=== PATIENT | female | born 1965 | race Caucasian/White ===

== ENCOUNTER → 2016-11-19 | Outpatient (REF) | payer OTHER ==
[2016-11-19 11:34] LABS: MEAN CORPUSCULAR HEMOGLOBIN 29.8 pg (27.0-33.0); MEAN CORPUSCULAR VOLUME 87.8 fl (80.0-96.0); RED CELL DISTRIBUTION WIDTH 13.4 % (11.5-14.5); WHITE BLOOD COUNT 7.2 K/mm3 (4.0-10.0)
[2016-11-19 12:13] LABS: ALBUMIN 3.1 GM/DL (3.2-5.2); ALBUMIN/GLOBULIN RATIO 0.91 (1.00-1.93); ALKALINE PHOSPHATASE 78 U/L (45-117); ALT/SGPT 40 U/L (12-78); ANION GAP 9 MEQ/L (8-16); AST/SGOT 19 U/L (15-37); BILIRUBIN,TOTAL 0.4 MG/DL (0.2-1.0); BLOOD UREA NITROGEN 15 MG/DL (7-18); CALCIUM LEVEL 8.3 MG/DL (8.5-10.1); CARBON DIOXIDE LEVEL 25 MEQ/L (21-32); CHLORIDE LEVEL 106 MEQ/L (98-107); CHOLESTEROL LEVEL 187 MG/DL (<200); CREATININE FOR GFR 0.64 MG/DL (0.55-1.02); FREE T4 1.04 NG/DL (0.76-1.46); GLOMERULAR FILTRATION RATE > 60.0 (>58); GLUCOSE, FASTING 87 MG/DL (70-105); POTASSIUM SERUM 4.5 MEQ/L (3.5-5.1); SODIUM LEVEL 140 MEQ/L (136-145); TOTAL PROTEIN 6.5 GM/DL (6.4-8.2); TRIGLYCERIDES LEVEL 180 MG/DL (<150)
== END ==
LOC: M SFHCADAM 08:13 → M LABDRAWC 08:15
PROVIDERS: ATTEND Physician Assistant
DX: R60.9 Edema, unspecified (principal); E78.2 Mixed hyperlipidemia

== ENCOUNTER → 2017-01-21 | Outpatient (REF) | payer OTHER ==
[~2017-01-21] MED LIST: ASPI1TAB PO; BENA25TA10 PO; GLUC1CAP9 PO; LASI20TA PO; LEVO25TA5; MULT1CHW39 PO
[2017-01-21 12:17] LABS: FREE T4 1.02 NG/DL (0.76-1.46)
== END ==
LOC: M SFHCCLAY 08:01
PROVIDERS: ATTEND Family Medicine
DX: E03.9 Hypothyroidism, unspecified (principal)

== ENCOUNTER → 2017-01-21 | Outpatient (REF) | payer OTHER ==
[2017-01-21 14:41] LABS: COMPLEMENT C4 34.3 MG/DL (10-40); IMMUNOGLOBULIN M 54.5 MG/DL (40-230)
[2017-01-24 08:19] LABS: ALPHA 1 ANTITRYPSIN 152 mg/dL (90-200); D001-IgE D pteronyssinus 0.46 kU/L (Class I); E001-IgE Cat Epith/Dander < 0.10 kU/L (Class 0); E005-IgE Dog Dander < 0.10 kU/L (Class 0); F002-IgE Milk < 0.10 kU/L (Class 0); F013-IgE Peanut < 0.10 kU/L (Class 0); F014-IgE Soybean < 0.10 kU/L (Class 0); F026-IgE Pork < 0.10 kU/L (Class 0); F027-IgE Beef < 0.10 kU/L (Class 0); F245-IgE Egg, Whole < 0.10 kU/L (Class 0); FX02-IgE Food Mix (Sea Foods) Positive (.); G002-IgE Bermuda Grass < 0.10 kU/L (Class 0); G008-IgE Kentucky Bluegrass < 0.10 kU/L (Class 0); M001-IgE Penicillium chrysogen < 0.10 kU/L (Class 0); M002 IgE Cladosporium herbaru < 0.10 kU/L (Class 0); M003 IgE Aspergillus fumigatu < 0.10 kU/L (Class 0); M006-IgE Alternaria alternata < 0.10 kU/L (Class 0); T001-IgE Maple/Box Elder < 0.10 kU/L (Class 0); T003-IgE Common Silver Birch < 0.10 kU/L (Class 0); T007-IgE Oak, White < 0.10 kU/L (Class 0); T008-IgE Elm, American < 0.10 kU/L (Class 0); T015-IgE Ash, White < 0.10 kU/L (Class 0); T041-IgE Hickory, White < 0.10 kU/L (Class 0); W001-IgE Ragweed, Short < 0.10 kU/L (Class 0); W009-IgE Plantain, English < 0.10 kU/L (Class 0); W014-IgE Pigweed, Rough < 0.10 kU/L (Class 0); W018-IgE Sheep Sorrel < 0.10 kU/L (Class 0)
== END ==
LOC: M LAB REF 11:06
PROVIDERS: ATTEND Allergy & Immunology
DX: J30.89 Other allergic rhinitis (principal); R05 Cough

== ENCOUNTER 2017-02-14 20:32 | Emergency (ER) | payer OTHER ==
[~2017-02-14] VITALS: Ht 165.1 cm; Wt 143.2 kg
[2017-02-14] MEDS ORDERED: MULT1CHW39 PO (20:45)
[2017-02-14] MEDS ORDERED: GLUC1CAP9 PO (20:45)
[2017-02-14] MEDS ORDERED: LEVO25TA5 (20:45)
[2017-02-14] MEDS ORDERED: ASPI1TAB PO (20:45)
[2017-02-14] MEDS ORDERED: LASI20TA PO (20:45)
[2017-02-14] MEDS ORDERED: BENA25TA10 PO (20:45)
[2017-02-14] MEDS ORDERED: MORPHINE 2 MG/ML 1ML SYRINGE IV ONE (21:15)
[2017-02-14] MEDS ORDERED: ASPIRIN 325 MG TAB PO ONE (21:15)
[2017-02-14 21:19] LABS: BASO % 0.4 % (0.0-1.0); EOS # 0.2 10^3/uL (0.0-0.50); EOS % 1.4 % (0.0-3.0); IMMATURE GRANULOCYTE % 0.3 % (0-0); LYMPH # 3.2 10^3/uL (1.5-4.5); LYMPH % 29.1 % (24.0-44.0); MEAN CORPUSCULAR HEMOGLOBIN 28.9 pg (27.0-33.0); MEAN CORPUSCULAR VOLUME 87.6 fl (80.0-96.0); MONO # 0.8 10^3/uL (0.0-0.8); MONO % 7.4 % (0.0-5.0); NEUTROPHILS # 6.8 10^3/uL (1.8-7.7); NEUTROPHILS % 61.4 % (36.0-66.0); PLATELET COUNT, AUTOMATED 344 10^3/uL (150-450); RED CELL DISTRIBUTION WIDTH 13.3 % (11.5-14.5); WHITE BLOOD COUNT 11.1 10^3/uL (4.0-10.0)
[2017-02-14 21:27] LABS: ANION GAP 7 MEQ/L (8-16); BLOOD UREA NITROGEN 17 MG/DL (7-18); CALCIUM LEVEL 8.5 MG/DL (8.5-10.1); CARBON DIOXIDE LEVEL 30 MEQ/L (21-32); CHLORIDE LEVEL 103 MEQ/L (98-107); CREATININE FOR GFR 0.82 MG/DL (0.55-1.02); GLOMERULAR FILTRATION RATE > 60.0 (>58); GLUCOSE, FASTING 109 MG/DL (70-105); SODIUM LEVEL 140 MEQ/L (136-145)
[2017-02-14 21:30] LABS: INR 0.9
[2017-02-14] MEDS ORDERED: ISOVUE-370 76% 100ML VIAL (Q9967) As Ordered ONE (21:55)
--- NOTE | 2017-02-14 22:50 | REPUSA ---
CT angiogram of the chest Clinical statement: Chest pain and shortness of breath. Technique: Multiple axial CT images were obtained from the thoracic inlet through the upper abdomen a fter a bolus administration of nonionic intravenous contrast. Coronal and sagittal reconstructions we re also obtained. No comparison is available. Findings: The pulmonary arteries are well-opacified with contrast, with no intraluminal filling defec ts to suggest embolism. The thoracic aorta is unremarkable. Thyroid gland is within normal limits. Th ere is no thoracic lymphadenopathy. There are no pericardial or pleural effusions. The lungs are татьяна r. Limited imaging of the upper abdomen is unremarkable. There are no suspicious osseous lesions. Impression: Unremarkable CT examination of the chest. No evidence of pulmonary embolism.
[2017-02-15] MEDS ORDERED: KETOROLAC 30 MG/ML VIAL (J1885) IV ONE (00:15)
[2017-02-15 03:09] VITALS: BP 117/57
[2017-02-15] MEDS ORDERED: GI COCKTAIL 50ML BTL(HYOSCYAMINE/MAALOX/LIDOCAINE VISCOUS)(1:3:1) PO ONE (03:15)
--- NOTE | 2017-02-15 07:22 | ECGEPIP ---
Stationary ECG Study 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
--- NOTE | 2017-02-15 07:26 | ECGEPIP ---
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
== END 2017-02-15 03:37 | disposition home or self-care (01) ==
LOC: M ED 20:32
DX: R07.89 Other chest pain (principal); R94.31 Abnormal electrocardiogram [ECG] [EKG]; I10 Essential (primary) hypertension; E03.9 Hypothyroidism, unspecified; K21.9 Gastro-esophageal reflux disease without esophagitis; E66.01 Morbid (severe) obesity due to excess calories; Z87.891 Personal history of nicotine dependence; Z79.82 Long term (current) use of aspirin; Z79.899 Other long term (current) drug therapy; Z88.1 Allergy status to other antibiotic agents
CPT/HCPCS: 71275; 80048; 82550; 82553; 85025; 85610; 85730; 93000; 96374; 96375; 99285; J1885; Q9967

== ENCOUNTER → 2017-02-19 | Outpatient (REF) | payer OTHER ==
[2017-02-19 19:31] LABS: BASO # 0.1 10^3/uL (0.0-0.2); BASO % 0.5 % (0.0-1.0); EOS # 0.1 10^3/uL (0.0-0.50); EOS % 1.1 % (0.0-3.0); IMMATURE GRANULOCYTE % 0.4 % (0-0); LYMPH # 2.7 10^3/uL (1.5-4.5); LYMPH % 25.2 % (24.0-44.0); MEAN CORPUSCULAR HEMOGLOBIN 28.8 pg (27.0-33.0); MEAN CORPUSCULAR HGB CONC 32.7 g/dl (32.0-36.5); MONO # 0.7 10^3/uL (0.0-0.8); MONO % 6.7 % (0.0-5.0); NEUTROPHILS # 7.1 10^3/uL (1.8-7.7); NEUTROPHILS % 66.1 % (36.0-66.0); PLATELET COUNT, AUTOMATED 361 10^3/uL (150-450); RED CELL DISTRIBUTION WIDTH 13.2 % (11.5-14.5); WHITE BLOOD COUNT 10.7 10^3/uL (4.0-10.0)
[2017-02-19 19:54] LABS: ALBUMIN 3.3 GM/DL (3.2-5.2); ALBUMIN/GLOBULIN RATIO 0.92 (1.00-1.93); ALKALINE PHOSPHATASE 93 U/L (45-117); ALT/SGPT 28 U/L (12-78); AMYLASE 39 U/L (25-115); ANION GAP 4 MEQ/L (8-16); AST/SGOT 12 U/L (7-37); BILIRUBIN,TOTAL 0.2 MG/DL (0.2-1.0); BLOOD UREA NITROGEN 15 MG/DL (7-18); CARBON DIOXIDE LEVEL 33 MEQ/L (21-32); CHLORIDE LEVEL 101 MEQ/L (98-107); CREATININE FOR GFR 0.69 MG/DL (0.55-1.02); GLOMERULAR FILTRATION RATE > 60.0 (>58); GLUCOSE, FASTING 85 MG/DL (70-105); POTASSIUM SERUM 3.8 MEQ/L (3.5-5.1); SODIUM LEVEL 138 MEQ/L (136-145); TOTAL PROTEIN 6.9 GM/DL (6.4-8.2)
== END ==
LOC: M SFHCADAM 14:36
PROVIDERS: ATTEND Physician Assistant
DX: R10.13 Epigastric pain (principal)

== ENCOUNTER → 2017-02-21 | Outpatient (CLI) | payer OTHER ==
--- NOTE | 2017-02-21 10:15 | REP ---
Clinical: Epigastric pain. Technique: Franco scale ultrasound using curved array transducer. Findings: The liver demonstrates diffuse fatty infiltration with focal fatty sparing. The pancreas is normal in contour, size, and echogenicity without focal pancreatic lesions identified. The gallbladder is normal without gallstones, wall thickening or pericholecystic fluid. No biliary ductal dilatation is appreciated, and the common bile duct measures 4.0 mm diameter. The right kidney is normal in reniform shape without hydronephrosis and measures 10.7 x 7.1 x 4.4 cm with evidence to suggest renal vascular calcifications. No ascites. Visualized portions of the abdominal aorta normal. Impression: 1. Hepatic steatosis with focal fatty sparing and no focal hepatic lesion identified. 2. Findings to suggest renal vascular calcifications. Signed by Alek Malone MD 02/21/2017 10:07 A
== END ==
LOC: M RAD 09:23
PROVIDERS: ATTEND Physician Assistant
DX: R10.13 Epigastric pain (principal)

== ENCOUNTER → 2017-03-20 | Outpatient (REF) | payer OTHER | LOC: M SFHCWAGY 08:59 | PROVIDERS: ATTEND Nurse Practitioner Family | DX: Z12.4 Encounter for screening for malignant neoplasm of cervix (principal); N88.0 Leukoplakia of cervix uteri ==

== ENCOUNTER → 2017-03-20 | Outpatient (CLI) | payer OTHER ==
--- NOTE | 2017-03-20 10:27 | REP ---
Bilateral screening digital mammogram: There are no palpable abnormalities or other breast complaints. The patient states she had a clinical breast exam 03/2017. Comparison is 12/11/2010. The breast parenchyma is predominately adipose, unchanged. There has been no interval development of masses, areas of structural distortion or clusters of microcalcifications typical of malignancy. Impression: There is no evidence of malignancy.BIRADS category 1 negative mammogram. The patient should have a repeat mammogram in 1 year. This mammogram was interpreted with the aid of an FDA-approved computer-aided detection system. Not all breast cancers are identified by x-ray. The patient letter being requested is M1. Signed by Jose A Vargas MD 03/20/2017 10:52 A
== END ==
LOC: M WHC 08:03
PROVIDERS: ATTEND Nurse Practitioner Family
DX: Z12.31 Encounter for screening mammogram for malignant neoplasm of breast (principal)

== ENCOUNTER → 2017-08-20 | Outpatient (REF) | payer OTHER ==
[2017-08-20 17:59] LABS: BASO % 0.6 % (0.0-1.0); EOS # 0.1 10^3/uL (0.0-0.50); EOS % 1.9 % (0.0-3.0); HEMATOCRIT 42.7 % (36.0-47.0); HEMOGLOBIN 14.2 g/dl (12.0-15.5); IMMATURE GRANULOCYTE % 0.2 % (0-3.0); LYMPH # 1.8 10^3/uL (1.5-4.5); LYMPH % 28.7 % (24.0-44.0); MEAN CORPUSCULAR HEMOGLOBIN 28.9 pg (27.0-33.0); MEAN CORPUSCULAR HGB CONC 33.3 g/dl (32.0-36.5); MONO # 0.5 10^3/uL (0.0-0.8); MONO % 7.6 % (0.0-5.0); NEUTROPHILS # 3.8 10^3/uL (1.8-7.7); PLATELET COUNT, AUTOMATED 359 10^3/uL (150-450); RED BLOOD COUNT 4.91 10^6/uL (4.00-5.40); RED CELL DISTRIBUTION WIDTH 14.3 % (11.5-14.5); WHITE BLOOD COUNT 6.3 10^3/uL (4.0-10.0)
[2017-08-20 18:36] LABS: ALBUMIN 3.7 GM/DL (3.2-5.2); ALBUMIN/GLOBULIN RATIO 1.16 (1.00-1.93); ALKALINE PHOSPHATASE 69 U/L (45-117); ALT/SGPT 28 U/L (12-78); ANION GAP 7 MEQ/L (8-16); AST/SGOT 18 U/L (7-37); BILIRUBIN,TOTAL 0.4 MG/DL (0.2-1.0); BLOOD UREA NITROGEN 11 MG/DL (7-18); CALCIUM LEVEL 9.1 MG/DL (8.5-10.1); CARBON DIOXIDE LEVEL 27 MEQ/L (21-32); CHLORIDE LEVEL 107 MEQ/L (98-107); CREATININE FOR GFR 0.66 MG/DL (0.55-1.30); FERRITIN 125 NG/ML (8-252); GLOMERULAR FILTRATION RATE > 60.0 (>58); GLUCOSE, FASTING 93 MG/DL (70-100); IRON (FE) 49 UG/DL (50-170); PERCENT SATURATION 19.6 % (13.2-45.0); PHOSPHORUS LEVEL 3.7 MG/DL (2.5-4.9); SODIUM LEVEL 141 MEQ/L (136-145); TOTAL IRON BINDING CAPACITY 250 UG/DL (250-450); TOTAL PROTEIN 6.9 GM/DL (6.4-8.2)
[2017-08-20 19:03] LABS: TOTAL 25(OH) VITAMIN D 24.5 NG/ML (30.0-100.0); VITAMIN B12 LEVEL 1462 PG/ML (247-911)
[2017-08-20 19:33] LABS: ESTIMATED AVERAGE GLUCOSE 103 MG/DL (60-110); HEMOGLOBIN A1c 5.2 %
[2017-08-20 21:12] LABS: HEMATOCRIT 42.7 % (36.0-47.0)
[2017-08-22 12:06] LABS: PRETREATED FOLATE FOR RBCFOL 14.1 NG/ML; RBC FOLATE 693.4 NG/ML (280-791)
[2017-08-26 00:07] LABS: VITAMIN B1 LEVEL WHOLE BLOOD 115.6 nmol/L (66.5-200.0)
== END ==
LOC: M LAB REF 17:45
DX: K91.2 Postsurgical malabsorption, not elsewhere classified (principal); E55.9 Vitamin D deficiency, unspecified; Z98.84 Bariatric surgery status

== ENCOUNTER → 2017-09-30 | Outpatient (CLI) | payer OTHER | LOC: M WHC 13:39 | DX: N92.1 Excessive and frequent menstruation with irregular cycle (principal) | CPT/HCPCS: 76830 ==

== ENCOUNTER 2017-10-09 11:17 | Emergency (ER) | payer OTHER ==
[2017-10-09] MEDS: ONDANSETRON 4MG/2ML VIAL (J2405) IV (13:46)
[2017-10-09] MEDS: NS 1,000 ML IV (13:47)
[2017-10-09 13:52] LABS: BASO % 0.4 % (0.0-1.0); EOS # 0.1 10^3/uL (0.0-0.50); EOS % 0.8 % (0.0-3.0); HEMOGLOBIN 13.8 g/dl (12.0-15.5); IMMATURE GRANULOCYTE % 0.1 % (0-3.0); LYMPH # 1.7 10^3/uL (1.5-4.5); LYMPH % 21.8 % (24.0-44.0); MEAN CORPUSCULAR HEMOGLOBIN 28.9 pg (27.0-33.0); MEAN CORPUSCULAR HGB CONC 33.7 g/dl (32.0-36.5); MONO # 0.5 10^3/uL (0.0-0.8); MONO % 6.7 % (0.0-5.0); NEUTROPHILS # 5.3 10^3/uL (1.8-7.7); NEUTROPHILS % 70.2 % (36.0-66.0); PLATELET COUNT, AUTOMATED 311 10^3/uL (150-450); RED BLOOD COUNT 4.77 10^6/uL (4.00-5.40); RED CELL DISTRIBUTION WIDTH 14.6 % (11.5-14.5); WHITE BLOOD COUNT 7.6 10^3/uL (4.0-10.0)
[2017-10-09 14:00] LABS: CONTROL LINE HCG INT CTR LINE PRESENT; HCG, SERUM QUALITATIVE NEGATIVE (NEGATIVE)
[2017-10-09 14:07] LABS: ALBUMIN/GLOBULIN RATIO 0.86 (1.00-1.93); ALKALINE PHOSPHATASE 141 U/L (45-117); ALT/SGPT 60 U/L (12-78); ANION GAP 9 MEQ/L (8-16); AST/SGOT 79 U/L (7-37); BILIRUBIN,DIRECT 0.2 MG/DL (0.0-0.2); BILIRUBIN,TOTAL 0.4 MG/DL (0.2-1.0); BLOOD UREA NITROGEN 10 MG/DL (7-18); CALCIUM LEVEL 8.4 MG/DL (8.5-10.1); CARBON DIOXIDE LEVEL 25 MEQ/L (21-32); CHLORIDE LEVEL 107 MEQ/L (98-107); CREATININE FOR GFR 0.53 MG/DL (0.55-1.30); GLOMERULAR FILTRATION RATE > 60.0 (>51); GLUCOSE, FASTING 86 MG/DL (70-100); LIPASE 111 U/L (73-393); POTASSIUM SERUM 4.1 MEQ/L (3.5-5.1); SODIUM LEVEL 141 MEQ/L (136-145); TOTAL PROTEIN 6.5 GM/DL (6.4-8.2)
[2017-10-09] MEDS: ADACEL/BOOSTRIX VACCINE (DIPHTH/PERTUSS/ACELL/TETANUS)0.5ML SYR (90715) IM (14:39)
[2017-10-09 14:53] LABS: KETONE, URINE AUTO RFX 1+ mg/dL (NEGATIVE); LEUKOCYTE ESTERASE UR AUTO RFX NEGATIVE (NEGATIVE); MUCUS, URINE RFX LARGE (NEGATIVE); NITRITE, URINE AUTO RFX NEGATIVE (NEGATIVE); RBC, URINE AUTO RFX 2 /HPF (0-3); SPECIFIC GRAVITY UR AUTO RFX 1.027 (1.002-1.035); SQUAM EPITHELIAL CELL UR AURFX 1 /HPF (0-6)
[2017-10-09 14:54] LABS: WBC, URINE AUTO RFX 11 /HPF (0-3)
== END 2017-10-09 15:31 | disposition home or self-care (01) ==
LOC: M ED 11:17
DX: A08.4 Viral intestinal infection, unspecified (principal); E86.0 Dehydration; E88.09 Other disorders of plasma-protein metabolism, not elsewhere classified; M54.5 Low back pain; G89.29 Other chronic pain; K21.9 Gastro-esophageal reflux disease without esophagitis; I50.9 Heart failure, unspecified; E07.9 Disorder of thyroid, unspecified; Z91.81 History of falling; N28.9 Disorder of kidney and ureter, unspecified; Z98.84 Bariatric surgery status; Z88.8 Allergy status to other drugs, medicaments and biological substances; Z79.899 Other long term (current) drug therapy
CPT/HCPCS: 90715

== ENCOUNTER → 2017-10-14 | Outpatient (CLI) | payer OTHER | LOC: M WUC 09:12 | DX: M25.561 Pain in right knee (principal) | CPT/HCPCS: 73564 ==

== ENCOUNTER 2017-10-20 09:01 | Outpatient (RCR) | payer OTHER | END 2017-11-04 | LOC: M PT 09:01 | DX: Z51.89 Encounter for other specified aftercare (principal); M54.16 Radiculopathy, lumbar region; M70.61 Trochanteric bursitis, right hip; M70.62 Trochanteric bursitis, left hip | CPT/HCPCS: 97010 ==

== ENCOUNTER → 2017-10-31 | Outpatient (CLI) | payer OTHER ==
[~2017-10-31] MED LIST changes: -ASPI1TAB PO; -BENA25TA10 PO; +GASTROGRAFIN SOLUTION 30ML (Q9963) As Ordered; -GLUC1CAP9 PO; +ISOVUE-370 76% 100ML VIAL (Q9967) As Ordered; -LASI20TA PO; -LEVO25TA5; -MULT1CHW39 PO
== END ==
LOC: M RAD 13:51
DX: R10.33 Periumbilical pain (principal); K91.872 Postprocedural seroma of a digestive system organ or structure following a digestive system procedure; D25.9 Leiomyoma of uterus, unspecified; K57.30 Diverticulosis of large intestine without perforation or abscess without bleeding; Z98.84 Bariatric surgery status
CPT/HCPCS: Q9963

== ENCOUNTER 2017-11-11 09:16 | Outpatient (RCR) | payer OTHER | END 2017-12-05 | LOC: M PT 09:16 | DX: Z51.89 Encounter for other specified aftercare (principal); M54.16 Radiculopathy, lumbar region; M70.61 Trochanteric bursitis, right hip; M70.62 Trochanteric bursitis, left hip | CPT/HCPCS: 97010 ==

== ENCOUNTER → 2018-01-05 | Outpatient (CLI) | payer OTHER ==
[2018-01-05 13:13] LABS: BASO % 0.4 % (0.0-1.0); EOS # 0.1 10^3/uL (0.0-0.50); EOS % 0.7 % (0.0-3.0); HEMATOCRIT 40.8 % (36.0-47.0); HEMOGLOBIN 13.6 g/dl (12.0-15.5); IMMATURE GRANULOCYTE % 0.3 % (0-3.0); LYMPH # 1.9 10^3/uL (1.5-4.5); MEAN CORPUSCULAR HEMOGLOBIN 29.3 pg (27.0-33.0); MEAN CORPUSCULAR HGB CONC 33.3 g/dl (32.0-36.5); MEAN CORPUSCULAR VOLUME 87.9 fl (80.0-96.0); MONO # 0.3 10^3/uL (0.0-0.8); MONO % 4.5 % (0.0-5.0); NEUTROPHILS # 5.2 10^3/uL (1.8-7.7); NEUTROPHILS % 69.1 % (36.0-66.0); PLATELET COUNT, AUTOMATED 335 10^3/uL (150-450); RED BLOOD COUNT 4.64 10^6/uL (4.00-5.40); WHITE BLOOD COUNT 7.5 10^3/uL (4.0-10.0)
[2018-01-05 13:16] LABS: HEMATOCRIT 40.8 % (36.0-47.0)
[2018-01-05 13:54] LABS: ALBUMIN/GLOBULIN RATIO 0.94 (1.00-1.93); ALKALINE PHOSPHATASE 59 U/L (45-117); ALT/SGPT 26 U/L (12-78); ANION GAP 7 MEQ/L (8-16); AST/SGOT 16 U/L (7-37); BILIRUBIN,TOTAL 0.3 MG/DL (0.2-1.0); BLOOD UREA NITROGEN 8 MG/DL (7-18); CALCIUM LEVEL 8.4 MG/DL (8.5-10.1); CARBON DIOXIDE LEVEL 28 MEQ/L (21-32); CHLORIDE LEVEL 106 MEQ/L (98-107); CREATININE FOR GFR 0.68 MG/DL (0.55-1.30); FERRITIN 175 NG/ML (8-252); GLOMERULAR FILTRATION RATE > 60.0 (>51); GLUCOSE, FASTING 96 MG/DL (70-100); IRON (FE) 61 UG/DL (50-170); MAGNESIUM LEVEL 1.7 MG/DL (1.8-2.4); PERCENT SATURATION 21.6 % (13.2-45.0); PHOSPHORUS LEVEL 3.6 MG/DL (2.5-4.9); POTASSIUM SERUM 4.4 MEQ/L (3.5-5.1); SODIUM LEVEL 141 MEQ/L (136-145); TOTAL IRON BINDING CAPACITY 283 UG/DL (250-450); TOTAL PROTEIN 6.2 GM/DL (6.4-8.2)
[2018-01-05 14:24] LABS: ESTIMATED AVERAGE GLUCOSE 103 MG/DL (60-110); HEMOGLOBIN A1c 5.2 %
[2018-01-05 14:27] LABS: TOTAL 25(OH) VITAMIN D 43.5 NG/ML (30.0-100.0)
[2018-01-06 11:40] LABS: PRETREATED FOLATE FOR RBCFOL 13.4 NG/ML; RBC FOLATE 689.7 NG/ML (280-791)
== END ==
LOC: M LAB 12:25
DX: K91.2 Postsurgical malabsorption, not elsewhere classified (principal); E55.9 Vitamin D deficiency, unspecified; Z98.84 Bariatric surgery status
CPT/HCPCS: 83550

== ENCOUNTER → 2018-03-05 | Outpatient (REF) | payer OTHER ==
[2018-03-05 13:03] LABS: HEMATOCRIT 42.5 % (36.0-47.0); MEAN CORPUSCULAR HEMOGLOBIN 29.6 pg (27.0-33.0); MEAN CORPUSCULAR HGB CONC 32.9 g/dl (32.0-36.5); MEAN CORPUSCULAR VOLUME 89.9 fl (80.0-96.0); PLATELET COUNT, AUTOMATED 303 10^3/uL (150-450); RED BLOOD COUNT 4.73 10^6/uL (4.00-5.40); RED CELL DISTRIBUTION WIDTH 13.3 % (11.5-14.5); WHITE BLOOD COUNT 7.2 10^3/uL (4.0-10.0)
[2018-03-05 13:40] LABS: ANION GAP 8 MEQ/L (8-16); BLOOD UREA NITROGEN 10 MG/DL (7-18); CALCIUM LEVEL 8.3 MG/DL (8.5-10.1); CARBON DIOXIDE LEVEL 27 MEQ/L (21-32); CHLORIDE LEVEL 103 MEQ/L (98-107); CREATININE FOR GFR 0.56 MG/DL (0.55-1.30); GLOMERULAR FILTRATION RATE > 60.0 (>51); GLUCOSE, FASTING 76 MG/DL (70-100); POTASSIUM SERUM 4.5 MEQ/L (3.5-5.1); SODIUM LEVEL 138 MEQ/L (136-145)
[2018-03-05 13:53] LABS: FREE T4 1.05 NG/DL (0.76-1.46)
== END ==
LOC: M SFHCADAM 10:47
DX: L65.9 Nonscarring hair loss, unspecified (principal)

== ENCOUNTER 2018-03-13 08:13 | Day surgery (SDC) | payer OTHER ==
[2018-03-13] MEDS: LR 1,000 ML IV ×3 (08:30→14:15)
[2018-03-13 08:44] LABS: HEMATOCRIT 44.1 % (36.0-47.0); HEMOGLOBIN 14.5 g/dl (12.0-15.5); MEAN CORPUSCULAR HEMOGLOBIN 29.5 pg (27.0-33.0); MEAN CORPUSCULAR HGB CONC 32.9 g/dl (32.0-36.5); MEAN CORPUSCULAR VOLUME 89.8 fl (80.0-96.0); PLATELET COUNT, AUTOMATED 322 10^3/uL (150-450); RED BLOOD COUNT 4.91 10^6/uL (4.00-5.40); RED CELL DISTRIBUTION WIDTH 13.5 % (11.5-14.5); WHITE BLOOD COUNT 7.2 10^3/uL (4.0-10.0)
[2018-03-13] MEDS ORDERED: PROPOFOL 200 MG/20 ML VIAL As Ordered (09:20)
[2018-03-13] MEDS ORDERED: LIDOCAINE 2% INJ 100 MG/5 ML SDV (FOR ANES.) As Ordered (09:20)
[2018-03-13] MEDS ORDERED: dexameTHASONE 4 MG/ML 1ML VIAL (J1100) As Ordered (09:20)
[2018-03-13] MEDS ORDERED: ROCURONIUM BROMIDE 50 MG/5 ML VIAL As Ordered (09:20)
[2018-03-13] MEDS ORDERED: ONDANSETRON 4MG/2ML VIAL (J2405) As Ordered (09:20)
[2018-03-13] MEDS ORDERED: fentaNYL 250 MCG/5 ML INJECTION (J3010) As Ordered (09:21)
[2018-03-13] MEDS ORDERED: MIDAZOLAM INJ 2 MG/2 ML VIAL (J2250) As Ordered (09:22)
[2018-03-13 09:57] LABS: CONTROL LINE UCG INT CTR LINE PRESENT; URINE PREG TEST NEGATIVE (NEGATIVE)
[2018-03-13] MEDS: METHYLENE BLUE 0.5% (5MG/ML) 10 ML AMP (PROVAYBLUE)(Q9968 PER 1MG) As Ordered (09:57)
[2018-03-13] MEDS ORDERED: ePHEDrine SULFATE 25 MG/5 ML(5MG/ML) SYRINGE As Ordered (10:36)
[2018-03-13] MEDS: BUPIVACAINE HCL 0.25% 30 ML VIAL As Ordered (11:00)
[2018-03-13] MEDS ORDERED: NEOSTIGMINE 10 MG/10 ML VIAL (J2710) As Ordered (11:37)
[2018-03-13] MEDS ORDERED: GLYCOPYRROLATE INJ 0.2 MG/ML 2 ML VIAL As Ordered (11:37)
[2018-03-13] MEDS ORDERED: HYDROmorphone HCL 2 MG/ML 1ML VIAL (J1170) As Ordered (11:37)
[2018-03-13] MEDS ORDERED: SEVOFLURANE INHAL SOLN 250 ML BTL As Ordered (11:55)
[2018-03-13] MEDS ORDERED: ESMOLOL INJ 100MG/10ML VIAL As Ordered (12:24)
[2018-03-13] MEDS ORDERED: PERCOCET 5MG/325MG TAB PO (14:15)
[2018-03-13] MEDS ORDERED: MORPHINE 4 MG/ML 1ML VIAL/SYRINGE (J2270) IV (14:15)
[2018-03-13] MEDS ORDERED: ONDANSETRON 4MG/2ML VIAL (J2405) IV (14:15)
[2018-03-13] MEDS ORDERED: HYDROMORPHONE HCL 0.5 MG/ 0.5 ML SYRINGE (J1170 PER 1) IV (14:15)
[2018-03-13] MEDS: fentaNYL 100 MCG/2 ML INJECTION (J3010) IV ×2 (14:35→14:40)
[2018-03-13] MEDS: PERCOCET 5MG/325MG TAB PO ×2 (14:35→19:25)
[2018-03-14] MEDS: PERCOCET 5MG/325MG TAB PO ×3 (01:23→11:40)
[2018-03-14 05:51] LABS: HEMATOCRIT 35.1 % (36.0-47.0); MEAN CORPUSCULAR HEMOGLOBIN 29.8 pg (27.0-33.0); MEAN CORPUSCULAR HGB CONC 34.2 g/dl (32.0-36.5); MEAN CORPUSCULAR VOLUME 87.1 fl (80.0-96.0); PLATELET COUNT, AUTOMATED 269 10^3/uL (150-450); RED BLOOD COUNT 4.03 10^6/uL (4.00-5.40); RED CELL DISTRIBUTION WIDTH 13.3 % (11.5-14.5); WHITE BLOOD COUNT 14.3 10^3/uL (4.0-10.0)
[2018-03-14] MEDS: PROMETHAZINE INJ 25 MG/ML VIAL (J2550) IV (08:36)
[2018-03-14] MEDS ORDERED: SIMETHICONE 80 MG CHEW TAB PO (10:15)
== END 2018-03-14 14:10 | disposition home or self-care (01) ==
LOC: M SDC 08:13 → M MSPAV 15:40
DX: D25.9 Leiomyoma of uterus, unspecified (principal); N80.0 Endometriosis of uterus; I20.9 Angina pectoris, unspecified; E03.9 Hypothyroidism, unspecified; M12.9 Arthropathy, unspecified; M70.61 Trochanteric bursitis, right hip; M70.62 Trochanteric bursitis, left hip; J45.909 Unspecified asthma, uncomplicated; G43.909 Migraine, unspecified, not intractable, without status migrainosus; G47.33 Obstructive sleep apnea (adult) (pediatric); E66.9 Obesity, unspecified; Z68.37 Body mass index [BMI] 37.0-37.9, adult; Z88.1 Allergy status to other antibiotic agents; Z88.8 Allergy status to other drugs, medicaments and biological substances; Z79.899 Other long term (current) drug therapy; Z98.84 Bariatric surgery status; Z87.891 Personal history of nicotine dependence
CPT/HCPCS: 58573

== ENCOUNTER 2018-03-15 17:44 | Observation (INO) | payer OTHER ==
[2018-03-15] MEDS: METOCLOPRAMIDE INJ 10MG/2ML VIAL (J2765) IV (18:24)
[2018-03-15] MEDS: NS 1,000 ML IV ×3 (18:24→23:48)
[2018-03-15] MEDS ORDERED: GASTROGRAFIN SOLUTION 30ML (Q9963) As Ordered (18:25)
[2018-03-15] MEDS: MORPHINE 4 MG/ML 1ML VIAL/SYRINGE (J2270) IV (18:25)
[2018-03-15 18:31] LABS: BASO % 0.2 % (0.0-1.0); EOS # 0.1 10^3/uL (0.0-0.50); EOS % 0.5 % (0.0-3.0); HEMATOCRIT 42.9 % (36.0-47.0); IMMATURE GRANULOCYTE % 0.3 % (0-3.0); LYMPH # 1.4 10^3/uL (1.5-4.5); LYMPH % 11.7 % (24.0-44.0); MEAN CORPUSCULAR HEMOGLOBIN 29.8 pg (27.0-33.0); MEAN CORPUSCULAR HGB CONC 33.6 g/dl (32.0-36.5); MEAN CORPUSCULAR VOLUME 88.6 fl (80.0-96.0); MONO # 0.6 10^3/uL (0.0-0.8); MONO % 5.2 % (0.0-5.0); NEUTROPHILS # 9.5 10^3/uL (1.8-7.7); NEUTROPHILS % 82.1 % (36.0-66.0); PLATELET COUNT, AUTOMATED 335 10^3/uL (150-450); RED BLOOD COUNT 4.84 10^6/uL (4.00-5.40); RED CELL DISTRIBUTION WIDTH 13.2 % (11.5-14.5); WHITE BLOOD COUNT 11.5 10^3/uL (4.0-10.0)
[2018-03-15 18:37] LABS: ALBUMIN 2.9 GM/DL (3.2-5.2); ALBUMIN/GLOBULIN RATIO 0.85 (1.00-1.93); ALKALINE PHOSPHATASE 52 U/L (45-117); ALT/SGPT 17 U/L (12-78); ANION GAP 11 MEQ/L (8-16); AST/SGOT 12 U/L (7-37); BILIRUBIN,TOTAL 0.4 MG/DL (0.2-1.0); BLOOD UREA NITROGEN 6 MG/DL (7-18); CALCIUM LEVEL 8.5 MG/DL (8.5-10.1); CARBON DIOXIDE LEVEL 23 MEQ/L (21-32); CHLORIDE LEVEL 103 MEQ/L (98-107); CREATININE FOR GFR 0.52 MG/DL (0.55-1.30); GLOMERULAR FILTRATION RATE > 60.0 (>51); GLUCOSE, FASTING 98 MG/DL (70-100); LIPASE 66 U/L (73-393); POTASSIUM SERUM 3.9 MEQ/L (3.5-5.1); SODIUM LEVEL 137 MEQ/L (136-145); TOTAL PROTEIN 6.3 GM/DL (6.4-8.2)
[2018-03-15 18:48] LABS: HEMOGLOBIN 14.4 g/dl (12.0-15.5)
[2018-03-15] MEDS: GASTROGRAFIN SOLUTION 30ML PO ×2 (18:55→19:30)
[2018-03-15 19:06] LABS: ERYTHROCYTE SEDIMENTATION RATE 29 mm/hr (0-30)
[2018-03-15] MEDS: HYDROMORPHONE HCL 0.5 MG/ 0.5 ML SYRINGE (J1170 PER 1) IV ×3 (19:15→22:55)
[2018-03-15] MEDS: ONDANSETRON 4MG/2ML VIAL (J2405) IV (19:30)
[2018-03-15 19:41] LABS: KETONE, URINE AUTO RFX 1+ mg/dL (NEGATIVE); MUCUS, URINE RFX SMALL (NEGATIVE); NITRITE, URINE AUTO RFX NEGATIVE (NEGATIVE); RBC, URINE AUTO RFX 21 /HPF (0-3); SPECIFIC GRAVITY UR AUTO RFX 1.019 (1.002-1.035); SQUAM EPITHELIAL CELL UR AURFX 3 /HPF (0-6)
[2018-03-15 19:47] LABS: LEUKOCYTE ESTERASE UR AUTO RFX 1+ (NEGATIVE); WBC, URINE AUTO RFX 35 /HPF (0-3)
[2018-03-15] MEDS ORDERED: ISOVUE-370 76% 100ML VIAL (Q9967) As Ordered (19:55)
[2018-03-15] MEDS: KETOROLAC 30 MG/ML VIAL (J1885) IV (21:30)
[2018-03-15] MEDS ORDERED: PROMETHAZINE INJ 25 MG/ML VIAL (J2550) IV (22:00)
[2018-03-15] MEDS ORDERED: diphenhydrAMINE INJ 50MG/ML VIAL (J1200) IV (22:00)
[2018-03-15] MEDS ORDERED: EPIDURAL/PCA KEYS XX (22:00)
[2018-03-15] MEDS ORDERED: NALBUPHINE HCL 10 MG/ML AMP (J2300) IV (22:00)
[2018-03-15] MEDS: PIPERACILLIN/TAZOBACTAM SOD 3.375 GM in D5W MINI-BAG PLUS 50 ML IV (22:00)
[2018-03-15] MEDS ORDERED: NALOXONE INJ 0.4 MG/1 ML VIAL (J2310) IV (22:00)
[2018-03-15] MEDS: MORPHINE 1MG/ML IN 0.9% NACL 100ML IV BAG IV (23:49)
[2018-03-16] MEDS: PIPERACILLIN/TAZOBACTAM SOD 3.375 GM in D5W MINI-BAG PLUS 50 ML IV ×4 (00:31→17:29)
[2018-03-16] MEDS: SIMETHICONE 80 MG CHEW TAB PO ×5 (00:39→20:09)
[2018-03-16] MEDS: OMEPRAZOLE 20 MG CAP PO ×3 (00:39→20:09)
[2018-03-16] MEDS: diphenhydrAMINE 25 MG CAP PO ×2 (00:40→20:08)
[2018-03-16] MEDS: KETOROLAC 30 MG/ML VIAL (J1885) IV (06:34)
[2018-03-16] MEDS: LEVOTHYROXINE 25MCG TABLET (0.025MG) PO (06:49)
[2018-03-16] MEDS: DOCUSATE SODIUM 100 MG CAP PO (08:13)
[2018-03-16] MEDS: LORATADINE 10 MG TAB PO (08:13)
[2018-03-16] MEDS: CYANOCOBALAMIN 500 MCG TAB PO (08:13)
[2018-03-16] MEDS: VITAMIN D 1,000 INTERNATIONAL UNITS TABLET PO ×2 (08:13→11:43)
[2018-03-16] MEDS: OMEGA-3 1000MG CAPSULE PO (08:14)
[2018-03-16 08:27] LABS: MEAN CORPUSCULAR HEMOGLOBIN 29.8 pg (27.0-33.0); MEAN CORPUSCULAR HGB CONC 33.2 g/dl (32.0-36.5); MEAN CORPUSCULAR VOLUME 89.6 fl (80.0-96.0); PLATELET COUNT, AUTOMATED 258 10^3/uL (150-450); RED BLOOD COUNT 4.13 10^6/uL (4.00-5.40); RED CELL DISTRIBUTION WIDTH 13.2 % (11.5-14.5); WHITE BLOOD COUNT 10.5 10^3/uL (4.0-10.0)
[2018-03-16 08:29] LABS: HEMOGLOBIN 12.3 g/dl (12.0-15.5)
[2018-03-16] MEDS: PRENATAL VITAMINS CHEWABLE TABLET PO (09:00)
[2018-03-16] MEDS ORDERED: LEVOTHYROXINE 25MCG TABLET (0.025MG) PO (09:00)
[2018-03-16] MEDS: PERCOCET 5MG/325MG TAB PO ×3 (10:09→19:16)
[2018-03-16] MEDS: ONDANSETRON 4 MG ORAL DISINTEGRATING TAB (Q0162 PER 1MG) PO (10:18)
[2018-03-16] MEDS: CALCIUM/VITAMIN D 250 MG TABLET PO ×2 (11:43→20:09)
[2018-03-17] MEDS: PERCOCET 5MG/325MG TAB PO ×2 (00:06→06:30)
[2018-03-17] MEDS: PIPERACILLIN/TAZOBACTAM SOD 3.375 GM in D5W MINI-BAG PLUS 50 ML IV ×2 (06:31)
[2018-03-17] MEDS: LEVOTHYROXINE 25MCG TABLET (0.025MG) PO (06:31)
[2018-03-17] MEDS: OMEGA-3 1000MG CAPSULE PO (08:06)
[2018-03-17] MEDS: CALCIUM/VITAMIN D 250 MG TABLET PO (08:06)
[2018-03-17] MEDS: CYANOCOBALAMIN 500 MCG TAB PO (08:07)
[2018-03-17] MEDS: VITAMIN D 1,000 INTERNATIONAL UNITS TABLET PO (08:07)
[2018-03-17] MEDS: LORATADINE 10 MG TAB PO (08:07)
[2018-03-17] MEDS: MULTIVITAMINS/MINERALS THERAP 1 TAB PO (08:07)
[2018-03-17] MEDS: DOCUSATE SODIUM 100 MG CAP PO (08:07)
[2018-03-17] MEDS: OMEPRAZOLE 20 MG CAP PO (08:07)
[2018-03-17] MEDS: SIMETHICONE 80 MG CHEW TAB PO (08:08)
== END 2018-03-17 10:20 | disposition home or self-care (01) ==
LOC: M ED 17:44 → M ED INP 22:15 → M PED 23:23
PROVIDERS: Obstetrics & Gynecology
DX: G89.18 Other acute postprocedural pain (principal); E78.5 Hyperlipidemia, unspecified; E66.9 Obesity, unspecified; Z98.84 Bariatric surgery status; G47.30 Sleep apnea, unspecified
CPT/HCPCS: J2270

== ENCOUNTER → 2018-03-20 | Outpatient (CLI) | payer OTHER | LOC: M WHC 10:49 | DX: Z12.31 Encounter for screening mammogram for malignant neoplasm of breast (principal); Z78.0 Asymptomatic menopausal state; Z85.41 Personal history of malignant neoplasm of cervix uteri | CPT/HCPCS: 77067 ==

== ENCOUNTER 2018-06-08 16:04 | Emergency (ER) | payer OTHER ==
[~2018-06-08] VITALS: Ht 165.1 cm; Wt 94.5 kg
[~2018-06-08 16:04] MED LIST changes: +ASPI1TAB PO; +BENA25TA10 PO; +BIRTH CONTROL PILL PO; +CITRTAB18 PO; +CLAR10CA3 PO; +COLA100C5 PO; +EPIN0.3I11; +FAMO20TA PO; +FISH7.5C PO; -GASTROGRAFIN SOLUTION 30ML (Q9963) As Ordered; +GLUC1CAP9 PO; -ISOVUE-370 76% 100ML VIAL (Q9967) As Ordered; +LASI20TA3 PO; +LEVO25TA5 PO; +MULT1CHW39 PO; +MULT1CHW44 PO; +OMEP20TA PO; +ONDA4TAB6 PO; +OXYC1TAB23 PO; +PERCOCET PO; +VICO5TAB16 PO; +VITA100072 PO; +VITA500079 PO; +ZOFR4TAB14 PO; +ZOFR4TAB14 SL
--- NOTE | 2018-06-08 17:35 | REP ---
Head CT without contrast: History: Pulse and headache. Nausea and dizziness. Comparison study: No comparison head CT. CT findings: Bone window settings demonstrate an intact bony calvarium. There is no evidence of skull fracture or incidental bony calvarial lesion. The visualized paranasal sinuses appear clear. No intraorbital abnormality is seen. On soft tissue window setting images; the lateral, third, and fourth ventricles are normal in size and position. Franco-white differentiation pattern is normal above and below the tentorium. There are is no evidence of intracranial hemorrhage. No mass, edema, infarction, or midline shift is seen. No extra-axial fluid collection is appreciated. Impression: Negative noncontrast head CT. Electronically Signed by Deshawn Ramirez MD 06/08/2018 05:26 P
[2018-06-08] MEDS ORDERED: NS 1,000 ML IV ONE (19:45)
[2018-06-08] MEDS ORDERED: KETOROLAC 30 MG/ML VIAL (J1885) IV ONE (19:45)
[2018-06-08] MEDS ORDERED: diphenhydrAMINE INJ 50MG/ML VIAL (J1200) IV ONE (19:45)
[2018-06-08] MEDS ORDERED: METOCLOPRAMIDE INJ 10MG/2ML VIAL (J2765) IV ONE (19:45)
[2018-06-08 20:30] LABS: BASO % 0.6 % (0.0-1.0); EOS # 0.1 10^3/uL (0.0-0.50); EOS % 1.6 % (0.0-3.0); HEMOGLOBIN 14.2 g/dl (12.0-15.5); LYMPH # 3.4 10^3/uL (1.5-4.5); LYMPH % 47.5 % (24.0-44.0); MEAN CORPUSCULAR HEMOGLOBIN 29.8 pg (27.0-33.0); MEAN CORPUSCULAR HGB CONC 33.8 g/dl (32.0-36.5); MEAN CORPUSCULAR VOLUME 88.1 fl (80.0-96.0); MONO # 0.5 10^3/uL (0.0-0.8); PLATELET COUNT, AUTOMATED 283 10^3/uL (150-450); RED BLOOD COUNT 4.77 10^6/uL (4.00-5.40); WHITE BLOOD COUNT 7.1 10^3/uL (4.0-10.0)
[2018-06-08 20:50] LABS: BLOOD UREA NITROGEN 10 MG/DL (7-18); CARBON DIOXIDE LEVEL 28 MEQ/L (21-32); CHLORIDE LEVEL 105 MEQ/L (98-107); CREATININE FOR GFR 0.65 MG/DL (0.55-1.30); GLOMERULAR FILTRATION RATE > 60.0 (>51); GLUCOSE, FASTING 85 MG/DL (70-100); SODIUM LEVEL 141 MEQ/L (136-145)
[2018-06-08] MEDS ORDERED: ONDA4TAB6 PO (21:22)
[2018-06-08 21:36] VITALS: BP 107/74
== END 2018-06-08 21:36 | disposition home or self-care (01) ==
LOC: M ED 16:04
DX: G43.109 Migraine with aura, not intractable, without status migrainosus (principal); I50.9 Heart failure, unspecified; K21.9 Gastro-esophageal reflux disease without esophagitis; E03.9 Hypothyroidism, unspecified; Z87.440 Personal history of urinary (tract) infections; N94.9 Unspecified condition associated with female genital organs and menstrual cycle; Z98.84 Bariatric surgery status; Z88.8 Allergy status to other drugs, medicaments and biological substances; Z79.899 Other long term (current) drug therapy
CPT/HCPCS: 70450; 80048; 85025; 96374; 96375; 99284; J1200; J1885; J2765

== ENCOUNTER → 2018-10-23 | Outpatient (CLI) | payer OTHER ==
[~2018-10-23] MED LIST changes: -ASPI1TAB PO; +ASPI81TA26 PO; -MULT1CHW39 PO; +MULT200T7 PO; -VICO5TAB16 PO; +VICO5TAB17 PO; +VITA100018 PO; -VITA100072 PO
[2018-10-23 12:53] LABS: BASO % 0.7 % (0.0-1.0); EOS # 0.1 10^3/uL (0.0-0.50); EOS % 1.3 % (0.0-3.0); HEMATOCRIT 43.2 % (36.0-47.0); HEMOGLOBIN 14.2 g/dl (12.0-15.5); MEAN CORPUSCULAR HEMOGLOBIN 30.5 pg (27.0-33.0); MEAN CORPUSCULAR HGB CONC 32.9 g/dl (32.0-36.5); MEAN CORPUSCULAR VOLUME 92.7 fl (80.0-96.0); MONO # 0.4 10^3/uL (0.0-0.8); MONO % 6.7 % (0.0-5.0); NEUTROPHILS # 3.1 10^3/uL (1.8-7.7); NEUTROPHILS % 54.9 % (36.0-66.0); PLATELET COUNT, AUTOMATED 270 10^3/uL (150-450); RED BLOOD COUNT 4.66 10^6/uL (4.00-5.40); WHITE BLOOD COUNT 5.6 10^3/uL (4.0-10.0)
[2018-10-23 13:10] LABS: ERYTHROCYTE SEDIMENTATION RATE 7 mm/hr (0-30)
[2018-10-23 13:49] LABS: C REACTIVE PROTEIN QUANTITATIV < 0.30 MG/DL (0.00-0.30); RHEUMATOID FACTOR QUANT < 10.0 IU/ML (<15.0)
[2018-10-25 00:06] LABS: ANTINUCLEAR ANTIBODIES DIRECT Negative (Negative); Lyme Disease IgG/IgM Antibodie <0.91 ISR (0.00-0.90); Lyme Disease IgM Ab Quantitati <0.80 index (0.00-0.79)
== END ==
LOC: M WUC 10:11
PROVIDERS: ATTEND Orthopaedic Surgery
DX: M70.61 Trochanteric bursitis, right hip (principal)

== ENCOUNTER → 2019-02-04 | Outpatient (REF) | payer OTHER ==
[~2019-02-04] MED LIST changes: +OMEP-358 PO; -OMEP20TA PO; +PEPC1TAB5 PO; +PRED20TA PO
== END ==
LOC: M SFHCADAM 16:30
PROVIDERS: ATTEND Physician Assistant
DX: Z53.9 Procedure and treatment not carried out, unspecified reason (principal)

== ENCOUNTER 2019-02-05 22:17 | Emergency (ER) | payer OTHER ==
[~2019-02-05] VITALS: Ht 165.1 cm; Wt 97.7 kg
[~2019-02-05 22:17] MED LIST changes: -PEPC1TAB5 PO; -PRED20TA PO
[2019-02-05] MEDS ORDERED: FAMOTIDINE INJ 20MG/2ML VIAL (S0028) IVP ONE (23:00)
[2019-02-05] MEDS ORDERED: ALBUTEROL SULFATE 2.5 MG/0.5 ML INH NEB SOLN NEB ONE (23:00)
[2019-02-05] MEDS ORDERED: methylPREDNISolone INJ 125 MG/2 ML VIAL (J2930) IV ONE (23:00)
[2019-02-05] MEDS ORDERED: PRED20TA PO (23:30)
[2019-02-05] MEDS ORDERED: PEPC1TAB5 PO (23:30)
[2019-02-05] MEDS ORDERED: ONDANSETRON 4MG/2ML VIAL (J2405) IV ONE (23:45)
[2019-02-05 23:55] VITALS: BP 98/53
== END 2019-02-06 00:09 | disposition home or self-care (01) ==
LOC: M ED 22:17
DX: T48.6X5A Adverse effect of antiasthmatics, initial encounter (principal); I50.9 Heart failure, unspecified; E03.9 Hypothyroidism, unspecified; K21.9 Gastro-esophageal reflux disease without esophagitis; Z98.84 Bariatric surgery status; Z79.899 Other long term (current) drug therapy; Z88.8 Allergy status to other drugs, medicaments and biological substances
CPT/HCPCS: 93041; 94640; 96374; 96375; 99284; J2405; J2930

== ENCOUNTER → 2019-02-10 | Outpatient (REF) | payer OTHER ==
[~2019-02-10] MED LIST changes: +PEPC1TAB5 PO; +PRED20TA PO
[2019-02-10 12:28] LABS: FOLATE > 24.0 NG/ML; FREE T4 1.18 NG/DL (0.76-1.46); TOTAL 25(OH) VITAMIN D 43.7 NG/ML (30.0-100.0); VITAMIN B12 LEVEL > 2000 PG/ML
== END ==
LOC: M SFHCADAM 09:18
PROVIDERS: ATTEND Physician Assistant
DX: E03.9 Hypothyroidism, unspecified (principal); Z98.84 Bariatric surgery status; F32.2 Major depressive disorder, single episode, severe without psychotic features

== ENCOUNTER → 2019-06-02 | Outpatient (CLI) | payer OTHER ==
--- NOTE | 2019-06-02 09:51 | REPMRS ---
Patient History The patient states she has not had a clinical breast exam in over a year. Patient is postmenopausal and has history of other cancer at age 21. Family history of colorectal cancer at age 50 or over in father. Digital Woman Screen Mammo: June 02, 2019 - Exam #: [id number] Bilateral CC and MLO view(s) were taken. Technologist: Marleny Joseph Technologist Prior study comparison: March 20, 2018, bilateral digital woman screen mammo performed at [facility]. March 20, 2017, digital woman screen mammo performed at [facility]. February 23, 2015, digital woman screen mammo performed at [facility]. FINDINGS: There are scattered fibroglandular densities. There has been no change in the appearance of the mammogram from the prior studies. There is a mild amount of scattered fibroglandular density which is fairly symmetric. There is no interval development of dominant mass, architectural distortion, or grouped microcalcification suggestive of malignancy. 3-D tomosynthesis shows no additional findings. Assessment: BI-RADS/ACR category 1 mammogram. Negative Mammogram. Recommendation Routine screening mammogram of both breasts in 1 year (for women over age 40). This patient's Lifetime Breast Cancer Risk is estimated at 8.4 %. This mammogram was interpreted with the aid of an FDA-approved computer-aided dectection system. Electronically Signed By: Esteban Ramirez MD 06/02/19 [id number]
== END ==
LOC: M WHC 07:40
PROVIDERS: ATTEND Family Medicine
DX: Z12.31 Encounter for screening mammogram for malignant neoplasm of breast (principal); Z78.0 Asymptomatic menopausal state; Z85.9 Personal history of malignant neoplasm, unspecified; Z80.0 Family history of malignant neoplasm of digestive organs

== ENCOUNTER → 2019-08-31 | Outpatient (REF) | payer OTHER ==
[2019-08-31 18:06] LABS: BLOOD UREA NITROGEN 10 MG/DL (7-18); CALCIUM LEVEL 8.5 MG/DL (8.5-10.1); CARBON DIOXIDE LEVEL 30 MEQ/L (21-32); CHLORIDE LEVEL 108 MEQ/L (98-107); CHOLESTEROL LEVEL 195 MG/DL (<200); CHOLESTEROL RISK RATIO 2.378 (<5); CREATININE FOR GFR 0.72 MG/DL (0.55-1.30); GLOMERULAR FILTRATION RATE > 60.0 (>51); GLUCOSE, FASTING 85 MG/DL (70-100); HDL CHOLESTEROL 82 MG/DL (>40); LDL CHOLESTEROL 84 MG/DL (<100); NON-HDL-C 113 MG/DL; POTASSIUM SERUM 4.6 MEQ/L (3.5-5.1); SODIUM LEVEL 142 MEQ/L (136-145); TRIGLYCERIDES LEVEL 144 MG/DL (<150)
== END ==
LOC: M SFHCADAM 11:01
PROVIDERS: ATTEND Physician Assistant
DX: F32.2 Major depressive disorder, single episode, severe without psychotic features (principal); M54.16 Radiculopathy, lumbar region; G47.33 Obstructive sleep apnea (adult) (pediatric); E03.9 Hypothyroidism, unspecified; E78.2 Mixed hyperlipidemia; F33.2 Major depressive disorder, recurrent severe without psychotic features; Z98.84 Bariatric surgery status; R68.2 Dry mouth, unspecified

== ENCOUNTER 2019-09-14 04:12 | Inpatient (IN) | payer OTHER ==
[~2019-09-14] VITALS: Ht 165.1 cm; Wt 110.6 kg
[2019-09-14] VITALS (9 sets, daily range): BP systolic 111–129; BP diastolic 68–89
[2019-09-14] MEDS ORDERED: GI COCKTAIL 50ML BTL(HYOSCYAMINE/MAALOX/LIDOCAINE VISCOUS)(1:3:1) PO ONE (04:30)
[2019-09-14 04:58] LABS: BASO % 0.5 % (0.0-1.0); EOS # 0.1 10^3/uL (0.0-0.5); EOS % 1.8 % (0.0-3.0); HEMATOCRIT 40.1 % (36.0-47.0); HEMOGLOBIN 12.9 g/dl (12.0-15.5); LYMPH # 2.7 10^3/uL (1.5-5.0); LYMPH % 45.4 % (24.0-44.0); MEAN CORPUSCULAR HEMOGLOBIN 29.7 pg (27.0-33.0); MEAN CORPUSCULAR HGB CONC 32.2 g/dl (32.0-36.5); MEAN CORPUSCULAR VOLUME 92.2 fl (80.0-96.0); MONO # 0.4 10^3/uL (0.0-0.8); MONO % 7.2 % (0.0-5.0); NEUTROPHILS # 2.7 10^3/uL (1.5-8.5); NEUTROPHILS % 44.9 % (36.0-66.0); PLATELET COUNT, AUTOMATED 292 10^3/uL (150-450); RED BLOOD COUNT 4.35 10^6/uL (4.00-5.40)
[2019-09-14 05:19] LABS: INR 1.06; PARTIAL THROMBOPLASTIN TIME 24.4 SECONDS (25.0-38.4); PROTHROMBIN TIME 13.5 SECONDS (11.8-14.0)
[2019-09-14 05:30] LABS: ALBUMIN 2.9 GM/DL (3.2-5.2); ALT/SGPT 32 U/L (12-78); BILIRUBIN,DIRECT < 0.1 MG/DL (0.0-0.2); BILIRUBIN,TOTAL 0.2 MG/DL (0.2-1.0); BLOOD UREA NITROGEN 11 MG/DL (7-18); CALCIUM LEVEL 8.7 MG/DL (8.5-10.1); CARBON DIOXIDE LEVEL 27 MEQ/L (21-32); CHLORIDE LEVEL 108 MEQ/L (98-107); CREATININE FOR GFR 0.81 MG/DL (0.55-1.30); FREE T4 1.03 NG/DL (0.76-1.46); GLOMERULAR FILTRATION RATE > 60.0 (>51); GLUCOSE, FASTING 98 MG/DL (70-100); LIPASE 93 U/L (73-393); NT-PRO BNP 55 PG/ML (<125); POTASSIUM SERUM 3.8 MEQ/L (3.5-5.1); SODIUM LEVEL 144 MEQ/L (136-145); TOTAL PROTEIN 5.9 GM/DL (6.4-8.2)
[2019-09-14] MEDS ORDERED: ISOVUE-370 76% 100ML VIAL As Ordered ONE (05:32)
--- NOTE | 2019-09-14 06:05 | REPVR ---
PROCEDURE INFORMATION: Exam: CT Angiography Chest With Contrast Exam date and time: 09/14/2019 5:12 AM Age: 53 years old Clinical indication: Chest pain; Type not specified; Additional info: Chest pain/hypotension TECHNIQUE: Imaging protocol: Computed tomographic angiography of the chest with intravenous contrast. 3D rendering: MIP and/or 3D reconstructed images were created by the technologist. Radiation optimization: All CT scans at this facility use at least one of these dose optimization techniques: automated exposure control; mA and/or kV adjustment per patient size (includes targeted exams where dose is matched to clinical indication); or iterative reconstruction. Contrast material: ISO; Contrast volume: 100 ml; Contrast route: AC; COMPARISON: CT ANGIO CHEST 02/14/2017 9:58 PM FINDINGS: Limitations: Examination is limited by motion artifact. Ventral chest wall is partially cut off the film. Pulmonary arteries: Normal. No pulmonary emboli. Aorta: Unremarkable. No aortic aneurysm. No aortic dissection. Tracheobronchial tree: Visualized airway is unremarkable. Lungs: Mild septal thickening, predominantly in the lower lung rodgers. Linear atelectasis in the right middle lobe. Pleural space: Unremarkable. No pneumothorax. No pleural effusion. Heart: Unremarkable. No cardiomegaly. No pericardial effusion. Lymph nodes: Unremarkable. No enlarged lymph nodes. Stomach and bowel: Status post gastric bypass surgery. Intraperitoneal space: Pneumoperitoneum. Bones/joints: Mild degenerative spine. No acute fracture. Mild degenerative changes of the left shoulder. Soft tissues: Unremarkable. IMPRESSION: 1. Negative for pulmonary embolism. 2. Mild septal thickening, predominantly in the lower lung rodgers. Suspect pulmonary venous congestion. 3. Pneumoperitoneum. See CTA abdomen pelvis report. 4. Additional findings as described. Electronically signed by: Karime Peña On 09/14/2019 06:05:23 AM
--- NOTE | 2019-09-14 06:12 | REPVR ---
PROCEDURE INFORMATION: Exam: CT Angiography Abdomen and Pelvis With Contrast Exam date and time: 09/14/2019 5:12 AM Age: 53 years old Clinical indication: Abdominal pain; Generalized; Additional info: Epigastric pain/hypotension TECHNIQUE: Imaging protocol: Computed tomographic angiography of the abdomen and pelvis with intravenous contrast material. 3D rendering: MIP and/or 3D reconstructed images were created by the technologist. Radiation optimization: All CT scans at this facility use at least one of these dose optimization techniques: automated exposure control; mA and/or kV adjustment per patient size (includes targeted exams where dose is matched to clinical indication); or iterative reconstruction. Contrast material: ISO; Contrast volume: 100 ml; Contrast route: AC; COMPARISON: CT ABD/PEL W/IV ORAL CONTRAS 03/15/2018 7:53 PM FINDINGS: Aorta: No aortic aneurysm. No aortic dissection. Celiac trunk and mesenteric arteries: No occlusion or significant stenosis. Renal arteries: No occlusion or significant stenosis. Right iliac arteries: No occlusion or significant stenosis. Left iliac arteries: No occlusion or significant stenosis. Right femoral/popliteal arteries: No occlusion or significant stenosis of the visualized common femoral artery. Left femoral/popliteal arteries: No occlusion or significant stenosis of the visualized common femoral artery. Liver: No mass. Gallbladder and bile ducts: Unremarkable. No calcified stones. No ductal dilation. Pancreas: Unremarkable. No mass. No ductal dilation. Spleen: Unremarkable. No splenomegaly. Adrenals: Unremarkable. No mass. Kidneys and ureters: Scarring of the right kidney. No hydronephrosis bilaterally. Stomach and bowel: Moderate stool in the colon. Status post gastric bypass. No abnormal bowel dilatation. No abnormal bowel wall thickening. Negative for colonic diverticulitis. Appendix: Appendix is normal. Intraperitoneal space: Small free fluid in the pelvis. Mild pneumoperitoneum in the upper abdomen. Lymph nodes: Unremarkable. No enlarged lymph nodes. Bladder: Unremarkable. No mass. Reproductive: Status post hysterectomy. Bones/joints: Mild degenerative spine. No acute fracture. Soft tissues: There is dependent subcutaneous edema. IMPRESSION: 1. No aortic aneurysm or dissection. 2. Mild pneumoperitoneum in the upper abdomen. Exact site of perforation is unclear, however, perforation may be secondary to breakdown of the gastroenteric anastomosis. 3. Small free fluid in the pelvis. 4. Additional findings as described. Electronically signed by: Karime Peña On 09/14/2019 06:12:26 AM
[2019-09-14] MEDS ORDERED: PIPERACILLIN/TAZOBACTAM SOD 3.375 GM in D5W MINI-BAG PLUS 50 ML IV ONE (06:15)
[2019-09-14] MEDS ORDERED: AMIT25TA PO (06:32)
[2019-09-14] MEDS ORDERED: GABA-843 PO ×2 (06:32→06:43)
[2019-09-14] MEDS ORDERED: BUPR300T92 PO (06:32)
[2019-09-14] MEDS ORDERED: CELE1CAP7 PO (06:32)
[2019-09-14] MEDS ORDERED: DIPH50CA PO (06:43)
[2019-09-14] MEDS ORDERED: NATU1TAB5 PO (06:43)
[2019-09-14] MEDS ORDERED: GLUC500C37 PO (06:43)
[2019-09-14] MEDS ORDERED: fentaNYL 100 MCG/2 ML INJECTION (J3010) As Ordered ONE (06:56)
[2019-09-14] MEDS ORDERED: propofoL 200 MG/20 ML VIAL As Ordered ONE (06:57)
[2019-09-14] MEDS ORDERED: LIDOCAINE 2% 100MG/5ML SDV (FOR ANES.) As Ordered ONE (06:57)
[2019-09-14] MEDS ORDERED: ROCURONIUM BROMIDE 50 MG/5 ML VIAL As Ordered ONE ×2 (06:57→07:55)
[2019-09-14] MEDS ORDERED: SUCCINYLCHOLINE 100 MG/5 ML SYRINGE (J0330) As Ordered ONE (06:57)
[2019-09-14] MEDS ORDERED: MIDAZOLAM INJ 2MG/2ML VIAL (J2250 PER 1MG) As Ordered ONE (06:57)
[2019-09-14] MEDS ORDERED: dexameTHASONE 4 MG/ML 1ML VIAL (J1100 PER 1MG) As Ordered ONE (06:58)
[2019-09-14] MEDS ORDERED: BUPIVACAINE/EPIN 0.25% 30 ML VIAL As Ordered ONE (07:17)
[2019-09-14] MEDS ORDERED: ACETAMINOPHEN 1000MG 100ML IV BTL (OFIRMEV) (J0131 PER 10MG) As Ordered ONE (07:58)
[2019-09-14] MEDS ORDERED: SUGAMMADEX SODIUM 500 MG/5 ML VIAL (BRIDION) As Ordered ONE (08:06)
[2019-09-14] MEDS ORDERED: ONDANSETRON 4MG/2ML VIAL As Ordered ONE (08:06)
[2019-09-14] MEDS ORDERED: ePHEDrine SULFATE 25 MG/5 ML(5MG/ML) SYRINGE As Ordered ONE (08:08)
[2019-09-14] MEDS ORDERED: PHENYLephrine HCL 500 MCG/5 ML (100MCG/ML) SYRINGE (J2370) As Ordered ONE (08:08)
[2019-09-14] MEDS ORDERED: HYDROMORPHONE HCL 0.5 MG/ 0.5 ML SYRINGE (J1170 PER 1) As Ordered ONE (08:45)
[2019-09-14] MEDS ORDERED: HYDROMORPHONE HCL 0.5 MG/ 0.5 ML SYRINGE (J1170 PER 1) IV PRN (09:00)
[2019-09-14] MEDS ORDERED: LR 1,000 ML IV SCH (09:00)
[2019-09-14] MEDS ORDERED: ONDANSETRON 4MG/2ML VIAL IV PRN ×2 (09:00)
[2019-09-14] MEDS ORDERED: oxyCODONE 5MG TAB PO PRN (09:00)
[2019-09-14] MEDS ORDERED: METOCLOPRAMIDE INJ 10MG/2ML VIAL (J2765 PER 1) IV PRN (09:00)
[2019-09-14] MEDS: fentaNYL 100 MCG/2 ML INJECTION (J3010) IV PRN ×2 (09:06→09:11)
--- NOTE | 2019-09-14 09:51 | REP ---
CHEST, SINGLE VIEW: Single view of the chest is performed. There is no acute infiltrate. There is minimal bibasilar fibroatelectatic change. The heart is not enlarged. Mediastinal silhouette is unremarkable. IMPRESSION: No acute infiltrate. Electronically Signed by Jose A Franco MD 09/15/2019 10:06 P
[2019-09-14] MEDS ORDERED: PIPERACILLIN/TAZOBACTAM SOD 3.375 GM in D5W MINI-BAG PLUS 50 ML IV SCH (10:00)
[2019-09-14] MEDS: KCL 20MEQ IN D5/0.45NS 1000ML 1,000 ML IV SCH ×2 (10:43→18:01)
[2019-09-14] MEDS: ENOXAPARIN 40MG/0.4ML SYRINGE (J1650 PER 10MG) SC SCH (10:43)
[2019-09-14] MEDS: PANTOPRAZOLE 40MG VIAL (C9113 PER 1) IV SCH ×2 (10:44→20:10)
[2019-09-14] MEDS: KETOROLAC 30 MG/ML 1ML VIAL IV PRN (10:44)
[2019-09-14] MEDS: LEVOTHYROXINE 25MCG TABLET (0.025MG) PO SCH (10:44)
[2019-09-14] MEDS: GABAPENTIN 300 MG CAP PO SCH ×2 (10:45→20:10)
[2019-09-14] MEDS: SUCRALFATE 1 GM TAB PO SCH ×3 (10:45→18:01)
[2019-09-14] MEDS: SENOKOT S TAB PO SCH ×2 (10:45→20:10)
[2019-09-14] MEDS ORDERED: FLUCONAZOLE 200 MG in IV 1 EA IV SCH (11:00)
[2019-09-14] MEDS: buPROPion **XL** TABLET 150MG (WELLBUTRIN XL) PO SCH (12:12)
[2019-09-14] MEDS: FLUCONAZOLE 200 MG in IV 1 EA IV SCH (12:12)
[2019-09-14] MEDS: MORPHINE 2 MG/ML 1ML VIAL (J2270) IV PRN ×2 (12:26→18:04)
[2019-09-14] MEDS: PIPERACILLIN/TAZOBACTAM SOD 3.375 GM in D5W MINI-BAG PLUS 50 ML IV SCH ×2 (14:03→20:10)
[2019-09-14] MEDS: AMITRIPTYLINE 25 MG TAB PO SCH (20:10)
--- NOTE | 2019-09-14 20:13 | ECGEPIP ---
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
[2019-09-14] MEDS: SUCRALFATE SUSP 1GM/10ML UD PO SCH (23:57)
[2019-09-15 02:00] VITALS: BP 116/76
[2019-09-15] MEDS: MORPHINE 2 MG/ML 1ML VIAL (J2270) IV PRN ×3 (02:10→23:34)
[2019-09-15] MEDS: PIPERACILLIN/TAZOBACTAM SOD 3.375 GM in D5W MINI-BAG PLUS 50 ML IV SCH ×4 (02:10→20:20)
[2019-09-15] MEDS: KCL 20MEQ IN D5/0.45NS 1000ML 1,000 ML IV SCH ×2 (05:27→08:06)
[2019-09-15] MEDS: SUCRALFATE SUSP 1GM/10ML UD PO SCH ×4 (05:27→23:34)
[2019-09-15] MEDS: LEVOTHYROXINE 25MCG TABLET (0.025MG) PO SCH (05:28)
[2019-09-15 06:00] VITALS: BP 118/77
[2019-09-15 07:06] LABS: HEMATOCRIT 37.3 % (36.0-47.0); HEMOGLOBIN 12.2 g/dl (12.0-15.5); MEAN CORPUSCULAR HEMOGLOBIN 29.8 pg (27.0-33.0); MEAN CORPUSCULAR HGB CONC 32.7 g/dl (32.0-36.5); MEAN CORPUSCULAR VOLUME 91.2 fl (80.0-96.0); PLATELET COUNT, AUTOMATED 238 10^3/uL (150-450); RED BLOOD COUNT 4.09 10^6/uL (4.00-5.40); WHITE BLOOD COUNT 12.8 10^3/uL (4.0-10.0)
[2019-09-15 07:30] LABS: ALBUMIN 2.7 GM/DL (3.2-5.2); ALT/SGPT 33 U/L (12-78); BILIRUBIN,TOTAL 0.6 MG/DL (0.2-1.0); BLOOD UREA NITROGEN 12 MG/DL (7-18); CALCIUM LEVEL 8.7 MG/DL (8.5-10.1); CARBON DIOXIDE LEVEL 28 MEQ/L (21-32); CHLORIDE LEVEL 108 MEQ/L (98-107); CREATININE FOR GFR 0.75 MG/DL (0.55-1.30); GLOMERULAR FILTRATION RATE > 60.0 (>51); GLUCOSE, FASTING 92 MG/DL (70-100); SODIUM LEVEL 139 MEQ/L (136-145); TOTAL PROTEIN 5.5 GM/DL (6.4-8.2)
[2019-09-15] MEDS: ENOXAPARIN 40MG/0.4ML SYRINGE (J1650 PER 10MG) SC SCH (08:05)
[2019-09-15] MEDS: PANTOPRAZOLE 40MG VIAL (C9113 PER 1) IV SCH ×2 (08:06→20:21)
[2019-09-15] MEDS: GABAPENTIN 300 MG CAP PO SCH ×2 (08:06→20:21)
[2019-09-15] MEDS: SENOKOT S TAB PO SCH ×2 (08:06→20:21)
[2019-09-15] MEDS: buPROPion **XL** TABLET 150MG (WELLBUTRIN XL) PO SCH (08:12)
[2019-09-15] MEDS: KETOROLAC 30 MG/ML 1ML VIAL IV PRN ×2 (08:13→17:48)
--- NOTE | 2019-09-15 08:30 | IPNPDOC ---
Text Note Date of Service The patient was seen on 09/15/19. NOTE No acute events overnight. She has a little sore throat, and minimal output from both the telly and NG tubes. No problems with nausea or emesis, and she is only OOB to the commode. VSSAF NAD abd - soft, minimal tenderness around the drain site, non distended, drain is serous labs - below A) 53y/o female POD#1 s/p RA repair of perforated marginal ulcer P) abx, diflucan npo ambulate IS UGI in the am, and if no leak then I will start CLQ diet. Byron Schwab DO VS,Fishbone, I+O VS, Fishbone, I+O Laboratory Tests 09/15/19 06:24 Vital Signs Date Time Temp Pulse Resp B/P (MAP) Pulse Ox O2 Delivery O2 Flow Rate FiO2 09/15/19 06:00 98.4 92 16 118/77 (91) 98 Room Air I&O- Last 24 Hours up to 6 AM 09/15/19 06:00 Intake Total 2210 ml Output Total 1818 ml Balance 392 ml ALDA SCHWAB DO Sep 15, 2019 08:30
[2019-09-15] MEDS: NS 1,000 ML IV SCH ×3 (08:46→23:35)
[2019-09-15 10:00] VITALS: BP 122/77
[2019-09-15] MEDS: FLUCONAZOLE 200 MG in IV 1 EA IV SCH (11:55)
[2019-09-15] MEDS ORDERED: BISACODYL 10 MG SUPP PR PRN (12:15)
[2019-09-15 14:00] VITALS: BP 129/75
--- NOTE | 2019-09-15 14:46 | HPE ---
DATE OF ADMISSION: 09/14/2019 CHIEF COMPLAINT: Abdominal pain. HISTORY OF PRESENT ILLNESS: The patient is 53-year-old female who presented to the emergency room after having been woken up with sudden upper abdominal pains in the middle of the night. In the emergency room (ER), she had relatively normal labs; however CT did show some free air in the upper abdomen with likely a perforation somewhere near her gastric bypass. I called for immediate evaluation, and she was brought to the operating room for urgent surgery. She denies having any heartburn or acid reflux. No recent trauma or changes in medications. She was on omeprazole twice a day since her bypass surgery 2 years ago; however, that was just stopped 2 weeks ago, and these symptoms came on without any warning suddenly last evening. She denies any fevers or chills. Only complaint is severe upper abdominal pain radiating through and into her back. She denies taking medications on an empty stomach. No alcohol or tobacco usage. Minimal caffeine intake. No other inciting factors for ulceration. PAST MEDICAL HISTORY: 1. Obesity. 2. Anxiety. 3. Congestive heart failure. 4. Gastric reflux. 5. Hypothyroidism. PAST SURGICAL HISTORY: 1. Gastric bypass in 2018. 2. Bilateral ureteral reimplantation. 3. Bilateral carpal tunnel. 4. Hysterectomy. ALLERGIES: QUINOLONES, FLUOXETINE, TOPIRAMATE. MEDICATIONS: Please see medication reconciliation SOCIAL HISTORY: Denies drug, alcohol, tobacco abuse. FAMILY HISTORY: Noncontributory. REVIEW OF SYSTEMS: Pertinent positives and negatives as stated in the history of present illness (HPI). PHYSICAL EXAMINATION: GENERAL: Alert and oriented times three. No acute stress. VITAL SIGNS: Temperature 99.9, pulse 103, respirations 18, blood pressure 115/60, pulse oximetry 95% on room air. HEENT: Pupils equally round and reactive to light and accommodation. HEART: S1, S2, regular rate and rhythm. LUNGS: Clear to auscultation bilaterally. ABDOMEN: Soft, tender to palpation diffusely in the upper abdomen with localized guarding. EXTREMITIES: No clubbing, cyanosis, or edema. LABORATORY DATA: White count 6, hemoglobin 12.9, platelets 292. Potassium 3.18, creatinine 0.81, lipase 93. IMAGING STUDIES: CTA showed mild pneumoperitoneum in the upper abdomen. Exact site of perforation unclear; however, perforation, may be secondary to breakdown of the gastroenteric anastomosis. ASSESSMENT AND PLAN: The patient is a 53-year-old female with a perforated viscus, likely secondary to a perforated gastric ulcer versus marginal ulcer. Recommendation at time is to proceed with robotic repair. Risks and benefits of procedure not limited to, but including, bleeding, infection, hernia formation, damage to surrounding structure, need for further surgery were discussed in detail with the patient. Informed was obtained. Procedure was planned. Postoperatively she will be kept in the hospital for 3-4 days. Slowly advanced onto a diet. Once she is able to tolerate a diet, she will be able to be discharged home, and we will restart her back on her omeprazole upon discharge.
[2019-09-15 18:00] VITALS: BP 120/79
[2019-09-15] MEDS: AMITRIPTYLINE 25 MG TAB PO SCH (20:21)
[2019-09-15 22:00] VITALS: BP 120/80
[2019-09-16 02:00] VITALS: BP 121/80
[2019-09-16] MEDS: PIPERACILLIN/TAZOBACTAM SOD 3.375 GM in D5W MINI-BAG PLUS 50 ML IV SCH ×4 (02:45→19:32)
[2019-09-16] MEDS: KETOROLAC 30 MG/ML 1ML VIAL IV PRN ×4 (03:32→20:09)
[2019-09-16 06:00] VITALS: BP 119/78
[2019-09-16] MEDS: SUCRALFATE SUSP 1GM/10ML UD PO SCH ×3 (06:16→17:10)
[2019-09-16] MEDS: LEVOTHYROXINE 25MCG TABLET (0.025MG) PO SCH (06:17)
[2019-09-16 06:33] LABS: HEMATOCRIT 34.8 % (36.0-47.0); HEMOGLOBIN 11.1 g/dl (12.0-15.5); MEAN CORPUSCULAR HEMOGLOBIN 29.6 pg (27.0-33.0); MEAN CORPUSCULAR HGB CONC 31.9 g/dl (32.0-36.5); MEAN CORPUSCULAR VOLUME 92.8 fl (80.0-96.0); PLATELET COUNT, AUTOMATED 214 10^3/uL (150-450); RED BLOOD COUNT 3.75 10^6/uL (4.00-5.40); WHITE BLOOD COUNT 6.7 10^3/uL (4.0-10.0)
[2019-09-16 06:57] LABS: ALBUMIN 2.3 GM/DL (3.2-5.2); ALT/SGPT 26 U/L (12-78); BILIRUBIN,TOTAL 0.6 MG/DL (0.2-1.0); BLOOD UREA NITROGEN 11 MG/DL (7-18); CALCIUM LEVEL 8.3 MG/DL (8.5-10.1); CARBON DIOXIDE LEVEL 26 MEQ/L (21-32); CHLORIDE LEVEL 110 MEQ/L (98-107); CREATININE FOR GFR 0.68 MG/DL (0.55-1.30); GLOMERULAR FILTRATION RATE > 60.0 (>51); GLUCOSE, FASTING 75 MG/DL (70-100); POTASSIUM SERUM 4.2 MEQ/L (3.5-5.1); SODIUM LEVEL 140 MEQ/L (136-145); TOTAL PROTEIN 5.3 GM/DL (6.4-8.2)
--- NOTE | 2019-09-16 08:09 | IPNPDOC ---
Text Note Date of Service The patient was seen on 09/16/19. NOTE No acute events overnight. No problems with nausea or emesis. She has been am bulating in the halls. No BM yet. VSSAF NAD abd - soft, minimal tenderness around the drain site, non distended, drain is serous labs - below A) 53y/o female POD#2 s/p RA repair of perforated marginal ulcer P) abx, diflucan npo ambulate IS UGI this am, and if no leak then I will start CLQ diet. Byron Schwab DO VS,Fishbone, I+O VS, Fishbone, I+O Laboratory Tests 09/16/19 06:19 Vital Signs Date Time Temp Pulse Resp B/P (MAP) Pulse Ox O2 Delivery O2 Flow Rate FiO2 09/16/19 06:00 96.2 72 13 119/78 (92) 97 Room Air I&O- Last 24 Hours up to 6 AM 09/16/19 05:59 Intake Total 1475 ml Output Total 1365 ml Balance 110 ml ALDA SCHWAB DO Sep 16, 2019 08:09
[2019-09-16] MEDS: NS 1,000 ML IV SCH ×3 (08:30→19:32)
[2019-09-16] MEDS: PANTOPRAZOLE 40MG VIAL (C9113 PER 1) IV SCH ×2 (08:39→20:08)
[2019-09-16] MEDS: ENOXAPARIN 40MG/0.4ML SYRINGE (J1650 PER 10MG) SC SCH (08:40)
[2019-09-16] MEDS ORDERED: GASTROGRAFIN SOLUTION 30ML (Q9963) As Ordered ONE (09:55)
[2019-09-16 10:00] VITALS: BP 119/71
[2019-09-16] MEDS: SENOKOT S TAB PO SCH ×2 (11:34→20:09)
[2019-09-16] MEDS: buPROPion **XL** TABLET 150MG (WELLBUTRIN XL) PO SCH (11:34)
[2019-09-16] MEDS: GABAPENTIN 300 MG CAP PO SCH ×2 (11:34→20:09)
[2019-09-16] MEDS: FLUCONAZOLE 200 MG in IV 1 EA IV SCH (12:55)
[2019-09-16 14:00] VITALS: BP 139/78
[2019-09-16] MEDS: MORPHINE 2 MG/ML 1ML VIAL (J2270) IV PRN (17:14)
--- NOTE | 2019-09-16 19:18 | REP ---
GASTROGRAFIN UPPER GI The procedure was performed under the direct supervision of Dr. Franco. The images were reviewed with Dr. Franco. A single view PA chest x-ray is submitted as a middleware consultant film. The superior mediastinal structures are midline. Heart size within normal limits. There are mild chronic changes within the lungs. A 50 50 solution of Gastrografin and water was administered. The oral and pharyngeal stages of deglutition are unremarkable. Esophageal transport is prompt and efficient and there is no esophagitis stricture mucosal ring or hiatal hernia. Gastroesophageal reflux is not demonstrated on this examination. The stomach shows postsurgical changes of gastric bypass. There is free flow of contrast through the anastomosis. There is no evidence of obstruction or stricture. There is no evidence of extravasation. There is no evidence of gastritis neoplasm or ulcer disease. The visualized portion of the proximal small bowel appears normal in course and caliber. Impression: Postsurgical changes consistent with the patient's history of gastric bypass. There is no evidence of stricture, obstruction or extravasation. 1.1 minutes of fluoroscopy time was utilized for this procedure. Electronically Signed by MAHAMED Alfred 09/16/2019 04:00 P Electronically Signed by Jose A Franco MD 09/16/2019 07:08 P
[2019-09-16] MEDS: AMITRIPTYLINE 25 MG TAB PO SCH (20:09)
[2019-09-16 22:00] VITALS: BP 151/95
[2019-09-17] MEDS: SUCRALFATE SUSP 1GM/10ML UD PO SCH ×3 (00:13→11:51)
[2019-09-17] MEDS: NS 1,000 ML IV SCH (00:14)
[2019-09-17] MEDS: MORPHINE 2 MG/ML 1ML VIAL (J2270) IV PRN ×2 (02:10→10:45)
[2019-09-17] MEDS: PIPERACILLIN/TAZOBACTAM SOD 3.375 GM in D5W MINI-BAG PLUS 50 ML IV SCH ×2 (02:11→08:11)
[2019-09-17 05:33] LABS: HEMATOCRIT 33.9 % (36.0-47.0); HEMOGLOBIN 11.3 g/dl (12.0-15.5); MEAN CORPUSCULAR HGB CONC 33.3 g/dl (32.0-36.5); MEAN CORPUSCULAR VOLUME 89.9 fl (80.0-96.0); PLATELET COUNT, AUTOMATED 221 10^3/uL (150-450); RED BLOOD COUNT 3.77 10^6/uL (4.00-5.40); WHITE BLOOD COUNT 7.6 10^3/uL (4.0-10.0)
[2019-09-17] MEDS: LEVOTHYROXINE 25MCG TABLET (0.025MG) PO SCH (05:52)
[2019-09-17] MEDS: KETOROLAC 30 MG/ML 1ML VIAL IV PRN (05:53)
[2019-09-17 06:00] VITALS: BP 139/78
[2019-09-17 06:04] LABS: ALBUMIN 2.3 GM/DL (3.2-5.2); ALT/SGPT 23 U/L (12-78); BILIRUBIN,TOTAL 0.5 MG/DL (0.2-1.0); BLOOD UREA NITROGEN 7 MG/DL (7-18); CALCIUM LEVEL 8.4 MG/DL (8.5-10.1); CARBON DIOXIDE LEVEL 26 MEQ/L (21-32); CHLORIDE LEVEL 109 MEQ/L (98-107); CREATININE FOR GFR 0.61 MG/DL (0.55-1.30); GLOMERULAR FILTRATION RATE > 60.0 (>51); GLUCOSE, FASTING 77 MG/DL (70-100); POTASSIUM SERUM 3.6 MEQ/L (3.5-5.1); SODIUM LEVEL 140 MEQ/L (136-145); TOTAL PROTEIN 5.8 GM/DL (6.4-8.2)
[2019-09-17] MEDS: GABAPENTIN 300 MG CAP PO SCH (08:10)
[2019-09-17] MEDS: buPROPion **XL** TABLET 150MG (WELLBUTRIN XL) PO SCH (08:11)
[2019-09-17] MEDS: SENOKOT S TAB PO SCH (08:11)
[2019-09-17] MEDS: PANTOPRAZOLE 40MG VIAL (C9113 PER 1) IV SCH (08:11)
[2019-09-17] MEDS: ENOXAPARIN 40MG/0.4ML SYRINGE (J1650 PER 10MG) SC SCH (08:11)
[2019-09-17] MEDS ORDERED: OMEP1CAP73 PO (10:06)
[2019-09-17] MEDS ORDERED: NORC1TAB7 PO (10:06)
[2019-09-17] MEDS ORDERED: AUGM875T28 PO (10:06)
[2019-09-17] MEDS ORDERED: SUCR1ORA PO (10:06)
[2019-09-17] MEDS ORDERED: DIFL200T PO (10:06)
--- NOTE | 2019-09-17 22:50 | RO ---
DATE OF PROCEDURE: 09/14/2019 PREOPERATIVE DIAGNOSIS: Perforated viscus. POSTOPERATIVE DIAGNOSIS: Perforated marginal ulcer. PROCEDURE: Robotic washout and plication of marginal ulcer with Nile patch SURGEON: Jose A Schwab MD DATA MANAGEMENT SPECIALIST: Melissa Meek ANESTHESIA: General. ESTIMATED BLOOD LOSS: 5 mL. COMPLICATIONS: None. INDICATION FOR PROCEDURE: The patient is a 53-year-old female who appears status post gastric bypass, presents with sudden onset upper abdominal pain, found to have a perforated viscus on CT in the emergency room. Recommendation was to proceed with robotic repair. Risks and benefits of the procedure, not limited to, but including, bleeding, infection, hernia formation, damage to surrounding structures and need for further surgery were discussed in detail with the patient. Informed consent was obtained and procedure was planned. DESCRIPTION OF PROCEDURE: The patient was brought back to operating room seven, after sufficient sedation the abdomen was sterilely prepped and draped. Next, a time-out was done to confirm proper patient, proper procedure. Following that 8 mm incision made in the left lower quadrant, Veress needle was inserted, and the abdomen was insufflated 15 mmHg. Veress needle was then removed and 8 mm robotic Optiview port was used to gain access to the abdomen. Once the abdomen was entered, three more 8 mm ports were placed across the upper abdomen. Next, the ports were docked to the robot, the head of the bed was elevated to 15 degrees. Next, from the console, the left lateral edge of the liver was elevated up in place and held in place with a grasper. The omentum was then gently cleared away from the left upper quadrant revealing an anterior perforation less than a centimeter in size right at the site of the gastroenteric anastomosis. There was very minimal leakage identified in this area. The #3-0 Vicryl was then used to make four interrupted stitches to reapproximate the ulcer. The tails were left long on one of the middle stitches, the omentum was then placed back over top of this area, held in place with the one grasper and the two tails were tied over top of it loosely to hold it in place as a Nile patch. Once this was completed, the right upper quadrant was irrigated. A #19-Yemeni Joe drain was placed in between the liver and the gastric remnant and brought out through the left lateral port site and sutured in place with a #2-0 silk suture. The abdomen was then desufflated. Skin incisions were closed with #4-0 Vicryl subcuticular sutures. The abdomen was cleaned and dried. Steri-Strips, 4x4, and tape were applied, thus ending procedure.
--- NOTE | 2019-09-19 16:26 | DSES ---
DATE OF ADMISSION: 09/16/2019 DATE OF DISCHARGE: 09/17/2019 ADMISSION DIAGNOSIS: Perforated viscus. DISCHARGE DIAGNOSIS: Perforated marginal ulcer. HOSPITAL COURSE: The patient is a 53-year-old female who presented to the emergency room urgently on the morning of 09/14/2019. She was found to have a perforated viscus, likely secondary to a gastric ulceration. She was brought to the operating room urgently for robotic repair of a perforated marginal ulcer. Postoperatively, she did well. Her drain remained clear. She had a nasogastric (NG) tube in place and was on nothing by mouth for the first 36 hours. She then underwent an upper GI which was negative for any signs of the stricture or extravasation so she was then started on a clear liquid diet. She tolerated that overnight without any complications. She is ambulating in the halls, urinating, laboratories and vitals are all stable. This morning, she tolerated the liquid diet overnight without any change in color or volume in her drain output. Therefore, the plan is to remove the drain today and discharge her home. She will go home with continued antibiotic, antifungals, omeprazole, Carafate, and pain medicine. All of those medications have been sent to the pharmacy. She will continue on with a full liquid diet for the next week and then she can slowly advance back to a regular diet. All of her questions are answered and she will followup me in the office in two weeks.
== END 2019-09-17 12:04 | disposition home or self-care (01) | DRG 222 ==
LOC: M ED 04:12 → EDBD 04:12 → M SDC 04:13 → ENRESERV 08:29 → M MSPAV 10:09 → M SDC 09-16 20:08 → M MSPAV 09-16 20:08
PROVIDERS: ADMIT Surgery; ATTEND Surgery
PROC: 0DQ64ZZ Repair Stomach, Percutaneous Endoscopic Approach (ICD-10-PCS; principal; 2019-09-14 06:28)
DX: K28.1 Acute gastrojejunal ulcer with perforation (principal); E66.9 Obesity, unspecified; F41.9 Anxiety disorder, unspecified; I50.9 Heart failure, unspecified; E03.9 Hypothyroidism, unspecified; Z88.8 Allergy status to other drugs, medicaments and biological substances

== ENCOUNTER → 2019-10-07 | Outpatient (CLI) | payer OTHER ==
[~2019-10-07] MED LIST changes: +AMIT25TA PO; +AUGM875T28 PO; +BUPR300T92 PO; +BUTA1TAB PO; +CELE100C PO; +CELE1CAP7 PO; +CLAR5TAB7 PO; +DIFL200T PO; +DIPH50CA PO; +GABA-843 PO; +GLUC500C37 PO; +MULTCAP PO; +NATU1TAB5 PO; +NORC1TAB7 PO; +OMEP1CAP73 PO; +SUCR1ORA PO; +WELL100T2 PO; +[UNRECOGNIZED DRUG - CODE] PO
== END ==
LOC: M LABSMTC 09:47
PROVIDERS: ATTEND Anesthesiology
DX: Z01.818 Encounter for other preprocedural examination (principal); Z11.59 Encounter for screening for other viral diseases
CPT/HCPCS: C9803; U0003

== ENCOUNTER 2019-10-11 09:01 | Day surgery (SDC) | payer OTHER ==
[~2019-10-11] VITALS: Ht 165.1 cm; Wt 105.7 kg
[~2019-10-11 09:01] MED LIST changes: +NS 1,000 ML IV ONE
[2019-10-11] MEDS ORDERED: LIDOCAINE 2% 100MG/5ML SDV (FOR ANES.) As Ordered ONE (10:12)
[2019-10-11] MEDS ORDERED: PHENYLephrine HCL 500 MCG/5 ML (100MCG/ML) SYRINGE (J2370) As Ordered ONE (10:12)
[2019-10-11] MEDS ORDERED: propofoL 200 MG/20 ML VIAL As Ordered ONE (10:12)
[2019-10-11] MEDS ORDERED: fentaNYL 100 MCG/2 ML INJECTION (J3010) As Ordered ONE (10:25)
[2019-10-11 11:50] VITALS: BP 117/60
--- NOTE | 2019-10-11 12:28 | ROOR ---
Patient Name: Brandon Bernstein Procedure Date: 10/11/2019 10:41 AM Date of : 1965 Age: 54 Room: [facility] Gender: Female Note Status: Finalized Procedure: Upper GI endoscopy Indications: Follow-up of peptic ulcer, Follow-up of gastric perforation Providers: Isaiah Doyle MD Referring MD: Mario Bedoya MD Requesting Provider: Medicines: Monitored Anesthesia Care Complications: No immediate complications. Procedure: Pre-Anesthesia Assessment: - Prior to the procedure, a History and Physical was performed, and patient medications and allergies were reviewed. The patient is competent. The risks and benefits of the procedure and the sedation options and risks were discussed with the patient. All questions were answered and informed consent was obtained. Patient identification and proposed procedure were verified by the physician, the nurse and the anesthesiologist in the procedure room. Mental Status Examination: alert and oriented. Airway Examination: normal oropharyngeal airway and neck mobility. Respiratory Examination: clear to auscultation. CV Examination: normal. Prophylactic Antibiotics: The patient does not require prophylactic antibiotics. Prior Anticoagulants: The patient has taken no previous anticoagulant or antiplatelet agents. ASA Grade Assessment: III - A patient with severe systemic disease. After reviewing the risks and benefits, the patient was deemed in satisfactory condition to undergo the procedure. The anesthesia plan was to use monitored anesthesia care (MAC). Immediately prior to administration of medications, the patient was re-assessed for adequacy to receive sedatives. The heart rate, respiratory rate, oxygen saturations, blood pressure, adequacy of pulmonary ventilation, and response to care were monitored throughout the procedure. The physical status of the patient was re-assessed after the procedure. The Endoscope was introduced through the mouth, and advanced to the afferent and efferent jejunal loops. The upper GI endoscopy was accomplished without difficulty. The patient tolerated the procedure well. Findings: The examined esophagus was normal. The Z-line was regular and was found 38 cm from the incisors. A medium-sized hiatal hernia was present. Evidence of a Levi-en-Y gastrojejunostomy was found. The gastrojejunal anastomosis was characterized by congestion, erythema and ulceration. This was traversed. The pklph-fg-chmbsti limb was characterized by inflammation and ulceration. The jejunojejunal anastomosis was characterized by healthy appearing mucosa. The eyznbdui-vt-szpwnbn limb was not examined as it could not be traversed. Biopsies were taken with a cold forceps for histology. Biopsies were taken with a cold forceps for Helicobacter pylori testing. Verification of patient identification for the specimen was done by the physician and nurse using the patient's name, date and medical record number. Estimated blood loss was minimal. A 15 mm non-bleeding diverticulum was found in the cardia. There are visible staple at the end of this diverticulum. Normal mucosa was found in the jejunum. Biopsies for histology were taken with a cold forceps for evaluation of celiac disease. Impression: - Normal esophagus. - Z-line regular, 38 cm from the incisors. - Medium-sized hiatal hernia. - Levi-en-Y gastrojejunostomy with gastrojejunal anastomosis characterized by congestion, erythema and ulceration. Biopsied. - Gastric diverticulum. - Normal mucosa was found in the jejunum. Biopsied. Recommendation: - Patient has a contact number available for emergencies. The signs and symptoms of potential delayed complications were discussed with the patient. Return to normal activities tomorrow. Written discharge instructions were provided to the patient. - Post gastric bypass diet (small frequent meals and avoid fatty/ fried foods). - Continue present medications. - Await pathology results. - Telephone GI clinic for pathology results in 2 weeks. - Return to primary care physician. Isaiah Doyle MD Isaiah Doyle MD 10/11/2019 12:28:45 PM Electronically signed by Isaiah Doyle MD Number of Addenda: 0 Note Initiated On: 10/11/2019 10:41 AM Estimated Blood Loss: Estimated blood loss was minimal.
--- NOTE | 2019-10-11 12:31 | ROOR ---
Patient Name: Brandon Bernstein Procedure Date: 10/11/2019 10:42 AM Date of : 1965 Age: 54 Room: [facility] Gender: Female Note Status: Finalized Procedure: Colonoscopy Indications: Screening for colorectal malignant neoplasm Providers: Isaiah Doyle MD Referring MD: Mario Bedoya MD Requesting Provider: Medicines: Monitored Anesthesia Care Complications: No immediate complications. Procedure: Pre-Anesthesia Assessment: - Prior to the procedure, a History and Physical was performed, and patient medications and allergies were reviewed. The patient is competent. The risks and benefits of the procedure and the sedation options and risks were discussed with the patient. All questions were answered and informed consent was obtained. Patient identification and proposed procedure were verified by the physician, the nurse and the anesthesiologist in the procedure room. Mental Status Examination: alert and oriented. Prophylactic Antibiotics: The patient does not require prophylactic antibiotics. Prior Anticoagulants: The patient has taken no previous anticoagulant or antiplatelet agents. ASA Grade Assessment: II - A patient with mild systemic disease. After reviewing the risks and benefits, the patient was deemed in satisfactory condition to undergo the procedure. The anesthesia plan was to use monitored anesthesia care (MAC). Immediately prior to administration of medications, the patient was re-assessed for adequacy to receive sedatives. The heart rate, respiratory rate, oxygen saturations, blood pressure, adequacy of pulmonary ventilation, and response to care were monitored throughout the procedure. The physical status of the patient was re-assessed after the procedure. The Colonoscope was introduced through the anus and advanced to the terminal ileum, with identification of the appendiceal orifice and IC valve. The colonoscopy was performed without difficulty. The patient tolerated the procedure well. The quality of the bowel preparation was good. The terminal ileum, ileocecal valve, appendiceal orifice, and rectum were photographed. Scope insertion time was 3 minutes. Scope withdrawal time was 9 minutes. The total duration of the procedure was 15 minutes. Findings: The perianal and digital rectal examinations were normal. The terminal ileum appeared normal. Diffuse and scattered severe inflammation characterized by erosions, friability, granularity and aphthous ulcerations was found from rectum to cecum. Biopsies were taken with a cold forceps for histology. Verification of patient identification for the specimen was done by the physician and nurse using the patient's name, date and medical record number. Estimated blood loss was minimal. Multiple small-mouthed diverticula were found in the sigmoid colon. There was no evidence of diverticular bleeding. Non-bleeding external and internal hemorrhoids were found during retroflexion. The hemorrhoids were medium-sized. Impression: - The examined portion of the ileum was normal. - Diffuse and scattered severe inflammation was found from rectum to cecum secondary to colitis. Biopsied. - Moderate diverticulosis in the sigmoid colon. There was no evidence of diverticular bleeding. - Non-bleeding external and internal hemorrhoids. Recommendation: - Patient has a contact number available for emergencies. The signs and symptoms of potential delayed complications were discussed with the patient. Return to normal activities tomorrow. Written discharge instructions were provided to the patient. - High fiber diet. - Continue present medications. - Use fiber, for example Citrucel, Fibercon, Konsyl or Metamucil. - Await pathology results. - Repeat colonoscopy in 5 years to check healing and for screening purposes. - Telephone GI clinic for pathology results in 2 weeks. - Return to primary care physician. Isaiah Doyle MD Isaiah Doyle MD 10/11/2019 12:31:49 PM Electronically signed by Isaiah Doyle MD Number of Addenda: 0 Note Initiated On: 10/11/2019 10:42 AM Estimated Blood Loss: Estimated blood loss was minimal.
== END 2019-10-11 12:03 | disposition home or self-care (01) ==
LOC: M OPP 09:01
PROVIDERS: ATTEND Internal Medicine Gastroenterology
DX: Z12.11 Encounter for screening for malignant neoplasm of colon (principal); K57.30 Diverticulosis of large intestine without perforation or abscess without bleeding; K64.8 Other hemorrhoids; K27.9 Peptic ulcer, site unspecified, unspecified as acute or chronic, without hemorrhage or perforation; Z09 Encounter for follow-up examination after completed treatment for conditions other than malignant neoplasm; K44.9 Diaphragmatic hernia without obstruction or gangrene; K31.4 Gastric diverticulum; Z98.84 Bariatric surgery status; Z87.891 Personal history of nicotine dependence; Z79.899 Other long term (current) drug therapy; Z88.1 Allergy status to other antibiotic agents; Z88.8 Allergy status to other drugs, medicaments and biological substances
CPT/HCPCS: 43239; 45380; 88305; J2370; J3010

== ENCOUNTER → 2019-11-29 | Outpatient (REF) | payer OTHER, MEDICAID ==
[~2019-11-29] MED LIST changes: +AMBI10TA; +CYMB1CAP4; +CYMB1CAP5; -NS 1,000 ML IV ONE; +PANT40TA29
[2019-11-29 14:34] LABS: BASO # 0.1 10^3/uL (0.0-0.2); EOS # 0.1 10^3/uL (0.0-0.5); EOS % 1.4 % (0.0-3.0); HEMATOCRIT 46.4 % (36.0-47.0); HEMOGLOBIN 14.7 g/dl (12.0-15.5); LYMPH # 1.8 10^3/uL (1.5-5.0); LYMPH % 36.5 % (24.0-44.0); MEAN CORPUSCULAR HEMOGLOBIN 28.7 pg (27.0-33.0); MEAN CORPUSCULAR HGB CONC 31.7 g/dl (32.0-36.5); MEAN CORPUSCULAR VOLUME 90.6 fl (80.0-96.0); MONO # 0.4 10^3/uL (0.0-0.8); MONO % 8.6 % (0.0-5.0); NEUTROPHILS # 2.6 10^3/uL (1.5-8.5); NEUTROPHILS % 52.3 % (36.0-66.0); PLATELET COUNT, AUTOMATED 295 10^3/uL (150-450); RED BLOOD COUNT 5.12 10^6/uL (4.00-5.40)
[2019-11-29 14:44] LABS: C REACTIVE PROTEIN QUANTITATIV < 0.30 MG/DL (0.00-0.30); IRON (FE) 58 UG/DL (50-170); TOTAL IRON BINDING CAPACITY 306 UG/DL (250-450)
[2019-11-29 15:04] LABS: ERYTHROCYTE SEDIMENTATION RATE 6 mm/hr (0-30)
[2019-11-29 15:05] LABS: FOLATE > 24.0 NG/ML; VITAMIN B12 LEVEL > 2000 PG/ML
[2019-12-02 12:10] LABS: ANCA-ATYPICAL <1:20 titer (Neg:<1:20); ANTI-SACCHAROMYCES CEREV. IgA <20.0 Units (0.0-24.9); CYTOPLASMIC NEUTROP AB ANCA-C <1:20 titer (Neg:<1:20); PERINUCLEAR AB ANCA-P <1:20 titer (Neg:<1:20)
== END ==
LOC: M LABDRWAD 08:45
PROVIDERS: ATTEND Internal Medicine Gastroenterology
DX: K52.3 Indeterminate colitis (principal)

== ENCOUNTER → 2020-01-20 | Outpatient (CLI) | payer OTHER ==
[~2020-01-20] MED LIST changes: -AMBI10TA; -CYMB1CAP4; -CYMB1CAP5; -PANT40TA29
--- NOTE | 2020-01-20 08:27 | REP ---
INDICATION: EPIGASTRIC PAIN COMPARISON: None. TECHNIQUE: Real time kuhn scale ultrasound examination using curved array transducer. FINDINGS: The liver suggests mild fatty infiltration and is otherwise normal in appearance and size measuring 16 cm in craniocaudal length. No focal hepatic lesions are identified. The pancreas is incompletely evaluated due to interposed bowel gas but visualized portions appear normal. The gallbladder is unremarkable. No biliary ductal dilatation is appreciated in the common bile duct measures 4.5 mm diameter. Kidneys normal in reniform shape without hydronephrosis and measures 10.4 x 5.0 x 3.9 cm. No ascites in the visualized right upper quadrant. IMPRESSION: Essentially normal limited abdominal ultrasound <Electronically signed by Alek Malone > 01/20/20 [id number]
== END ==
LOC: M RAD 07:22
PROVIDERS: ATTEND Internal Medicine Gastroenterology
DX: R10.13 Epigastric pain (principal)

== ENCOUNTER → 2020-02-04 | Outpatient (CLI) | payer OTHER ==
[~2020-02-04] MED LIST changes: +AMBI10TA; +CYMB1CAP4; +CYMB1CAP5; +GASTROGRAFIN SOLUTION 30ML (Q9963) As Ordered ONE; +ISOVUE-370 76% 100ML VIAL As Ordered ONE; +PANT40TA29; +diphenhydrAMINE 50MG CAP As Ordered ONE; +diphenhydrAMINE 50MG CAP PO ONE
--- NOTE | 2020-02-04 12:49 | REP ---
INDICATION: ACUTE PEPTIC ULCER WITH PERF. AND EPIGASTRIC PAIN FILE ROOM. COMPARISON: 09/14/2019, 03/15/2018, and 10/31/2017. TECHNIQUE: 100 cc Isovue 370 and oral bowel prep the fco contrast administration FINDINGS: The lung bases are clear. The liver, gallbladder, spleen, pancreas, adrenal glands, and kidneys are within normal limits. The abdominal aorta and para-aortic regions are within normal limits. There is no free fluid or free air. Postoperative changes are again seen in the epigastrium and left upper quadrant. There is mild thickening of the cristobal of the duodenum unchanged. No acute abnormality is seen involving the bowel loops or the mesenteries. The osseous structures are stable and intact. IMPRESSION: No acute disease <Electronically signed by Jean Collins > 02/04/20 [id number]
== END ==
LOC: M RAD 08:57
PROVIDERS: ATTEND Internal Medicine Gastroenterology
DX: K27.1 Acute peptic ulcer, site unspecified, with perforation (principal); R10.13 Epigastric pain
CPT/HCPCS: 74177; Q9963; Q9967

== ENCOUNTER 2020-02-10 09:29 | Emergency (ER) | payer OTHER ==
[~2020-02-10] VITALS: Ht 162.6 cm; Wt 111.4 kg
[~2020-02-10 09:29] MED LIST changes: -AMBI10TA; -CYMB1CAP4; -CYMB1CAP5; -GASTROGRAFIN SOLUTION 30ML (Q9963) As Ordered ONE; -ISOVUE-370 76% 100ML VIAL As Ordered ONE; -PANT40TA29; -diphenhydrAMINE 50MG CAP As Ordered ONE; -diphenhydrAMINE 50MG CAP PO ONE
[2020-02-10] MEDS ORDERED: AMBI10TA (10:13)
[2020-02-10] MEDS ORDERED: PANT40TA29 (10:13)
[2020-02-10] MEDS ORDERED: CYMB1CAP4 (10:13)
[2020-02-10] MEDS ORDERED: CYMB1CAP5 (10:13)
[2020-02-10 10:24] LABS: BASO % 0.6 % (0.0-1.0); EOS # 0.1 10^3/uL (0.0-0.5); EOS % 0.7 % (0.0-3.0); HEMATOCRIT 44.4 % (36.0-47.0); HEMOGLOBIN 14.4 g/dl (12.0-15.5); LYMPH # 1.4 10^3/uL (1.5-5.0); LYMPH % 20.2 % (24.0-44.0); MEAN CORPUSCULAR HEMOGLOBIN 28.9 pg (27.0-33.0); MEAN CORPUSCULAR HGB CONC 32.4 g/dl (32.0-36.5); MEAN CORPUSCULAR VOLUME 89.2 fl (80.0-96.0); MONO # 0.5 10^3/uL (0.0-0.8); MONO % 7.3 % (0.0-5.0); NEUTROPHILS # 4.8 10^3/uL (1.5-8.5); NEUTROPHILS % 70.9 % (36.0-66.0); PLATELET COUNT, AUTOMATED 302 10^3/uL (150-450); RED BLOOD COUNT 4.98 10^6/uL (4.00-5.40); WHITE BLOOD COUNT 6.7 10^3/uL (4.0-10.0)
--- NOTE | 2020-02-10 10:25 | REP ---
INDICATION: CHEST PAIN. COMPARISON: Comparison radiograph 05/16/2019.. TECHNIQUE: Portable upright AP radiograph. FINDINGS: Monitoring electrodes are seen. The lungs are well inflated and clear. The pleural angles are sharp. Heart size is normal. Pulmonary vasculature is not increased. No significant bony abnormality is seen. IMPRESSION: Negative portable chest x-ray. <Electronically signed by Esteban Ramirez > 02/10/20 102
[2020-02-10 10:54] LABS: ALBUMIN 3.5 GM/DL (3.2-5.2); ALT/SGPT 30 U/L (12-78); BILIRUBIN,DIRECT < 0.1 MG/DL (0.0-0.2); BILIRUBIN,TOTAL 0.3 MG/DL (0.2-1.0); LIPASE 112 U/L (73-393); NT-PRO BNP 54 PG/ML (<125); TOTAL PROTEIN 6.5 GM/DL (6.4-8.2)
[2020-02-10] MEDS ORDERED: ACETAMINOPHEN TAB 650MG DOSE (2X325MG) PO ONE (12:30)
[2020-02-10 16:45] VITALS: BP 135/74
--- NOTE | 2020-02-11 09:04 | ECGEPIP ---
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
--- NOTE | 2020-02-11 09:52 | ECGEPIP ---
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
== END 2020-02-10 16:52 | disposition home or self-care (01) ==
LOC: M ED 09:29
DX: R07.9 Chest pain, unspecified (principal); E03.9 Hypothyroidism, unspecified; G89.29 Other chronic pain; G47.33 Obstructive sleep apnea (adult) (pediatric); F33.9 Major depressive disorder, recurrent, unspecified; Z87.891 Personal history of nicotine dependence; Z88.8 Allergy status to other drugs, medicaments and biological substances; Z79.899 Other long term (current) drug therapy

== ENCOUNTER 2020-05-21 16:42 | Emergency (ER) | payer MEDICAID, OTHER ==
[~2020-05-21] VITALS: Ht 165.1 cm; Wt 112.7 kg
[~2020-05-21 16:42] MED LIST changes: +AMBI10TA; -AMIT25TA PO; +AMIT25TA17 PO; +CYMB1CAP4; +CYMB1CAP5; +GABA-282 PO; -GABA-843 PO; +PANT40TA29
--- OUTSIDE RECORDS SUMMARY | 2020-05-21 16:49 | CCD | Continuity of Care Document ---
Author Author Brandon BROWN P Organization Unknown Address [address] [place] [address] [place] [address] Phone [phone] Care Team Providers Care Bumper Operator Name Role Phone Mario Bedoya MD AUTM [phone] [employer] Copelandi AUTM [phone] Problems Description No Information Available Social History Type Date Description Comments Sex Unknown ETOH Use Rarely consumes alcohol Tobacco Use Start: Unknown End: Unknown Patient is a former smoker Smoking Status Reviewed: 04/22/20 Patient is a former smoker Allergies, Adverse Reactions, Alerts Active Allergies Reaction Severity Comments Date Cipro 10/13/2017 Prozac 04/22/2020 IV Contrast 04/22/2020 Topamax 04/22/2020 Medications Active Medications SIG Qnty Indications Ordering Provide r Date Amoxicillin 875mg Tablets 1 tab by mouth twice a day as directed x 10 days 20tabs J01.90 Sujit caicedo JR., M.D. 04/22/2020 Multivitamin Adult Tablets Unknown Glucosamine Chondroitin Complex/MSM Doub le Strength Tablets Unknown Citracal Maximum [id number] Tablets Unknown Diphenhydramine HCL 50mg Capsules Unknown Zofran 4mg Tablets take one tablet every 8 hours for nausea Unknown Levothyroxine Sodium 25mcg Tablets 1 by mouth every day Unknown Gabapentin Unknown Omeprazole Unknown Wellbutrin XL Unknown Ambien Unknown Carafate Unknown Immunizations Description No Information Available Vital Signs Date Vital Result Comment 04/22/2020 8:54am BP Systolic 138 mmHg BP Diastolic 90 mmHg Heart Rate 80 /min Respiratory Rate 18 /min O2 % BldC Oximetry 97 % Body Temperature 98.6 F Weight 245.00 lb Height 65 inches 5'5" BMI (Body Mass Index) 40.8 kg/m2 Pain Level 6 10/13/2017 7:37pm BP Systolic 124 mmHg BP Diastolic 80 mmHg Heart Rate 86 /min Respiratory Rate 18 /min O2 % BldC Oximetry 98 % Body Temperature 98.8 F Weight 252.00 lb Height 66 inches 5'6" BMI (Body Mass Index) 40.7 kg/m2 Pain Level 3 Results Description No Information Available Procedures Description No Information Available Medical Devices Description No Information Available Encounters Type Date Location Provider Dx Diagnosis Office Visit 04/22/2020 8:35a Main Office Sarai Brown NP J01. 90 Acute sinusitis, unspecified Z20.828 Contact w and exposure to ot h viral communicable diseases Assessments Date Code Description Provider 04/22/2020 Gerardo.Bia Acute sinusitis, unspecified April Brown NP 04/22/2020 Z20.828 Contact with and (granados spected) exposure to other viral communicable diseases Sarai Brown NP Plan of Treatment 04/22/2020 - Sarai Brown NP* J01.90 Acute sinusitis, unspecified* New Medication:* Amoxicillin 875 mg - 1 tab by mouth twice a day as directed x 10 days * Comments:* rest/time/fluidstake abx as directedOTC allergy medication PRNtylenol/motrin PRN for pain/feverf/u PRN or with PCPpatient v/u & agrees to plan * Z20.828 Contact with and (suspected) exposure to other viral communicable diseases* Comments:* tested for COVID-19 today via [facility] Rapid Testing & Influenza A/B, all results were reported as negativelikely other viral etiology. infectious course & use of proper protective equipment, adequate handwashing, wearing a mask & keeping 6+ feet distance from others reviewed with patient. advised supportive care, rest/time/fluidsf/u PRNpatient v/u & agrees to plan Functional Status Description No Information Available Mental Status Description No Information Available Referrals Description No Information Available
--- OUTSIDE RECORDS SUMMARY | 2020-05-21 16:49 | CCD ---
Author Author [facility] Organization [facility] Address Unknown Phone Unavailable Care Team Providers Care Network Systems Engineer Name Role Phone Candie Bedoya Unavailable PROBLEMS Type Condition ICD9-CM Code IRI86-MB Code Onset Dates Condition S tatus SNOMED Code Notes Problem Urinary incontinence, urge N39.41 Active 47638 004 Problem Acquired hypothyroidism E03.9 Active 82594635 2 Problem Arthritis M19.90 Active 1698582 Problem WILFRED (obstructive sleep apnea) G47.33 Active 78 207435 Problem Other chronic pain G89.29 Active 77030857 Problem Chronic allergic rhinitis, unspecified s easonality, unspecified trigger J30.9 Active 70601844 Problem Perimenopause N95.1 Active 365315416843816 Problem Mixed hyperlipidemia E78.2 Active 365195589 Problem Irregular menses N92.6 Active 77066024 Problem Trochanteric bursitis of left hip M70.62 Active 281788134051721 Problem Trochanteric bursitis, right hip M70.61 Active 42891640476801964 Problem Excessive and frequent menstruation with irregular cycle N92.1 Active 874099205 Problem 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.05 Ac tive 92989456 Problem S/P gastric bypass Z98.84 Active 486652684 Problem Urticaria L50.9 Active 820770588 Problem Severe episode of recurrent major depressive disorder, without psychotic features F33.2 Active 16445997 Problem Lumbar back pain with radiculopathy affecting le ft lower extremity M54.16 Active 557670896 Problem Edema, unspecified R60.9 Active 89424046 Problem Morbid obesity E66.01 Active 182210320 Problem Chronic gastritis without bleeding, unspecified gastri tis type K29.50 Active 9577560 Problem Severe depression F32.2 Active 198826733 Problem Other specified depressive episodes F32.89 Acti ve 01911203 Problem Mental disorder, not otherwise specified F99 Active 76996307 ALLERGIES Allergen (clinical drug ingredient) Drug/Non Drug Allergy do cumented on EMR Reaction Allergy Type Onset Date Status fluoxetine PROzac([facility] Code:[address]-36) Anaphylaxis Drug Allergy Active ciprofloxacin Cipro([facility] Code:[address]-86) Rash Drug Allergy Active tramadol Tramadol HCl([facility] Code:[address]-03) dizziness Drug Aller gy Active topiramate Topamax([facility] Code:[address]-94) foggy-headed Drug Allergy Active ENCOUNTERS from 1965 to 2020-04-20 Encounter Location Date Provider Diagnosis [facility] [address] [place] [address] 13 Apr, 2020 Reg leighann Wetterhahn IMMUNIZATIONS No Information SOCIAL HISTORY Tobacco Use: Social History Observation Description Date Details (start date - stop date) Former Smoker Sex Assigned At : Social History Observation Description Sex Assigned At Unknown Education: Question Answer Notes Level of Education: College Audit Question Answer Notes Total Score: 1 Interpretation: Alcohol Education Language: Question Answer Notes Languages spoken: [place] Church: Question Answer Notes Church 33 None Sexual Hx: Question Answer Notes Had sex in the last 12 months (vaginal, oral, or anal)? Yes LMP: 11/26/16 Have you ever had an STD? Yes with Men only Use protection? No Drug and Alcohol Question Answer Notes Total Score: 0 Interpretation: No problems reported Alcohol Screening: Question Answer Notes Did you have a drink containing alcohol in the past year? Ye s Points 1 Interpretation Negative How often did you have six or more drinks on one occas ion in the past year? Never (0 points) How many drinks did you have on a typica l day when you were drinking in the past year? 1 or 2 (0 points) How often did you have a drink containing alcohol in t he past year? Monthly or less (1 point) BMI Care Goal Follow-Up Question Answer Notes Above Normal BMI Follow-Up Dietary management educatio n, guidance, and counseling Tobacco Use: Question Answer Notes Are you a: former smoker former smoker How long has it been since you last smoked? > 10 years REASON FOR REFERRAL No Information VITAL SIGNS No information MEDICATIONS Medication SIG (Take, Route, Frequency, Duration) Notes Start Da te End Date Status [place] 5-325 MG 1 tab Orally three times daily Sep, Active Citracal + D 315-200 MG-UNIT 1 tablet Orally Twice a day Active Benadryl 50 MG 1 tab Orally at bedtime as needed for sleep/guicho rgies Sep, Active Black Cohosh 40 MG as directed Orally Active Vitamin D-3 5000 UNIT 1 tablet Orally Once a day Active Fluconazole 200 MG 1 tablet Orally Daily x7 days Sep, 2 020 Active Wellbutrin XL 300 MG 1 tablet in the morning Orally Once a day for 30 Active Levothyroxine Sodium 25 MCG 1 tablet on an empty stoma ch in the morning Orally Once a day Nov, Active Stool Softener 100 MG 1 capsule as needed Orally Once a day for 30 da y(s) Active Gabapentin 300 MG 1 cap bid and 2 caps at bedtime Oral for 30 Days Active Tylenol 325 MG 1 tablet as needed Orally every 4 hrs Active EpiPen 1 MG/ML 1 Intramuscular as directed for 30 days Active Vitamin B12 1000 MCG 1 tablet Orally Once a day Active Sucralfate 1 GM/10ML 10 ml on an empty stomach Orally every 6 ho urs Sep, Active Amitriptyline HCl 25 MG 1 tablet at bedtime Orally at bedtime fo r 90 day(s) Apr, Active Multivital - 2 tabs Orally daily Act emile Glucosamine 500 MG 1 capsule with a meal Orally Three times a day for 30 day(s) Active Zofran ODT 4 MG 1 tablet on the tongue and a llow to dissolve Orally every 6 hours as needed for nausea for 30 Days Apr, Active Omeprazole 20 MG 1 capsule Orally twice daily for 90 day(s) Active PROCEDURES No Information RESULTS No Results REASON FOR VISIT nausea for a month MEDICAL (GENERAL) HISTORY Type Description Date Medical History edema Medical History WILFRED on CPAP Medical History morbid obesity-- s/p R-Y Gas tric bypass 07/2017--perforated marginal ulcer 09/24 Medical History GERD Medical History Fatty Liver per US 2006 Medical History chronic left shoulder pain/neck pain wit h DDD Medical History chronic urticaria - referred to educational interpreter 10/2016 - has Epi pens on hand Medical History Echo 2007 - mild concentric LVH with EF 65% Medical History Radicular pain in right hip Medical History Severe Depression Surgical History bilat ureteral reimplanation for V-U ref lux (done twice) Surgical History carpal tunnel sx bilat 2002 Surgical History (declined colonoscopy referral 07/16,07/18 , 07/20) Surgical History cryo 1987 Surgical History EGD 07/07/17 Surgical History R-en-Y Gastric Bypass 07/28/17 Surgical History hernia repair 07/28/17 Surgical History RALH and BSO 03/13/18 Surgical History perforated marginal gastric ulcer--s/p robotic assisted lap repair 09/2019 Goals Section No Information Health Concerns No Information MEDICAL EQUIPMENT No Information MENTAL STATUS No Information FUNCTIONAL STATUS No Information ASSESSMENTS No Information PLAN OF TREATMENT Medication Medication Name Sig Start Date Stop Date Zofran ODT 4 MG 1 tablet on the tongue and a llow to dissolve Orally every 6 hours as needed for nausea for 30 Days Apr, Gabapentin 300 MG 1 cap bid and 2 caps at bedtime Oral for 30 Da ys Wellbutrin XL 300 MG 1 tablet in the morning Orally Once a day f or 30 Omeprazole 20 MG 1 capsule Orally twice daily for 90 day(s) Next Appt Details Provider Name:Candie Bedoya, 2020-04 07:15:00 AM, [address] [place] [address], [phone], Provider Name:Daksha Ravi, 2020-04 08:00:00 AM, [address] [place] [address], [phone] Insurance Providers Payer Name Payer Address Payer Phone Insured Name Patient Relati onship to Insured Coverage Start Date Coverage End Date [facility] [employer] [facility] [address] [facility] [phone] REBECCA BERNSTEIN self
--- OUTSIDE RECORDS SUMMARY | 2020-05-21 16:49 | CCD ---
Author Author [facility] Organization [facility] Address Unknown Phone Unavailable Care Team Providers Care Stna Name Role Phone Candie Bedoya Unavailable PROBLEMS Type Condition ICD9-CM Code [id number] Code Onset Dates Condition S tatus W/U Status Risk SNOMED Code Notes Problem Urinary incontinence, urge N39.41 Active confirmed 67982766 Problem Acquired hypothyroidism E03.9 Active confirmed 030979619 Problem Arthritis M19.90 Active confirmed 7466316 Problem WILFRED (obstructive sleep apnea) G47.33 Active confirm ed 29207872 Problem Other chronic pain G89.29 Active confirmed 8 1541956 Problem Chronic allergic rhinitis, unspecified s easonality, unspecified trigger J30.9 Active confirmed 83599413 Problem Perimenopause N95.1 Active confirmed 530373 852536604 Problem Mixed hyperlipidemia E78.2 Active confirmed 479605770 Problem Irregular menses N92.6 Active confirmed 801 91186 Problem Trochanteric bursitis of left hip M70.62 Active confirmed 776127632607524 Problem Trochanteric bursitis, right hip M70.61 Active confirmed 00860164254619862 Problem Excessive and frequent menstruation with irregular cycle N92.1 Active confirmed 096040439 Problem 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.05 Ac tive confirmed 19466983 Problem S/P gastric bypass Z98.84 Active confirmed 6 82391235 Problem Urticaria L50.9 Active confirmed 477539047 Problem Severe episode of recurrent major depressive disorder, without psychotic features F33.2 Active confirmed 96598767 Problem Lumbar back pain with radiculopathy affecting le ft lower extremity M54.16 Active confirmed 679202789 Problem Edema, unspecified R60.9 Active confirmed 7 6578859 Problem Morbid obesity E66.01 Active confirmed 38119 6002 Problem Chronic gastritis without bleeding, unspecified gastri tis type K29.50 Active confirmed 7288569 Problem Severe depression F32.2 Active confirmed 31 0465569 Problem Other specified depressive episodes F32.89 Acti ve confirmed 84803516 Problem Mental disorder, not otherwise specified F99 Active confirmed 48775123 ALLERGIES Allergen (clinical drug ingredient) Drug/Non Drug Allergy do cumented on EMR Reaction Allergy Type Onset Date Status fluoxetine PROzac([facility] Code:[address]-91) Anaphylaxis Drug Allergy Active ciprofloxacin Cipro([facility] Code:[address]-89) Rash Drug Allergy Active tramadol Tramadol HCl(ND Code:[address]-91) dizziness Drug Aller gy Active CT Scan dye Hives Non Drug Allergy Active topiramate Topamax([facility] Code:[address]-08) foggy-headed Drug Allergy Active ENCOUNTERS from 1967 to 2020-05-11 Encounter Location Date Provider Diagnosis [address] [place] [address] 15 Apr, 2020 Reg leighann Wetterhahn Chronic nausea R11.0 IMMUNIZATIONS No Information SOCIAL HISTORY Tobacco Use: Social History Observation Description Date Details (start date - stop date) Former Smoker Sex Assigned At : Social History Observation Description Sex Assigned At Unknown Education: Question Answer Notes Level of Education: College Audit Question Answer Notes Interpretation: Alcohol Education Total Score: 1 Language: Question Answer Notes Languages spoken: Polish Pentecostalism: Question Answer Notes Pentecostalism 33 None Sexual Hx: Question Answer Notes Had sex in the last 12 months (vaginal, oral, or anal)? Yes LMP: 11/26/16 Have you ever had an STD? Yes with Men only Use protection? No Drug and Alcohol Question Answer Notes Interpretation: No problems reported Total Score: 0 Alcohol Screening: Question Answer Notes Did you [...] REASON FOR REFERRAL No Information VITAL SIGNS Weight 247.8 lbs Apr, Height 65 in Apr, BMI 41.23 kg/m2 Apr, Heart Rate 86 /min Apr, Respiratory Rate 18 /min Apr, Temperature 96.5 degrees Fahrenheit Apr, Oximetry 94 Apr, Blood pressure systolic 120 mm Hg Apr, Blood pressure diastolic 70 mm Hg Apr, MEDICATIONS Medication SIG (Take, Route, Frequency, Duration) Notes Start Da te End Date Status Levothyroxine Sodium 25 MCG 1 tablet on an empty stoma ch in the morning Orally Once a day Nov, Active Tylenol 325 MG 1 tablet as needed Orally every 4 hrs Active Glucosamine 500 MG 1 capsule with a meal Orally Three times a day for 30 day(s) Active Sucralfate 1 GM/10ML 10 ml on an empty stomach Orally every 6 ho urs Sep, Not-Taking [place] 5-325 MG 1 tab Orally three times daily Sep, Not-Taking Vitamin D-3 5000 UNIT 1 tablet Orally Once a day Active Fluconazole 200 MG 1 tablet Orally Daily x7 days Sep, 2 020 Not-Taking Multivital - 2 tabs Orally daily Act emile Black Cohosh 40 MG as directed Orally Active Sucralfate 1 GM/10ML 10 ml on an empty stomach Or ally before meals and bedtime (Patient is s/p gastric bypass - needs liquid form) for 30 day(s) Apr, Active Zofran ODT 4 MG 1 tablet on the tongue and a llow to dissolve Orally every 6 hours as needed for nausea for 30 Days Apr, Active Vitamin B12 1000 MCG 1 tablet Orally Once a day Active EpiPen 1 MG/ML 1 Intramuscular as directed for 30 days Active Gabapentin 300 MG 1 cap bid and 2 caps at bedtime Oral for 30 Days Active Citracal + D 315-200 MG-UNIT 1 tablet Orally Twice a day Active Amitriptyline HCl 25 MG 1 tablet at bedtime Orally at bedtime fo r 90 day(s) Apr, Active Stool Softener 100 MG 1 capsule as needed Orally Once a day for 30 da y(s) Active Wellbutrin XL 300 MG 1 tablet in the morning Orally Once a day for 30 Active Omeprazole 20 MG 1 capsule Orally twice daily Active Zolpidem Tartrate 10 MG (Schedule IV Drug) TAKE 1 TA BLET BY MOUTH AT BEDTIME FOR SLEEP . DO NOT EXCEED 1 PER 24 HOURS Oral for 30 Active Benadryl 50 MG 1 tab Orally at bedtime as needed for sleep/guicho rgies Sep, Active PROCEDURES No Information RESULTS No Results REASON FOR VISIT Pt is c/o increased nausea x 6 weeks. 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 Pylori, Colonoscopy - Biopsy showed chronic inflammation/ulceration 10/2019 Goals Section No Information Health Concerns No Information MEDICAL EQUIPMENT No Information MENTAL STATUS No Information FUNCTIONAL STATUS No Information ASSESSMENTS Encounter Date Diagnosis Assessment Notes Treatment Notes Treatm ent Clinical Notes Apr, Chronic nausea (ICD-10 - R11.0) s/p gastric byspass with h/o ulceration at Rou-en-Y site. NOw with recurrent nausea. Will restart Sucralfate. Will likely need to go back to Gi for eval if no improvement PLAN OF TREATMENT Medication Medication Name Sig Start Date Stop Date Sucralfate 1 GM/10ML 10 ml on an empty stomach Or ally before meals and bedtime (Patient is s/p gastric bypass - needs liquid form) for 30 day(s) Apr, Omeprazole 20 MG 1 capsule Orally twice daily Treatment Notes Assessment Notes Clinical Notes Chronic nausea s/p gastric byspass with h/o ulceration at Rou-en-Y site. NOw with recurrent nausea. Will restart Sucralfate. Will likely need to go back to Gi for eval if no improvement Next Appt Details 4 Weeks Reason: Provider Name:Daksha Ravi, 2020-05 08:00:00 AM, [address], [place], [address] Provider Name:Canide Bedoya, 2020-05 08:00:00 AM, [address], [place], [address], Insurance Providers Payer Name Payer Address Payer Phone Insured Name Patient Relati onship to Insured Coverage Start Date Coverage End Date [facility]AN [facility] [address] [facility] [address] REBECCA BERNSTEIN
--- OUTSIDE RECORDS SUMMARY | 2020-05-21 16:49 | CCD ---
Author Author [facility] Organization [facility] Address Unknown Phone Unavailable Care Team Providers Care Instructor Physical Name Role Phone Candie Bedoya Unavailable PROBLEMS Type Condition ICD9-CM Code KMV91-DM Code Onset Dates Condition S tatus W/U Status Risk SNOMED Code Notes Problem Urinary incontinence, urge N39.41 Active confirmed 78826075 Problem Acquired hypothyroidism E03.9 Active confirmed 336729318 Problem Arthritis M19.90 Active confirmed 4243912 Problem WILFRED (obstructive sleep apnea) G47.33 Active confirm ed 55696747 Problem Other chronic pain G89.29 Active confirmed 8 0956488 Problem Chronic allergic rhinitis, unspecified s easonality, unspecified trigger J30.9 Active confirmed 45227855 Problem Perimenopause N95.1 Active confirmed 143914 369288718 Problem Mixed hyperlipidemia E78.2 Active confirmed 072155401 Problem Irregular menses N92.6 Active confirmed 801 39040 Problem Trochanteric bursitis of left hip M70.62 Active confirmed 854908162694250 Problem Trochanteric bursitis, right hip M70.61 Active confirmed 22364212566983709 Problem Excessive and frequent menstruation with irregular cycle N92.1 Active confirmed 706868560 Problem 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.05 Ac tive confirmed 45936537 Problem S/P gastric bypass Z98.84 Active confirmed 6 25661508 Problem Urticaria L50.9 Active confirmed 268366354 Problem Severe episode of recurrent major depressive disorder, without psychotic features F33.2 Active confirmed 81475635 Problem Lumbar back pain with radiculopathy affecting le ft lower extremity M54.16 Active confirmed 189895023 Problem Edema, unspecified R60.9 Active confirmed 7 8787725 Problem Morbid obesity E66.01 Active confirmed 90396 6002 Problem Chronic gastritis without bleeding, unspecified gastri tis type K29.50 Active confirmed 6861146 Problem Severe depression F32.2 Active confirmed 31 9607575 Problem Other specified depressive episodes F32.89 Acti ve confirmed 55148839 Problem Mental disorder, not otherwise specified F99 Active confirmed 64330973 ALLERGIES Allergen (clinical drug ingredient) Drug/Non Drug Allergy do cumented on EMR Reaction Allergy Type Onset Date Status fluoxetine PROzac([facility] Code:[address]-96) Anaphylaxis Drug Allergy Active ciprofloxacin Cipro([facility] Code:[address]-56) Rash Drug Allergy Active tramadol Tramadol HCl(ND Code:[address]-25) dizziness Drug Aller gy Active CT Scan dye Hives Non Drug Allergy Active topiramate Topamax([facility] Code:[address]-73) foggy-headed Drug Allergy Active ENCOUNTERS from 1967 to 2020-05-15 Encounter Location Date Provider Diagnosis [address] [place] [address] May, Reg leighann Wetterzevhn Acquired hypothyroidism E03.9 IMMUNIZATIONS No Information SOCIAL HISTORY Tobacco Use: Social History Observation Description Date Details (start date - stop date) Former Smoker Sex Assigned At : Social History Observation Description Sex Assigned At Unknown Education: Question Answer Notes Level of Education: College Audit Question Answer Notes Total Score: 1 Interpretation: Alcohol Education Language: Question Answer Notes Languages spoken: Norwegian Episcopal: Question Answer Notes Episcopal 33 None Sexual Hx: Question Answer Notes [...] Notes Start Da te End Date Status Tylenol 325 MG 1 tablet as needed Orally every 4 hrs Active Benadryl 50 MG 1 tab Orally at bedtime as needed for sleep/guicho rgies Sep, Active Glucosamine 500 MG 1 capsule with a meal Orally Three times a day for 30 day(s) Active Amitriptyline HCl 25 MG 1 tablet at bedtime Orally at bedtime fo r 90 day(s) Apr, Active [place] 5-325 MG 1 tab Orally three times daily Sep, Not-Taking Black Cohosh 40 MG as directed Orally Active Fluconazole 200 MG 1 tablet Orally Daily x7 days Sep, 020 Not-Taking Levothyroxine Sodium 25 MCG 1 tablet on an empty stoma ch in the morning Orally Once a day for 90 days Nov, Active Multivital - 2 tabs Orally daily Act emile Sucralfate 1 GM/10ML 10 ml on an empty stomach Or ally before meals and bedtime (Patient is s/p gastric bypass - needs liquid form) for 30 day(s) Apr, Active Vitamin B12 1000 MCG 1 tablet Orally Once a day Active Sucralfate 1 GM/10ML 10 ml on an empty stomach Orally every 6 ho urs Sep, Not-Taking Vitamin D-3 5000 UNIT 1 tablet Orally Once a day Active Stool Softener 100 MG 1 capsule as needed Orally Once a day for 30 da y(s) Active Citracal + D 315-200 MG-UNIT 1 tablet Orally Twice a day Active Zolpidem Tartrate 10 MG (Schedule IV Drug) TAKE 1 TA BLET BY MOUTH AT BEDTIME FOR SLEEP . DO NOT EXCEED 1 PER 24 HOURS Oral for 30 Active Zofran ODT 4 MG 1 tablet on the tongue and a llow to dissolve Orally every 6 hours as needed for nausea for 30 Days Apr, Active Wellbutrin XL 300 MG 1 tablet in the morning Orally Once a day for 30 Active Omeprazole 20 MG 1 capsule Orally twice daily Active EpiPen 1 MG/ML 1 Intramuscular as directed for 30 days Active Gabapentin 300 MG 1 cap bid and 2 caps at bedtime Oral for 30 Days Active PROCEDURES No Information RESULTS No Results REASON FOR VISIT refill MEDICAL (GENERAL) HISTORY Type Description Date Medical History edema Medical History WILFRED on CPAP Medical History morbid obesity-- s/p R-Y Gas tric bypass 07/2017--perforated marginal ulcer 09/24 Medical History GERD Medical History Fatty Liver per [place] 2006 Medical History chronic left shoulder pain/neck pain wit h DDD Medical History chronic urticaria - 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/2016 - has Epi pens on hand [...] Notes Treatment Notes Treatm ent Clinical Notes May, Acquired hypothyroidism (ICD-10 - E03.9) PLAN OF TREATMENT Medication Medication Name Sig Start Date Stop Date Sucralfate 1 GM/10ML 10 ml on an empty stomach Or ally before meals and bedtime (Patient is s/p gastric bypass - needs liquid form) for 30 day(s) Apr, Omeprazole 20 MG 1 capsule Orally twice daily Levothyroxine Sodium 25 MCG 1 tablet on an empty stoma ch in the morning Orally Once a day for 90 days Nov, Next Appt Details Provider Name:Candie Bedoya, 2020-02 -12 08:00:00 AM, [address], [place], [address], Provider Name:Daksha Ravi, 2020-06 08:00:00 AM, [address], [place], [address] Insurance Providers Payer Name Payer Address Payer Phone Insured Name Patient Relati onship to Insured Coverage Start Date Coverage End Date [facility] PLAN [facility] [address] [facility] [address] REBECCA BERNSTEIN self
--- OUTSIDE RECORDS SUMMARY | 2020-05-21 16:49 | CCD ---
Author Author [facility] Organization [facility] Address Unknown Phone Unavailable Care Team Providers Care Pet Counselor Name Role Phone Daksha Ravi Unavailable PROBLEMS Type Condition ICD9-CM Code EWD66-LE Code Onset Dates Condition S tatus SNOMED Code Notes Problem Urinary incontinence, urge N39.41 Active 92502 004 Problem Acquired hypothyroidism E03.9 Active 17415071 2 Problem Arthritis M19.90 Active 4112224 Problem WILFRED (obstructive sleep apnea) G47.33 Active 78 414705 Problem Other chronic pain G89.29 Active 83996189 Problem Chronic allergic rhinitis, unspecified s easonality, unspecified trigger J30.9 Active 56759052 Problem Perimenopause N95.1 Active 770502894181130 Problem Mixed hyperlipidemia E78.2 Active 911338759 Problem Irregular menses N92.6 Active 49390741 Problem Trochanteric bursitis of left hip M70.62 Active 257399285688651 Problem Trochanteric bursitis, right hip M70.61 Active 11432124169036306 Problem Excessive and frequent menstruation with irregular cycle N92.1 Active 592275327 Problem 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.05 Ac tive 26347583 Problem S/P gastric bypass Z98.84 Active 369254517 Problem Urticaria L50.9 Active 214466054 Problem Severe episode of recurrent major depressive disorder, without psychotic features F33.2 Active 72938159 Problem Lumbar back pain with radiculopathy affecting le ft lower extremity M54.16 Active 049954299 Problem Edema, unspecified R60.9 Active 57599515 Problem Morbid obesity E66.01 Active 564133138 Problem Chronic gastritis without bleeding, unspecified gastri tis type K29.50 Active 0554929 Problem Severe depression F32.2 Active 997418170 Problem Other specified depressive episodes F32.89 Acti ve 21389757 Problem Mental disorder, not otherwise specified F99 Active 67049729 ALLERGIES Allergen (clinical drug ingredient) Drug/Non Drug Allergy do cumented on EMR Reaction Allergy Type Onset Date Status fluoxetine PROzac([facility] Code:[address]-94) Anaphylaxis Drug Allergy Active ciprofloxacin Cipro([facility] Code:[address]-43) Rash Drug Allergy Active tramadol Tramadol HCl([facility] Code:[address]-45) dizziness Drug Aller gy Active topiramate Topamax([facility] Code:[address]-20) foggy-headed Drug Allergy Active ENCOUNTERS from 1967 to 2020-03-29 Encounter Location Date Provider Diagnosis [facility] [address] [place] [address] Mar Daksha Ravi Severe episode of recurrent major depres sive disorder, without psychotic features F33.2 IMMUNIZATIONS No Information SOCIAL HISTORY Tobacco Use: Social History Observation Description Date Details (start date - stop date) Former Smoker Sex Assigned At : Social History Observation Description Sex Assigned At Unknown Education: Question Answer Notes Level of Education: College Audit Question Answer Notes Total Score: 1 Interpretation: Alcohol Education Language: Question Answer Notes Languages spoken: Khmer Rastafarian: Question Answer Notes Rastafarian 33 None Sexual Hx: Question Answer Notes [...] Notes Start Da te End Date Status [place] 5-325 MG 1 tab Orally three times [...] Information RESULTS No Results REASON FOR VISIT Zoom MEDICAL (GENERAL) HISTORY Type Description Date Medical History edema Medical History WILFRED on CPAP Medical History morbid obesity-- s/p R-Y Gas tric bypass 07/2017--perforated marginal ulcer 09/24 Medical History GERD Medical History Fatty Liver per [place] 2006 Medical History chronic left shoulder pain/neck pain wit h DDD Medical History chronic urticaria - 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 Reports symptoms ahve remained the same. Scheduled for a return session 04/28/2020 PLAN OF TREATMENT Medication Medication Name Sig [...] capsule Orally twice daily for 90 day(s) Treatment Notes Assessment Notes Clinical Notes Severe episode of recurrent major depres sive disorder, without psychotic features Rebecca was seen for a follo w up session, via zoom. Reports symptoms ahve remained the same. Scheduled for a return session 04/28/2020 Next Appt Details Provider Name:Daksha Trav, 2020-04 08:00:00 AM, [address], [place], [address] Insurance Providers Payer Name Payer Address Payer Phone Insured Name Patient Relati onship to Insured Coverage Start Date Coverage End Date [facility]AN [facility] [address] [facility] [phone] REBECCA BERNSTEIN self
--- OUTSIDE RECORDS SUMMARY | 2020-05-21 16:49 | CCD ---
Author Author [facility] Organization [facility] Address Unknown Phone Unavailable Care Team Providers Care Commercial Tire Service Technician Name Role Phone Daksha Ravi Unavailable PROBLEMS Type Condition ICD9-CM Code ESF10-XL Code Onset Dates Condition S tatus SNOMED Code Notes Problem Urinary incontinence, urge N39.41 Active 03806 004 Problem Acquired hypothyroidism E03.9 Active 81562441 2 Problem Arthritis M19.90 Active 4504693 Problem WILFRED (obstructive sleep apnea) G47.33 Active 78 984330 Problem Other chronic pain G89.29 Active 29784947 Problem Chronic allergic rhinitis, unspecified s easonality, unspecified trigger J30.9 Active 59483931 Problem Perimenopause N95.1 Active 364067176818151 Problem Mixed hyperlipidemia E78.2 Active 567981308 Problem Irregular menses N92.6 Active 21288294 Problem Trochanteric bursitis of left hip M70.62 Active 177792296624163 Problem Trochanteric bursitis, right hip M70.61 Active 84277859618440242 Problem Excessive and frequent menstruation with irregular cycle N92.1 Active 042626972 Problem 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.05 Ac tive 75765749 Problem S/P gastric bypass Z98.84 Active 715017114 Problem Urticaria L50.9 Active 534969372 Problem Severe episode of recurrent major depressive disorder, without psychotic features F33.2 Active 65353903 Problem Lumbar back pain with radiculopathy affecting le ft lower extremity M54.16 Active 543235868 Problem Edema, unspecified R60.9 Active 18382108 Problem Morbid obesity E66.01 Active 049458517 Problem Chronic gastritis without bleeding, unspecified gastri tis type K29.50 Active 2473045 Problem Severe depression F32.2 Active 759050054 Problem Other specified depressive episodes F32.89 Acti ve 54148594 Problem Mental disorder, not otherwise specified F99 Active 70306078 ALLERGIES Allergen (clinical drug ingredient) Drug/Non Drug Allergy do cumented on EMR Reaction Allergy Type Onset Date Status fluoxetine PROzac(FORMER[facility] NAMED [facility] Code:[address]-76) Anaphylaxis Drug Allergy Active ciprofloxacin Cipro([facility] NAMED [facility] Code:[address]-69) Rash Drug Allergy Active tramadol Tramadol HCl(ND Code:[address]-51) dizziness Drug Aller gy Active CT Scan dye Hives Non Drug Allergy Active topiramate Topamax(FORMER[facility] NAMED [facility] Code:[address]-94) foggy-headed Drug Allergy Active ENCOUNTERS from 1967 to 2020-04-30 Encounter Location Date Provider Diagnosis [address] [place] [address] Apr Daksha Ravi Severe episode of recurrent major [...] Education Language: Question Answer Notes Languages spoken: Martiniquais Cheondoism: Question Answer Notes Cheondoism 33 None Sexual Hx: Question Answer Notes [...] Orally every 6 ho urs Sep, Not-Taking [place] 5-325 MG 1 tab Orally three times [...] Information RESULTS No Results REASON FOR VISIT zoom MEDICAL (GENERAL) HISTORY Type Description Date Medical History edema Medical History WILFRED on CPAP Medical History morbid obesity-- s/p R-Y Gas tric bypass 07/2017--perforated marginal ulcer 09/24 Medical History GERD Medical History Fatty Liver per [place] 2006 Medical History chronic left shoulder pain/neck pain wit h DDD Medical History chronic urticaria - referred to rn outpatient surgery 10/2016 - has Epi pens on hand Medical History Echo 2007 - mild concentric LVH with EF 65% Medical History Radicular pain in right hip Medical History Severe Depression Surgical History bilat ureteral reimplanation for V-U ref lux (done twice) 1969,1971 Surgical History carpal tunnel sx bilat 2002 [...] Treatment Notes Treatm ent Clinical Notes Apr, Severe episode of recurrent major depressive disorder, without psychotic features (ICD-10 - F33.2) Rebecca was seen for a follow up session, via zoom. Reports symptoms have remained the same. Scheduled for a return session 05/12/2020. PLAN OF TREATMENT Medication Medication Name Sig Start Date Stop Date Sucralfate 1 GM/10ML 10 ml on an empty stomach Or ally before meals and bedtime (Patient is s/p gastric bypass - needs liquid form) for 30 day(s) Apr, Omeprazole 20 MG 1 capsule Orally twice daily Treatment Notes Assessment Notes Clinical Notes Severe episode of recurrent major depres sive disorder, without psychotic features Rebecca was seen for a follo w up session, via zoom. Reports symptoms have remained the same. Scheduled for a return session 05/12/2020. Next Appt Details Provider Name:Daksha Ravi, 2020-05 08:00:00 AM, [address], [place], [address] Provider Name:Candie Nicoleafshinmikayla, 2020-05 08:00:00 AM, [address], [place], [address], Insurance Providers Payer Name Payer Address Payer Phone Insured Name Patient Relati onship to Insured Coverage Start Date Coverage End Date [facility] [address] [facility] [address] [phone] REBECCA BERNSTEIN self
--- OUTSIDE RECORDS SUMMARY | 2020-05-21 16:49 | CCD | Continuity of Care Document ---
Author Author Brandon BROWN P Organization Unknown Address [address] [place] [address] [place] [address] Phone [phone] Care Team Providers Care Flavoring Machine Operator Name Role Phone Mario Bedoya MD AUTM [phone] Jimbo Copelandi AUTM [phone] Problems Description No Information Available Social History [...] Doub le Strength Tablets Unknown Citracal Maximum 006-136la-Vaic Tablets Unknown Diphenhydramine HCL 50mg Capsules Unknown [...] diseases Assessments Date Code Description Provider 04/22/2020 J01.90 Acute sinusitis, unspecified April Brown NP 04/22/2020 Z20.828 Contact with and (granados spected) exposure to other viral communicable diseases Sarai Brown NP Plan of Treatment No Information Available Functional Status Description No Information Available Mental Status Description No Information Available Referrals Description No Information Available
--- OUTSIDE RECORDS SUMMARY | 2020-05-21 16:50 | CCD ---
Author Author [facility] Organization [facility] Address Unknown Phone Unavailable Care Team Providers Care Kennel Manager Name Role Phone Candie Bedoya Unavailable PROBLEMS Type Condition ICD9-CM Code HWW52-PB Code Onset Dates Condition S tatus SNOMED Code Notes Problem Urinary incontinence, urge N39.41 Active 38435 004 Problem Acquired hypothyroidism E03.9 Active 73852389 2 Problem Arthritis M19.90 Active 7740207 Problem WILFRED (obstructive sleep apnea) G47.33 Active 78 779695 Problem Other chronic pain G89.29 Active 03387727 Problem Chronic allergic rhinitis, unspecified s easonality, unspecified trigger J30.9 Active 85108970 Problem Perimenopause N95.1 Active 851643253078643 Problem Mixed hyperlipidemia E78.2 Active 807310994 Problem Irregular menses N92.6 Active 32649120 Problem Trochanteric bursitis of left hip M70.62 Active 872657414434621 Problem Trochanteric bursitis, right hip M70.61 Active 46535730961198984 Problem Excessive and frequent menstruation with irregular cycle N92.1 Active 507959406 Problem 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.05 Ac tive 02042828 Problem S/P gastric bypass Z98.84 Active 619602553 Problem Urticaria L50.9 Active 310574103 Problem Severe episode of recurrent major depressive disorder, without psychotic features F33.2 Active 28252603 Problem Lumbar back pain with radiculopathy affecting le ft lower extremity M54.16 Active 446205699 Problem Edema, unspecified R60.9 Active 91657601 Problem Morbid obesity E66.01 Active 144322475 Problem Chronic gastritis without bleeding, unspecified gastri tis type K29.50 Active 5997588 Problem Severe depression F32.2 Active 023489601 Problem Other specified depressive episodes F32.89 Acti ve 96205900 Problem Mental disorder, not otherwise specified F99 Active 62421244 ALLERGIES Allergen (clinical drug ingredient) Drug/Non Drug Allergy do cumented on EMR Reaction Allergy Type Onset Date Status fluoxetine PROzac([facility] Code:[address]-15) Anaphylaxis Drug Allergy Active ciprofloxacin Cipro([facility] Code:[address]-53) Rash Drug Allergy Active tramadol Tramadol HCl([facility] Code:[address]-84) dizziness Drug Aller gy Active topiramate Topamax([facility] Code:[address]-74) foggy-headed Drug Allergy Active ENCOUNTERS from 1967 to 2020-03-08 Encounter Location Date Provider Diagnosis [facility] [address] [place] [address] Mar, Reg leighann [place] IMMUNIZATIONS No Information SOCIAL HISTORY Tobacco Use: Social History Observation Description Date Details (start date - stop date) Former Smoker Sex Assigned At : Social History Observation Description Sex Assigned At Unknown Education: Question Answer Notes Level of Education: College Audit Question Answer Notes Total Score: 1 Interpretation: Alcohol Education Language: Question Answer Notes Languages spoken: Nauruan Hoahaoism: Question Answer Notes Hoahaoism 33 None Sexual Hx: Question Answer Notes [...] Notes Start Da te End Date Status Salem 5-325 MG 1 tab Orally three times daily Sep, Active Citracal + D 315-200 MG-UNIT 1 tablet Orally Twice a day Active Benadryl 50 MG 1 tab Orally at bedtime as needed for sleep/guicho rgies Sep, Active EpiPen 1 MG/ML 1 Intramuscular as directed for 30 days Active Vitamin D-3 5000 UNIT 1 tablet Orally Once a day Active Vitamin B12 1000 MCG 1 tablet Orally Once a day Active Wellbutrin XL 300 MG 1 tablet in the morning Orally Once a day for 30 Active Stool Softener 100 MG 1 capsule as needed Orally Once a day for 30 da y(s) Active Fluconazole 200 MG 1 tablet Orally Daily x7 days Sep, 2 020 Active Levothyroxine Sodium 25 MCG 1 tablet on an empty stoma ch in the morning Orally Once a day Nov, Active Multivital - 2 tabs Orally daily Act emile Tylenol 325 MG 1 tablet as needed Orally every 4 hrs Active Zofran ODT 4 MG 1 tablet on the tongue and a llow to dissolve Orally every 6 hours as needed for nausea for 30 Days Apr, Active Sucralfate 1 GM/10ML 10 ml on an empty stomach Orally every 6 ho urs Sep, Active Black Cohosh 40 MG as directed Orally Active Gabapentin 300 MG 1 cap bid and 2 caps at bedtime Oral Active Glucosamine 500 MG 1 capsule with a meal Orally Three times a day for 30 day(s) Active Amitriptyline HCl 25 MG 1 tablet at bedtime Orally at bedtime fo r 90 day(s) Apr, Active Omeprazole 20 MG 1 capsule Orally twice daily for 90 day(s) Active PROCEDURES No Information RESULTS No Results REASON FOR VISIT ondansetron MEDICAL (GENERAL) HISTORY Type Description Date Medical History edema Medical History WILFRED on CPAP Medical History morbid obesity-- s/p R-Y Gas tric bypass 07/2017--perforated marginal ulcer 09/24 Medical History GERD Medical History Fatty Liver per [place] 2006 Medical History chronic left shoulder pain/neck pain wit h DDD Medical History chronic urticaria - 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 to maintenance dispatcher 10/2016 - has Epi pens on hand [...] Medication Name Sig Start Date Stop Date Omeprazole 20 MG 1 capsule Orally twice daily for 90 day(s) Zofran ODT 4 MG 1 tablet on the tongue and a llow to dissolve Orally every 6 hours as needed for nausea for 30 Days Apr, Wellbutrin XL 300 MG 1 tablet in the morning Orally Once a day f or 30 Next Appt Details Provider Name:Daksha Ravi, 2020-03 09:00:00 AM, [address], [place], [address] Insurance Providers Payer Name Payer Address Payer Phone Insured Name Patient Relati onship to Insured Coverage Start Date Coverage End Date [facility] [address] [facility] [address] [phone] REBECCA BERNSTEIN self
--- OUTSIDE RECORDS SUMMARY | 2020-05-21 16:50 | CCD | Continuity of Care Document ---
Author Author Brandon VASQUEZ Organization Unknown Address [address] [place] [address], [place] [address] Phone [phone] Care Team Providers Care Headrig Sawyer Name Role Phone Candie Bedoya AUTM [phone] Shahida Saxena MD AUTM [phone] Mario Bedoya MD AUTM [phone] Jennifer Yanez AUTM [phone] Problems Active Problems Provider Date Precordial pain Dean Monterroso MD Onset: 02/21/2020 Electrocardiogram abnormal Dean Monterroso MD Onset: 2019 Dyspnea Dean Monterroso MD Onset: 02/21/2020 Palpitations Dean Monterroso MD Onset: 02/21/2020 Obstructive sleep apnea syndrome Dean Monterroso MD Onset: 02/21/2020 Body mass index 40+ - severely obese Dean Monterroso MD Ons et: 02/21/2020 Social History Type Date Description Comments Sex Unknown ETOH Use Occasionally consumes alcohol Tobacco Use Start: Unknown End: Unknown Patient is a former smoker started at age 16, at most 2 ppd, quit 2003 Smoking Status Reviewed: 02/21/20 Patient is a former smoker st arted at age 16, at most 2 ppd, quit 2003 Exercise Type/Frequency Does not exercise curren tly Exercise Limitations Joint Pain Bilateral h ips Exercise Limitations Back Pain Allergies, Adverse Reactions, Alerts Active Allergies Reaction Severity Comments Date Topamax 02/21/2020 Prozac 02/21/2020 IVP Dye 02/21/2020 Cipro 02/21/2020 Medications Active Medications SIG Qnty Indications Ordering Provide r Date Ondansetron 4mg Tablets Dispers as needed no more than 4 times a day Unknown 02/19 Levothyroxine Sodium 25mcg Tablets 1 by mouth every day Unknown 02/20/2020 Butalbital/Acetaminophen/Caffeine 50-300-40mg Capsules 1 by mouth every 6 hours as needed headache Unknown 02/20/2020 Multi Vitamin Tablets 2 by mouth every day Unknown 02/20/2020 Probiotic Capsules 2 by mouth every day Unknown 02/20/2020 Zolpidem Tartrate 10mg Tablets 1 by mouth every night at bedtime as needed Unknown 02/20/2020 Pregabalin 300mg Capsules 2 by mouth at bedtime Unknown 02/20/[address] Part 2 by mouth once a day at bedtime Unknown 02/20/[address] Part 1 by mouth every day Unknown 02/20/2020 Epipen 2-Hasmukh 0.3mg/0 .3ML Solution Auto-Inject inject for allergic reactions as directed Unknown 02/20/2020 Vitamin D-3 125mcg (5000 Ut) Table ts 1 by mouth every day Unknown 02/20/2020 Glucosamine Chondroitin Complex C apsules 1 by mouth every day Unknown 02/20/2020 Vitamin B12 1000mcg Tablets ER 1 by mouth every day Unknown 02/20/2020 Citracal +D3 250-107 -770jb-jb-Yovy Chewtabs once daily Unknown 02/20/2020 Black Cohosh Root 450mg Capsules once daily Unknown 02/20/2020 Stool Softener 100mg Capsules 1 by mouth once a day Unknown 02/20/2020 8 Hour Arthritis Pain Reliever 650mg Tablets ER 1 by mouth three times a day as needed Un known 02/20/[address] 1 by mouth bid Unknown Immunizations Description No Information Available Vital Signs Date Vital Result Comment 02/21/2020 9:27am Weight 244.00 lb Height 65 inches 5'5" BMI (Body Mass Index) 40.6 kg/m2 Heart Rate 60 /min regular Respiratory Rate 16 /min BP Systolic Sitting 100 mmHg large cuff, both arm s BP Diastolic Sitting 66 mmHg large cuff, both ar ms BP Systolic Lying Down 102 mmHg Ra BP Diastolic Lying Down 68 mmHg Ra O2 % BldC Oximetry 98 % O2 Saturation Level with Exercise 94 % Results Test Acquired Date Facility Test Result H/L Range Note Liver Function Test/ Liver Hep 02/10/2020 [facility] - not interfaced (315)- - Ast/Sgot 19 15-37 Alt/SGPT 30 30-65 Alk Phos 92 50-136 Albumin 3.5 3.2-5.2 Total Bilirubin 0.3 0.0-1.0 Total Protein 6.5 6.4-8.2 A/G Ratio 1.2 1.00-1.93 Laboratory test finding 02/10/2020 [facility] - not interf aced (315)- - NT Probnp QN Ser/Plas 54 Lipase 112 CBC without Differential 02/10/2020 [facility] - not inter faced (315)- - White Blood Count 6.7 5.0-10.0 Red Blood Count 4.98 4.00-5.40 Platelets 302 172-450 Hemoglobin 14.4 Hematocrit 44.4 Tibc/Iron/% Saturation 11/29/2019 [facility] - not interfa lowell (315)- - Iron 58 50-170 Tibc 306 Tibc % Saturation 19.0 Laboratory test finding 11/29/2019 [facility] - not interf aced (315)- - Folate >24.0 C-Reactive Protein <0.30 Procedures Date Code Description Status 03/23/2020 73023 Echocardiogram 2-D Doppler Color Completed 03/06/2020 31555 Treadmill/Pharmacological Monito ring Completed 03/06/2020 18580 Myocardial Perfusion Spect Multi ple Completed 02/21/2020 80808 ECG 12-Lead Completed Medical Devices Description No Information Available Encounters Type Date Location Provider Dx Diagnosis Office Visit 02/21/2020 9:30a Main Office Dean Monterroso MD R07.2 Precordial pain R06.02 Shortness of breath R00.2 Palpitations R94.31 Abnormal electrocardiogram [ ECG] [EKG] G47.33 Obstructive sleep apnea (salvador lt) (pediatric) Z68.41 Body mass index [BMI]40.0-44 .9, adult Assessments Date Code Description Provider 03/23/2020 R07.9 Chest pain, unspecified ECHO 03/23/2020 R06.02 Shortness of breath ECHO 03/23/2020 R94.31 Abnormal electrocardiogram [ECG] [EKG] ECHO 03/23/2020 G47.33 Obstructive sleep apnea (adult) (pediatric) ECHO 03/06/2020 R07.2 Precordial pain Stress Nuclear/R eg Treadmill 03/06/2020 R06.02 Shortness of breath Stress Nucle ar/Reg Treadmill 03/06/2020 R94.31 Abnormal electrocardiogram [ECG] [EKG] Stress Nuclear/Reg Treadmill 02/21/2020 R07.2 Precordial pain Dean Monterroso MD 02/21/2020 R06.02 Shortness of breath Dean haque MD 02/21/2020 R00.2 Palpitations Dean Monterroso MD 02/21/2020 R94.31 Abnormal electrocardiogram [ECG] [EKG] Dean Monterroso MD 02/21/2020 G47.33 Obstructive sleep apnea (adult) (pediatric) Dean Monterroso MD 02/21/2020 Z68.41 Body mass index [BMI]40.0-44.9, adult Dean Monterroso MD Plan of Treatment 02/21/2020 - Dean Monterroso MD* R07.2 Precordial pain* Recommendations:* In light of this symptom, her multiple coronary risk factors and abnormal EKG, a mended and objective definition of her coronary prognosis. In light of her orthopedic problems, a pharmacological stress heart scan has been advised. Based on her heart rate, blood pressure, and ulcer history, no medication change has been made at this time. Have encouraged her continued antireflux measures including avoiding caffeinated beverages, nicotine, and alcohol as well as avoiding eating or drinking within 3 hours of lying down. Remains on omeprazole. * R06.02 Shortness of breath* Recommendations:* In light of this symptom, her abnormal EKG, obstructive sleep apnea and accentuated pulmonary closure sound, and echocardiogram/Doppler study has been requested to define cardiac chamber sizes and function. * R00.2 Palpitations* Recommendations:* No specific monitoring has been requested beyond that we will obtain at the time of her other noninvasive cardiac testing. We have encouraged avoiding all caffeinated beverages, alcohol, nicotine and sxjj-ecn-xxnreim decongestants, pep pills, dietary aids etc. * R94.31 Abnormal electrocardiogram [ECG] [EKG]* Recommendations:* Pending noninvasive test findings. * G47.33 Obstructive sleep apnea (adult) (pediatric)* Recommendations:* Her echocardiogram/Doppler study will allow us to assess right heart chamber siz es, pulmonary arterial and central venous pressures. Would encourage compliance with her BiPAP therapy as directed by pulmonary medicine.. * Z68.41 Body mass index [BMI]40.0-44.9, adult* Recommendations:* Have emphasized the crucial importance of weight reduction to reduce cardiac, pu lmonary and orthopedic problems. Every pound he loses should improve her quality and length of life. With her bypass surgery she should be following a low carbohydrate diet (avoiding bread, potatoes, pasta, rice, fruit, candy, desserts, and beer etc.) as these have been shown to be more effective in leading to weight loss. Also encourage regular low level aerobic exercise i.e. walking at her own pace for at least 30 minutes daily. * All * Comments:* I will ensure that the aforementioned test findings are reported to you along with any further recommendations. Thank you for allowing me to participate in the care of your patient. Best regards. * Follow up:* Pending test results Functional Status Functional Condition Comment Date Status Independent with all ADL's Activ e Mental Status Description No Information Available Referrals Refer to Reason for Referral Status Appt Date Dean Monterroso MD [facility] auth emr-expires 04/27/20. ca Created 36 [facility] [id number] [phone] eDan Monterroso MD [facility] auth emr-expires 04/10/20. ca Created 36 [facility] [address] [phone]
--- OUTSIDE RECORDS SUMMARY | 2020-05-21 16:50 | CCD ---
Author Author [facility] Organization [facility] Address Unknown Phone Unavailable Care Team Providers Care Line Controller Name Role Phone Daksha Ravi Unavailable PROBLEMS Type Condition ICD9-CM Code EMS28-PH Code Onset Dates Condition S tatus SNOMED Code Notes Problem Urinary incontinence, urge N39.41 Active 42924 004 Problem Acquired hypothyroidism E03.9 Active 10972506 2 Problem Arthritis M19.90 Active 5187944 Problem WILFRED (obstructive sleep apnea) G47.33 Active 78 718322 Problem Other chronic pain G89.29 Active 04651435 Problem Chronic allergic rhinitis, unspecified s easonality, unspecified trigger J30.9 Active 81188432 Problem Perimenopause N95.1 Active 793957264828943 Problem Mixed hyperlipidemia E78.2 Active 383110507 Problem Irregular menses N92.6 Active 73438614 Problem Trochanteric bursitis of left hip M70.62 Active 343836581862808 Problem Trochanteric bursitis, right hip M70.61 Active 77229971110024835 Problem Excessive and frequent menstruation with irregular cycle N92.1 Active 239192946 Problem 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.05 Ac tive 33393248 Problem S/P gastric bypass Z98.84 Active 843180683 Problem Urticaria L50.9 Active 906686690 Problem Severe episode of recurrent major depressive disorder, without psychotic features F33.2 Active 49907966 Problem Lumbar back pain with radiculopathy affecting le ft lower extremity M54.16 Active 870383193 Problem Edema, unspecified R60.9 Active 56839521 Problem Morbid obesity E66.01 Active 545625795 Problem Chronic gastritis without bleeding, unspecified gastri tis type K29.50 Active 4496845 Problem Severe depression F32.2 Active 621193825 Problem Other specified depressive episodes F32.89 Acti ve 55248819 Problem Mental disorder, not otherwise specified F99 Active 18603591 ALLERGIES Allergen (clinical drug ingredient) Drug/Non Drug Allergy do cumented on EMR Reaction Allergy Type Onset Date Status fluoxetine PROzac([facility] Code:[address]-76) Anaphylaxis Drug Allergy Active ciprofloxacin Cipro([facility] Code:[address]-59) Rash Drug Allergy Active tramadol Tramadol HCl([facility] Code:[address]-27) dizziness Drug Aller gy Active topiramate Topamax([facility] Code:[address]-89) foggy-headed Drug Allergy Active ENCOUNTERS from 1967 to 2020-03-11 Encounter Location Date Provider Diagnosis [facility] [address] [place] [address] Mar Daksha Ravi Severe episode of recurrent [...] Education Language: Question Answer Notes Languages spoken: Icelandic Samaritan: Question Answer Notes Samaritan 33 None Sexual Hx: Question Answer Notes [...] Notes Start Da te End Date Status [place] 5-325 MG 1 tab Orally three times [...] MG 1 tablet Orally Daily x7 days 12 Sep, 2 020 Active Levothyroxine Sodium 25 [...] Medical History chronic urticaria - 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 Reports symptom have remained the same. Scheduled for a return session 03/29/2020. PLAN OF TREATMENT Medication Medication Name Sig [...] Orally Once a day f or 30 Treatment Notes Assessment Notes Clinical Notes Severe episode of recurrent major depres sive disorder, without psychotic features Rebecca was seen for a follo w up session via zoom. Reports symptom have remained the same. Scheduled for a return session 03/29/2020. Next Appt Details Provider Name:Daksha Trav 2020-03 09:00:00 AM, [address], [place], [address] Insurance Providers Payer Name Payer Address Payer Phone Insured Name Patient Relati onship to Insured Coverage Start Date Coverage End Date [facility] [facility] [place] [address] [facility] [id number] REBECCA BERNSTEIN self
--- OUTSIDE RECORDS SUMMARY | 2020-05-21 16:50 | CCD | Continuity of Care Document ---
Author Author [facility] Organization Unknown Address [address] [place] [address], [facility] [place] [address] Phone [phone] Care Team Providers Care Cost Controller Name Role Phone Candie Bedoya AUTM [phone] Shahida Saxena MD AUTM Mario Bedoya MD AUTM [phone] Jennifer Yanez AUTM [phone] Problems Active Problems Provider Date Precordial pain [...] every day Unknown 02/20/2020 Citracal +D3 250-107 -[id number]-Lqnn Chewtabs once daily Unknown 02/20/2020 Black Cohosh [...] Ratio 1.2 1.00-1.93 Laboratory test finding 02/10/2020 [facility] - not interf aced (315)- - NT Probnp QN Ser/Plas 54 Lipase 112 CBC without Differential 02/10/2020 [facility] - not inter faced (315)- - White Blood Count 6.7 5.0-10.0 Red Blood Count 4.98 4.00-5.40 Platelets 302 172-450 Hemoglobin 14.4 Hematocrit 44.4 Tibc/Iron/% Saturation 11/29/2019 [facility] - not interfa [place] (315)- - Iron 58 50-170 Tibc 306 Tibc % Saturation 19.0 Laboratory test finding 11/29/2019 [facility] - not interf aced (315)- - Folate >24.0 C-Reactive Protein <0.30 CMP 09/17/2019 [facility] - not interfaced (315)- - Albumin Serum/Plasma 2.3 Alt - SGPT 23 Calcium Ser/Plasma Mass/Vol 8.4 Carbon Dioxide Ser/Plasm 26 Chloride Serum/Plasma 109 Alkaline Phosphatase 88 Potassium 3.6 Protein Total 5.8 Sodium 140 Ast - Sgot 12 BUN - Urea Nitrogen 7 Glucose 77 70-100 Creatinine For GFR 0.61 Procedures Date Code Description Status 03/06/2020 61799 Treadmill/Pharmacological Monito ring Completed 03/06/2020 51100 Myocardial Perfusion Spect Multi ple Completed 02/21/2020 81212 ECG 12-Lead Completed Medical Devices Description No Information Available Encounters Type Date Location Provider Dx Diagnosis Office Visit 02/21/2020 9:30a Main Office Dean Monterroso MD R07.2 Precordial pain R06.02 Shortness of breath R00.2 Palpitations R94.31 Abnormal electrocardiogram [ ECG] [EKG] G47.33 Obstructive sleep apnea (salvador lt) (pediatric) Z68.41 Body mass index [BMI]40.0-44 .9, adult Assessments Date Code Description Provider 03/06/2020 R07.2 Precordial pain Stress Nuclear/R eg [...] adult Dean Monterroso MD Plan of Treatment Future Appointment(s):* 03/23/2020 2:00 pm - ECHO at Main Office 02/21/2020 - Dean Monterroso MD* R07.2 Precordial [...] on omeprazole. * R06.02 Shortness of breath* New Xrays:* US Echocardiogram Transthoracic W Doppler And Color Flow, Scheduled: 03/23/20 * Recommendations:* In light of this symptom, her [...] avoiding all caffeinated beverages, alcohol, nicotine and nglt-wcy-xzgipkp decongestants, pep pills, dietary aids etc. * [...] Referral Status Appt Date Dean Monterroso MD [facility] auth emr-expires 04/10/20. ca Created [address] [facility] [address] [phone]
--- OUTSIDE RECORDS SUMMARY | 2020-05-21 16:50 | CCD ---
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2 Active 098294051 Problem Irregular menses N92.6 Active 67291238 Problem Trochanteric bursitis of left hip M70.62 Active 537804279489254 Problem Trochanteric bursitis, right hip M70.61 Active 91164313580668577 Problem Excessive and frequent menstruation with irregular cycle N92.1 Active 417842399 Problem 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.05 Ac tive 69408008 Problem S/P gastric bypass Z98.84 Active 381792213 Problem Urticaria L50.9 Active 972595892 Problem Severe episode of recurrent major depressive disorder, without psychotic features F33.2 Active 68355684 Problem Lumbar back pain with radiculopathy affecting le ft lower extremity M54.16 Active 203954698 Problem Edema, unspecified R60.9 Active 09145156 Problem Morbid obesity E66.01 Active 859013182 Problem Chronic gastritis without bleeding, unspecified gastri tis type K29.50 Active 3230756 Problem Severe depression F32.2 Active 743060726 Problem Other specified depressive episodes F32.89 Acti ve 67737292 Problem Mental disorder, not otherwise specified F99 Active 89833132 ALLERGIES Allergen (clinical drug ingredient) Drug/Non Drug Allergy do cumented on EMR Reaction Allergy Type Onset Date Status fluoxetine PROzac([facility] Code:[address]-43) Anaphylaxis Drug Allergy Active ciprofloxacin Cipro([facility] Code:[address]-11) Rash Drug Allergy Active tramadol Tramadol HCl([facility] Code:[address]-34) dizziness Drug Aller gy Active topiramate Topamax([facility] Code:[address]-25) foggy-headed Drug Allergy Active ENCOUNTERS from 1967 to 2020-03-25 Encounter Location Date Provider Diagnosis [facility] [address] [place] [address] 16 Mar, 2020 Reg leighann Wetterhahn Lumbar back pain with radiculopathy affecting left lower extremity M54.16 IMMUNIZATIONS No Information SOCIAL HISTORY Tobacco Use: Social History Observation Description Date Details (start date - stop date) Former Smoker Sex Assigned At : Social History Observation Description Sex Assigned At Unknown Education: Question Answer Notes Level of Education: College Audit Question Answer Notes Total Score: 1 Interpretation: Alcohol Education Language: Question Answer Notes Languages spoken: Somali Holiness: Question Answer Notes Holiness 33 None Sexual Hx: Question Answer Notes [...] Notes Start Da te End Date Status [place] 5-325 MG 1 tab Orally three times [...] Information RESULTS No Results REASON FOR VISIT New Refill Request MEDICAL (GENERAL) HISTORY Type Description Date Medical History edema Medical History WILFRED on CPAP Medical History morbid obesity-- s/p R-Y Gas tric bypass 07/2017--perforated marginal ulcer 09/24 Medical History GERD Medical History Fatty Liver per [place] 2006 Medical History chronic left shoulder pain/neck pain wit h DDD Medical History chronic urticaria - referred to collection clerk 10/2016 - has Epi pens on hand Medical History Echo 2008 - mild concentric LVH with EF 65% [...] Treatment Notes Treatm ent Clinical Notes Mar, Lumbar back pain with radicu lopathy affecting left lower extremity (ICD-10 - M54.16) PLAN OF TREATMENT Medication Medication Name Sig [...] for 90 day(s) Next Appt Details Provider Name:Daksha Trav 2020-03 09:00:00 AM, [address], [place], [address] Insurance Providers Payer Name Payer Address Payer Phone Insured Name Patient Relati onship to Insured Coverage Start Date Coverage End Date [facility] [place] [address] [facility] [address] REBECCA BERNSTEIN self
--- OUTSIDE RECORDS SUMMARY | 2020-05-21 16:50 | CCD | Continuity of Care Document ---
Author Organization Unknown Address Unknown Phone Unavailable Care Team Providers Care Skull Splitter Name Role Phone Candie Bedoya AUTM [phone] Shahida Saxena MD AUTM Mario Bedoya MD AUTM [phone] Jennifer Yanez AUTM [phone] Problems Active Problems Provider Date Body mass index 40+ - severely obese Dean Monterroso MD Ons et: 02/21/2020 Obstructive sleep apnea syndrome Dean Monterroso MD Onset: 02/21/2020 Palpitations Dean Monterroso MD Onset: 02/21/2020 Dyspnea Dean Monterroso MD Onset: 02/21/2020 Electrocardiogram abnormal Dean Monterroso MD Onset: 2019 Precordial pain Dean Monterroso MD Onset: 02/21/2020 Social History Type Date Description Comments [...] every day Unknown 02/20/2020 Citracal +D3 250-107 -465ed-aw-Ipbu Chewtabs once daily Unknown 02/20/2020 Black Cohosh [...] Ratio 1.2 1.00-1.93 Laboratory test finding 02/10/2020 [facility] - not interf aced (315)- - NT Probnp QN Ser/Plas 54 Lipase 112 CBC without Differential 02/10/2020 [facility] - not inter faced (315)- - White Blood Count 6.7 5.0-10.0 Red Blood Count 4.98 4.00-5.40 Platelets 302 172-450 Hemoglobin 14.4 Hematocrit 44.4 Tibc/Iron/% Saturation 11/29/2019 [facility] - not interfa lowell (315)- - Iron 58 50-170 Tibc 306 Tibc % Saturation 19.0 Laboratory test finding 11/29/2019 [facility] - not interf aced (315)- - Folate >24.0 C-Reactive Protein <0.30 CMP 09/17/2019 [facility] - not interfaced (315)- - Albumin Serum/Plasma 2.3 Alt - SGPT 23 Calcium Ser/Plasma Mass/Vol 8.4 Carbon Dioxide Ser/Plasm 26 Chloride Serum/Plasma 109 Alkaline Phosphatase 88 Potassium 3.6 Protein Total 5.8 Sodium 140 Ast - Sgot 12 BUN - Urea Nitrogen 7 Glucose 77 70-100 Creatinine For GFR 0.61 Lipid Profile/Cardiac Risk Pro 08/31/2019 [facility] - not interfaced (315)- - Triglycerides 144 <150 Cholesterol 195 <200 HDL 82 >40.0 LDL Cholesterol 84 Chol/HDL Ratio 2.378 <5 Procedures Date Code Description Status 02/21/2020 51232 ECG 12-Lead Completed Medical Devices Description No Information Available Encounters Description No Information Available Assessments Date Code Description Provider 02/21/2020 R07.2 Precordial pain Dean Monterroso MD 02/21/2020 R06.02 Shortness of breath Dean haque MD 02/21/2020 R00.2 Palpitations Dean Monterroso MD 02/21/2020 R94.31 Abnormal electrocardiogram [ECG] [EKG] Dean Monterroso MD 02/21/2020 G47.33 Obstructive sleep apnea (adult) (pediatric) Dean Monterroso MD 02/21/2020 Z68.41 Body mass index [BMI]40.0-44.9, adult Dean Monterroso MD Plan of Treatment 02/21/2020 - Dean Monterroso MD* R07.2 Precordial pain* New Labs:* Lipid Panel, Scheduled: 02/22/20 * New Xrays:* NM Heart Myocardial Perfusion Spect Multiple Studies, Ordered: 02/21/20 * Recommendations:* In light of this symptom, her multiple coronary risk factors and abnormal EKG, amended and objective definition of her coronary prognosis. In light of her orthopedic problems, a pharmacological stress heart scan has been advised. Have also requested a fasting lipid profile. Based on her heart rate, blood pressure, and ulcer history, no medication change has been made at this time. Have encouraged her continued antireflux measures including avoiding caffeinated beverages, nicotine, and alcohol as well as avoiding eating or drinking within 3 hours of lying down. Remains on omeprazole. * R06.02 Shortness of breath* New Xrays:* US Echocardiogram Transthoracic W Doppler And Color Flow, Ordered: 02/21/20 * Recommendations:* In light of this symptom, [...] avoiding all caffeinated beverages, alcohol, nicotine and jckh-rns-qshsppk decongestants, pep pills, dietary aids etc. * [...]
--- OUTSIDE RECORDS SUMMARY | 2020-05-21 16:51 | CCD ---
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 Name Role Phone Johnson, Kenny Unavailable Unavailable Johnson, Kenny Unavailable Unavailable Johnson, Kenny Unavailable Unavailable Johnson, Kenny Unavailable Unavailable Johnson, Kenny Unavailable Unavailable Johnson, Kenny Unavailable Unavailable Johnson, Kenny Unavailable Unavailable Johnson, Kenny Unavailable Unavailable Johnson, Kenny Unavailable Unavailable Johnson, Kenny Unavailable Unavailable Johnson, Kenny Unavailable Unavailable Johnson, Kenny Unavailable Unavailable Johnson, Kenny Unavailable Unavailable Johnson, Kenny Unavailable Unavailable Johnson, Kenny Unavailable Unavailable Johnson, Kenny Unavailable Unavailable Johnson, Kenny Unavailable Unavailable Johnson, Kenny Unavailable Unavailable Johnson, Kenny Unavailable Unavailable Johnson, Kenny Unavailable Unavailable Johnson, Kenny Unavailable Unavailable Johnson, Kenny Unavailable Unavailable Johnson, Kenny Unavailable Unavailable Johnson, Kenny Unavailable Unavailable Johnson, Kenny Unavailable Unavailable Johnson, Kenny Unavailable Unavailable Johnson, Kenny Unavailable Unavailable Johnson, Kenny Unavailable Unavailable Johnson, Kenny Unavailable Unavailable Johnson, Kenny Unavailable Unavailable Johnson, Kenny Unavailable Unavailable Johnson, Kenny Unavailable Unavailable Johnson, Kenny Unavailable Unavailable Johnson, Kenny Unavailable Unavailable Johnson, Kenny Unavailable Unavailable Johnson, Kenny Unavailable Unavailable Johnson, Kenny Unavailable Unavailable Johnson, Kenny Unavailable Unavailable Johnson, Kenny Unavailable Unavailable Johnson, Kenny Unavailable Unavailable Johnson, Kenny Unavailable Unavailable Johnson, Kenny Unavailable Unavailable Johnson, Kenny Unavailable Unavailable Johnson, Kenny Unavailable Unavailable Anitra GONGORA MD Unavailable Unavailable Anitra GONGORA MD Unavailable Unavailable Anitra GONGORA MD Unavailable Unavailable Anitra GONGORA MD Unavailable Unavailable Anitra GONGORA MD Unavailable Unavailable Anitra GONGORA MD Unavailable Unavailable GONGORA E ROLANDO TELLES Unavailable Unavailable GONGORA E ROLANDO TELLES Unavailable Unavailable GONGORA E ROLANDO TELLES Unavailable Unavailable GONGORA E ROLANDO TELLES Unavailable Unavailable GONGORA E ROLANDO TELLES Unavailable Unavailable GONGORA E ROLANDO TELLES Unavailable Unavailable GONGORA E ROLANDO TELLES Unavailable Unavailable GONGORA E ROLANDO TELLES Unavailable Unavailable GONGORA E ROLANDO TELLES Unavailable Unavailable GONGORA E ROLANDO TELLES Unavailable Unavailable GONGORA E ROLANDO TELLES Unavailable Unavailable GONGORA E ROLANDO TELLES Unavailable Unavailable GONGORA E ROLANDO TELLES Unavailable Unavailable GONGORA E ROLANDO TELLES Unavailable Unavailable GONGORA E ROLANDO TELLES Unavailable Unavailable GONGORA E ROLANDO TELLES Unavailable Unavailable GONGORA E ROLANDO TELLES Unavailable Unavailable GONGORA E ROLANDO TELLES Unavailable Unavailable GONGORA, E ROLANDO TELLES Unavailable Unavailable GONGORA, E ROLANDO TELLES Unavailable Unavailable GONGORA, E ROLANDO TELLES Unavailable Unavailable GONGORA, E ROLANDO TELLES Unavailable Unavailable GONGORA, E ROLANDO TELLES Unavailable Unavailable GONGORA, E ROLANDO TELLES Unavailable Unavailable GONGORA E ROLANDO TELLES Unavailable Unavailable GONGORA E ROLANDO TELLES Unavailable Unavailable GONGORA E ROLANDO TELLES Unavailable Unavailable GONGORA E ROLANDO TELLES Unavailable Unavailable GONGORA E ROLANDO TELLES Unavailable Unavailable GONGORA E ROLANDO TELLES Unavailable Unavailable GONGORA E ROLANDO TELLES Unavailable Unavailable GONGORA E ROLANDO TELLES Unavailable Unavailable GONGORA E ROLANDO TELLES Unavailable Unavailable GONGORA E ROLANDO TELLES Unavailable Unavailable GONGORA E ROLANDO TELLES Unavailable Unavailable GONGORA, E ROLANDO TELLES Unavailable Unavailable GONGORA E ROLANDO TELLES Unavailable Unavailable GONGORA E ROLANDO TELLES Unavailable Unavailable GONGORA E ROLANDO TELLES Unavailable Unavailable GONGORA E ROLANDO TELLES Unavailable Unavailable GONGORA E ROLANDO TELLES Unavailable Unavailable GONGORA E ROLANDO TELLES Unavailable Unavailable GONGORA E ROLANDO TELLES Unavailable Unavailable GONGORA E ROLANDO TELLES Unavailable Unavailable GONGORA E ROLANDO TELLES Unavailable Unavailable GONGORAAnitra MD Unavailable Unavailable GONGORAAnitra MD Unavailable Unavailable GONGORA, E ROLANDO TELLES Unavailable Unavailable GONGORA E ROLANDO TELLES Unavailable Unavailable GONGORA E ROLANDO TELLES Unavailable Unavailable GONGORA E ROLANDO TELLES Unavailable Unavailable AIMEE, M CORTES PA Unavailable Unavailable AIMEE, M CORTES PA Unavailable Unavailable AIMEE, M CORTES PA Unavailable Unavailable AIMEE, M CORTES PA Unavailable Unavailable AIMEE, M CORTES PA Unavailable Unavailable AIMEE, M CORTES PA Unavailable Unavailable AIMEE, M CORTES PA Unavailable Unavailable AIMEE, M CORTES PA Unavailable Unavailable AIMEE, M CORTES PA Unavailable Unavailable AIMEE, M CORTES PA Unavailable Unavailable AIMEE, M CORTES PA Unavailable Unavailable AIMEE, M CORTES PA Unavailable Unavailable AIMEE, M CORTES PA Unavailable Unavailable AIMEE, M CORTES PA Unavailable Unavailable AIMEE, M CORTES PA Unavailable Unavailable AIMEE, M CORTES PA Unavailable Unavailable AIMEE, M CORTES PA Unavailable Unavailable AIMEE, M CORTES PA Unavailable Unavailable AIMEE, M CORTES PA Unavailable Unavailable AIMEE, M CORTES PA Unavailable Unavailable AIMEE, M CORTES PA Unavailable Unavailable AIMEE, M CORTES PA Unavailable Unavailable AIMEE, M CORTES PA Unavailable Unavailable AIMEE, M CORTES PA Unavailable Unavailable Brown, Sarai LEASING REPRESENTATIVE Unavailable Unavailable Brown, Sarai LEASING REPRESENTATIVE Unavailable Unavailable Brown, Sarai LEASING REPRESENTATIVE Unavailable Unavailable Brown, Sarai LEASING REPRESENTATIVE Unavailable Unavailable Brown, Sarai LEASING REPRESENTATIVE Unavailable Unavailable Brown, Sarai LEASING REPRESENTATIVE Unavailable Unavailable Brown, Sarai LEASING REPRESENTATIVE Unavailable Unavailable Brown, Sarai LEASING REPRESENTATIVE Unavailable Unavailable Brown, Sarai LEASING REPRESENTATIVE Unavailable Unavailable Brown, Sarai LEASING REPRESENTATIVE Unavailable Unavailable Brown, Sarai LEASING REPRESENTATIVE Unavailable Unavailable Johnson, Kenny Unavailable Unavailable Johnson, Kenny Unavailable Unavailable Johnson, Kenny Unavailable Unavailable Johnson, Kenny Unavailable Unavailable Johnson, Kenny Unavailable Unavailable Johnson, Kenny Unavailable Unavailable Johnson, Kenny Unavailable Unavailable Johnson, Kenny Unavailable Unavailable Johnson, Kenny Unavailable Unavailable Johnson, Kenny Unavailable Unavailable Johnson, Kenny Unavailable Unavailable Johnson, Kenny Unavailable Unavailable Johnson, Kenny Unavailable Unavailable Johnson, Kenny Unavailable Unavailable Johnosn, Kenny Unavailable Unavailable Johnson, Kenny Unavailable Unavailable Johnson, Kenny Unavailable Unavailable Johnson, Kenny Unavailable Unavailable Johnson, Kenny Unavailable Unavailable Johnson, Kenny Unavailable Unavailable Johnson, Kenny Unavailable Unavailable Johnson, Kenny Unavailable Unavailable Johnson, Kenny Unavailable Unavailable Johnson, Kenny Unavailable Unavailable Johnson, Kenny Unavailable Unavailable Johnson, Kenny Unavailable Unavailable Johnson, Kenny Unavailable Unavailable Johnson, Kenny Unavailable Unavailable Johnson, Kenny Unavailable Unavailable Johnson, Kenny Unavailable Unavailable Johnson, Kenny Unavailable Unavailable Johnson, Kenny Unavailable Unavailable Johnson, Kenny Unavailable Unavailable Johnson, Kenny Unavailable Unavailable Johnson, Kenny Unavailable Unavailable Johnson, Kenny Unavailable Unavailable Johnson, Kenny Unavailable Unavailable Johnson, Kenny Unavailable Unavailable Johnson, Kenny Unavailable Unavailable Johnson, Kenny Unavailable Unavailable Johnson, Kenny Unavailable Unavailable Johnson, Kenny Unavailable Unavailable Johnson, Kenny Unavailable Unavailable Johnson, Kenny Unavailable Unavailable AIMEE, M CORTES PA Unavailable Unavailable AIMEE, M CORTES PA Unavailable Unavailable AIMEE, M CORTES PA Unavailable Unavailable AIMEE, M CORTES PA Unavailable Unavailable AIMEE, M CORTES PA Unavailable Unavailable AIMEE, M CORTES PA Unavailable Unavailable AIMEE, M CORTES PA Unavailable Unavailable AIMEE, M CORTES PA Unavailable Unavailable AIMEE, M CORTES PA Unavailable Unavailable AIMEE, M CORTES PA Unavailable Unavailable AIMEE, M CORTES PA Unavailable Unavailable AIMEE, M CORTES PA Unavailable Unavailable AIMEE, M CORTES PA Unavailable Unavailable AIMEE, M CORTES PA Unavailable Unavailable AIMEE, M CORTES PA Unavailable Unavailable AIMEE, M CORTES PA Unavailable Unavailable AIMEE, M CORTES PA Unavailable Unavailable AIMEE, M CORTES PA Unavailable Unavailable AIMEE, M CORTES PA Unavailable Unavailable AIMEE, M CORTES PA Unavailable Unavailable AIMEE, M CORTES PA Unavailable Unavailable AIMEE, M CORTES PA Unavailable Unavailable AIMEE, M CORTES PA Unavailable Unavailable AIMEE, M CORTES PA Unavailable Unavailable Re-disclosure Warning The records that you are about to access may contain information from federally-assisted alcohol or drug abuse programs. If such information is present, then the following federally mandated warning applies: This information has been disclosed to you from records protected by federal confidentiality rules (42 CFR part 2). The federal rules prohibit you from making any further disclosure of this information unless further disclosure is expressly permitted by the written consent of the person to whom it pertains or as otherwise permitted by 42 CFR part 2. A general authorization for the release of medical or other information is NOT sufficient for this purpose. The Federal rules restrict any use of the information to criminally investigate or prosecute any alcohol or drug abuse patient.The records that you are about to access may contain highly sensitive health information, the redisclosure of which is protected by Article 27-F of the [facility] Public Health law. If you continue you may have access to information: Regarding HIV / AIDS; Provided by facilities licensed or operated by the [facility] Office of Mental Health; or Provided by the [facility] Office for People With Developmental Disabilities. If such information is present, then the following [facility] mandated warning applies: This information has been disclosed to you from confidential records which are protected by state law. State law prohibits you from making any further disclosure of this information without the specific written consent of the person to whom it pertains, or as otherwise permitted by law. Any unauthorized further disclosure in violation of state law may result in a fine or senior care sentence or both. A general authorization for the release of medical or other information is NOT sufficient authorization for further disc losure. Allergies and Adverse Reactions Type Description Substance Reaction Status Data Source(s ) Drug allergy Tramadol HCl Tramadol dizziness Active eCW1 ([facility]) Drug allergy Cipro Ciprofloxacin Rash Active eCW1 ([facility]) Drug allergy PROzac Fluoxetine Anaphylaxis Active eCW1 ([facility]) Drug allergy Topamax topiramate foggy-headed Active eCW1 ([facility]) Family History Family Member Name Family Member Gender Family Member Status Date o f Status Description Data Source(s) Unknown Unknown Problem MEDENT ([facility]) Unknown Male Problem MEDENT ([facility]) Unknown Male Problem MEDENT ([facility]) Unknown Unknown Problem MEDENT ([facility]) Encounters Encounter Providers Location Date Indications Data Source(s ) Unknown [address] [place] [address], [facility] [phone] 05/15/2020 12:00:00 AM EST eCW1 ([facility]) (TV_Virtual) Virtual [facility] Visit [address] [place] [phone] 04/24/2020 12:00:00 AM EST eCW1 ([facility]) Outpatient Attender: Sarai smith 04/22/2020 07:35:00 AM EST MEDENT ([facility]) Outpatient [address] [facility] [address] 04/21/2020 12:00:00 AM EST eCW1 ([facility]) Unknown [address] [place] [phone] 04/19/2020 12:00:00 AM EST eCW1 ([facility]) (TV_Virtual) [facility] Visit [address] [place] [address] 03/29/2020 12:00:00 AM EST eCW1 ([facility]) Unknown [address] [facility] [address] 03/22/2020 12:00:00 AM EST eCW1 ([facility]) (TV_Virtual) [facility] Visit [address] [place] [address] 03/10/2020 12:00:00 AM EST eCW1 ([facility]) Unknown [address] [facility] [address] 03/07/2020 12:00:00 AM EST eCW1 ([facility]) Outpatient Attender: ROLANDO GONGORA MD Main Office 02/21/2020 08:30:00 AM EST MEDSILVIANO ([facility]) [facility] Scheduled Visit [address] [place] [address] 02/15/2020 12:00:00 AM EST eCW1 ([facility]) Unknown [address] [facility] [address] 02/03/2020 12:00:00 AM EDT eCW1 ([facility]) Unknown [address] [facility] [address] 02/02/2020 12:00:00 AM EDT eCW1 ([facility]) [facility] Scheduled Visit [address] [place] [address] 02/01/2020 12:00:00 AM EDT eCW1 ([facility]) ([facility]) [facility] Scheduled Visit [address] [place] [address] 01/18/2020 12:00:00 AM EDT eCW1 ([facility]) Unknown [address] [facility] [address] 01/07/2020 12:00:00 AM EDT eCW1 ([facility]) [facility] [address] [facility] [address] 12/15/2019 12:00:00 AM EDT eCW1 ([facility]) ([facility]) [facility] Scheduled Visit [address] [place] [address] 10/25/2019 12:00:00 AM EDT eCW1 ([facility]) Outpatient Referrer: Kenny Johnson 09/29/2019 05:45:00 AM E DT [facility] ([facility]) Transition of Care Visit [address] [place] [phone] 09/22/2019 12:00:00 AM EDT eCW1 ([facility]placed by [facility]) [place] [address] [facility] [address] 09/20/2019 12:00:00 AM EDT eCW1 ([facility]) ([facility]) [facility] Scheduled Visit [address] [place] [phone] 09/13/2019 12:00:00 AM EDT eCW1 ([facility]) Outpatient Attender: Kenny Johnson Physical Therapy 08/31/2019 08:30:0 0 AM EDT MEDENT ([facility]) [facility] [address] [facility] [address] 08/31/2019 12:00:00 AM EDT eCW1 ([facility]) Outpatient Referrer: Kenny Johnson 08/23/2019 01:41:00 PM E DT [facility] Outpatient Referrer: Kenny Johnson 08/23/2019 01:40:00 PM E DT [facility] Outpatient Referrer: Kenny Johnson 08/23/2019 01:40:00 PM E DT [facility] Outpatient Referrer: Kenny Johnson 08/23/2019 01:38:00 PM E DT [facility] Outpatient Referrer: Kenny Johnson 08/20/2019 01:35:00 PM E DT [facility] [address] [facility] [address] 08/19/2019 12:00:00 AM EDT eCW1 ([facility]) [facility] [address] [facility] [address] 08/19/2019 12:00:00 AM EDT eCW1 ([facility]) [facility] [address] [facility] [address] 08/18/2019 12:00:00 AM EDT eCW1 ([facility]) Outpatient Referrer: Kenny Johnson 08/13/2019 02:40:00 PM E DT [facility] Outpatient Referrer: CORTES LAGUERRE 08/13/2019 11:14:00 AM EDT [facility] Outpatient Referrer: CORTES LAGUERRE 08/04/2019 10:24:00 AM EDT [facility] Outpatient Referrer: CORTES LAGUERRE 08/03/2019 01:25:00 PM EDT [facility] Outpatient Attender: Kenny Johnson Physical Therapy 07/27/2019 02:00:0 0 PM EDT MEDENT ([facility]) Outpatient Referrer: CORTES LAGUERRE 07/13/2019 10:11:00 AM EDT [facility] Outpatient Referrer: CORTES LAGUERRE 07/09/2019 04:16:00 PM EDT [facility] Outpatient Referrer: CORTES LAGUERRE 07/09/2019 01:20:00 PM EDT [facility] Outpatient Referrer: CORTES LAGUERRE 07/09/2019 12:56:00 PM EDT [facility] [address] [address] 07/02/2019 12:00:00 AM EDT eCW1 ([facility]) [address] [address] 07/02/2019 12:00:00 AM EDT eCW1 ([facility]) [address] [address] 07/01/2019 12:00:00 AM EDT eCW1 ([facility]) [address] [address] 06/10/2019 12:00:00 AM EST eCW1 ([facility]) Outpatient Referrer: CORTES LAGUERRE 06/08/2019 03:05:00 PM EST [facility] [address] [address] 06/02/2019 12:00:00 AM EST eCW1 ([facility]) [address] [address] 05/26/2019 12:00:00 AM EST eCW1 ([facility]) [facility] [address] [place] [phone] 05/24/2019 12:00:00 AM EST eCW1 ([facility]) [facility] [address] [place] [address] 05/18/2019 12:00:00 AM EST eCW1 ([facility]) Located Within [facility] [address] [place] [phone] 05/11/2019 12:00:00 AM EST eCW1 ([facility]) [address] [address] 04/14/2019 12:00:00 AM EST eCW1 ([facility]) [facility] [address] [place] [phone] 04/14/2019 12:00:00 AM EST eCW1 ([facility]) [facility] Nick [address] [place] [phone] 04/09/2019 12:00:00 AM EST eCW1 ([facility]) Outpatient Attender: CORTES LAGUERRE Physical Therapy 03/08 08:30:00 AM EST MEDENT ([facility] ) Medications Medication Brand Name Start Date Product Form Dose Route Admi nistrative Instructions Pharmacy Instructions Status Indications Reaction Description Data Source(s) Amoxicillin 875 MG Oral Tablet Amoxicillin 04/22/2020 12:00:00 AM EST ORAL active MEDENT ([facility]) Sucralfate 100 MG/ML Oral Suspension Sucralfate 1 GM/10ML [place] cralfate 1 GM/10ML 04/21/2020 12:00:00 AM EST 10.0 {ml_on_an_empty_stomach} active Sucralfate 1 GM/10ML eCW1 ([facility]) Sucralfate 100 MG/ML Oral Suspension Sucralfate 1 GM/10ML [place] cralfate 1 GM/10ML 04/21/2020 12:00:00 AM EST 10.0 {ml_on_an_empty_stomach} active Sucralfate 1 GM/10ML eCW1 ([facility]) Sucralfate 100 MG/ML Oral Suspension Sucralfate 1 GM/10ML [place]son cralfate 1 GM/10ML 04/21/2020 12:00:00 AM EST 10.0 {ml_on_an_empty_stomach} active Sucralfate 1 GM/10ML eCW1 ([facility]) 0.3 ML Epinephrine 1 MG/ML Auto-Injector [Epipen] Epipen 2-P ak 02/20/2020 12:00:00 AM EST active M EDENT ([facility]) Cholecalciferol 5000 UNT Oral Tablet Vitamin D-3 02/20/2020 12:00:00 AM EST ORAL active [facility] duloxetine 20 MG Delayed Release Oral Capsule [Cymbalta] Cym bibiana 02/20/2020 12:00:00 AM EST ORAL active M EDENT ([facility]) duloxetine 30 MG Delayed Release Oral Capsule [Cymbalta] Cym bibiana 02/20/2020 12:00:00 AM EST ORAL active M EDENT ([facility]) Docusate Sodium 100 MG Oral Capsule Stool Softener 02/20/2020 12:00 :00 AM EST ORAL active [facility] ([facility]) 8 HR Acetaminophen 650 MG Extended Release Oral Tablet 8 Hour Arthritis Pain Reliever 02/20/2020 12:00:00 AM EST ORAL active MEDENT ([facility]) Citracal +D3 02/20/2020 12:00:00 AM EST activ e MEDENT ([facility]) Black Cohosh Root 02/20/2020 12:00:00 AM EST active MEDENT ([facility]) Glucosamine Chondroitin Complex 02/20/2020 12:00:00 AM EST ORAL active [facility] ([facility]) Vitamin B 12 1 MG Extended Release Oral Tablet Vitamin B12 02/20/2020 12:00:00 AM EST ORAL active [facility] ([facility]) Ondansetron 4 MG Disintegrating Oral Tablet Ondansetron 02/20/2020 12:00:00 AM EST active [facility] ([facility]) Levothyroxine Sodium 0.025 MG Oral Tablet Levothyroxine Sodi um 02/20/2020 12:00:00 AM EST ORAL active M EDENT ([facility]) pregabalin 300 MG Oral Capsule Pregabalin 02/20/2020 12:00:00 AM EST ORAL active [facility] ([facility]) Acetaminophen 300 MG / butalbital 50 MG / Caffeine 40 MG Oral Capsule Butalbital/Acetaminophen/Caffeine 02/20/2020 12:00:00 AM EST ORAL active [facility] ([facility]) Multi Vitamin 02/20/2020 12:00:00 AM EST ORAL acti ve MEDENT ([facility]) Lactobacillus acidophilus [id number] UNT Oral Capsule Probiot ic 02/20/2020 12:00:00 AM EST ORAL active M EDENT ([facility]) Zolpidem tartrate 10 MG Oral Tablet Zolpidem Tartrate 02/05 12:00:00 AM EST ORAL active [facility] ([facility]) pantoprazole 40 MG Delayed Release Oral Tablet Pantoprazole Sodium 11/17/2019 12:00:00 AM EDT active M EDENT ([facility] ) Fluconazole 200 MG Oral Tablet Fluconazole 200 MG 09/17/2019 12:00: 00 AM EDT 1.0 {tablet} active Fluconazole 200 MG eCW1 ([facility]) Acetaminophen 325 MG / Hydrocodone David trate 5 MG Oral Tablet [Plainwell] Plainwell 5- 325 MG Plainwell 5-325 MG 09/17/2019 12:00:00 AM EDT a ctive [place] 5- 325 MG eCW1 ([facility]) Acetaminophen 325 MG / Hydrocodone David trate 5 MG Oral Tablet [Plainwell] Plainwell 5- 325 MG [place]well 5-325 MG 09/17/2019 12:00:00 AM EDT a ctive [place] 5- 325 MG eCW1 ([facility]) Acetaminophen 325 MG / Hydrocodone David trate 5 MG Oral Tablet [Plainwell] Plainwell 5- 325 MG [place]well 5-325 MG 09/17/2019 12:00:00 AM EDT a ctive [place] 5- 325 MG eCW1 ([facility]) Acetaminophen 325 MG / Hydrocodone David trate 5 MG Oral Tablet [Plainwell] Plainwell 5- 325 MG [place]well 5-325 MG 09/17/2019 12:00:00 AM EDT a ctive [place] 5- 325 MG eCW1 ([facility]) Sucralfate 100 MG/ML Oral Suspension Sucralfate 1 GM/10ML Munson cralfate 1 GM/10ML 09/17/2019 12:00:00 AM EDT 10.0 {ml_on_an_empty_stomach} active Sucralfate 1 GM/10ML eCW1 ([facility]) Sucralfate 100 MG/ML Oral Suspension Sucralfate 1 GM/10ML Munson cralfate 1 GM/10ML 09/17/2019 12:00:00 AM EDT 10.0 {ml_on_an_empty_stomach} active Sucralfate 1 GM/10ML eCW1 ([facility]) Benadryl 50 MG UNK 09/17/2019 12:00:00 AM EDT active Benadryl 50 MG eCW1 ([facility]) Benadryl 50 MG UNK 09/17/2019 12:00:00 AM EDT active Benadryl 50 MG eCW1 ([facility]) Sucralfate 100 MG/ML Oral Suspension Sucralfate 1 GM/10ML Munson cralfate 1 GM/10ML 09/17/2019 12:00:00 AM EDT 10.0 {ml_on_an_empty_stomach} active Sucralfate 1 GM/10ML eCW1 ([facility]) Fluconazole 200 MG Oral Tablet Fluconazole 200 MG 09/17/2019 12:00: 00 AM EDT 1.0 {tablet} active Fluconazole 200 MG eCW1 ([facility]) Augmentin 875-125 MG UNK 09/17/2019 12:00:00 AM EDT 1.0 {tablet } active Augmentin 875-125 MG eCW1 ([facility] [facility] Sucralfate 100 MG/ML Oral Suspension Sucralfate 1 GM/10ML [place] cralfate 1 GM/10ML 09/17/2019 12:00:00 AM EDT 10.0 {ml_on_an_empty_stomach} active Sucralfate 1 GM/10ML eCW1 ([facility]) Benadryl 50 MG UNK 09/17/2019 12:00:00 AM EDT active Benadryl 50 MG eCW1 ([facility]) Fluconazole 200 MG Oral Tablet Fluconazole 200 MG 09/17/2019 12:00: 00 AM EDT 1.0 {tablet} active Fluconazole 200 MG eCW1 ([facility]) Fluconazole 200 MG Oral Tablet Fluconazole 200 MG 09/17/2019 12:00: 00 AM EDT 1.0 {tablet} active Fluconazole 200 MG eCW1 ([facility]) Sucralfate 100 MG/ML Oral Suspension Sucralfate 1 GM/10ML [place] cralfate 1 GM/10ML 09/17/2019 12:00:00 AM EDT 10.0 {ml_on_an_empty_stomach} active Sucralfate 1 GM/10ML eCW1 ([facility]) Fluconazole 200 MG Oral Tablet Fluconazole 200 MG 09/17/2019 12:00: 00 AM EDT 1.0 {tablet} active Fluconazole 200 MG eCW1 ([facility]) Fluconazole 200 MG Oral Tablet Fluconazole 200 MG 09/17/2019 12:00: 00 AM EDT 1.0 {tablet} active Fluconazole 200 MG eCW1 ([facility]) Acetaminophen 325 MG / Hydrocodone David trate 5 MG Oral Tablet [Plainwell] [place]well 5- 325 MG [place] 5-325 MG 09/17/2019 12:00:00 AM EDT a ctive [place] 5- 325 MG eCW1 ([facility]) Fluconazole 200 MG Oral Tablet Fluconazole 200 MG 09/17/2019 12:00: 00 AM EDT 1.0 {tablet} suspended Fluconazole 200 M G eCW1 ([facility]) Benadryl 50 MG UNK 09/17/2019 12:00:00 AM EDT active Benadryl 50 MG eCW1 ([facility]) Benadryl 50 MG UNK 09/17/2019 12:00:00 AM EDT active Benadryl 50 MG eCW1 ([facility]) Benadryl 50 MG UNK 09/17/2019 12:00:00 AM EDT active Benadryl 50 MG eCW1 ([facility]) Sucralfate 100 MG/ML Oral Suspension Sucralfate 1 GM/10ML [place] cralfate 1 GM/10ML 09/17/2019 12:00:00 AM EDT 10.0 {ml_on_an_empty_stomach} active Sucralfate 1 GM/10ML eCW1 ([facility]) Acetaminophen 325 MG / Hydrocodone David trate 5 MG Oral Tablet [[place]] [place] 5- 325 MG [place] 5-325 MG 09/17/2019 12:00:00 AM EDT a ctive [place] 5- 325 MG eCW1 ([facility]) Acetaminophen 325 MG / Hydrocodone David trate 5 MG Oral Tablet [[place]] [place] 5- 325 MG [place] 5-325 MG 09/17/2019 12:00:00 AM EDT a ctive [place] 5- 325 MG eCW1 ([facility]) Fluconazole 200 MG Oral Tablet Fluconazole 200 MG 09/17/2019 12:00: 00 AM EDT 1.0 {tablet} active Fluconazole 200 MG eCW1 ([facility]) Fluconazole 200 MG Oral Tablet Fluconazole 200 MG 09/17/2019 12:00: 00 AM EDT 1.0 {tablet} active Fluconazole 200 MG eCW1 ([facility]) Sucralfate 100 MG/ML Oral Suspension Sucralfate 1 GM/10ML [place] cralfate 1 GM/10ML 09/17/2019 12:00:00 AM EDT 10.0 {ml_on_an_empty_stomach} suspended Sucralfate 1 GM/10ML eCW1 ([facility]) Benadryl 50 MG UNK 09/17/2019 12:00:00 AM EDT active Benadryl 50 MG eCW1 ([facility]) Fluconazole 200 MG Oral Tablet Fluconazole 200 MG 09/17/2019 12:00: 00 AM EDT 1.0 {tablet} active Fluconazole 200 MG eCW1 ([facility]) Acetaminophen 325 MG / Hydrocodone David trate 5 MG Oral Tablet [[place]] [place] 5- 325 MG [place] 5-325 MG 09/17/2019 12:00:00 AM EDT a ctive [place] 5- 325 MG eCW1 ([facility]) Sucralfate 100 MG/ML Oral Suspension Sucralfate 1 GM/10ML [place] cralfate 1 GM/10ML 09/17/2019 12:00:00 AM EDT 10.0 {ml_on_an_empty_stomach} active Sucralfate 1 GM/10ML eCW1 ([facility]) Acetaminophen 325 MG / Hydrocodone David trate 5 MG Oral Tablet [[place]] [place] 5- 325 MG [place] 5-325 MG 09/17/2019 12:00:00 AM EDT s uspended [place] 5-325 MG eCW1 ([facility]) Benadryl 50 MG UNK 09/17/2019 12:00:00 AM EDT active Benadryl 50 MG eCW1 ([facility]) Fluconazole 200 MG Oral Tablet Fluconazole 200 MG 09/17/2019 12:00: 00 AM EDT 1.0 {tablet} active Fluconazole 200 MG eCW1 ([facility]) Benadryl 50 MG UNK 09/17/2019 12:00:00 AM EDT active Benadryl 50 MG eCW1 ([facility]) Acetaminophen 325 MG / Hydrocodone David trate 5 MG Oral Tablet [[place]] [place] 5- 325 MG [place] 5-325 MG 09/17/2019 12:00:00 AM EDT s uspended [place] 5-325 MG eCW1 ([facility]) Sucralfate 100 MG/ML Oral Suspension Sucralfate 1 GM/10ML [place] cralfate 1 GM/10ML 09/17/2019 12:00:00 AM EDT 10.0 {ml_on_an_empty_stomach} active Sucralfate 1 GM/10ML eCW1 ([facility]) Fluconazole 200 MG Oral Tablet Fluconazole 200 MG 09/17/2019 12:00: 00 AM EDT 1.0 {tablet} active Fluconazole 200 MG eCW1 ([facility]) Sucralfate 100 MG/ML Oral Suspension Sucralfate 1 GM/10ML [place] cralfate 1 GM/10ML 09/17/2019 12:00:00 AM EDT 10.0 {ml_on_an_empty_stomach} active Sucralfate 1 GM/10ML eCW1 ([facility]) Sucralfate 100 MG/ML Oral Suspension Sucralfate 1 GM/10ML [place] cralfate 1 GM/10ML 09/17/2019 12:00:00 AM EDT 10.0 {ml_on_an_empty_stomach} suspended Sucralfate 1 GM/10ML eCW1 ([facility]) Benadryl 50 MG UNK 09/17/2019 12:00:00 AM EDT active Benadryl 50 MG eCW1 ([facility]) Acetaminophen 325 MG / Hydrocodone David trate 5 MG Oral Tablet [[place]] [place] 5- 325 MG [place] 5-325 MG 09/17/2019 12:00:00 AM EDT a ctive [place] 5- 325 MG eCW1 ([facility]) Benadryl 50 MG UNK 09/17/2019 12:00:00 AM EDT active Benadryl 50 MG eCW1 ([facility]) Acetaminophen 325 MG / Hydrocodone David trate 5 MG Oral Tablet [[place]] [place] 5- 325 MG [place] 5-325 MG 09/17/2019 12:00:00 AM EDT a ctive [place] 5- 325 MG eCW1 ([facility]) Benadryl 50 MG UNK 09/17/2019 12:00:00 AM EDT active Benadryl 50 MG eCW1 ([facility]) Sucralfate 100 MG/ML Oral Suspension Sucralfate 1 GM/10ML [place] cralfate 1 GM/10ML 09/17/2019 12:00:00 AM EDT 10.0 {ml_on_an_empty_stomach} active Sucralfate 1 GM/10ML eCW1 ([facility]) Benadryl 50 MG UNK 09/17/2019 12:00:00 AM EDT active Benadryl 50 MG eCW1 ([facility]) Acetaminophen 325 MG / Hydrocodone David trate 5 MG Oral Tablet [[place]] [place] 5- 325 MG [place] 5-325 MG 09/17/2019 12:00:00 AM EDT a ctive [place] 5- 325 MG eCW1 ([facility]) Acetaminophen 325 MG / Hydrocodone David trate 5 MG Oral Tablet [[place]] [place] 5- 325 MG [place] 5-325 MG 09/17/2019 12:00:00 AM EDT a ctive [place] 5- 325 MG eCW1 ([facility]) Fluconazole 200 MG Oral Tablet Fluconazole 200 MG 09/17/2019 12:00: 00 AM EDT 1.0 {tablet} active Fluconazole 200 MG eCW1 ([facility]) Acetaminophen 325 MG / Hydrocodone David trate 5 MG Oral Tablet [[place]] [place] 5- 325 MG [place] 5-325 MG 09/17/2019 12:00:00 AM EDT a ctive [place] 5- 325 MG eCW1 ([facility]) Sucralfate 100 MG/ML Oral Suspension Sucralfate 1 GM/10ML [place] cralfate 1 GM/10ML 09/17/2019 12:00:00 AM EDT 10.0 {ml_on_an_empty_stomach} active Sucralfate 1 GM/10ML eCW1 ([facility]) Acetaminophen 325 MG / Hydrocodone David trate 5 MG Oral Tablet [[place]] [place] 5- 325 MG [place] 5-325 MG 09/17/2019 12:00:00 AM EDT a ctive [place] 5- 325 MG eCW1 ([facility]) Fluconazole 200 MG Oral Tablet Fluconazole 200 MG 09/17/2019 12:00: 00 AM EDT 1.0 {tablet} active Fluconazole 200 MG eCW1 ([facility]) Sucralfate 100 MG/ML Oral Suspension Sucralfate 1 GM/10ML [place] cralfate 1 GM/10ML 09/17/2019 12:00:00 AM EDT 10.0 {ml_on_an_empty_stomach} active Sucralfate 1 GM/10ML eCW1 ([facility]) Sucralfate 100 MG/ML Oral Suspension Sucralfate 1 GM/10ML [place] cralfate 1 GM/10ML 09/17/2019 12:00:00 AM EDT 10.0 {ml_on_an_empty_stomach} active Sucralfate 1 GM/10ML eCW1 ([facility]) Benadryl 50 MG UNK 09/17/2019 12:00:00 AM EDT active Benadryl 50 MG eCW1 ([facility]) Fluconazole 200 MG Oral Tablet Fluconazole 200 MG 09/17/2019 12:00: 00 AM EDT 1.0 {tablet} suspended Fluconazole 200 M G eCW1 ([facility]) Fluconazole 200 MG Oral Tablet Fluconazole 200 MG 09/17/2019 12:00: 00 AM EDT 1.0 {tablet} suspended Fluconazole 200 M G eCW1 ([facility]) Acetaminophen 325 MG / Hydrocodone David trate 5 MG Oral Tablet [[place]] [place] 5- 325 MG [place] 5-325 MG 09/17/2019 12:00:00 AM EDT s uspended [place] 5-325 MG eCW1 ([facility]) Benadryl 50 MG UNK 09/17/2019 12:00:00 AM EDT active Benadryl 50 MG eCW1 ([facility]) Benadryl 50 MG UNK 09/17/2019 12:00:00 AM EDT active Benadryl 50 MG eCW1 ([facility]) Fluconazole 200 MG Oral Tablet Fluconazole 200 MG 09/17/2019 12:00: 00 AM EDT 1.0 {tablet} active Fluconazole 200 MG eCW1 ([facility]) Benadryl 50 MG UNK 09/17/2019 12:00:00 AM EDT active Benadryl 50 MG eCW1 ([facility]) Sucralfate 100 MG/ML Oral Suspension Sucralfate 1 GM/10ML [place] cralfate 1 GM/10ML 09/17/2019 12:00:00 AM EDT 10.0 {ml_on_an_empty_stomach} suspended Sucralfate 1 GM/10ML eCW1 ([facility]) Sucralfate 100 MG/ML Oral Suspension Sucralfate 1 GM/10ML [place]son cralfate 1 GM/10ML 09/17/2019 12:00:00 AM EDT 10.0 {ml_on_an_empty_stomach} active Sucralfate 1 GM/10ML eCW1 ([facility]) 24 HR Bupropion Hydrochloride 300 MG Ext ended Release Oral Tablet [Wellbutrin] Wellbutrin XL 300 MG Wellbutrin XL 300 MG 08/19/2019 12:00:00 AM EDT active 1 tablet in the morning eCW1 ([facility]) 24 HR Bupropion Hydrochloride 300 MG Ext ended Release Oral Tablet [Wellbutrin] Wellbutrin XL 300 MG Wellbutrin XL 300 MG 08/19/2019 12:00:00 AM EDT 1.0 {tablet_in_the_morning} active Wellbutr in XL 300 MG eCW1 ([facility]) 24 HR Bupropion Hydrochloride 300 MG Ext ended Release Oral Tablet [Wellbutrin] Wellbutrin XL 300 MG Wellbutrin XL 300 MG 08/19/2019 12:00:00 AM EDT active 1 tablet in the morning eCW1 ([facility]) 24 HR Bupropion Hydrochloride 300 MG Ext ended Release Oral Tablet [Wellbutrin] Wellbutrin XL 300 MG Wellbutrin XL 300 MG 08/19/2019 12:00:00 AM EDT 1.0 {tablet_in_the_morning} active Wellbutr in XL 300 MG eCW1 ([facility]) 24 HR Bupropion Hydrochloride 300 MG Ext ended Release Oral Tablet [Wellbutrin] Wellbutrin XL 300 MG Wellbutrin XL 300 MG 08/19/2019 12:00:00 AM EDT 1.0 {tablet_in_the_morning} active Wellbutr in XL 300 MG eCW1 ([facility]) Bisacodyl 5 MG Delayed Release Oral Tablet [Dulcolax] Dulcol ax 08/11/2019 12:00:00 AM EDT completed [facility] ([facility]) POLYETHYLENE GLYCOL 3350 105 MG/ML / Pot assium Chloride 0.23033 MEQ/ML / Sodium Bicarbonate 0.017 MEQ/ML / Sodium Chloride 0.0479 MEQ/ML Oral Solution [GaviLyte-N] Gavilyte-N With Flavor Pack 08/11/2019 12:00:00 AM EDT completed [facility] ) Clenpiq Clenpiq 08/11/2019 12:00:00 AM EDT complet ed [facility] ([facility] ) Capsaicin 08/02/2019 12:00:00 AM EDT complete d MED[facility] ([facility]) Zostrix-HP 07/28/2019 12:00:00 AM EDT active [facility] ([facility]) Amitriptyline Hydrochloride 25 MG Oral Tablet Amitript yline HCl 25 MG Amitriptyline HCl 25 MG 04/14/2019 12:00:00 AM EST 1.0 {tablet_at_b edtime} active Amitriptyline HCl 25 MG e CW1 ([facility]) Amitriptyline Hydrochloride 25 MG Oral Tablet Amitript yline HCl 25 MG Amitriptyline HCl 25 MG 04/14/2019 12:00:00 AM EST active 1 tablet at bedtime eCW1 ([facility]) Amitriptyline Hydrochloride 25 MG Oral Tablet Amitript yline HCl 25 MG Amitriptyline HCl 25 MG 04/14/2019 12:00:00 AM EST 1.0 {tablet_at_b edtime} active Amitriptyline HCl 25 MG e CW1 ([facility]) Amitriptyline Hydrochloride 25 MG Oral Tablet Amitript yline HCl 25 MG Amitriptyline HCl 25 MG 04/14/2019 12:00:00 AM EST 1.0 {tablet_at_b edtime} active Amitriptyline HCl 25 MG e CW1 ([facility]) Amitriptyline Hydrochloride 25 MG Oral Tablet Amitript yline HCl 25 MG Amitriptyline HCl 25 MG 04/14/2019 12:00:00 AM EST 1.0 {tablet_at_b edtime} active Amitriptyline HCl 25 MG e CW1 ([facility]) Amitriptyline Hydrochloride 25 MG Oral Tablet Amitript yline HCl 25 MG Amitriptyline HCl 25 MG 04/14/2019 12:00:00 AM EST active 1 tablet at bedtime eCW1 ([facility]) Amitriptyline Hydrochloride 25 MG Oral Tablet Amitript yline HCl 25 MG Amitriptyline HCl 25 MG 04/14/2019 12:00:00 AM EST active 1 tablet at bedtime eCW1 ([facility]) Amitriptyline Hydrochloride 25 MG Oral Tablet Amitript yline HCl 25 MG Amitriptyline HCl 25 MG 04/14/2019 12:00:00 AM EST 1.0 {tablet_at_b edtime} active Amitriptyline HCl 25 MG e CW1 ([facility]) Amitriptyline Hydrochloride 25 MG Oral Tablet Amitript yline HCl 25 MG Amitriptyline HCl 25 MG 04/14/2019 12:00:00 AM EST 1.0 {tablet_at_b edtime} active Amitriptyline HCl 25 MG e CW1 ([facility]) Amitriptyline Hydrochloride 25 MG Oral Tablet Amitript yline HCl 25 MG Amitriptyline HCl 25 MG 04/14/2019 12:00:00 AM EST 1.0 {tablet_at_b edtime} active Amitriptyline HCl 25 MG e CW1 ([facility]) Amitriptyline Hydrochloride 25 MG Oral Tablet Amitript yline HCl 25 MG Amitriptyline HCl 25 MG 04/14/2019 12:00:00 AM EST 1.0 {tablet_at_b edtime} active Amitriptyline HCl 25 MG e CW1 ([facility]) Amitriptyline Hydrochloride 25 MG Oral Tablet Amitript yline HCl 25 MG Amitriptyline HCl 25 MG 04/14/2019 12:00:00 AM EST 1.0 {tablet_at_b edtime} active Amitriptyline HCl 25 MG e CW1 ([facility]) Amitriptyline Hydrochloride 25 MG Oral Tablet Amitript yline HCl 25 MG Amitriptyline HCl 25 MG 04/14/2019 12:00:00 AM EST 1.0 {tablet_at_b edtime} active Amitriptyline HCl 25 MG e CW1 ([facility]) Amitriptyline Hydrochloride 25 MG Oral Tablet Amitript yline HCl 25 MG Amitriptyline HCl 25 MG 04/14/2019 12:00:00 AM EST active 1 tablet at bedtime eCW1 ([facility]) Amitriptyline Hydrochloride 25 MG Oral Tablet Amitript yline HCl 25 MG Amitriptyline HCl 25 MG 04/14/2019 12:00:00 AM EST 1.0 {tablet_at_b edtime} active Amitriptyline HCl 25 MG e CW1 ([facility]) Amitriptyline Hydrochloride 25 MG Oral Tablet Amitript yline HCl 25 MG Amitriptyline HCl 25 MG 04/14/2019 12:00:00 AM EST 1.0 {tablet_at_b edtime} active Amitriptyline HCl 25 MG e CW1 ([facility]) Amitriptyline Hydrochloride 25 MG Oral Tablet Amitript yline HCl 25 MG Amitriptyline HCl 25 MG 04/14/2019 12:00:00 AM EST 1.0 {tablet_at_b edtime} active Amitriptyline HCl 25 MG e 1 ([facility]) Amitriptyline Hydrochloride 25 MG Oral Tablet Amitript yline HCl 25 MG Amitriptyline HCl 25 MG 04/14/2019 12:00:00 AM EST active 1 tablet at bedtime eCW1 ([facility]) Amitriptyline Hydrochloride 25 MG Oral Tablet Amitript yline HCl 25 MG Amitriptyline HCl 25 MG 04/14/2019 12:00:00 AM EST 1.0 {tablet_at_b edtime} active Amitriptyline HCl 25 MG e 1 ([facility]) Amitriptyline Hydrochloride 25 MG Oral Tablet Amitript yline HCl 25 MG Amitriptyline HCl 25 MG 04/14/2019 12:00:00 AM EST 1.0 {tablet_at_b edtime} active Amitriptyline HCl 25 MG e 1 ([facility]) Amitriptyline Hydrochloride 25 MG Oral Tablet Amitript yline HCl 25 MG Amitriptyline HCl 25 MG 04/14/2019 12:00:00 AM EST 1.0 {tablet_at_b edtime} active Amitriptyline HCl 25 MG e 1 ([facility]) Amitriptyline Hydrochloride 25 MG Oral Tablet Amitript yline HCl 25 MG Amitriptyline HCl 25 MG 04/14/2019 12:00:00 AM EST 1.0 {tablet_at_b edtime} active Amitriptyline HCl 25 MG e CW1 ([facility]) Amitriptyline Hydrochloride 25 MG Oral Tablet Amitript yline HCl 25 MG Amitriptyline HCl 25 MG 04/14/2019 12:00:00 AM EST 1.0 {tablet_at_b edtime} active Amitriptyline HCl 25 MG e CW1 ([facility]) Zofran ODT 4 MG UNK 04/09/2019 12:00:00 AM EST 1.0 {tablet_on_the_tongue_and_allow_to_dissolve} active Zofran ODT 4 MG eCW1 ([facility]) Zofran ODT 4 MG UNK 04/09/2019 12:00:00 AM EST 1.0 {tablet_on_the_tongue_and_allow_to_dissolve} active Zofran ODT 4 MG eCW1 ([facility]) Zofran ODT 4 MG UNK 04/09/2019 12:00:00 AM EST 1.0 {tablet_on_the_tongue_and_allow_to_dissolve} active Zofran ODT 4 MG eCW1 ([facility]) Zofran ODT 4 MG UNK 04/09/2019 12:00:00 AM EST active 1 tablet on the tongue and allow to dissolve eCW1 ([facility]) Zofran ODT 4 MG UNK 04/09/2019 12:00:00 AM EST 1.0 {tablet_on_the_tongue_and_allow_to_dissolve} active Zofran ODT 4 MG eCW1 ([facility]) Zofran ODT 4 MG UNK 04/09/2019 12:00:00 AM EST 1.0 {tablet_on_the_tongue_and_allow_to_dissolve} active Zofran ODT 4 MG eCW1 ([facility]) Zofran ODT 4 MG UNK 04/09/2019 12:00:00 AM EST 1.0 {tablet_on_the_tongue_and_allow_to_dissolve} active Zofran ODT 4 MG eCW1 ([facility]) Zofran ODT 4 MG UNK 04/09/2019 12:00:00 AM EST 1.0 {tablet_on_the_tongue_and_allow_to_dissolve} active Zofran ODT 4 MG eCW1 ([facility]) Zofran ODT 4 MG UNK 04/09/2019 12:00:00 AM EST 1.0 {tablet_on_the_tongue_and_allow_to_dissolve} active Zofran ODT 4 MG eCW1 ([facility]) Zofran ODT 4 MG UNK 04/09/2019 12:00:00 AM EST 1.0 {tablet_on_the_tongue_and_allow_to_dissolve} active Zofran ODT 4 MG eCW1 ([facility]) Zofran ODT 4 MG K 04/09/2019 12:00:00 AM EST 1.0 {tablet_on_the_tongue_and_allow_to_dissolve} active Zofran ODT 4 MG eCW1 ([facility]) Zofran ODT 4 MG K 04/09/2019 12:00:00 AM EST 1.0 {tablet_on_the_tongue_and_allow_to_dissolve} active Zofran ODT 4 MG eCW1 ([facility]) Zofran ODT 4 MG K 04/09/2019 12:00:00 AM EST active 1 tablet on the tongue and allow to dissolve eCW1 ([facility]) Zofran ODT 4 MG K 04/09/2019 12:00:00 AM EST active 1 tablet on the tongue and allow to dissolve eCW1 ([facility]) Zofran ODT 4 MG K 04/09/2019 12:00:00 AM EST 1.0 {tablet_on_the_tongue_and_allow_to_dissolve} active Zofran ODT 4 MG eCW1 ([facility]) Zofran ODT 4 MG UNK 04/09/2019 12:00:00 AM EST 1.0 {tablet_on_the_tongue_and_allow_to_dissolve} active Zofran ODT 4 MG eCW1 ([facility]) Zofran ODT 4 MG UNK 04/09/2019 12:00:00 AM EST 1.0 {tablet_on_the_tongue_and_allow_to_dissolve} active Zofran ODT 4 MG eCW1 ([facility]) Zofran ODT 4 MG UNK 04/09/2019 12:00:00 AM EST 1.0 {tablet_on_the_tongue_and_allow_to_dissolve} active Zofran ODT 4 MG eCW1 ([facility]) Zofran ODT 4 MG UNK 04/09/2019 12:00:00 AM EST 1.0 {tablet_on_the_tongue_and_allow_to_dissolve} active Zofran ODT 4 MG eCW1 ([facility]) Zofran ODT 4 MG UNK 04/09/2019 12:00:00 AM EST 1.0 {tablet_on_the_tongue_and_allow_to_dissolve} active Zofran ODT 4 MG eCW1 ([facility]) Zofran ODT 4 MG UNK 04/09/2019 12:00:00 AM EST 1.0 {tablet_on_the_tongue_and_allow_to_dissolve} active Zofran ODT 4 MG eCW1 ([facility]) Insurance Providers Payer name Policy type / Coverage type Policy ID Covered constitution party ID Covered constitution party's relationship to gonzalez Policy Gonzalez Plan Information [facility] [id number] SP [id number] [facility] [id number] SP [id number] [facility] O [id number] S [id number] [employer] ([place]) Workers Compensation [id number] Self [id number] [facility] Community Plan Commercial [id number] Self [id number] [employer] Self ([place]) Workers Compensation [id number] Self [id number] [place] [employer] Self ([place]) Workers Compensation [id number] Self [id number] [facility] Community Plan Commercial [id number] Self [id number] ANSI-Medicaid [id number] [facility] [id number] [facility] MEDICAID [id number] April [id number] [employer] [facility] ([facility]) [id number] Self [id number] [facility] [id number] [employer] [facility] ([facility]) [id number] Self [id number] [facility] [id number] [facility] COMM[facility]ITY PLAN [facility] [id number] SP [id number] [facility] [id number] [employer] [facility] ([facility]) [id number] Self [id number] [facility] Community Plan Commercial [id number] Self [id number] [facility]-Medicaid [id number] [facility] PLAN [facility] [id number] SP [id number] [facility]-Medicaid [id number] ANS-Medicaid [id number] [facility] PLAN [facility] [id number] SP [id number] [facility] Health Maintenance Organization (HMO) [id number] Self [id number] [facility] [id number] SP [id number] [facility] MEDICAID PI PI [facility] [id number] April [id number] [facility] [id number] April [id number] [facility] PI PI [facility] COMM[facility] PLAN [id number] SP [id number] [facility] [id number] SP [id number] [facility] [id number] SP [id number] SELF PAY ONLY [id number] SP [id number] SELF PAY ONLY UNAVAILABLE SP UNAV AILABLE SELF PAY UNAVAILABLE SP UNAVAILA BLE [facility] O [id number] C [id number] Problems, Conditions, and Diagnoses Code Display Name Description Problem Type Effective Dates Data Source(s) 196049126 Body mass index 40+ - severely obese Bod y mass index 40+ - severely obese Problem 02/21/2020 12:00:00 AM EST [facility] [id number] Obstructive sleep apnea syndrome Obstructive sle ep apnea syndrome Problem 02/21/2020 12:00:00 AM EST [facility] [id number] Palpitations Palpitations Problem 02/21/2020 12:00:00 A M EST [facility] ([facility]) [id number] Dyspnea Dyspnea Problem 02/21/2020 12:00:00 AM ES T [facility] ([facility]) [id number] Electrocardiogram abnormal Electrocardiogram abnormal Problem 02/21/2020 12:00:00 AM EST [facility] ([facility]) 37858645 Precordial pain Precordial pain Problem 02/21/2020 12:0 0:00 AM EST [facility] ([facility]) F33.2 [id number] Severe episode of re current major depressive disorder, without psychotic features Problem 08/19/2019 12:00:00 AM EDT eCW1 ([facility]) F33.2 [id number] Severe episode of re current major depressive disorder, without psychotic features Problem 08/19/2019 12:00:00 AM EDT eCW1 ([facility]) F99 [id number] Mental disorder, not otherwise specified Problem 04/14/2019 12:00:00 AM EST eCW1 ([facility]) F51.05 [id number] Insomnia due to other mental disorder Pro blem 04/14/2019 12:00:00 AM EST eCW1 ([facility]) F99 [id number] Mental disorder, not otherwise specified Problem 04/14/2019 12:00:00 AM EST eCW1 ([facility]) F51.05 [id number] Insomnia due to other mental disorder Pro blem 04/14/2019 12:00:00 AM EST eCW1 ([facility]) Surgeries/Procedures Procedure Description Date Indications Data Source(s) ECHO TTHRC R-T 2D W/WOM-MODE COMPL SPEC&COLR DOP 03/23 12:00:00 AM EST [facility] ([facility]) MYOCARDIAL SPECT MULTIPLE STUDIES 03/06/2020 12:00:00 AM EST [facility] ([facility]) CV STRS TST XERS&/OR RX CONT ECG PHYS SI&R 03/06/2020 12:00:00 AM EST [facility] ([facility]) ECG ROUTINE ECG W/LEAST 12 LDS W/I&R 02/21/2020 12:00: 00 AM EST [facility] ([facility]) ECG ROUTINE ECG W/LEAST 12 LDS W/I&R 02/21/2020 12:00: 00 AM EST [facility] ([facility]) Endoscopy Upper GI Biopsy 10/11/2019 12:00:00 AM EDT [facility] ([facility]) Colonoscopy Flexible Proximal To Splenic Flexure W/Biopsy Si ngle/ 10/11/2019 12:00:00 AM EDT [facility] ([facility]) PHYSICIAN TELEPHONE EVALUATION 11-20 MIN 07/02/2019 12 :00:00 AM EDT eCW1 ([facility]) PSYTX W PT 45 MINUTES 06/10/2019 12:00:00 AM EST eCW1 ([facility]) Results ID Date Data Source [id number] 04/22/2020 12:00:00 AM EST [facility] Name Value Range Interpretation Code Description Data Lashawn rce(s) Supporting Document(s) SARS coronavirus 2 Ag Negative [facility] This lab was ordered by [facility] and reported by [facility] ID Date Data Source [id number] 02/10/2020 08:26:00 AM EST [facility] ([facility] Name Value Range Interpretation Code Description Data Lashawn rce(s) Supporting Document(s) White Blood Count 6.7 5.0-10.0 [facility] Platelets 302 172-450 [facility] Red Blood Count 4.98 4.00-5.40 [facility] Hemoglobin 14.4 [facility] ([facility]) Hematocrit 44.4 [facility] ([facility]) ID Date Data Source [id number] 02/10/2020 08:26:00 AM EST [facility] ([facility]) Name Value Range Interpretation Code Description Data Lashawn rce(s) Supporting Document(s) Natriuretic peptide.B prohormone N-Terminal [Mass/volu me] in Serum or Plasma 54 [facility] ([facility] Lipoprotein lipase [Enzymatic activity/volume] in Serum or Plasma 112 [facility] ([facility]) ID Date Data Source [id number] 02/10/2020 08:26:00 AM EST [facility] ([facility]) Name Value Range Interpretation Code Description Data Lashawn rce(s) Supporting Document(s) Aspartate aminotransferase [Enzymatic activity/volume] in Se rum or Plasma 19 15-37 [facility] ([facility]) Albumin 3.5 3.2-5.2 [facility] Alanine aminotransferase [Enzymatic activity/volume] i n Serum or Plasma 30 30-65 [facility] ([facility]) Alk Phos 92 50-136 [facility] A/G Ratio 1.2 1.00-1.93 [facility] Total Protein 6.5 6.4-8.2 [facility] ([facility] Total Bilirubin 0.3 0.0-1.0 [facility] ID Date Data Source [id number] 11/29/2019 09:04:00 AM EDT [facility] Name Value Range Interpretation Code Description Data Lashawn rce(s) Supporting Document(s) Folate Laboratory test result [facility] ([facility]) C-Reactive Protein Laboratory test result [facility] ([facility]) ID Date Data Source [id number] 11/29/2019 09:04:00 AM EDT [facility] ([facility]) Name Value Range Interpretation Code Description Data Lashawn rce(s) Supporting Document(s) Tibc % Saturation 19.0 [facility] Iron 58 50-170 [facility]) Iron binding capacity [Mass/volume] in Serum or Plasma 306 [facility] ([facility]) ID Date Data Source [id number] 11/29/2019 08:45:00 AM EDT [facility] ([facility]) Name Value Range Interpretation Code Description Data Lashawn rce(s) Supporting Document(s) Folate Laboratory test result Normal (applies to non-n umeric results) [facility] ([facility]) FOLATE NORMAL RANGE NORMAL GREATER THAN 5.4 NG/ML INDETERMINATE 3.4-5.4 NG/ML DEFICIENT LESS THAN 3.4 NG/ML Vitamin B12 Level Laboratory test result Normal (applies to non-numeric results) [facility] ([facility]) VITAMIN B12 NORMAL RANGE NORMAL 247 - 911 PG/ML INDETERMINATE 211 - 246 PG/ML DEFICIENT LESS THAN 211 PG/ML ID Date Data Source [id number] 11/29/2019 08:45:00 AM EDT [facility] ([facility]) Name Value Range Interpretation Code Description Data Lashawn rce(s) Supporting Document(s) Percent Saturation 19.0 % 13.2-45.0 Normal (applies to non-numer ic results) [facility] ([facility]) Total Iron Binding Capacity 306 ug/dL 250-450 Norm al (applies to non-numeric results) [facility] ([facility]) Iron (Fe) 58 ug/dL 50-170 Normal (applies to non-numeric resul ts) [facility]) ID Date Data Source [id number] 11/29/2019 08:45:00 AM EDT [facility]) Name Value Range Interpretation Code Description Data Lashawn rce(s) Supporting Document(s) Erythrocyte sedimentation rate by Westergren method 6 mm/hr 0-30 Normal (applies to non-numeric results) [facility] ([facility]) C reactive protein [Mass/volume] in Serum or Plasma by High sensitivity method Laboratory test result 0.00-0.30 Normal (applies to non-numeric results) [facility]) ID Date Data Source [id number] [facility] Name Value Range Interpretation Code Description Data Lashawn rce(s) Supporting Document(s) Anti-Saccharomyces Cerev. IgG 22.0 units 0.0-24.9 No rmal (applies to non-numeric results) [facility] ([facility]) <content>Negative <20.0</content >
<content>Equivocal 20.1 - 24.9</content>
<content>Positive >or= 25.0</content>
<content></content> Anti-Saccharomyces Cerev. IgA Laboratory test result 0.0-24.9 Normal (applies to non-numeric results) [facility] ) <content>Negative <20.0</content>
<content>Equivocal 20.1 - 24.9</content>
<content>Positive >or= 25.0</content>
<content>IgA and IgG antibody testing for S. cerevisiae is</content>
<content>useful adjunct testing for differentiating Crohn's</content>
<content>disease and ulcerative colitis. Close to 80% of</content>
<content>Crohn's disease patients are positive for either</content>
<content>IgA or IgG. In ulcerative colitis, less than 15% are</content>
<content>positive for IgG and less than 2% are positive for</content>
<content>IgA. Fewer than 5% are positive for either IgG or</content>
<content>IgA antibody, and no healthy controls had antibody</content>
<content>for both.</content>
<content> Performed at: [facility]</content>
<content>[address], [place] [id number]</content>
<content>Hose Inspector: Seymour Dove MD, Phone: [phone]</content>
<content></content> ID Date Data Source [id number] 11/29/2019 08:45:00 AM EDT [facility] ([facility]) Name Value Range Interpretation Code Description Data Lashawn rce(s) Supporting Document(s) Cytoplasmic Neutrop AB Anca-C Laboratory test result Normal (applies to non- numeric results) [facility] ([facility]) Perinuclear AB Anca-P Laboratory test result Nor mal (applies to non-numeric results) [facility] ([facility]) The presence of positive fluorescence ex hibiting P-ANCA or C-ANCA patterns alone is not specific for the diagnosis of Nalini's Granulomatosis (WG) or microscopic polyangiitis. Decisions about treatment should not be based solely on ANCA IFA results. The International ANCA [employer] Consensus recommends follow up testing of positive sera with both [place]- 3 and MPO-ANCA enzyme immunoassays. As m any as 5% serum samples are positive only by EIA. Ref. AM J Clin Pathol 1999;111:507-513. Anca-Atypical Laboratory test result Normal (applies t o non-numeric results) [facility] ([facility], ) The atypical pANCA pattern has been obse rved in a significant percentage of patients with ulcerative colitis, primary sclerosing cholangitis and autoimmune hepatitis. ID Date Data Source [id number] 11/29/2019 08:45:00 AM EDT [facility] ([facility]) Name Value Range Interpretation Code Description Data Lashawn rce(s) Supporting Document(s) Red Blood Count 5.12 10 4.00-5.40 Normal (applies to non-numeric results) [facility] ([facility]) Hemoglobin 14.7 g/dL 12.0-15.5 Normal (applies to non-numeric resul ts) [facility], ) White Blood Count 5.0 10 4.0-10.0 Normal (applies to non-numeri c results) [facility]) Mean Corpuscular Volume 90.6 fl 80.0-96.0 Normal ( applies to non-numeric results) [facility] ([facility]) Mean Corpuscular Hemoglobin 28.7 pg 27.0-33.0 Norm al (applies to non-numeric results) [facility] ([facility]) Hematocrit 46.4 % 36.0-47.0 Normal (applies to non-numeric resul ts) [facility]) Platelet Count, Automated 295 10 150-450 Normal (applies to non-numeric results) [facility]) Neutrophils % 52.3 % 36.0-66.0 Normal (applies to non-numeric re sults) [facility] ([facility]) Red Cell Distribution Width 13.8 % 11.5-14.5 Norm al (applies to non-numeric results) [facility], ) Mean Corpuscular HGB Conc 31.7 g/dL 32.0-36.5 Below low normal [facility] ([facility]) [place] % 8.6 % 0.0-5.0 Above high normal [facility] ([facility]) Eos % 1.4 % 0.0-3.0 Normal (applies to non-numeric resul ts) [facility] ([facility]) Lymph % 36.5 % 24.0-44.0 Normal (applies to non-numeric resul ts) [facility]) Immature Granulocyte % 0.2 % 0-3.0 Normal (applies to non-n umeric results) [facility]) Nucleated Red Blood Cell % 0.0 % 0-0 Normal (applies to n on-numeric results) [facility]) Baso % 1.0 % 0.0-1.0 Normal (applies to non-numeric resul ts) [facility] Neutrophils # 2.6 10 1.5-8.5 Normal (applies to non-numeric re sults) [facility] ([facility]) [place] # 0.4 10 0.0-0.8 Normal (applies to non-numeric resul ts) [facility] ([facility]) Eos # 0.1 10 0.0-0.5 Normal (applies to non-numeric resul ts) [facility] ([facility]) Lymph # 1.8 10 1.5-5.0 Normal (applies to non-numeric resul ts) [facility] ([facility]) Baso # 0.1 10 0.0-0.2 Normal (applies to non-numeric resul ts) [facility]) ID Date Data Source [id number] 10/11/2019 11:04:00 AM EDT [facility]) Name Value Range Interpretation Code Description Data Lashawn rce(s) Supporting Document(s) Surgical pathology study Laboratory test result [facility] ([facility]) FINAL DIAGNOSIS A - Small bowel biopsy: Small bowel mucosa with normal villous architecture and nonspecific mild inflammation. No histologic evidence of celiac disease. B - Gastric biopsy: Gastric mucosa with minimal chronic inflammation. No H. pylori is identified. C - Colon, random biopsy: Fragment of tubular adenoma. Separate fragments of colonic mucosa with mild nonspecific inflammation and ulceration. 10/12/2019 - 140 CLINICAL DIAGNOSIS Screening, family H/O. follow-up PUD 10/12/2019 - 06 GROSS DIAGNOSIS A - Received in formalin labeled "small bowel biopsy R/O celiac" and consists of a fragment of tissue 0.1 x 0.1 x 0.1 cm. All in one. B - Received in formalin labeled "gastric biopsy R/O H. pylori" and consists of a fragment of tissue 0.2 x 0.1 x 0.1 cm. All in one. C - Received in formalin labeled "random colon biopsy for inflammation" and consists of a fragment of tissue 0.3 x 0.2 x 0.1 cm. All in one. -OA 10/12/2019 - 0656 Signed LUDWIN DUONG MD 10/12/2019 1406 ID Date Data Source [id number] 10/07/2019 10:00:00 AM EDT [facility] Name Value Range Interpretation Code Description Data Lashawn rce(s) Supporting Document(s) SARS CORONAVIRUS 2 RNA [facility] This lab was ordered by [facility] and reported by [facility]. ID Date Data Source [id number] 09/17/2019 09:44:00 AM EDT [facility] ([facility]) Name Value Range Interpretation Code Description Data Lashawn rce(s) Supporting Document(s) Albumin [Mass/volume] in Serum or Plasma 2.3 [facility] ([facility]) Carbon dioxide, total [Moles/volume] in Serum or Plasma 26 [facility] ([facility]) Alanine aminotransferase [Enzymatic activity/volume] in Serum or Pl asma 23 [facility] ([facility]) Calcium [Mass/volume] in Serum or Plasma 8.4 [facility] ([facility]) Chloride [Moles/volume] in Serum or Plasma 109 [facility] ([facility]) Potassium [Moles/volume] in Serum or Plasma 3.6 [facility] ([facility]) Alkaline phosphatase [Enzymatic activity/volume] in Serum or Plasma 8 8 [facility] ([facility]) Protein [Mass/volume] in Serum or Plasma 5.8 [facility] ([facility]) Glucose 77 70-100 [facility] ([facility] Aspartate aminotransferase [Enzymatic activity/volume] in Serum or Plasma 12 [facility] ([facility]) Sodium 140 [facility] ([facility] Urea nitrogen [Mass/volume] in Serum or Plasma 7 [facility] ([facility]) Creatinine For GFR 0.61 [facility] ([facility] ID Date Data Source [id number] 09/16/2019 06:19:00 AM EDT [facility] Name Value Range Interpretation Code Description Data Lashawn rce(s) Supporting Document(s) Glucose, Fasting 75 mg/dL 70-100 Normal (applies to non-numeric results) [facility] ([facility], ) Blood Urea Nitrogen 11 mg/dL 7-18 Normal (applies to non-nume lissette results) [facility] ([facility], ) Creatinine For GFR 0.68 mg/dL 0.55-1.30 Normal (applies to non -numeric results) [facility] ([facility], ) Glomerular Filtration Rate Laboratory test result Normal (applies to non- numeric results) [facility], ) <content>Units are mL/min/1.73 m2</content>
<content></content>
<content>Chronic Kidney Disease Staging per NKF:</content>
<content></content>
<content>Stage I & II GFR >=60 Normal to Mildly Decreased</content>
<content>Stage III GFR 30- 59 Moderately Decreased</content>
<content>Stage IV GFR 15-29 Severely Decreased</content>
<content>Stage V GFR <15 Very Little GFR Left</content>
<content>ESRD GFR <15 on SECOND CLASS WELDER</content>
<content></content> Potassium Serum 4.2 meq/L 3.5-5.1 Normal (applies to non-numeric results) [facility] Sodium Level 140 meq/L 136-145 Normal (applies to non-numeric res ults) [facility] ([facility], ) Anion Gap 4 meq/L 8-16 Below low normal [facility] ( [facility], ) Carbon Dioxide Level 26 meq/L 21-32 Normal (applies to non-num ander results) [facility] ([facility], ) Chloride Level 110 meq/L 98-107 Above high normal [facility] ([facility], ) Ast/Sgot 14 U/L 7-37 Normal (applies to non-numeric resul ts) [facility] ([facility], ) Alt/SGPT 26 U/L 12-78 Normal (applies to non-numeric resul ts) [facility], ) Calcium Level 8.3 mg/dL 8.5-10.1 Below low normal [facility] T ([facility], ) Alkaline Phosphatase 62 U/L 45-117 Normal (applies to non-num ander results) [facility], ) Bilirubin,Total 0.6 mg/dL 0.2-1.0 Normal (applies to non-numeric results) [facility] ([facility]) Total Protein 5.3 GM/DL 6.4-8.2 Below low normal [facility] ([facility]) Albumin 2.3 GM/DL 3.2-5.2 Below low normal [facility]) Albumin/Globulin Ratio 0.8 1.2-2.2 Below low normal [facility]) ID Date Data Source [id number] 09/16/2019 06:19:00 AM EDT [facility] ([facility]) Name Value Range Interpretation Code Description Data Lashawn rce(s) Supporting Document(s) Hemoglobin 11.1 g/dL 12.0-15.5 Below low normal [facility] ( [facility]) Red Blood Count 3.75 10 4.00-5.40 Below low normal [facility] ([facility]) White Blood Count 6.7 10 4.0-10.0 Normal (applies to non-numeri c results) [facility] Mean Corpuscular Hemoglobin 29.6 pg 27.0-33.0 Norm al (applies to non-numeric results) [facility] ([facility]) Mean Corpuscular Volume 92.8 fl 80.0-96.0 Normal ( applies to non-numeric results) [facility] ([facility]) Hematocrit 34.8 % 36.0-47.0 Below low normal [facility] ( [facility]) Nucleated Red Blood Cell % 0.0 % 0-0 Normal (applies to n on-numeric results) [facility] ([facility]) Platelet Count, Automated 214 10 150-450 Normal (applies to non-numeric results) [facility] ([facility]) Red Cell Distribution Width 13.5 % 11.5-14.5 Norm al (applies to non-numeric results) [facility] ([facility]) Mean Corpuscular HGB Conc 31.9 g/dL 32.0-36.5 Below low normal [facility] ID Date Data Source [id number] 09/15/2019 06:24:00 AM EDT [facility] ([facility]) Name Value Range Interpretation Code Description Data Lashawn rce(s) Supporting Document(s) Glucose, Fasting 92 mg/dL 70-100 Normal (applies to non-numeric results) [facility] ([facility]) Glomerular Filtration Rate Laboratory test result Normal (applies to non- numeric results) [facility]) <content>Units are mL/min/1.73 m2</content>
<content></content>
<content>Chronic Kidney Disease Staging per NKF:</content>
<content></content>
<content>Stage I & II GFR >=60 Normal to Mildly Decreased</content>
<content>Stage III GFR 30- 59 Moderately Decreased</content>
<content>Stage IV GFR 15-29 Severely Decreased</content>
<content>Stage V GFR <15 Very Little GFR Left</content>
<content>ESRD GFR <15 on SECOND CLASS WELDER</content>
<content></content> Blood Urea Nitrogen 12 mg/dL 7-18 Normal (applies to non-nume lissette results) [facility] ([facility]) Creatinine For GFR 0.75 mg/dL 0.55-1.30 Normal (applies to non -numeric results) [facility]) Carbon Dioxide Level 28 meq/L 21-32 Normal (applies to non-num ander results) [facility]) Chloride Level 108 meq/L 98-107 Above high normal [facility] ([facility]) Sodium Level 139 meq/L 136-145 Normal (applies to non-numeric res ults) [facility]) Potassium Serum 5.0 meq/L 3.5-5.1 Significant change down [facility] ([facility]) Calcium Level 8.7 mg/dL 8.5-10.1 Normal (applies to non-numeric re sults) [facility]) Ast/Sgot 20 U/L 7-37 Normal (applies to non-numeric resul ts) [facility] ([facility]) Anion Gap 3 meq/L 8-16 Below low normal [facility] ( [facility]) Alkaline Phosphatase 65 U/L 45-117 Normal (applies to non-num ander results) [facility] ([facility]) Bilirubin,Total 0.6 mg/dL 0.2-1.0 Significant change down [facility] ([facility]) Alt/SGPT 33 U/L 12-78 Normal (applies to non-numeric resul ts) [facility] ([facility]) Albumin 2.7 GM/DL 3.2-5.2 Below low normal [facility] Total Protein 5.5 GM/DL 6.4-8.2 Below low normal [facility] ([facility]) Albumin/Globulin Ratio 1.0 1.2-2.2 Below low normal [facility]) ID Date Data Source [id number] 09/15/2019 06:24:00 AM EDT [facility] ([facility]) Name Value Range Interpretation Code Description Data Lashawn rce(s) Supporting Document(s) White Blood Count 12.8 10 4.0-10.0 Above high normal [facility] ([facility]) Hematocrit 37.3 % 36.0-47.0 Normal (applies to non-numeric resul ts) [facility] ([facility]) Mean Corpuscular Volume 91.2 fl 80.0-96.0 Normal ( applies to non-numeric results) [facility] ([facility]) Hemoglobin 12.2 g/dL 12.0-15.5 Normal (applies to non-numeric resul ts) [facility]) Red Blood Count 4.09 10 4.00-5.40 Normal (applies to non-numeric results) [facility] ([facility]) Mean Corpuscular HGB Conc 32.7 g/dL 32.0-36.5 Normal (applies to non-numeric results) [facility] ([facility]) Red Cell Distribution Width 13.7 % 11.5-14.5 Norm al (applies to non-numeric results) [facility] ([facility]) Mean Corpuscular Hemoglobin 29.8 pg 27.0-33.0 Norm al (applies to non-numeric results) [facility] ([facility]) Platelet Count, Automated 238 10 150-450 Normal (applies to non-numeric results) [facility] ([facility]) Nucleated Red Blood Cell % 0.0 % 0-0 Normal (applies to n on-numeric results) [facility] ([facility]) ID Date Data Source [id number] 09/14/2019 06:23:00 AM EDT [facility] ([facility]) Name Value Range Interpretation Code Description Data Lashawn rce(s) Supporting Document(s) Blood Culture Laboratory test result [facility] ([facility]) No growth after 24 hours . All specimens observed for 5 days. Results final at that time. No Growth after 48 hours. All Specimens observed for 5 days. Results final at that time. ID Date Data Source [id number] 08/31/2019 10:58:00 AM EDT [facility] ([facility]) Name Value Range Interpretation Code Description Data Lashawn rce(s) Supporting Document(s) Cholesterol 195 [facility] ([facility]) HDL 82 [facility] Triglycerides 144 [facility] ([facility]) Chol/HDL Ratio 2.378 [facility] ([facility]) Cholesterol in LDL [Mass/volume] in Serum or Plasma by calculation 84 [facility] ([facility]) ID Date Data Source Basic Metabolic Profile (BMP) 08/31/2019 12:00:00 AM EDT eCW 1 ([facility]) Name Value Range Interpretation Code Description Data Lashawn rce(s) Supporting Document(s) 85 70-100 GLUCOSE, FASTING eCW1 ([facility]) > 60.0 >51 GLOMERULAR FILTRATION RATE eCW 1 ([facility]) 10 7-18 BLOOD UREA NITROGEN eCW1 ([facility]) 0.72 0.55-1.30 CREATININE FOR GFR eCW1 ([facility]) 108 98-107 CHLORIDE LEVEL eCW1 ([facility]) 4.6 3.5-5.1 POTASSIUM SERUM eCW1 ([facility]) 142 136-145 SODIUM LEVEL eCW1 ([facility]) 30 21-32 CARBON DIOXIDE LEVEL eCW1 ([facility]) 8.5 8.5-10.1 CALCIUM LEVEL eCW1 ([facility]) ID Date Data Source LIPID PANEL (CARDIAC RISK) 08/31/2019 12:00:00 AM EDT eCW1 ( [facility]) Name Value Range Interpretation Code Description Data Lashawn rce(s) Supporting Document(s) Cholesterol [Moles/volume] in Serum or Plasma 195 <200 CHOLESTEROL LEVEL eCW1 ([facility]) Cholesterol in LDL [Mass/volume] in Serum or Plasma by calculation 84 <100 LDL CHOLESTEROL eCW1 ([facility]) Cholesterol in HDL [Moles/volume] in Serum or Plasma 82 >40 HDL CHOLESTEROL eCW1 ([facility]) Triglyceride [Mass/volume] in Serum or Plasma by calculation 144 <150 TRIGLYCERIDES LEVEL eCW1 ([facility]) 113 NON-HDL-C eCW1 ([facility]) 2.378 <5 CHOLESTEROL RISK RATIO eCW1 ([facility]) ID Date Data Source [id number] 08/23/2019 12:00:00 AM EDT [facility] Kenny Johnson MD Patient Name: LUNA BERNSTEINE[address] [facility] 1965[facility] [place] [address] Date of Exam: 08/23/2019PH#: Fax: [phone] EXAM: MRI PELVIS WITHOUT CONTRASTCLINICAL INFORMATION: Pain referable to trochanteric tendinobursitis.There are no prior pelvic MRI's for comparison.3T multiplanar MRI imaging of the pelvis was obtained using varioussequences.The femoral heads are spherical in shape and symmetric in appearance. Thejoint spaces are symmetric and relatively well maintained. No abnormalfocal chondral or subchondral signal is seen arising from the femoral oracetabular component of either hip. There is no hip joint effusion. Thecortical and marrow signal seen throughout the examination is within normallimits. There are mild degenerative changes seen involving the sacroiliacjoints. There is tgaw-gq-iqxrohwj T2 hypersignal seen in the trochanterictendinobursal region of each hip. There is patchy T2 hypersignal seen inthe quadratus femoris muscle bilaterally. The ischiofemoral distance onthe right is 15.61 mm and on the left it is 17.95 mm. There is no hipjoint effusion. There is no evidence of a soft tissue mass.IMPRESSION:1. There is evidence of mutb-ah-iezgcwuq moderate bilateral trochanterictendinobursitis.2. There is edema in the quadratus femoris muscle bilaterally whichsuggests the clinical diagnosis of ischiofemoral impingement. Measurementsas described above. There is a wide range of excepted measurements thatcan be considered normal. These findings need to be correlated clinically. Most literature reflects the ischiofemoral measurement in women should atleast be 18 mm.3. Other findings as described above.Accredited by the [employer] in MR.DELFINO Suarez/Kenneth you for referring REBECCA BERNSTEIN to our office. Electronically Signed - PEYTON MAIN DO 08/24/19 16:57 Name Value Range Interpretation Code Description Data Lashawn rce(s) Supporting Document(s) ID Date Data Source [id number] 07/13/2019 12:00:00 AM EDT [facility] [place] Patient Name: LUNA [id number] [facility] Date [facility] : 1965[facility] Date of Exam: [facility]/2019[facility] [address]GY#: Fax: [phone] EXAM: MRI LUMBAR SPINE WITHOUT CONTRASTCLINICAL INFORMATION: Chronic low back.There are no prior lumbar spine MRI examinations for comparison.3T multiplanar MRI imaging of the lumbar spine was obtained using variousse quences.There is punz-dx-jmzpgnwf loss of posterior disc space height L3-4 throughL5-S1 inclusive with ynby-ah-ysmwksuy disc hydrational signal loss at everylevel. [place] disc space narrowing is seen at T12-L1. The marrowsignal is within normal limits throughout. Vertebral body height andalignment is within normal limits. No abnormal signal is seen in theimaged portion of the spinal cord.At the L1-2 level, no abnormality is noted. There is no disc herniation,foraminal narrowing, or central canal stenosis.At the L2-3 level, there is a minimal broad based annular bulge. There isno disc herniation, foraminal narrowing, or central canal stenosis.At the L3-4 level, there is a slight broad based annular bulge. There isno disc herniation, foraminal narrowing, or central canal stenosis.At the L4-5 level, there is a slightly asymmetric broad based annularbulge. This contacts but does not frankly displace the left L4 foraminalnerve. This is causing slight left foraminal stenosis. The right neuralforamen is uncompromised. There are bilateral degenerative facet jointchanges and thickening of the ligamentum flava. Minimal central canalstenosis is evident. There is no acute disc extrusion.At the L5- S1 level, there is a slight broad based annular bulge. There isno foraminal narrowing or central canal stenosis. There is no discextrusion.Discogenic changes as described above with particular attention to the L4-5level.Accredited by the [employer] in MR.DELFINO Suarez/Kenneth wiggins for referring REBECCA BERNSTEIN to our office. Electronically Signed - PEYTON MAIN DO 07/14/19 8:07 Name Value Range Interpretation Code Description Data Lashawn rce(s) Supporting Document(s) Procedure Social History Code Duration Value Status Description Data Source(s ) Smoking 04/22/2020 12:00:00 AM EST Patient is a former smoker completed Patient is a former smoker [facility] ([facility]) Smoking 04/21/2020 12:00:00 AM EST Former Smoker completed Former Smoker eCW1 ([facility]) Smoking 04/21/2020 12:00:00 AM EST Former Smoker completed Former Smoker eCW1 ([facility]) Smoking 04/21/2020 12:00:00 AM EST Former Smoker completed Former Smoker eCW1 ([facility]) Smoking 02/21/2020 12:00:00 AM EST Patient is a former smoker completed Patient is a former smoker [facility] ([facility]) Smoking 09/22/2019 12:00:00 AM EDT Former Smoker completed Former Smoker eCW1 ([facility]) Smoking 09/22/2019 12:00:00 AM EDT Former Smoker completed Former Smoker eCW1 ([facility]) Smoking 09/22/2019 12:00:00 AM EDT Former Smoker completed Former Smoker eCW1 ([facility]) Smoking 09/22/2019 12:00:00 AM EDT Former Smoker completed Former Smoker eCW1 ([facility]) Smoking 09/22/2019 12:00:00 AM EDT Former Smoker completed Former Smoker eCW1 ([facility]) Smoking 09/22/2019 12:00:00 AM EDT Former Smoker completed Former Smoker eCW1 ([facility]) Smoking 09/22/2019 12:00:00 AM EDT Former Smoker completed Former Smoker eCW1 ([facility]) Smoking 09/22/2019 12:00:00 AM EDT Former Smoker completed Former Smoker eCW1 ([facility]) Smoking 09/22/2019 12:00:00 AM EDT Former Smoker completed Former Smoker eCW1 ([facility]) Smoking 09/22/2019 12:00:00 AM EDT Former Smoker completed Former Smoker eCW1 ([facility]) Smoking 09/22/2019 12:00:00 AM EDT Former Smoker completed Former Smoker eCW1 ([facility]) Smoking 09/22/2019 12:00:00 AM EDT Former Smoker completed Former Smoker eCW1 ([facility]) Smoking 09/22/2019 12:00:00 AM EDT Former Smoker completed Former Smoker eCW1 ([facility]) Smoking 09/22/2019 12:00:00 AM EDT Former Smoker completed Former Smoker eCW1 ([facility]) Smoking 08/31/2019 12:00:00 AM EDT Former Smoker completed Former Smoker eCW1 ([facility]) Vital Signs ID Date Data Source UNK Name Value Range Interpretation Code Description Data Source(s) Body mass index (BMI) [Ratio] 40.8 kg/m2 40.8 k g/m2 [facility] ([facility]) Body height 65 [in_i] 65 [in_i] [facility] ([facility]) 5'5" Body weight 245.00 [lb_av] 245.00 [lb_av] MED[facility] T ([facility]) Body temperature 98.6 [degF] 98.6 [degF] [facility] ([facility]) Oxygen saturation in Arterial blood by Pulse oximetry 97 % 97 % [facility] ([facility]) Respiratory rate 18 /min 18 /min [facility] ( [facility]) Heart rate 80 /min 80 /min [facility] ([facility]) Diastolic blood pressure 90 mm[Hg] 90 mm[Hg] [facility] ([facility]) Systolic blood pressure 138 mm[Hg] 138 mm[Hg] M EDENT ([facility]) Diastolic blood pressure 70 mm[Hg] 70 mm[Hg] eCW1 ([facility]) Systolic blood pressure 120 mm[Hg] 120 mm[Hg] e CW1 ([facility]) Body temperature 96.5 [degF] 96.5 [degF] eCW1 ( [facility]) Respiratory rate 18 /min 18 /min eCW1 ([facility]) Heart rate 86 /min 86 /min eCW1 ([facility]) Body mass index (BMI) [Ratio] 41.23 kg/m2 41.23 kg/m2 eCW1 ([facility]) Body height 65 [in_i] 65 [in_i] eCW1 ([facility]) Body weight 247.8 [lb_av] 247.8 [lb_av] eCW1 ([facility] Oxygen saturation in Arterial blood by Pulse oximetry --post exerci se 94 % 94 % [facility] ([facility]) Oxygen saturation in Arterial blood by Pulse oximetry 98 % 98 % [facility] ([facility]) Diastolic blood pressure--supine 68 mm[Hg] 68 mm[Hg] [facility] ([facility]) Ra Systolic blood pressure--supine 102 mm[Hg] 102 mm[Hg] [facility] ([facility]) Ra Diastolic blood pressure--sitting 66 mm[Hg] 66 mm[Hg] [facility] ([facility]) large cuff, both arms Systolic blood pressure--sitting 100 mm[Hg] 100 mm[Hg] [facility] ([facility]) large cuff, both arms Respiratory rate 16 /min 16 /min [facility] ( [facility]) Heart rate 60 /min 60 /min [facility] ([facility] regular Body mass index (BMI) [Ratio] 40.6 kg/m2 40.6 k g/m2 [facility] ([facility]) Body height 65 [in_i] 65 [in_i] [facility] ([facility] 5'5" Body weight 244.00 [lb_av] 244.00 [lb_av] [facility] T ([facility]) Body weight 109.771 kg 109.771 kg [facility] ([facility]) Body mass index (BMI) [Ratio] 40.3 kg/m2 40.3 k g/m2 [facility] ([facility]) Body weight 242.00 [lb_av] 242.00 [lb_av] [facility] T ([facility]) Body height 65 [in_i] 65 [in_i] [facility] ([facility]) 5'5" Diastolic blood pressure 64 mm[Hg] 64 mm[Hg] [facility] ([facility]) Systolic blood pressure 118 mm[Hg] 118 mm[Hg] [facility] Body weight 106.766 kg 106.766 kg [facility] ([facility]) Body mass index (BMI) [Ratio] 39.2 kg/m2 39.2 k g/m2 [facility] ([facility]) Body weight 235.38 [lb_av] 235.38 [lb_av] [facility] T ([facility]) Body height 65 [in_i] 65 [in_i] [facility] ([facility]) 5'5" Diastolic blood pressure 82 mm[Hg] 82 mm[Hg] [facility] ([facility]) Systolic blood pressure 122 mm[Hg] 122 mm[Hg] M EDENT ([facility]) Diastolic blood pressure 74 mm[Hg] 74 mm[Hg] eCW1 ([facility]) Systolic blood pressure 120 mm[Hg] 120 mm[Hg] e CW1 ([facility]) Body temperature 97.6 [degF] 97.6 [degF] eCW1 ( [facility]) Respiratory rate 18 /min 18 /min eCW1 ([facility]) Heart rate 93 /min 93 /min eCW1 ([facility]) Body mass index (BMI) [Ratio] 38.94 kg/m2 38.94 kg/m2 eCW1 ([facility]) Body height 65 [in_i] 65 [in_i] eCW1 ([facility]) Body weight 234.0 [lb_av] 234.0 [lb_av] eCW1 ([facility]) Diastolic blood pressure 62 mm[Hg] 62 mm[Hg] eCW1 ([facility]) Systolic blood pressure 118 mm[Hg] 118 mm[Hg] e CW1 ([facility]) Body temperature 96.5 [degF] 96.5 [degF] eCW1 ( [facility]) Respiratory rate 18 /min 18 /min eCW1 ([facility]) Heart rate 102 /min 102 /min eCW1 ([facility]) Body mass index (BMI) [Ratio] 41.03 kg/m2 41.03 kg/m2 eCW1 ([facility]) Body height 65 [in_us] 65 [in_us] eCW1 ([facility]) Body weight Measured 246.6 [lb_av] 246.6 [lb_av ] eCW1 ([facility]) Body weight 110.225 kg 110.225 kg [facility] ([facility], ) Body mass index (BMI) [Ratio] 40.4 kg/m2 40.4 k g/m2 [facility] ([facility], ) Body weight 243.00 [lb_av] 243.00 [lb_av] MEDEN T ([facility], ) Body height 65 [in_i] 65 [in_i] [facility] ([facility], ) 5'5" Diastolic blood pressure 66 mm[Hg] 66 mm[Hg] [facility] ([facility], ) Systolic blood pressure 124 mm[Hg] 124 mm[Hg] M EDSILVIANO ([facility], ) Patient Treatment Plan of Care Planned Activity Planned Date Details Description Data Source (s) Sucralfate 100 MG/ML Oral Suspension 04/21/2020 12:00:00 AM EST eCW1 ([facility]) Sucralfate 100 MG/ML Oral Suspension 04/21/2020 12:00:00 AM EST eCW1 ([facility]) Sucralfate 100 MG/ML Oral Suspension 04/21/2020 12:00:00 AM EST eCW1 ([facility]) 24 HR Bupropion Hydrochloride 300 MG Extended Release Oral Tablet [Wellbutrin] 08/19/2019 12:00:00 AM EDT eCW1 ([facility]) 24 HR Bupropion Hydrochloride 300 MG Extended Release Oral Tablet [Wellbutrin] 08/19/2019 12:00:00 AM EDT eCW1 ([facility]) 24 HR Bupropion Hydrochloride 300 MG Extended Release Oral Tablet [Wellbutrin] 08/19/2019 12:00:00 AM EDT eCW1 ([facility]) Amitriptyline Hydrochloride 25 MG Oral Tablet 04/14/2019 12:00:00 A M EST eCW1 ([facility]) Amitriptyline Hydrochloride 25 MG Oral Tablet 04/14/2019 12:00:00 A M EST eCW1 ([facility]) Amitriptyline Hydrochloride 25 MG Oral Tablet 04/14/2019 12:00:00 A M EST eCW1 ([facility]) Zofran ODT 4 MG 04/09/2019 12:00:00 AM EST eCW1 ([facility]) Zofran ODT 4 MG 04/09/2019 12:00:00 AM EST eCW1 ([facility]) Zofran ODT 4 MG 04/09/2019 12:00:00 AM EST eCW1 ([facility]) Zofran ODT 4 MG 04/09/2019 12:00:00 AM EST eCW1 ([facility]) Zofran ODT 4 MG 04/09/2019 12:00:00 AM EST eCW1 ([facility]) Zofran ODT 4 MG 04/09/2019 12:00:00 AM EST eCW1 ([facility])
[2020-05-21] MEDS ORDERED: AMIT25TA17 (16:56)
[2020-05-21] MEDS ORDERED: CYCL-707 (16:56)
[2020-05-21] MEDS ORDERED: OMEP-218 (16:56)
[2020-05-21] MEDS ORDERED: SUCR1ORA2 (16:56)
[2020-05-21] MEDS ORDERED: BUPR300T92 (16:56)
--- OUTSIDE RECORDS SUMMARY | 2020-05-21 16:56 | CCD ---
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 Name Role Phone Johnson, Kenny Unavailable Unavailable [...] M CORTES PA Unavailable Unavailable Brown, Sarai SEALING AND CANCELING MACHINE OPERATOR Unavailable Unavailable Brown, Sarai SEALING AND CANCELING MACHINE OPERATOR Unavailable Unavailable Brown, Sarai SEALING AND CANCELING MACHINE OPERATOR Unavailable Unavailable Brown, Sarai SEALING AND CANCELING MACHINE OPERATOR Unavailable Unavailable Brown, Sarai SEALING AND CANCELING MACHINE OPERATOR Unavailable Unavailable Brown, Sarai SEALING AND CANCELING MACHINE OPERATOR Unavailable Unavailable Brown, Sarai SEALING AND CANCELING MACHINE OPERATOR Unavailable Unavailable Brown, Sarai SEALING AND CANCELING MACHINE OPERATOR Unavailable Unavailable Brown, Sarai SEALING AND CANCELING MACHINE OPERATOR Unavailable Unavailable Brown, Sarai SEALING AND CANCELING MACHINE OPERATOR Unavailable Unavailable Brown, Sarai SEALING AND CANCELING MACHINE OPERATOR Unavailable Unavailable Johnson, Kenny Unavailable Unavailable Johnson, [...] Kenny Unavailable Unavailable Johnson, Kenny Unavailable Unavailable Jhonson, Kenny Unavailable Unavailable Johnson, Kenny Unavailable Unavailable Johnson, Kenny Unavailable Unavailable Johnson, Kenny Unavailable Unavailable Johnson, Kenny Unavailable Unavailable Johnson, Kenny Unavailable Unavailable Johnson, Kenny Unavailable Unavailable Johnson, Kenny Unavailable Unavailable Johnson, Kenny Unavailable Unavailable Johnson, Kenny Unavailable Unavailable Johnson, Kenyn Unavailable Unavailable Johnson, Kenny Unavailable Unavailable Johnson, [...] is protected by Article 27-F of the [facility] Public Health law. If you continue you may have access to information: Regarding HIV / AIDS; Provided by facilities licensed or operated by the [facility] Office of Mental Health; or Provided by the [facility] Office for People With Developmental Disabilities. If such information is present, then the following [facility] mandated warning applies: This information has been [...] law may result in a fine or penitentiary sentence or both. A general authorization for the release of medical or other information is NOT sufficient authorization for further disc losure. Allergies and Adverse Reactions Type Description Substance Reaction Status Data Source(s ) Drug allergy Tramadol HCl Tramadol dizziness Active eCW1 ([facility]) Drug allergy Cipro Ciprofloxacin Rash Active eCW1 ([facility]) Drug allergy PROzac Fluoxetine Anaphylaxis Active eCW1 ([facility]) Drug allergy Topamax topiramate foggy-headed Active eCW1 ([facility]) Family History Family Member Name Family Member Gender Family Member Status Date o f Status Description Data Source(s) Unknown Unknown Problem MEDENT ([facility]) Unknown Male Problem MEDENT ([facility]) Unknown Male Problem MEDENT ([facility]) Unknown Unknown Problem MEDENT ([facility]) Encounters Encounter Providers Location Date Indications Data Source(s ) Unknown [address] [place] [address], [facility] [phone] 05/15/2020 12:00:00 AM EST eCW1 ([facility]) (TV_Virtual) [facility] Visit [address] [place] [phone] 04/24/2020 12:00:00 AM EST eCW1 ([facility]) Outpatient Attender: Sarai smith 04/22/2020 07:35:00 AM EST MEDENT ([facility]) Outpatient [address] [facility] [address] 04/21/2020 12:00:00 AM EST eCW1 ([facility]) Unknown [address] [place] [phone] 04/19/2020 12:00:00 AM EST eCW1 ([facility]) (TV_Virtual) [facility] Visit [address] [place] [phone] 03/29/2020 12:00:00 AM EST eCW1 ([facility]) Unknown [address] [facility] [phone] 03/22/2020 12:00:00 AM EST eCW1 ([facility]) (TV_Virtual) [facility] Visit [address] [place] [address] 03/10/2020 12:00:00 AM EST eCW1 ([facility]) Unknown [address] [facility] [address] 03/07/2020 12:00:00 AM EST eCW1 ([facility]) Outpatient Attender: ROLANDO GONGORA MD Main Office 02/21/2020 08:30:00 AM EST MEDSILVIANO ([facility] Scheduled Visit [address] [place] [address] 02/15/2020 12:00:00 AM EST eCW1 ([facility]) Unknown [address] [facility] [address] 02/03/2020 12:00:00 AM EDT eCW1 ([facility]) Unknown [address] [facility] [address] 02/02/2020 12:00:00 AM EDT eCW1 ([facility]) [facility] Scheduled Visit [address] [place] [address] 02/01/2020 12:00:00 AM EDT eCW1 ([facility]) ([facility]) [facility] Scheduled Visit [address] [place] [address] 01/18/2020 12:00:00 AM EDT eCW1 ([facility]) Unknown [address] [facility] [address] 01/07/2020 12:00:00 AM EDT eCW1 ([facility]) [facility] [address] [facility] [address] 12/15/2019 12:00:00 AM EDT eCW1 ([facility]) ([facility]) [facility] Scheduled Visit [address] [place] [address] 10/25/2019 12:00:00 AM EDT eCW1 ([facility]) Outpatient Referrer: Kenny Johnson 09/29/2019 05:45:00 AM E DT [facility] ([facility]) Transition of Care Visit [address] [place] [phone] 09/22/2019 12:00:00 AM EDT eCW1 ([facility]) [place] [address] [facility] [address] 09/20/2019 12:00:00 AM EDT eCW1 ([facility]) ([facility]) [facility] Scheduled Visit [address] [place] [phone] 09/13/2019 12:00:00 AM EDT eCW1 ([facility]) Outpatient Attender: Kenny Johnson Physical Therapy 08/31/2019 08:30:0 0 AM EDT MEDENT ([facility]) [facility] [address] [facility] [address] 08/31/2019 12:00:00 AM EDT eCW1 ([facility]) Outpatient Referrer: Kenny Johnson 08/23/2019 01:41:00 PM E DT [facility] Outpatient Referrer: Kenny Johnson 08/23/2019 01:40:00 PM E DT [facility] Outpatient Referrer: Kenny Johnson 08/23/2019 01:40:00 PM E DT [facility] Outpatient Referrer: Kenny Johnson 08/23/2019 01:38:00 PM E DT [facility] Outpatient Referrer: Kenny Johnson 08/20/2019 01:35:00 PM E DT [facility] [address] [facility] [address] 08/19/2019 12:00:00 AM EDT eCW1 ([facility]) [facility] [address] [facility] [address] 08/19/2019 12:00:00 AM EDT eCW1 ([facility]) [facility] [address] [facility] [address] 08/18/2019 12:00:00 AM EDT eCW1 ([facility]) Outpatient Referrer: Kenny Johnson 08/13/2019 02:40:00 PM E DT [facility] Outpatient Referrer: CORTES LAGUERRE 08/13/2019 11:14:00 AM EDT [facility] Outpatient Referrer: CORTES LAGUERRE 08/04/2019 10:24:00 AM EDT [facility] Outpatient Referrer: CORTES LAGUERRE 08/03/2019 01:25:00 PM EDT [facility] Outpatient Attender: Kenny Johnson Physical Therapy 07/27/2019 02:00:0 0 PM EDT MEDENT ([facility]) Outpatient Referrer: CORTES LAGUERRE 07/13/2019 10:11:00 AM EDT [facility] Outpatient Referrer: CORTES LAGUERRE 07/09/2019 04:16:00 PM EDT [facility] Outpatient Referrer: CORTES LAGUERRE 07/09/2019 01:20:00 PM EDT [facility] Outpatient Referrer: CORTES LAGUERRE 07/09/2019 12:56:00 PM EDT [facility] [address] [address] 07/02/2019 12:00:00 AM EDT eCW1 ([facility]) [address] [address] 07/02/2019 12:00:00 AM EDT eCW1 ([facility]) [address] [address] 07/01/2019 12:00:00 AM EDT eCW1 ([facility]) [address] [address] 06/10/2019 12:00:00 AM EST eCW1 ([facility]) Outpatient Referrer: CORTES LAGUERRE 06/08/2019 03:05:00 PM EST [facility] [address] [address] 06/02/2019 12:00:00 AM EST eCW1 ([facility]) [address] [address] 05/26/2019 12:00:00 AM EST eCW1 ([facility]) [facility] Nick [address] [place] [phone] 05/24/2019 12:00:00 AM EST eCW1 ([facility]) [facility] Nick [address] [place] [phone] 05/18/2019 12:00:00 AM EST eCW1 ([facility]) [facility] Romero [address] [place] [phone] 05/11/2019 12:00:00 AM EST eCW1 ([facility]) [address] [address] 04/14/2019 12:00:00 AM EST eCW1 ([facility]) [facility] [address] [place] [phone] 04/14/2019 12:00:00 AM EST eCW1 ([facility]) [facility] Nick [address] [place] [phone] 04/09/2019 12:00:00 AM EST eCW1 ([facility]) Outpatient Attender: CORTES LAGUERRE Physical Therapy 03/08 08:30:00 AM EST MEDENT ([facility] ) Medications Medication Brand Name Start Date Product Form Dose Route Admi nistrative Instructions Pharmacy Instructions Status Indications Reaction Description Data Source(s) Amoxicillin 875 MG Oral Tablet Amoxicillin 04/22/2020 12:00:00 AM EST ORAL active MEDENT ([facility]) Sucralfate 100 MG/ML Oral Suspension Sucralfate 1 GM/10ML Munson cralfate 1 GM/10ML 04/21/2020 12:00:00 AM EST 10.0 {ml_on_an_empty_stomach} active Sucralfate 1 GM/10ML eCW1 ([facility]) Sucralfate 100 MG/ML Oral Suspension Sucralfate 1 GM/10ML Munson cralfate 1 GM/10ML 04/21/2020 12:00:00 AM EST 10.0 {ml_on_an_empty_stomach} active Sucralfate 1 GM/10ML eCW1 ([facility]) Sucralfate 100 MG/ML Oral Suspension Sucralfate 1 GM/10ML Munson cralfate 1 GM/10ML 04/21/2020 12:00:00 AM EST 10.0 {ml_on_an_empty_stomach} active Sucralfate 1 GM/10ML eCW1 ([facility]) 0.3 ML Epinephrine 1 MG/ML Auto-Injector [Epipen] Epipen 2-P ak 02/20/2020 12:00:00 AM EST active M EDENT ([facility]) Cholecalciferol 5000 UNT Oral Tablet Vitamin D-3 02/20/2020 12:00:00 AM EST ORAL active MEDENT [facility] duloxetine 20 MG Delayed Release Oral Capsule [Cymbalta] Cym bibiana 02/20/2020 12:00:00 AM EST ORAL active M EDENT ([facility]) duloxetine 30 MG Delayed Release Oral Capsule [Cymbalta] Cym bibiana 02/20/2020 12:00:00 AM EST ORAL active M EDENT ([facility]) Docusate Sodium 100 MG Oral Capsule Stool Softener 02/20/2020 12:00 :00 AM EST ORAL active MEDENT ([facility]) 8 HR Acetaminophen 650 MG Extended Release Oral Tablet 8 Hour Arthritis Pain Reliever 02/20/2020 12:00:00 AM EST ORAL active MEDENT ([facility]) Citracal +D3 02/20/2020 12:00:00 AM EST activ e MEDENT ([facility]) Black Cohosh Root 02/20/2020 12:00:00 AM EST active MEDENT ([facility]) Glucosamine Chondroitin Complex 02/20/2020 12:00:00 AM EST ORAL active MEDENT ([facility]) Vitamin B 12 1 MG Extended Release Oral Tablet Vitamin B12 02/20/2020 12:00:00 AM EST ORAL active MEDENT ([facility]) Ondansetron 4 MG Disintegrating Oral Tablet Ondansetron 02/20/2020 12:00:00 AM EST active MEDENT ([facility]) Levothyroxine Sodium 0.025 MG Oral Tablet Levothyroxine Sodi um 02/20/2020 12:00:00 AM EST ORAL active M EDENT ([facility]) pregabalin 300 MG Oral Capsule Pregabalin 02/20/2020 12:00:00 AM EST ORAL active MEDENT ([facility]) Acetaminophen 300 MG / butalbital 50 MG / Caffeine 40 MG Oral Capsule Butalbital/Acetaminophen/Caffeine 02/20/2020 12:00:00 AM EST ORAL active MEDENT ([facility]) Multi Vitamin 02/20/2020 12:00:00 AM EST ORAL acti ve MEDENT ([facility]) Lactobacillus acidophilus [id number] UNT Oral Capsule Probiot ic 02/20/2020 12:00:00 AM EST ORAL active M EDENT ([facility]) Zolpidem tartrate 10 MG Oral Tablet Zolpidem Tartrate 02/05 12:00:00 AM EST ORAL active MEDENT ([facility]) pantoprazole 40 MG Delayed Release Oral Tablet Pantoprazole Sodium 11/17/2019 12:00:00 AM EDT active M EDENT ([facility] ) Fluconazole 200 MG Oral Tablet Fluconazole 200 MG 09/17/2019 12:00: 00 AM EDT 1.0 {tablet} active Fluconazole 200 MG eCW1 ([facility]) Acetaminophen 325 MG / Hydrocodone David trate 5 MG Oral Tablet [Rudolph] Rudolph 5- 325 MG Rudolph 5-325 MG 09/17/2019 12:00:00 AM EDT a ctive Rudolph 5- 325 MG eCW1 ([facility]) Acetaminophen 325 MG / Hydrocodone David trate 5 MG Oral Tablet [Rudolph] Rudolph 5- 325 MG Rudolph 5-325 MG 09/17/2019 12:00:00 AM EDT a ctive Rudolph 5- 325 MG eCW1 ([facility]) Acetaminophen 325 MG / Hydrocodone David trate 5 MG Oral Tablet [Rudolph] Rudolph 5- 325 MG Rudolph 5-325 MG 09/17/2019 12:00:00 AM EDT a ctive Rudolph 5- 325 MG eCW1 ([facility]) Acetaminophen 325 MG / Hydrocodone David trate 5 MG Oral Tablet [Rudolph] Rudolph 5- 325 MG Rudolph 5-325 MG 09/17/2019 12:00:00 AM EDT a ctive Rudolph 5- 325 MG eCW1 ([facility]) Sucralfate 100 MG/ML Oral Suspension Sucralfate 1 GM/10ML Munson cralfate 1 GM/10ML 09/17/2019 12:00:00 AM EDT 10.0 {ml_on_an_empty_stomach} active Sucralfate 1 GM/10ML eCW1 ([facility]) Sucralfate 100 MG/ML Oral Suspension Sucralfate 1 GM/10ML Munson cralfate 1 GM/10ML 09/17/2019 12:00:00 AM EDT 10.0 {ml_on_an_empty_stomach} active Sucralfate 1 GM/10ML eCW1 ([facility]) Benadryl 50 MG UNK 09/17/2019 12:00:00 AM EDT active Benadryl 50 MG eCW1 ([facility]) Benadryl 50 MG UNK 09/17/2019 12:00:00 AM EDT active Benadryl 50 MG eCW1 ([facility]) Sucralfate 100 MG/ML Oral Suspension Sucralfate 1 GM/10ML Munson cralfate 1 GM/10ML 09/17/2019 12:00:00 AM EDT 10.0 {ml_on_an_empty_stomach} active Sucralfate 1 GM/10ML eCW1 ([facility]) Fluconazole 200 MG Oral Tablet Fluconazole 200 MG 09/17/2019 12:00: 00 AM EDT 1.0 {tablet} active Fluconazole 200 MG eCW1 ([facility]) Augmentin 875-125 MG UNK 09/17/2019 12:00:00 AM EDT 1.0 {tablet } active Augmentin 875-125 MG eCW1 ([facility]) Sucralfate 100 MG/ML Oral Suspension Sucralfate 1 GM/10ML Munson cralfate 1 GM/10ML 09/17/2019 12:00:00 AM EDT 10.0 {ml_on_an_empty_stomach} active Sucralfate 1 GM/10ML eCW1 ([facility]) Benadryl 50 MG UNK 09/17/2019 12:00:00 AM EDT active Benadryl 50 MG eCW1 ([facility]) Fluconazole 200 MG Oral Tablet Fluconazole 200 MG 09/17/2019 12:00: 00 AM EDT 1.0 {tablet} active Fluconazole 200 MG eCW1 ([facility]) Fluconazole 200 MG Oral Tablet Fluconazole 200 MG 09/17/2019 12:00: 00 AM EDT 1.0 {tablet} active Fluconazole 200 MG eCW1 ([facility]) Sucralfate 100 MG/ML Oral Suspension Sucralfate 1 GM/10ML Munson cralfate 1 GM/10ML 09/17/2019 12:00:00 AM EDT 10.0 {ml_on_an_empty_stomach} active Sucralfate 1 GM/10ML eCW1 ([facility]) Fluconazole 200 MG Oral Tablet Fluconazole 200 MG 09/17/2019 12:00: 00 AM EDT 1.0 {tablet} active Fluconazole 200 MG eCW1 ([facility]) Fluconazole 200 MG Oral Tablet Fluconazole 200 MG 09/17/2019 12:00: 00 AM EDT 1.0 {tablet} active Fluconazole 200 MG eCW1 ([facility]) Acetaminophen 325 MG / Hydrocodone David trate 5 MG Oral Tablet [Rudolph] Rudolph 5- 325 MG Rudolph 5-325 MG 09/17/2019 12:00:00 AM EDT a ctive Rudolph 5- 325 MG eCW1 ([facility]) Fluconazole 200 MG Oral Tablet Fluconazole 200 MG 09/17/2019 12:00: 00 AM EDT 1.0 {tablet} suspended Fluconazole 200 M G eCW1 ([facility]) Benadryl 50 MG UNK 09/17/2019 12:00:00 AM EDT active Benadryl 50 MG eCW1 ([facility]) Benadryl 50 MG UNK 09/17/2019 12:00:00 AM EDT active Benadryl 50 MG eCW1 ([facility]) Benadryl 50 MG UNK 09/17/2019 12:00:00 AM EDT active Benadryl 50 MG eCW1 ([facility]) Sucralfate 100 MG/ML Oral Suspension Sucralfate 1 GM/10ML Munson cralfate 1 GM/10ML 09/17/2019 12:00:00 AM EDT 10.0 {ml_on_an_empty_stomach} active Sucralfate 1 GM/10ML eCW1 ([facility]) Acetaminophen 325 MG / Hydrocodone David trate 5 MG Oral Tablet [Rudolph] Rudolph 5- 325 MG Rudolph 5-325 MG 09/17/2019 12:00:00 AM EDT a ctive Rudolph 5- 325 MG eCW1 ([facility]) Acetaminophen 325 MG / Hydrocodone David trate 5 MG Oral Tablet [Rudolph] Rudolph 5- 325 MG Rudolph 5-325 MG 09/17/2019 12:00:00 AM EDT a ctive Rudolph 5- 325 MG eCW1 ([facility]) Fluconazole 200 MG Oral Tablet Fluconazole 200 MG 09/17/2019 12:00: 00 AM EDT 1.0 {tablet} active Fluconazole 200 MG eCW1 ([facility]) Fluconazole 200 MG Oral Tablet Fluconazole 200 MG 09/17/2019 12:00: 00 AM EDT 1.0 {tablet} active Fluconazole 200 MG eCW1 ([facility]) Sucralfate 100 MG/ML Oral Suspension Sucralfate 1 GM/10ML Munson cralfate 1 GM/10ML 09/17/2019 12:00:00 AM EDT 10.0 {ml_on_an_empty_stomach} suspended Sucralfate 1 GM/10ML eCW1 ([facility]) Benadryl 50 MG UNK 09/17/2019 12:00:00 AM EDT active Benadryl 50 MG eCW1 ([facility]) Fluconazole 200 MG Oral Tablet Fluconazole 200 MG 09/17/2019 12:00: 00 AM EDT 1.0 {tablet} active Fluconazole 200 MG eCW1 ([facility]) Acetaminophen 325 MG / Hydrocodone David trate 5 MG Oral Tablet [Rudolph] Rudolph 5- 325 MG Rudolph 5-325 MG 09/17/2019 12:00:00 AM EDT a ctive Rudolph 5- 325 MG eCW1 ([facility]) Sucralfate 100 MG/ML Oral Suspension Sucralfate 1 GM/10ML Munson cralfate 1 GM/10ML 09/17/2019 12:00:00 AM EDT 10.0 {ml_on_an_empty_stomach} active Sucralfate 1 GM/10ML eCW1 ([facility]) Acetaminophen 325 MG / Hydrocodone David trate 5 MG Oral Tablet [Rudolph] Rudolph 5- 325 MG Rudolph 5-325 MG 09/17/2019 12:00:00 AM EDT s uspended Rudolph 5-325 MG eCW1 ([facility]) Benadryl 50 MG UNK 09/17/2019 12:00:00 AM EDT active Benadryl 50 MG eCW1 ([facility]) Fluconazole 200 MG Oral Tablet Fluconazole 200 MG 09/17/2019 12:00: 00 AM EDT 1.0 {tablet} active Fluconazole 200 MG eCW1 ([facility]) Benadryl 50 MG UNK 09/17/2019 12:00:00 AM EDT active Benadryl 50 MG eCW1 ([facility]) Acetaminophen 325 MG / Hydrocodone David trate 5 MG Oral Tablet [Rudolph] Rudolph 5- 325 MG Rudolph 5-325 MG 09/17/2019 12:00:00 AM EDT s uspended Rudolph 5-325 MG eCW1 ([facility]) Sucralfate 100 MG/ML Oral Suspension Sucralfate 1 GM/10ML Munson cralfate 1 GM/10ML 09/17/2019 12:00:00 AM EDT 10.0 {ml_on_an_empty_stomach} active Sucralfate 1 GM/10ML eCW1 ([facility]) Fluconazole 200 MG Oral Tablet Fluconazole 200 MG 09/17/2019 12:00: 00 AM EDT 1.0 {tablet} active Fluconazole 200 MG eCW1 ([facility]) Sucralfate 100 MG/ML Oral Suspension Sucralfate 1 GM/10ML Munson cralfate 1 GM/10ML 09/17/2019 12:00:00 AM EDT 10.0 {ml_on_an_empty_stomach} active Sucralfate 1 GM/10ML eCW1 ([facility]) Sucralfate 100 MG/ML Oral Suspension Sucralfate 1 GM/10ML Munson cralfate 1 GM/10ML 09/17/2019 12:00:00 AM EDT 10.0 {ml_on_an_empty_stomach} suspended Sucralfate 1 GM/10ML eCW1 ([facility]) Benadryl 50 MG UNK 09/17/2019 12:00:00 AM EDT active Benadryl 50 MG eCW1 ([facility]) Acetaminophen 325 MG / Hydrocodone David trate 5 MG Oral Tablet [Rudolph] Rudolph 5- 325 MG Rudolph 5-325 MG 09/17/2019 12:00:00 AM EDT a ctive Rudolph 5- 325 MG eCW1 ([facility]) Benadryl 50 MG UNK 09/17/2019 12:00:00 AM EDT active Benadryl 50 MG eCW1 ([facility]) Acetaminophen 325 MG / Hydrocodone David trate 5 MG Oral Tablet [Rudolph] Rudolph 5- 325 MG Rudolph 5-325 MG 09/17/2019 12:00:00 AM EDT a ctive Rudolph 5- 325 MG eCW1 ([facility]) Benadryl 50 MG UNK 09/17/2019 12:00:00 AM EDT active Benadryl 50 MG eCW1 ([facility]) Sucralfate 100 MG/ML Oral Suspension Sucralfate 1 GM/10ML Munson cralfate 1 GM/10ML 09/17/2019 12:00:00 AM EDT 10.0 {ml_on_an_empty_stomach} active Sucralfate 1 GM/10ML eCW1 ([facility]) Benadryl 50 MG UNK 09/17/2019 12:00:00 AM EDT active Benadryl 50 MG eCW1 ([facility]) Acetaminophen 325 MG / Hydrocodone David trate 5 MG Oral Tablet [Rudolph] Rudolph 5- 325 MG Rudolph 5-325 MG 09/17/2019 12:00:00 AM EDT a ctive Rudolph 5- 325 MG eCW1 ([facility]) Acetaminophen 325 MG / Hydrocodone David trate 5 MG Oral Tablet [Rudolph] Rudolph 5- 325 MG Rudolph 5-325 MG 09/17/2019 12:00:00 AM EDT a ctive Rudolph 5- 325 MG eCW1 ([facility]) Fluconazole 200 MG Oral Tablet Fluconazole 200 MG 09/17/2019 12:00: 00 AM EDT 1.0 {tablet} active Fluconazole 200 MG eCW1 ([facility]) Acetaminophen 325 MG / Hydrocodone David trate 5 MG Oral Tablet [Rudolph] Rudolph 5- 325 MG Rudolph 5-325 MG 09/17/2019 12:00:00 AM EDT a ctive Rudolph 5- 325 MG eCW1 ([facility]) Sucralfate 100 MG/ML Oral Suspension Sucralfate 1 GM/10ML Munson cralfate 1 GM/10ML 09/17/2019 12:00:00 AM EDT 10.0 {ml_on_an_empty_stomach} active Sucralfate 1 GM/10ML eCW1 ([facility]) Acetaminophen 325 MG / Hydrocodone David trate 5 MG Oral Tablet [Rudolph] Rudolph 5- 325 MG Rudolph 5-325 MG 09/17/2019 12:00:00 AM EDT a ctive Rudolph 5- 325 MG eCW1 ([facility]) Fluconazole 200 MG Oral Tablet Fluconazole 200 MG 09/17/2019 12:00: 00 AM EDT 1.0 {tablet} active Fluconazole 200 MG eCW1 ([facility]) Sucralfate 100 MG/ML Oral Suspension Sucralfate 1 GM/10ML Munson cralfate 1 GM/10ML 09/17/2019 12:00:00 AM EDT 10.0 {ml_on_an_empty_stomach} active Sucralfate 1 GM/10ML eCW1 ([facility]) Sucralfate 100 MG/ML Oral Suspension Sucralfate 1 GM/10ML Munson cralfate 1 GM/10ML 09/17/2019 12:00:00 AM EDT 10.0 {ml_on_an_empty_stomach} active Sucralfate 1 GM/10ML eCW1 ([facility]) Benadryl 50 MG UNK 09/17/2019 12:00:00 AM EDT active Benadryl 50 MG eCW1 ([facility]) Fluconazole 200 MG Oral Tablet Fluconazole 200 MG 09/17/2019 12:00: 00 AM EDT 1.0 {tablet} suspended Fluconazole 200 M G eCW1 ([facility]) Fluconazole 200 MG Oral Tablet Fluconazole 200 MG 09/17/2019 12:00: 00 AM EDT 1.0 {tablet} suspended Fluconazole 200 M G eCW1 ([facility]) Acetaminophen 325 MG / Hydrocodone David trate 5 MG Oral Tablet [Rudolph] Rudolph 5- 325 MG Rudolph 5-325 MG 09/17/2019 12:00:00 AM EDT s uspended Rudolph 5-325 MG eCW1 ([facility]) Benadryl 50 MG UNK 09/17/2019 12:00:00 AM EDT active Benadryl 50 MG eCW1 ([facility]) Benadryl 50 MG UNK 09/17/2019 12:00:00 AM EDT active Benadryl 50 MG eCW1 ([facility]) Fluconazole 200 MG Oral Tablet Fluconazole 200 MG 09/17/2019 12:00: 00 AM EDT 1.0 {tablet} active Fluconazole 200 MG eCW1 ([facility]) Benadryl 50 MG UNK 09/17/2019 12:00:00 AM EDT active Benadryl 50 MG eCW1 ([facility]) Sucralfate 100 MG/ML Oral Suspension Sucralfate 1 GM/10ML Munson cralfate 1 GM/10ML 09/17/2019 12:00:00 AM EDT 10.0 {ml_on_an_empty_stomach} suspended Sucralfate 1 GM/10ML eCW1 ([facility]) Sucralfate 100 MG/ML Oral Suspension Sucralfate 1 GM/10ML Munson cralfate 1 GM/10ML 09/17/2019 12:00:00 AM EDT 10.0 {ml_on_an_empty_stomach} active Sucralfate 1 GM/10ML eCW1 ([facility]) 24 HR Bupropion Hydrochloride 300 MG Ext ended Release Oral Tablet [Wellbutrin] Wellbutrin XL 300 MG Wellbutrin XL 300 MG 08/19/2019 12:00:00 AM EDT active 1 tablet in the morning eCW1 ([facility]) 24 HR Bupropion Hydrochloride 300 MG Ext ended Release Oral Tablet [Wellbutrin] Wellbutrin XL 300 MG Wellbutrin XL 300 MG 08/19/2019 12:00:00 AM EDT 1.0 {tablet_in_the_morning} active Wellbutr in XL 300 MG eCW1 ([facility]) 24 HR Bupropion Hydrochloride 300 MG Ext ended Release Oral Tablet [Wellbutrin] Wellbutrin XL 300 MG Wellbutrin XL 300 MG 08/19/2019 12:00:00 AM EDT active 1 tablet in the morning eCW1 ([facility]) 24 HR Bupropion Hydrochloride 300 MG Ext ended Release Oral Tablet [Wellbutrin] Wellbutrin XL 300 MG Wellbutrin XL 300 MG 08/19/2019 12:00:00 AM EDT 1.0 {tablet_in_the_morning} active Wellbutr in XL 300 MG eCW1 ([facility]) 24 HR Bupropion Hydrochloride 300 MG Ext ended Release Oral Tablet [Wellbutrin] Wellbutrin XL 300 MG Wellbutrin XL 300 MG 08/19/2019 12:00:00 AM EDT 1.0 {tablet_in_the_morning} active Wellbutr in XL 300 MG eCW1 ([facility]) Bisacodyl 5 MG Delayed Release Oral Tablet [Dulcolax] Dulcol ax 08/11/2019 12:00:00 AM EDT completed [facility] ([facility]) POLYETHYLENE GLYCOL 3350 105 MG/ML / Pot assium Chloride 0.03381 MEQ/ML / Sodium Bicarbonate 0.017 MEQ/ML / Sodium Chloride 0.0479 MEQ/ML Oral Solution [GaviLyte-N] Gavilyte-N With Flavor Pack 08/11/2019 12:00:00 AM EDT completed [facility] ([facility] ) Clenpiq Clenpiq 08/11/2019 12:00:00 AM EDT complet ed [facility] ([facility], ) Capsaicin 08/02/2019 12:00:00 AM EDT complete d MED[facility] ([facility]) Zostrix-HP 07/28/2019 12:00:00 AM EDT active [facility] ([facility]) Amitriptyline Hydrochloride 25 MG Oral Tablet Amitript yline HCl 25 MG Amitriptyline HCl 25 MG 04/14/2019 12:00:00 AM EST 1.0 {tablet_at_b edtime} active Amitriptyline HCl 25 MG e CW1 ([facility]) Amitriptyline Hydrochloride 25 MG Oral Tablet Amitript yline HCl 25 MG Amitriptyline HCl 25 MG 04/14/2019 12:00:00 AM EST active 1 tablet at bedtime eCW1 ([facility]) Amitriptyline Hydrochloride 25 MG Oral Tablet Amitript yline HCl 25 MG Amitriptyline HCl 25 MG 04/14/2019 12:00:00 AM EST 1.0 {tablet_at_b edtime} active Amitriptyline HCl 25 MG e CW1 ([facility]) Amitriptyline Hydrochloride 25 MG Oral Tablet Amitript yline HCl 25 MG Amitriptyline HCl 25 MG 04/14/2019 12:00:00 AM EST 1.0 {tablet_at_b edtime} active Amitriptyline HCl 25 MG e CW1 ([facility]) Amitriptyline Hydrochloride 25 MG Oral Tablet Amitript yline HCl 25 MG Amitriptyline HCl 25 MG 04/14/2019 12:00:00 AM EST 1.0 {tablet_at_b edtime} active Amitriptyline HCl 25 MG e CW1 ([facility]) Amitriptyline Hydrochloride 25 MG Oral Tablet Amitript yline HCl 25 MG Amitriptyline HCl 25 MG 04/14/2019 12:00:00 AM EST active 1 tablet at bedtime eCW1 ([facility]) Amitriptyline Hydrochloride 25 MG Oral Tablet Amitript yline HCl 25 MG Amitriptyline HCl 25 MG 04/14/2019 12:00:00 AM EST active 1 tablet at bedtime eCW1 ([facility]) Amitriptyline Hydrochloride 25 MG Oral Tablet Amitript yline HCl 25 MG Amitriptyline HCl 25 MG 04/14/2019 12:00:00 AM EST 1.0 {tablet_at_b edtime} active Amitriptyline HCl 25 MG e CW1 ([facility]) Amitriptyline Hydrochloride 25 MG Oral Tablet Amitript yline HCl 25 MG Amitriptyline HCl 25 MG 04/14/2019 12:00:00 AM EST 1.0 {tablet_at_b edtime} active Amitriptyline HCl 25 MG e CW1 ([facility]) Amitriptyline Hydrochloride 25 MG Oral Tablet Amitript yline HCl 25 MG Amitriptyline HCl 25 MG 04/14/2019 12:00:00 AM EST 1.0 {tablet_at_b edtime} active Amitriptyline HCl 25 MG e CW1 ([facility]) Amitriptyline Hydrochloride 25 MG Oral Tablet Amitript yline HCl 25 MG Amitriptyline HCl 25 MG 04/14/2019 12:00:00 AM EST 1.0 {tablet_at_b edtime} active Amitriptyline HCl 25 MG e CW1 ([facility]) Amitriptyline Hydrochloride 25 MG Oral Tablet Amitript yline HCl 25 MG Amitriptyline HCl 25 MG 04/14/2019 12:00:00 AM EST 1.0 {tablet_at_b edtime} active Amitriptyline HCl 25 MG e CW1 ([facility]) Amitriptyline Hydrochloride 25 MG Oral Tablet Amitript yline HCl 25 MG Amitriptyline HCl 25 MG 04/14/2019 12:00:00 AM EST 1.0 {tablet_at_b edtime} active Amitriptyline HCl 25 MG e CW1 ([facility]) Amitriptyline Hydrochloride 25 MG Oral Tablet Amitript yline HCl 25 MG Amitriptyline HCl 25 MG 04/14/2019 12:00:00 AM EST active 1 tablet at bedtime eCW1 ([facility]) Amitriptyline Hydrochloride 25 MG Oral Tablet Amitript yline HCl 25 MG Amitriptyline HCl 25 MG 04/14/2019 12:00:00 AM EST 1.0 {tablet_at_b edtime} active Amitriptyline HCl 25 MG e CW1 ([facility]) Amitriptyline Hydrochloride 25 MG Oral Tablet Amitript yline HCl 25 MG Amitriptyline HCl 25 MG 04/14/2019 12:00:00 AM EST 1.0 {tablet_at_b edtime} active Amitriptyline HCl 25 MG e CW1 ([facility]) Amitriptyline Hydrochloride 25 MG Oral Tablet Amitript yline HCl 25 MG Amitriptyline HCl 25 MG 04/14/2019 12:00:00 AM EST 1.0 {tablet_at_b edtime} active Amitriptyline HCl 25 MG e 1 ([facility]) Amitriptyline Hydrochloride 25 MG Oral Tablet Amitript yline HCl 25 MG Amitriptyline HCl 25 MG 04/14/2019 12:00:00 AM EST active 1 tablet at bedtime eCW1 ([facility]) Amitriptyline Hydrochloride 25 MG Oral Tablet Amitript yline HCl 25 MG Amitriptyline HCl 25 MG 04/14/2019 12:00:00 AM EST 1.0 {tablet_at_b edtime} active Amitriptyline HCl 25 MG e 1 ([facility]) Amitriptyline Hydrochloride 25 MG Oral Tablet Amitript yline HCl 25 MG Amitriptyline HCl 25 MG 04/14/2019 12:00:00 AM EST 1.0 {tablet_at_b edtime} active Amitriptyline HCl 25 MG e 1 ([facility]) Amitriptyline Hydrochloride 25 MG Oral Tablet Amitript yline HCl 25 MG Amitriptyline HCl 25 MG 04/14/2019 12:00:00 AM EST 1.0 {tablet_at_b edtime} active Amitriptyline HCl 25 MG e 1 ([facility]) Amitriptyline Hydrochloride 25 MG Oral Tablet Amitript yline HCl 25 MG Amitriptyline HCl 25 MG 04/14/2019 12:00:00 AM EST 1.0 {tablet_at_b edtime} active Amitriptyline HCl 25 MG e CW1 ([facility]) Amitriptyline Hydrochloride 25 MG Oral Tablet Amitript yline HCl 25 MG Amitriptyline HCl 25 MG 04/14/2019 12:00:00 AM EST 1.0 {tablet_at_b edtime} active Amitriptyline HCl 25 MG e CW1 ([facility]) Zofran ODT 4 MG UNK 04/09/2019 12:00:00 AM EST 1.0 {tablet_on_the_tongue_and_allow_to_dissolve} active Zofran ODT 4 MG eCW1 ([facility]) Zofran ODT 4 MG UNK 04/09/2019 12:00:00 AM EST 1.0 {tablet_on_the_tongue_and_allow_to_dissolve} active Zofran ODT 4 MG eCW1 ([facility]) Zofran ODT 4 MG UNK 04/09/2019 12:00:00 AM EST 1.0 {tablet_on_the_tongue_and_allow_to_dissolve} active Zofran ODT 4 MG eCW1 ([facility]) Zofran ODT 4 MG UNK 04/09/2019 12:00:00 AM EST active 1 tablet on the tongue and allow to dissolve eCW1 ([facility]) Zofran ODT 4 MG UNK 04/09/2019 12:00:00 AM EST 1.0 {tablet_on_the_tongue_and_allow_to_dissolve} active Zofran ODT 4 MG eCW1 ([facility]) Zofran ODT 4 MG UNK 04/09/2019 12:00:00 AM EST 1.0 {tablet_on_the_tongue_and_allow_to_dissolve} active Zofran ODT 4 MG eCW1 ([facility]) Zofran ODT 4 MG UNK 04/09/2019 12:00:00 AM EST 1.0 {tablet_on_the_tongue_and_allow_to_dissolve} active Zofran ODT 4 MG eCW1 ([facility]) Zofran ODT 4 MG UNK 04/09/2019 12:00:00 AM EST 1.0 {tablet_on_the_tongue_and_allow_to_dissolve} active Zofran ODT 4 MG eCW1 ([facility]) Zofran ODT 4 MG UNK 04/09/2019 12:00:00 AM EST 1.0 {tablet_on_the_tongue_and_allow_to_dissolve} active Zofran ODT 4 MG eCW1 ([facility]) Zofran ODT 4 MG UNK 04/09/2019 12:00:00 AM EST 1.0 {tablet_on_the_tongue_and_allow_to_dissolve} active Zofran ODT 4 MG eCW1 ([facility]) Zofran ODT 4 MG K 04/09/2019 12:00:00 AM EST 1.0 {tablet_on_the_tongue_and_allow_to_dissolve} active Zofran ODT 4 MG eCW1 ([facility]) Zofran ODT 4 MG K 04/09/2019 12:00:00 AM EST 1.0 {tablet_on_the_tongue_and_allow_to_dissolve} active Zofran ODT 4 MG eCW1 ([facility]) Zofran ODT 4 MG K 04/09/2019 12:00:00 AM EST active 1 tablet on the tongue and allow to dissolve eCW1 ([facility]) Zofran ODT 4 MG K 04/09/2019 12:00:00 AM EST active 1 tablet on the tongue and allow to dissolve eCW1 ([facility]) Zofran ODT 4 MG K 04/09/2019 12:00:00 AM EST 1.0 {tablet_on_the_tongue_and_allow_to_dissolve} active Zofran ODT 4 MG eCW1 ([facility]) Zofran ODT 4 MG UNK 04/09/2019 12:00:00 AM EST 1.0 {tablet_on_the_tongue_and_allow_to_dissolve} active Zofran ODT 4 MG eCW1 ([facility]) Zofran ODT 4 MG UNK 04/09/2019 12:00:00 AM EST 1.0 {tablet_on_the_tongue_and_allow_to_dissolve} active Zofran ODT 4 MG eCW1 ([facility]) Zofran ODT 4 MG UNK 04/09/2019 12:00:00 AM EST 1.0 {tablet_on_the_tongue_and_allow_to_dissolve} active Zofran ODT 4 MG eCW1 ([facility]) Zofran ODT 4 MG UNK 04/09/2019 12:00:00 AM EST 1.0 {tablet_on_the_tongue_and_allow_to_dissolve} active Zofran ODT 4 MG eCW1 ([facility]) Zofran ODT 4 MG UNK 04/09/2019 12:00:00 AM EST 1.0 {tablet_on_the_tongue_and_allow_to_dissolve} active Zofran ODT 4 MG eCW1 ([facility]) Zofran ODT 4 MG UNK 04/09/2019 12:00:00 AM EST 1.0 {tablet_on_the_tongue_and_allow_to_dissolve} active Zofran ODT 4 MG eCW1 ([facility]) Insurance Providers Payer name Policy type / Coverage type Policy ID Covered democrat ID Covered democrat's relationship to gonzalez Policy Gonzalez Plan Information FORMERLY [facility] [id number] SP [id number] [facility] [id number] SP [id number] [facility](MCAID) O [id number] S [id number] [employer] Self (WC) Workers Compensation [id number] Self [id number] [facility] Community Plan Commercial [id number] Self [id number] [employer] Self (WC) Workers Compensation [id number] Self [id number] [employer] Self (WC) Workers Compensation [id number] Self [id number] [facility] Community Plan Commercial [id number] Self [id number] ANSI-Medicaid [id number] [facility] [id number] [facility] MEDICAID [id number] April [id number] [facility] Maintenance [facility] [place] [id number] Self [id number] [facility] [id number] [facility] Maintenance [facility] [place] [id number] Self [id number] [facility] [id number] FOR[facility]LY [facility] PLAN [facility] [id number] SP [id number] [facility] [id number] [facility] Maintenance [facility] [place] [id number] Self [id number] [facility] Community Plan Commercial [id number] Self [id number] [facility]-Medicaid [id number] [facility] PLAN [facility] [id number] SP [id number] [facility]-Medicaid [id number] ANS-Medicaid [id number] FOR[facility]LY [facility] PLAN [facility] [id number] SP [id number] [facility] Maintenance Organization (HMO) [id number] Self [id number] [facility]AN [facility] [id number] SP [id number] [facility] MEDICAID PI PI [facility] [id number] April [id number] [facility] [id number] April [id number] [facility] PI PI [facility] PLAN [id number] SP [id number] [facility] [id number] SP [id number] [facility] [id number] SP [id number] SELF PAY ONLY [id number] SP [id number] SELF PAY ONLY UNAVAILABLE SP UNAV AILABLE SELF PAY UNAVAILABLE SP UNAVAILA BLE [facility] O [id number] C [id number] Problems, Conditions, and Diagnoses Code Display Name Description Problem Type Effective Dates Data Source(s) 541064753 Body mass index 40+ - severely obese Bod y mass index 40+ - severely obese Problem 02/21/2020 12:00:00 AM EST [facility] ([facility]) [id number] Obstructive sleep apnea syndrome Obstructive sle ep apnea syndrome Problem 02/21/2020 12:00:00 AM EST [facility] 33397853 Palpitations Palpitations Problem 02/21/2020 12:00:00 A M EST [facility] ([facility]) [id number] Dyspnea Dyspnea Problem 02/21/2020 12:00:00 AM ES T [facility] ([facility]) [id number] Electrocardiogram abnormal Electrocardiogram abnormal Problem 02/21/2020 12:00:00 AM EST [facility] ([facility]) 35279256 Precordial pain Precordial pain Problem 02/21/2020 12:0 0:00 AM EST [facility] ([facility]) F33.2 14520153 Severe episode of re current major depressive disorder, without psychotic features Problem 08/19/2019 12:00:00 AM EDT eCW1 ([facility]) F33.2 54120260 Severe episode of re current major depressive disorder, without psychotic features Problem 08/19/2019 12:00:00 AM EDT eCW1 ([facility]) F99 96041008 Mental disorder, not otherwise specified Problem 04/14/2019 12:00:00 AM EST eCW1 ([facility]) F51.05 91718171 Insomnia due to other mental disorder Pro blem 04/14/2019 12:00:00 AM EST eCW1 ([facility]) F99 48381595 Mental disorder, not otherwise specified Problem 04/14/2019 12:00:00 AM EST eCW1 ([facility]) F51.05 86514421 Insomnia due to other mental disorder Pro blem 04/14/2019 12:00:00 AM EST eCW1 ([facility]) Surgeries/Procedures Procedure Description Date Indications Data Source(s) ECHO TTHRC R-T 2D W/WOM-MODE COMPL SPEC&COLR DOP 03/23 12:00:00 AM EST [facility] ([facility]) MYOCARDIAL SPECT MULTIPLE STUDIES 03/06/2020 12:00:00 AM EST [facility] ([facility]) CV STRS TST XERS&/OR RX CONT ECG PHYS SI&R 03/06/2020 12:00:00 AM EST [facility] ([facility]) ECG ROUTINE ECG W/LEAST 12 LDS W/I&R 02/21/2020 12:00: 00 AM EST [facility] ([facility]) ECG ROUTINE ECG W/LEAST 12 LDS W/I&R 02/21/2020 12:00: 00 AM EST [facility] ([facility]) Endoscopy Upper GI Biopsy 10/11/2019 12:00:00 AM EDT [facility] ([facility]) Colonoscopy Flexible Proximal To Splenic Flexure W/Biopsy Si ngle/ 10/11/2019 12:00:00 AM EDT [facility] ([facility]) PHYSICIAN TELEPHONE EVALUATION 11-20 MIN 07/02/2019 12 :00:00 AM EDT eCW1 ([facility]) PSYTX W PT 45 MINUTES 06/10/2019 12:00:00 AM EST eCW1 ([facility]) Results ID Date Data Source [id number] 04/22/2020 12:00:00 AM EST [facility] Name Value Range Interpretation Code Description Data Lashawn rce(s) Supporting Document(s) SARS coronavirus 2 Ag Negative [facility] This lab was ordered by [facility] and reported by [facility] ID Date Data Source [id number] 02/10/2020 08:26:00 AM EST [facility] ([facility]) Name Value Range Interpretation Code Description Data Lashawn rce(s) Supporting Document(s) White Blood Count 6.7 5.0-10.0 [facility] Platelets 302 172-450 [facility] Red Blood Count 4.98 4.00-5.40 [facility] Hemoglobin 14.4 [facility] ([facility]) Hematocrit 44.4 [facility] ([facility]) ID Date Data Source [id number] 02/10/2020 08:26:00 AM EST [facility] ([facility]) Name Value Range Interpretation Code Description Data Lashawn rce(s) Supporting Document(s) Natriuretic peptide.B prohormone N-Terminal [Mass/volu me] in Serum or Plasma 54 [facility] ([facility] Lipoprotein lipase [Enzymatic activity/volume] in Serum or Plasma 112 [facility] ([facility]) ID Date Data Source [id number] 02/10/2020 08:26:00 AM EST [facility] ([facility]) Name Value Range Interpretation Code Description Data Lashawn rce(s) Supporting Document(s) Aspartate aminotransferase [Enzymatic activity/volume] in Se rum or Plasma 19 15-37 [facility] ([facility]) Albumin 3.5 3.2-5.2 [facility] Alanine aminotransferase [Enzymatic activity/volume] i n Serum or Plasma 30 30-65 [facility] ([facility]) Alk Phos 92 50-136 [facility] A/G Ratio 1.2 1.00-1.93 [facility] Total Protein 6.5 6.4-8.2 [facility] ([facility] Total Bilirubin 0.3 0.0-1.0 [facility] ID Date Data Source [id number] 11/29/2019 09:04:00 AM EDT [facility] Name Value Range Interpretation Code Description Data Lashawn rce(s) Supporting Document(s) Folate Laboratory test result [facility] ([facility]) C-Reactive Protein Laboratory test result [facility] ([facility]) ID Date Data Source [id number] 11/29/2019 09:04:00 AM EDT [facility] ([facility]) Name Value Range Interpretation Code Description Data Lashawn rce(s) Supporting Document(s) Tibc % Saturation 19.0 [facility] ([facility]) Iron 58 50-170 [facility] ([facility]) Iron binding capacity [Mass/volume] in Serum or Plasma 306 [facility] ([facility]) ID Date Data Source [id number] 11/29/2019 08:45:00 AM EDT [facility] ([facility]) Name Value Range Interpretation Code Description Data Lashawn rce(s) Supporting Document(s) Folate Laboratory test result Normal (applies to non-n umeric results) [facility] ([facility]) FOLATE NORMAL RANGE NORMAL GREATER THAN 5.4 NG/ML INDETERMINATE 3.4-5.4 NG/ML DEFICIENT LESS THAN 3.4 NG/ML Vitamin B12 Level Laboratory test result Normal (applies to non-numeric results) [facility] ([facility]) VITAMIN B12 NORMAL RANGE NORMAL 247 - 911 PG/ML INDETERMINATE 211 - 246 PG/ML DEFICIENT LESS THAN 211 PG/ML ID Date Data Source [id number] 11/29/2019 08:45:00 AM EDT [facility] ([facility]) Name Value Range Interpretation Code Description Data Lashawn rce(s) Supporting Document(s) Percent Saturation 19.0 % 13.2-45.0 Normal (applies to non-numer ic results) [facility] ([facility]) Total Iron Binding Capacity 306 ug/dL 250-450 Norm al (applies to non-numeric results) [facility] ([facility]) Iron (Fe) 58 ug/dL 50-170 Normal (applies to non-numeric resul ts) [facility]) ID Date Data Source [id number] 11/29/2019 08:45:00 AM EDT [facility]) Name Value Range Interpretation Code Description Data Lashawn rce(s) Supporting Document(s) Erythrocyte sedimentation rate by Westergren method 6 mm/hr 0-30 Normal (applies to non-numeric results) [facility] ([facility]) C reactive protein [Mass/volume] in Serum or Plasma by High sensitivity method Laboratory test result 0.00-0.30 Normal (applies to non-numeric results) [facility]) ID Date Data Source [id number] [facility] Name Value Range Interpretation Code Description Data Lashawn rce(s) Supporting Document(s) Anti-Saccharomyces Cerev. IgG 22.0 units 0.0-24.9 No rmal (applies to non-numeric results) [facility] ([facility]) <content>Negative <20.0</content >
<content>Equivocal 20.1 [...] had antibody</content>
<content>for both.</content>
<content> Performed at: [facility]</content>
<content>[address], [place] [id number]</content>
<content>Buckle Assembler: Seymour Dove MD, Phone: [phone]</content>
<content></content> ID Date Data Source [id number] 11/29/2019 08:45:00 AM EDT [facility] ([facility]) Name Value Range Interpretation Code Description Data Lashawn rce(s) Supporting Document(s) Cytoplasmic Neutrop AB Anca-C Laboratory test result Normal (applies to non- numeric results) [facility] ([facility]) Perinuclear AB Anca-P Laboratory test result Nor mal (applies to non-numeric results) [facility] ([facility]) The presence of positive fluorescence ex hibiting P-ANCA or C-ANCA patterns alone is not specific for the diagnosis of Nalini's Granulomatosis (WG) or microscopic polyangiitis. Decisions about treatment should not be based solely on ANCA IFA results. The [employer] ANCA [employer] Consensus recommends follow up testing of positive sera with both SD- 3 and MPO-ANCA enzyme immunoassays. As m any as 5% serum samples are positive only by EIA. Ref. AM J Clin Pathol 1999;111:507-513. Anca-Atypical Laboratory test result Normal (applies t o non-numeric results) [facility] ([facility], ) The atypical pANCA pattern has been obse rved in a significant percentage of patients with ulcerative colitis, primary sclerosing cholangitis and autoimmune hepatitis. ID Date Data Source [id number] 11/29/2019 08:45:00 AM EDT [facility] ([facility]) Name Value Range Interpretation Code Description Data Lashawn rce(s) Supporting Document(s) Red Blood Count 5.12 10 4.00-5.40 Normal (applies to non-numeric results) [facility] ([facility]) Hemoglobin 14.7 g/dL 12.0-15.5 Normal (applies to non-numeric resul ts) [facility] ([facility], ) White Blood Count 5.0 10 4.0-10.0 Normal (applies to non-numeri c results) [facility]) Mean Corpuscular Volume 90.6 fl 80.0-96.0 Normal ( applies to non-numeric results) [facility] ([facility]) Mean Corpuscular Hemoglobin 28.7 pg 27.0-33.0 Norm al (applies to non-numeric results) [facility] ([facility]) Hematocrit 46.4 % 36.0-47.0 Normal (applies to non-numeric resul ts) [facility]) Platelet Count, Automated 295 10 150-450 Normal (applies to non-numeric results) [facility]) Neutrophils % 52.3 % 36.0-66.0 Normal (applies to non-numeric re sults) [facility] ([facility]) Red Cell Distribution Width 13.8 % 11.5-14.5 Norm al (applies to non-numeric results) [facility], ) Mean Corpuscular HGB Conc 31.7 g/dL 32.0-36.5 Below low normal [facility] ([facility]) Story % 8.6 % 0.0-5.0 Above high normal [facility] ([facility]) Eos % 1.4 % 0.0-3.0 Normal (applies to non-numeric resul ts) [facility] ([facility]) Lymph % 36.5 % 24.0-44.0 Normal (applies to non-numeric resul ts) [facility]) Immature Granulocyte % 0.2 % 0-3.0 Normal (applies to non-n umeric results) [facility]) Nucleated Red Blood Cell % 0.0 % 0-0 Normal (applies to n on-numeric results) [facility]) Baso % 1.0 % 0.0-1.0 Normal (applies to non-numeric resul ts) [facility] Neutrophils # 2.6 10 1.5-8.5 Normal (applies to non-numeric re sults) [facility] ([facility]) Story # 0.4 10 0.0-0.8 Normal (applies to non-numeric resul ts) [facility] ([facility]) Eos # 0.1 10 0.0-0.5 Normal (applies to non-numeric resul ts) [facility] ([facility]) Lymph # 1.8 10 1.5-5.0 Normal (applies to non-numeric resul ts) [facility] ([facility]) Baso # 0.1 10 0.0-0.2 Normal (applies to non-numeric resul ts) [facility] ([facility]) ID Date Data Source [id number] 10/11/2019 11:04:00 AM EDT [facility] ([facility]) Name Value Range Interpretation Code Description Data Lashawn rce(s) Supporting Document(s) Surgical pathology study Laboratory test result [facility] ([facility]) FINAL DIAGNOSIS A - Small [...] MD 10/12/2019 1406 ID Date Data Source [id number] 10/07/2019 10:00:00 AM EDT [facility] Name Value Range Interpretation Code Description Data Lashawn rce(s) Supporting Document(s) SARS CORONAVIRUS 2 RNA [facility] This lab was ordered by [facility] and reported by [facility]. ID Date Data Source [id number] 09/17/2019 09:44:00 AM EDT [facility] ([facility]) Name Value Range Interpretation Code Description Data Lashawn rce(s) Supporting Document(s) Albumin [Mass/volume] in Serum or Plasma 2.3 [facility] ([facility]) Carbon dioxide, total [Moles/volume] in Serum or Plasma 26 [facility] ([facility]) Alanine aminotransferase [Enzymatic activity/volume] in Serum or Pl asma 23 [facility] ([facility]) Calcium [Mass/volume] in Serum or Plasma 8.4 [facility] ([facility]) Chloride [Moles/volume] in Serum or Plasma 109 [facility] ([facility]) Potassium [Moles/volume] in Serum or Plasma 3.6 [facility] ([facility]) Alkaline phosphatase [Enzymatic activity/volume] in Serum or Plasma 8 8 [facility] ([facility]) Protein [Mass/volume] in Serum or Plasma 5.8 [facility] ([facility]) Glucose 77 70-100 [facility] ([facility] Aspartate aminotransferase [Enzymatic activity/volume] in Serum or Plasma 12 [facility] ([facility]) Sodium 140 [facility] ([facility] Urea nitrogen [Mass/volume] in Serum or Plasma 7 [facility]) Creatinine For GFR 0.61 [facility] ([facility]) ID Date Data Source [id number] 09/16/2019 06:19:00 AM EDT [facility], ) Name Value Range Interpretation Code Description Data Lashawn rce(s) Supporting Document(s) Glucose, Fasting 75 mg/dL 70-100 Normal (applies to non-numeric results) [facility] ([facility], ) Blood Urea Nitrogen 11 mg/dL 7-18 Normal (applies to non-nume lissette results) [facility] ([facility], ) Creatinine For GFR 0.68 mg/dL 0.55-1.30 Normal (applies to non -numeric results) [facility] ([facility], ) Glomerular Filtration Rate Laboratory test result Normal (applies to non- numeric results) [facility], ) <content>Units are mL/min/1.73 m2</content>
<content></content>
<content>Chronic Kidney Disease Staging per NKF:</content>
<content></content>
<content>Stage I & II GFR >=60 Normal to Mildly Decreased</content>
<content>Stage III GFR 30- 59 Moderately Decreased</content>
<content>Stage IV GFR 15-29 Severely Decreased</content>
<content>Stage V GFR <15 Very Little GFR Left</content>
<content>ESRD GFR <15 on DISTANCE LEARNING PROGRAM COORDINATOR</content>
<content></content> Potassium Serum 4.2 meq/L 3.5-5.1 Normal (applies to non-numeric results) [facility], ) Sodium Level 140 meq/L 136-145 Normal (applies to non-numeric res ults) [facility] ([facility], ) Anion Gap 4 meq/L 8-16 Below low normal [facility] ( [facility], ) Carbon Dioxide Level 26 meq/L 21-32 Normal (applies to non-num ander results) [facility] ([facility], ) Chloride Level 110 meq/L 98-107 Above high normal [facility] ([facility], ) Ast/Sgot 14 U/L 7-37 Normal (applies to non-numeric resul ts) [facility] ([facility], ) Alt/SGPT 26 U/L 12-78 Normal (applies to non-numeric resul ts) [facility], ) Calcium Level 8.3 mg/dL 8.5-10.1 Below low normal [facility] ([facility], ) Alkaline Phosphatase 62 U/L 45-117 Normal (applies to non-num ander results) [facility], ) Bilirubin,Total 0.6 mg/dL 0.2-1.0 Normal (applies to non-numeric results) [facility] ([facility]) Total Protein 5.3 GM/DL 6.4-8.2 Below low normal [facility] ([facility]) Albumin 2.3 GM/DL 3.2-5.2 Below low normal [facility]) Albumin/Globulin Ratio 0.8 1.2-2.2 Below low normal [facility]) ID Date Data Source [id number] 09/16/2019 06:19:00 AM EDT [facility] ([facility]) Name Value Range Interpretation Code Description Data Lashawn rce(s) Supporting Document(s) Hemoglobin 11.1 g/dL 12.0-15.5 Below low normal [facility] ( [facility]) Red Blood Count 3.75 10 4.00-5.40 Below low normal [facility] ([facility]) White Blood Count 6.7 10 4.0-10.0 Normal (applies to non-numeri c results) [facility] Mean Corpuscular Hemoglobin 29.6 pg 27.0-33.0 Norm al (applies to non-numeric results) [facility] ([facility]) Mean Corpuscular Volume 92.8 fl 80.0-96.0 Normal ( applies to non-numeric results) [facility] ([facility]) Hematocrit 34.8 % 36.0-47.0 Below low normal [facility] ( [facility]) Nucleated Red Blood Cell % 0.0 % 0-0 Normal (applies to n on-numeric results) [facility] ([facility]) Platelet Count, Automated 214 10 150-450 Normal (applies to non-numeric results) [facility] ([facility]) Red Cell Distribution Width 13.5 % 11.5-14.5 Norm al (applies to non-numeric results) [facility] ([facility]) Mean Corpuscular HGB Conc 31.9 g/dL 32.0-36.5 Below low normal [facility]) ID Date Data Source [id number] 09/15/2019 06:24:00 AM EDT [facility] ([facility]) Name Value Range Interpretation Code Description Data Lashawn rce(s) Supporting Document(s) Glucose, Fasting 92 mg/dL 70-100 Normal (applies to non-numeric results) [facility] ([facility]) Glomerular Filtration Rate Laboratory test [...] Little GFR Left</content>
<content>ESRD GFR <15 on DISTANCE LEARNING PROGRAM COORDINATOR</content>
<content></content> Blood Urea Nitrogen 12 mg/dL 7-18 Normal (applies to non-nume lissette results) [facility] ([facility]) Creatinine For GFR 0.75 mg/dL 0.55-1.30 Normal (applies to non -numeric results) [facility]) Carbon Dioxide Level 28 meq/L 21-32 Normal (applies to non-num ander results) [facility]) Chloride Level 108 meq/L 98-107 Above high normal [facility] ([facility]) Sodium Level 139 meq/L 136-145 Normal (applies to non-numeric res ults) [facility]) Potassium Serum 5.0 meq/L 3.5-5.1 Significant change down [facility] ([facility]) Calcium Level 8.7 mg/dL 8.5-10.1 Normal (applies to non-numeric re sults) [facility]) Ast/Sgot 20 U/L 7-37 Normal (applies to non-numeric resul ts) [facility] ([facility]) Anion Gap 3 meq/L 8-16 Below low normal [facility] ( [facility]) Alkaline Phosphatase 65 U/L 45-117 Normal (applies to non-num ander results) [facility] ([facility]) Bilirubin,Total 0.6 mg/dL 0.2-1.0 Significant change down [facility] ([facility]) Alt/SGPT 33 U/L 12-78 Normal (applies to non-numeric resul ts) [facility] ([facility]) Albumin 2.7 GM/DL 3.2-5.2 Below low normal [facility]) Total Protein 5.5 GM/DL 6.4-8.2 Below low normal [facility] ([facility]) Albumin/Globulin Ratio 1.0 1.2-2.2 Below low normal [facility]) ID Date Data Source [id number] 09/15/2019 06:24:00 AM EDT [facility] ([facility]) Name Value Range Interpretation Code Description Data Lashawn rce(s) Supporting Document(s) White Blood Count 12.8 10 4.0-10.0 Above high normal [facility] ([facility]) Hematocrit 37.3 % 36.0-47.0 Normal (applies to non-numeric resul ts) [facility] ([facility]) Mean Corpuscular Volume 91.2 fl 80.0-96.0 Normal ( applies to non-numeric results) [facility] ([facility]) Hemoglobin 12.2 g/dL 12.0-15.5 Normal (applies to non-numeric resul ts) [facility] ([facility]) Red Blood Count 4.09 10 4.00-5.40 Normal (applies to non-numeric results) [facility] ([facility]) Mean Corpuscular HGB Conc 32.7 g/dL 32.0-36.5 Normal (applies to non-numeric results) [facility] ([facility]) Red Cell Distribution Width 13.7 % 11.5-14.5 Norm al (applies to non-numeric results) [facility] ([facility]) Mean Corpuscular Hemoglobin 29.8 pg 27.0-33.0 Norm al (applies to non-numeric results) [facility] ([facility]) Platelet Count, Automated 238 10 150-450 Normal (applies to non-numeric results) [facility] ([facility]) Nucleated Red Blood Cell % 0.0 % 0-0 Normal (applies to n on-numeric results) [facility] ([facility]) ID Date Data Source [id number] 09/14/2019 06:23:00 AM EDT [facility] ([facility]) Name Value Range Interpretation Code Description Data Lashawn rce(s) Supporting Document(s) Blood Culture Laboratory test result [facility] ([facility]) No growth after 24 hours . All specimens observed for 5 days. Results final at that time. No Growth after 48 hours. All Specimens observed for 5 days. Results final at that time. ID Date Data Source [id number] 08/31/2019 10:58:00 AM EDT [facility] ([facility]) Name Value Range Interpretation Code Description Data Lashawn rce(s) Supporting Document(s) Cholesterol 195 [facility] ([facility]) HDL 82 [facility] Triglycerides 144 [facility] ([facility]) Chol/HDL Ratio 2.378 [facility] ([facility]) Cholesterol in LDL [Mass/volume] in Serum or Plasma by calculation 84 [facility] ([facility]) ID Date Data Source Basic Metabolic Profile (BMP) 08/31/2019 12:00:00 AM EDT [facility] ([facility]) Name Value Range Interpretation Code Description Data Lashawn rce(s) Supporting Document(s) 85 70-100 GLUCOSE, FASTING eCW1 ([facility]) > 60.0 >51 GLOMERULAR FILTRATION RATE [facility] 1 ([facility]) 10 7-18 BLOOD UREA NITROGEN eCW1 ([facility]) 0.72 0.55-1.30 CREATININE FOR GFR eCW1 ([facility]) 108 98-107 CHLORIDE LEVEL e[facility]1 ([facility]) 4.6 3.5-5.1 POTASSIUM SERUM eCW1 ([facility]) 142 136-145 SODIUM LEVEL eCW1 ([facility]) 30 21-32 CARBON DIOXIDE LEVEL eCW1 ([facility]) 8.5 8.5-10.1 CALCIUM LEVEL [facility] ([facility]) ID Date Data Source LIPID PANEL (CARDIAC RISK) 08/31/2019 12:00:00 AM EDT [facility]CW1 ( [facility]) Name Value Range Interpretation Code Description Data Lashawn rce(s) Supporting Document(s) Cholesterol [Moles/volume] in Serum or Plasma 195 <200 CHOLESTEROL LEVEL e[facility]1 ([facility]) Cholesterol in LDL [Mass/volume] in Serum or Plasma by calculation 84 <100 LDL CHOLESTEROL [facility]1 ([facility]) Cholesterol in HDL [Moles/volume] in Serum or Plasma 82 >40 HDL CHOLESTEROL eCW1 ([facility]) Triglyceride [Mass/volume] in Serum or Plasma by calculation 144 <150 TRIGLYCERIDES LEVEL eCW1 ([facility]) 113 NON-HDL-C eCW1 ([facility]) 2.378 <5 CHOLESTEROL RISK RATIO eCW1 ([facility]) ID Date Data Source [id number] 08/23/2019 12:00:00 AM EDT [facility] Kenny Johsnon MD Patient Name: LUNA BERNSTEINE[address] [facility] Date [facility] 1965[facility] [id number] Date of Exam: 08/23/2019PH#: Fax: [phone] EXAM: [...] changes seen involving the sacroiliacjoints. There is ksdt-ju-fltxvkvu T2 hypersignal seen in the trochanterictendinobursal region of each hip. There is patchy T2 hypersignal seen inthe quadratus femoris muscle bilaterally. The ischiofemoral distance onthe right is 15.61 mm and on the left it is 17.95 mm. There is no hipjoint effusion. There is no evidence of a soft tissue mass.IMPRESSION:1. There is evidence of unzt-rg-fisfxwvx moderate bilateral trochanterictendinobursitis.2. There is edema in the quadratus femoris muscle bilaterally whichsuggests the clinical diagnosis of ischiofemoral impingement. Measurementsas described above. There is a wide range of excepted measurements thatcan be considered normal. These findings need to be correlated clinically. Most literature reflects the ischiofemoral measurement in women should atleast be 18 mm.3. Other findings as described above.Accredited by the [employer] [place] [employer] in [place].DELFINO Suarez/Kenneth you for referring REBECCA BERNSTEIN to our office. Electronically Signed - PEYTON MAIN DO 08/24/19 16:57 Name Value Range Interpretation Code Description Data Lashawn rce(s) Supporting Document(s) ID Date Data Source [id number] 07/13/2019 12:00:00 AM EDT [facility] [place] Patient Name: LUNA [id number] [facility] Date of : 1965[facility] Date [facility] [id number] Fax: [phone] EXAM: MRI LUMBAR SPINE WITHOUT CONTRASTCLINICAL INFORMATION: Chronic low back.There are no prior lumbar spine MRI examinations for comparison.3T multiplanar MRI imaging of the lumbar spine was obtained using variousse quences.There is eabw-gm-qrwxmdxd loss of posterior disc space height L3-4 throughL5-S1 inclusive with vhpt-wj-twkfjuot disc hydrational signal loss at everylevel. [place] disc space narrowing is seen at T12-L1. [...] particular attention to the L4-5level.Accredited by the [employer] [place] [employer] in MR.DELFINO Suarez/Kenneth wigigns for referring REBECCA BERNSTEIN to our office. Electronically Signed - PEYTON MAIN DO 07/14/19 8:07 Name Value Range Interpretation Code Description Data Lashawn rce(s) Supporting Document(s) Procedure Social History Code Duration Value Status Description Data Source(s ) Smoking 04/22/2020 12:00:00 AM EST Patient is a former smoker completed Patient is a former smoker [facility] ([facility]) Smoking 04/21/2020 12:00:00 AM EST Former Smoker completed Former Smoker eCW1 ([facility]) Smoking 04/21/2020 12:00:00 AM EST Former Smoker completed Former Smoker eCW1 ([facility]) Smoking 04/21/2020 12:00:00 AM EST Former Smoker completed Former Smoker eCW1 ([facility]) Smoking 02/21/2020 12:00:00 AM EST Patient is a former smoker completed Patient is a former smoker [facility] ([facility]) Smoking 09/22/2019 12:00:00 AM EDT Former Smoker completed Former Smoker eCW1 ([facility]) Smoking 09/22/2019 12:00:00 AM EDT Former Smoker completed Former Smoker eCW1 ([facility]) Smoking 09/22/2019 12:00:00 AM EDT Former Smoker completed Former Smoker eCW1 ([facility]) Smoking 09/22/2019 12:00:00 AM EDT Former Smoker completed Former Smoker eCW1 ([facility]) Smoking 09/22/2019 12:00:00 AM EDT Former Smoker completed Former Smoker eCW1 ([facility]) Smoking 09/22/2019 12:00:00 AM EDT Former Smoker completed Former Smoker eCW1 ([facility]) Smoking 09/22/2019 12:00:00 AM EDT Former Smoker completed Former Smoker eCW1 ([facility]) Smoking 09/22/2019 12:00:00 AM EDT Former Smoker completed Former Smoker eCW1 ([facility]) Smoking 09/22/2019 12:00:00 AM EDT Former Smoker completed Former Smoker eCW1 ([facility]) Smoking 09/22/2019 12:00:00 AM EDT Former Smoker completed Former Smoker eCW1 ([facility]) Smoking 09/22/2019 12:00:00 AM EDT Former Smoker completed Former Smoker eCW1 ([facility]) Smoking 09/22/2019 12:00:00 AM EDT Former Smoker completed Former Smoker eCW1 ([facility]) Smoking 09/22/2019 12:00:00 AM EDT Former Smoker completed Former Smoker eCW1 ([facility]) Smoking 09/22/2019 12:00:00 AM EDT Former Smoker completed Former Smoker eCW1 ([facility]) Smoking 08/31/2019 12:00:00 AM EDT Former Smoker completed Former Smoker eCW1 ([facility]) Vital Signs ID Date Data Source UNK Name Value Range Interpretation Code Description Data Source(s) Body mass index (BMI) [Ratio] 40.8 kg/m2 40.8 k g/m2 [facility] ([facility]) Body height 65 [in_i] 65 [in_i] [facility] ([facility]) 5'5" Body weight 245.00 [lb_av] 245.00 [lb_av] [facility] ([facility]) Body temperature 98.6 [degF] 98.6 [degF] [facility] ([facility]) Oxygen saturation in Arterial blood by Pulse oximetry 97 % 97 % [facility] ([facility]) Respiratory rate 18 /min 18 /min [facility] ( [facility]) Heart rate 80 /min 80 /min [facility] ([facility]) Diastolic blood pressure 90 mm[Hg] 90 mm[Hg] [facility] ([facility]) Systolic blood pressure 138 mm[Hg] 138 mm[Hg] [facility] ([facility]) Diastolic blood pressure 70 mm[Hg] 70 mm[Hg] eCW1 ([facility]) Systolic blood pressure 120 mm[Hg] 120 mm[Hg] e CW1 ([facility]) Body temperature 96.5 [degF] 96.5 [degF] eCW1 ( [facility]) Respiratory rate 18 /min 18 /min eCW1 ([facility]) Heart rate 86 /min 86 /min eCW1 ([facility]) Body mass index (BMI) [Ratio] 41.23 kg/m2 41.23 kg/m2 eCW1 ([facility]) Body height 65 [in_i] 65 [in_i] eCW1 ([facility]) Body weight 247.8 [lb_av] 247.8 [lb_av] eCW1 ([facility]) Oxygen saturation in Arterial blood by Pulse oximetry --post exerci se 94 % 94 % [facility] ([facility]) Oxygen saturation in Arterial blood by Pulse oximetry 98 % 98 % [facility] ([facility]) Diastolic blood pressure--supine 68 mm[Hg] 68 mm[Hg] [facility] ([facility]) Ra Systolic blood pressure--supine 102 mm[Hg] 102 mm[Hg] [facility] ([facility]) Ra Diastolic blood pressure--sitting 66 mm[Hg] 66 mm[Hg] [facility] ([facility]) large cuff, both arms Systolic blood pressure--sitting 100 mm[Hg] 100 mm[Hg] [facility] ([facility]) large cuff, both arms Respiratory rate 16 /min 16 /min [facility] ( [facility]) Heart rate 60 /min 60 /min [facility] ([facility]) regular Body mass index (BMI) [Ratio] 40.6 kg/m2 40.6 k g/m2 [facility] ([facility]) Body height 65 [in_i] 65 [in_i] [facility] ([facility]) 5'5" Body weight 244.00 [lb_av] 244.00 [lb_av] [facility] ([facility]) Body weight 109.771 kg 109.771 kg [facility] ([facility]) Body mass index (BMI) [Ratio] 40.3 kg/m2 40.3 k g/m2 [facility] ([facility]) Body weight 242.00 [lb_av] 242.00 [lb_av] MEDEN T ([facility]) Body height 65 [in_i] 65 [in_i] MEDENT ([facility]) 5'5" Diastolic blood pressure 64 mm[Hg] 64 mm[Hg] [facility] ([facility]) Systolic blood pressure 118 mm[Hg] 118 mm[Hg] M [facility] ([facility]) Body weight 106.766 kg 106.766 kg [facility] ([facility]) Body mass index (BMI) [Ratio] 39.2 kg/m2 39.2 k g/m2 [facility] ([facility]) Body weight 235.38 [lb_av] 235.38 [lb_av] MEDEN T ([facility]) Body height 65 [in_i] 65 [in_i] MEDENT ([facility]) 5'5" Diastolic blood pressure 82 mm[Hg] 82 mm[Hg] MEDENT ([facility]) Systolic blood pressure 122 mm[Hg] 122 mm[Hg] M EDENT ([facility]) Diastolic blood pressure 74 mm[Hg] 74 mm[Hg] eCW1 ([facility]) Systolic blood pressure 120 mm[Hg] 120 mm[Hg] e CW1 ([facility]) Body temperature 97.6 [degF] 97.6 [degF] eCW1 ( [facility]) Respiratory rate 18 /min 18 /min eCW1 ([facility]) Heart rate 93 /min 93 /min eCW1 ([facility]) Body mass index (BMI) [Ratio] 38.94 kg/m2 38.94 kg/m2 eCW1 ([facility]) Body height 65 [in_i] 65 [in_i] eCW1 ([facility]) Body weight 234.0 [lb_av] 234.0 [lb_av] eCW1 ([facility]) Diastolic blood pressure 62 mm[Hg] 62 mm[Hg] eCW1 ([facility]) Systolic blood pressure 118 mm[Hg] 118 mm[Hg] e CW1 ([facility]) Body temperature 96.5 [degF] 96.5 [degF] eCW1 ( [facility]) Respiratory rate 18 /min 18 /min eCW1 ([facility]) Heart rate 102 /min 102 /min eCW1 ([facility]) Body mass index (BMI) [Ratio] 41.03 kg/m2 41.03 kg/m2 eCW1 ([facility]) Body height 65 [in_us] 65 [in_us] eCW1 ([facility]) Body weight Measured 246.6 [lb_av] 246.6 [lb_av ] eCW1 ([facility]) Body weight 110.225 kg 110.225 kg [facility] ([facility], ) Body mass index (BMI) [Ratio] 40.4 kg/m2 40.4 k g/m2 [facility] ([facility], ) Body weight 243.00 [lb_av] 243.00 [lb_av] MEDEN T ([facility], ) Body height 65 [in_i] 65 [in_i] MEDENT ([facility], ) 5'5" Diastolic blood pressure 66 mm[Hg] 66 mm[Hg] MEDENT ([facility], ) Systolic blood pressure 124 mm[Hg] 124 mm[Hg] M EDSILVIANO ([facility], ) Patient Treatment Plan of Care Planned Activity Planned Date Details Description Data Source (s) Sucralfate 100 MG/ML Oral Suspension 04/21/2020 12:00:00 AM EST eCW1 ([facility]) Sucralfate 100 MG/ML Oral Suspension 04/21/2020 12:00:00 AM EST eCW1 ([facility]) Sucralfate 100 MG/ML Oral Suspension 04/21/2020 12:00:00 AM EST eCW1 ([facility]) 24 HR Bupropion Hydrochloride 300 MG Extended Release Oral Tablet [Wellbutrin] 08/19/2019 12:00:00 AM EDT eCW1 ([facility]) 24 HR Bupropion Hydrochloride 300 MG Extended Release Oral Tablet [Wellbutrin] 08/19/2019 12:00:00 AM EDT eCW1 ([facility]) 24 HR Bupropion Hydrochloride 300 MG Extended Release Oral Tablet [Wellbutrin] 08/19/2019 12:00:00 AM EDT eCW1 ([facility]) Amitriptyline Hydrochloride 25 MG Oral Tablet 04/14/2019 12:00:00 A M EST eCW1 ([facility]) Amitriptyline Hydrochloride 25 MG Oral Tablet 04/14/2019 12:00:00 A M EST eCW1 ([facility]) Amitriptyline Hydrochloride 25 MG Oral Tablet 04/14/2019 12:00:00 A M EST eCW1 ([facility]) Zofran ODT 4 MG 04/09/2019 12:00:00 AM EST eCW1 ([facility]) Zofran ODT 4 MG 04/09/2019 12:00:00 AM EST eCW1 ([facility]) Zofran ODT 4 MG 04/09/2019 12:00:00 AM EST eCW1 ([facility]) Zofran ODT 4 MG 04/09/2019 12:00:00 AM EST eCW1 ([facility]) Zofran ODT 4 MG 04/09/2019 12:00:00 AM EST eCW1 ([facility]) Zofran ODT 4 MG 04/09/2019 12:00:00 AM EST eCW1 ([facility])
[2020-05-21] MEDS ORDERED: ASPIRIN 81 MG CHEW TABLET PO ONE (17:00)
--- NOTE | 2020-05-21 17:10 | REP ---
INDICATION: CHEST PAIN. COMPARISON: Comparison chest x-ray 10 February 2020. TECHNIQUE: Portable upright AP chest radiograph. FINDINGS: The lungs are well inflated and free of infiltrate. Pleural angles are sharp. Heart size is normal. Pulmonary vasculature is not increased. IMPRESSION: No active disease. <Electronically signed by Esteban Ramirez > 05/21/20 [id number]
[2020-05-21 17:34] LABS: BASO % 0.7 % (0.0-1.0); EOS # 0.1 10^3/uL (0.0-0.5); EOS % 1.2 % (0.0-3.0); HEMATOCRIT 42.2 % (36.0-47.0); HEMOGLOBIN 13.7 g/dl (12.0-15.5); LYMPH # 2.3 10^3/uL (1.5-5.0); LYMPH % 38.2 % (24.0-44.0); MEAN CORPUSCULAR HEMOGLOBIN 29.4 pg (27.0-33.0); MEAN CORPUSCULAR HGB CONC 32.5 g/dl (32.0-36.5); MEAN CORPUSCULAR VOLUME 90.6 fl (80.0-96.0); MONO # 0.4 10^3/uL (0.0-0.8); MONO % 6.1 % (2.0-8.0); NEUTROPHILS # 3.2 10^3/uL (1.5-8.5); NEUTROPHILS % 53.6 % (36.0-66.0); PLATELET COUNT, AUTOMATED 318 10^3/uL (150-450); RED BLOOD COUNT 4.66 10^6/uL (4.00-5.40); WHITE BLOOD COUNT 5.9 10^3/uL (4.0-10.0)
[2020-05-21 17:51] LABS: INR 0.9; PROTHROMBIN TIME 12.3 SECONDS (12.5-14.3)
[2020-05-21 17:52] LABS: PARTIAL THROMBOPLASTIN TIME 29.7 SECONDS (24.2-38.5)
[2020-05-21 18:05] LABS: ALBUMIN 3.3 GM/DL (3.2-5.2); ALT/SGPT 26 U/L (12-78); BILIRUBIN,DIRECT < 0.1 MG/DL (0.0-0.2); BILIRUBIN,TOTAL < 0.1 MG/DL (0.2-1.0); BLOOD UREA NITROGEN 14 MG/DL (7-18); CALCIUM LEVEL 9.1 MG/DL (8.5-10.1); CARBON DIOXIDE LEVEL 29 MEQ/L (21-32); CHLORIDE LEVEL 106 MEQ/L (98-107); CREATININE FOR GFR 0.96 MG/DL (0.55-1.30); FREE T4 0.94 NG/DL (0.76-1.46); GLOMERULAR FILTRATION RATE > 60.0 (>51); GLUCOSE, FASTING 82 MG/DL (70-100); LIPASE 90 U/L (73-393); NT-PRO BNP 36 PG/ML (<125); POTASSIUM SERUM 4.3 MEQ/L (3.5-5.1); SODIUM LEVEL 142 MEQ/L (136-145); TOTAL PROTEIN 6.5 GM/DL (6.4-8.2)
--- NOTE | 2020-05-21 20:53 | ECGEPIP ---
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
[2020-05-21] MEDS ORDERED: ACETAMINOPHEN 325 MG TAB PO ONE (22:30)
[2020-05-21 22:31] VITALS: BP 176/93
--- NOTE | 2020-05-22 06:16 | ECGEPIP ---
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
== END 2020-05-21 23:06 | disposition home or self-care (01) ==
LOC: M ED 16:42
DX: R07.9 Chest pain, unspecified (principal); I50.9 Heart failure, unspecified; M54.5 Low back pain; F32.9 Major depressive disorder, single episode, unspecified; E03.9 Hypothyroidism, unspecified; Z98.84 Bariatric surgery status; Z79.899 Other long term (current) drug therapy; Z91.041 Radiographic dye allergy status; Z88.8 Allergy status to other drugs, medicaments and biological substances

== ENCOUNTER → 2020-08-29 | Outpatient (REF) | payer OTHER ==
[~2020-08-29] MED LIST changes: +AMIT25TA17; +BUPR300T92; +CYCL-707; +LEVO25TA5; +MIRA3350 PO; +OMEP-218; +ONDA4TAB6; +SUCR1ORA2
[2020-08-29 10:52] LABS: BASO % 0.8 % (0.0-1.0); EOS # 0.1 10^3/uL (0.0-0.5); EOS % 2.3 % (0.0-3.0); HEMATOCRIT 43.9 % (36.0-47.0); HEMOGLOBIN 13.7 g/dl (12.0-15.5); LYMPH # 1.7 10^3/uL (1.5-5.0); LYMPH % 32.5 % (24.0-44.0); MEAN CORPUSCULAR HEMOGLOBIN 28.5 pg (27.0-33.0); MEAN CORPUSCULAR HGB CONC 31.2 g/dl (32.0-36.5); MEAN CORPUSCULAR VOLUME 91.3 fl (80.0-96.0); MONO # 0.5 10^3/uL (0.0-0.8); MONO % 8.9 % (2.0-8.0); NEUTROPHILS # 2.8 10^3/uL (1.5-8.5); NEUTROPHILS % 55.3 % (36.0-66.0); PLATELET COUNT, AUTOMATED 308 10^3/uL (150-450); RED BLOOD COUNT 4.81 10^6/uL (4.00-5.40); WHITE BLOOD COUNT 5.1 10^3/uL (4.0-10.0)
[2020-08-29 11:00] LABS: INR 0.93; PROTHROMBIN TIME 12.7 SECONDS (12.5-14.3)
[2020-08-29 11:11] LABS: ALBUMIN 3.2 GM/DL (3.2-5.2); ALT/SGPT 34 U/L (12-78); BILIRUBIN,TOTAL 0.2 MG/DL (0.2-1.0); BLOOD UREA NITROGEN 13 MG/DL (7-18); CARBON DIOXIDE LEVEL 31 MEQ/L (21-32); CHLORIDE LEVEL 108 MEQ/L (98-107); CREATININE FOR GFR 0.67 MG/DL (0.55-1.30); GLOMERULAR FILTRATION RATE > 60.0 (>51); GLUCOSE, FASTING 62 MG/DL (70-100); POTASSIUM SERUM 4.9 MEQ/L (3.5-5.1); SODIUM LEVEL 142 MEQ/L (136-145); TOTAL PROTEIN 6.4 GM/DL (6.4-8.2)
[2020-08-30 07:13] LABS: AMYLASE 37 U/L (25-115); LIPASE 93 U/L (73-393)
== END ==
LOC: M SFHCADAM 07:38
PROVIDERS: ATTEND Physician Assistant
DX: R10.11 Right upper quadrant pain (principal); T14.8XXA Other injury of unspecified body region, initial encounter; R10.13 Epigastric pain

== ENCOUNTER 2020-08-30 10:27 | Emergency (ER) | payer OTHER ==
[~2020-08-30] VITALS: Ht 165.1 cm; Wt 114.8 kg
[~2020-08-30 10:27] MED LIST changes: -LEVO25TA5; -MIRA3350 PO; -ONDA4TAB6
[2020-08-30] MEDS ORDERED: ONDA4TAB6 (10:37)
[2020-08-30] MEDS ORDERED: LEVO25TA5 (10:37)
[2020-08-30] MEDS ORDERED: EPIN0.3I11 (10:37)
--- NOTE | 2020-08-30 11:28 | REP ---
INDICATION: R/O PANCREATIC MASS history of contrast allergy. COMPARISON: Comparison CT study February 04, 2020.. TECHNIQUE: Helical scanning is acquired and 3 mm axial images were reformatted. Coronal and sagittal MPR images were generated and reviewed. 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 The lung bases are clear. Patient is status post gastric bypass. The liver and spleen are normal in size homogeneous in texture. There is no evidence of pancreatic mass or fluid collection. No pancreatic or peripancreatic edema is seen. Normal adrenal glands are seen. The gallbladder is unremarkable. Kidneys appear morphologically intact with some lobation again seen unchanged. No hydronephrosis is noted. No retroperitoneal mass or adenopathy is seen. Uterus is surgically absent. Urinary bladder is unremarkable. No abdominal wall defect is seen. Small and large bowel loops are normal in the abdomen and pelvis. A normal short appendix is seen in the right lower quadrant. No bony destructive lesion is appreciated. IMPRESSION: Status post gastric bypass and hysterectomy. No evidence of pancreatic mass or cyst. No acute abdominal or pelvic abnormality. <Electronically signed by Esteban Ramirez > 08/30/20 [id number]
[2020-08-30] MEDS ORDERED: COLA100C5 PO (12:05)
[2020-08-30] MEDS ORDERED: MIRA3350 PO (12:05)
[2020-08-30 12:09] VITALS: BP 121/69
== END 2020-08-30 12:13 | disposition home or self-care (01) ==
LOC: M ED 10:27
DX: K59.00 Constipation, unspecified (principal); I50.9 Heart failure, unspecified; J45.909 Unspecified asthma, uncomplicated; K21.9 Gastro-esophageal reflux disease without esophagitis; F33.9 Major depressive disorder, recurrent, unspecified; G47.30 Sleep apnea, unspecified; Z99.89 Dependence on other enabling machines and devices; Z98.84 Bariatric surgery status; Z79.899 Other long term (current) drug therapy; Z79.890 Hormone replacement therapy; Z88.1 Allergy status to other antibiotic agents; Z88.8 Allergy status to other drugs, medicaments and biological substances; Z91.041 Radiographic dye allergy status; Z87.891 Personal history of nicotine dependence

== ENCOUNTER → 2020-12-05 | Outpatient (REF) | payer OTHER, MEDICAID ==
[~2020-12-05] MED LIST changes: +LEVO25TA5; +MIRA3350 PO; +ONDA4TAB6
== END ==
LOC: M LAB REF 16:11
PROVIDERS: ATTEND Physician Assistant
DX: R30.0 Dysuria (principal)

== ENCOUNTER → 2020-12-13 | Outpatient (REF) | payer OTHER | LOC: M SFHCPLAZ 17:06 | PROVIDERS: ATTEND Physician Assistant | DX: R39.9 Unspecified symptoms and signs involving the genitourinary system (principal); R50.9 Fever, unspecified; R53.81 Other malaise ==

== ENCOUNTER → 2020-12-13 | Outpatient (CLI) | payer OTHER ==
[2020-12-13 15:26] LABS: BASO % 0.4 % (0.0-1.0); EOS # 0.1 10^3/uL (0.0-0.5); EOS % 0.6 % (0.0-3.0); HEMATOCRIT 41.9 % (36.0-47.0); HEMOGLOBIN 13.7 g/dl (12.0-15.5); LYMPH # 2.2 10^3/uL (1.5-5.0); LYMPH % 23.4 % (24.0-44.0); MEAN CORPUSCULAR HEMOGLOBIN 29.3 pg (27.0-33.0); MEAN CORPUSCULAR HGB CONC 32.7 g/dl (32.0-36.5); MEAN CORPUSCULAR VOLUME 89.5 fl (80.0-96.0); MONO # 0.6 10^3/uL (0.0-0.8); MONO % 6.1 % (2.0-8.0); NEUTROPHILS # 6.4 10^3/uL (1.5-8.5); NEUTROPHILS % 69.2 % (36.0-66.0); PLATELET COUNT, AUTOMATED 395 10^3/uL (150-450); RED BLOOD COUNT 4.68 10^6/uL (4.00-5.40); WHITE BLOOD COUNT 9.3 10^3/uL (4.0-10.0)
[2020-12-13 15:51] LABS: ALBUMIN 2.9 GM/DL (3.2-5.2); ALT/SGPT 28 U/L (12-78); BILIRUBIN,TOTAL 0.2 MG/DL (0.2-1.0); BLOOD UREA NITROGEN 13 MG/DL (7-18); CARBON DIOXIDE LEVEL 31 MEQ/L (21-32); CHLORIDE LEVEL 107 MEQ/L (98-107); CREATININE FOR GFR 0.58 MG/DL (0.55-1.30); GLOMERULAR FILTRATION RATE > 60.0 (>51); GLUCOSE, FASTING 80 MG/DL (70-100); POTASSIUM SERUM 4.4 MEQ/L (3.5-5.1); SODIUM LEVEL 141 MEQ/L (136-145); TOTAL PROTEIN 6.4 GM/DL (6.4-8.2)
== END ==
LOC: M PLALAB 12:26
PROVIDERS: ATTEND Physician Assistant
DX: R39.9 Unspecified symptoms and signs involving the genitourinary system (principal); R50.9 Fever, unspecified; R53.81 Other malaise

== ENCOUNTER → 2020-12-13 | Outpatient (CLI) | payer OTHER ==
--- NOTE | 2020-12-13 14:10 | REP ---
INDICATION: RECURRENT UTI W/ RT FLANK PAIN. COMPARISON: Comparison CT study August 30, 2020. TECHNIQUE: Urinary tract sonography. FINDINGS: Scanning at the level of the urinary bladder demonstrates prevoid bladder volume of 227 mL and postvoid residual 57%, 127 mL. No bladder mass lesion is seen. Renal cortical echogenicity pattern is normal bilaterally and contours are smooth. There is no evidence of hydronephrosis, cyst, mass, or calculus in either kidney. The right kidney measures 11.1 x 5.5 x 4.0 cm. Left renal dimensions are 12.6 x 6.2 x 5.5 cm. IMPRESSION: Postvoid bladder residual. Otherwise negative urinary tract sonography. <Electronically signed by Esteban Ramirez > 12/13/20 [id number]
== END ==
LOC: M RAD 13:27
PROVIDERS: ATTEND Physician Assistant
DX: R39.9 Unspecified symptoms and signs involving the genitourinary system (principal); R50.9 Fever, unspecified; R53.81 Other malaise; R10.9 Unspecified abdominal pain

== ENCOUNTER → 2021-01-02 | Outpatient (REF) | payer OTHER | LOC: M SFHCADAM 18:18 | PROVIDERS: ATTEND Physician Assistant | DX: N30.00 Acute cystitis without hematuria (principal) ==

== ENCOUNTER → 2021-01-02 | Outpatient (REF) | payer OTHER | LOC: M SFHCADAM 16:20 | PROVIDERS: ATTEND Physician Assistant | DX: Z53.9 Procedure and treatment not carried out, unspecified reason (principal); N30.00 Acute cystitis without hematuria ==

== ENCOUNTER 2021-01-08 18:10 | Emergency (ER) | payer OTHER ==
[~2021-01-08] VITALS: Ht 165.1 cm; Wt 116.1 kg
[2021-01-08] MEDS ORDERED: GABA-282 PO (18:23)
[2021-01-08 19:36] LABS: BASO % 0.5 % (0.0-1.0); EOS # 0.1 10^3/uL (0.0-0.5); EOS % 0.7 % (0.0-3.0); HEMOGLOBIN 14.6 g/dl (12.0-15.5); LYMPH # 1.6 10^3/uL (1.5-5.0); LYMPH % 19.4 % (24.0-44.0); MEAN CORPUSCULAR HEMOGLOBIN 29.7 pg (27.0-33.0); MEAN CORPUSCULAR VOLUME 87.6 fl (80.0-96.0); MONO # 0.6 10^3/uL (0.0-0.8); MONO % 7.3 % (2.0-8.0); NEUTROPHILS # 6.1 10^3/uL (1.5-8.5); PLATELET COUNT, AUTOMATED 257 10^3/uL (150-450); RED BLOOD COUNT 4.91 10^6/uL (4.00-5.40); WHITE BLOOD COUNT 8.4 10^3/uL (4.0-10.0)
[2021-01-08 20:06] LABS: ALBUMIN 3.1 GM/DL (3.2-5.2); ALT/SGPT 41 U/L (12-78); BILIRUBIN,DIRECT < 0.1 MG/DL (0.0-0.2); BILIRUBIN,TOTAL 0.2 MG/DL (0.2-1.0); LIPASE 93 U/L (73-393); TOTAL PROTEIN 6.6 GM/DL (6.4-8.2)
[2021-01-08] MEDS ORDERED: FAMOTIDINE 40MG/5ML ORAL SUSPENSON 50ML BOTTLE PO ONE (21:00)
[2021-01-08] MEDS ORDERED: diphenhydrAMINE 50MG/ML VIAL (J1200) IV ONE (21:00)
[2021-01-08] MEDS ORDERED: methylPREDNISolone 125MG 2ML VIAL IV ONE (21:00)
[2021-01-08] MEDS: READI-CAT 2 PO SCH ×2 (22:06→23:07)
[2021-01-08] MEDS ORDERED: MORPHINE 2 MG/ML 1ML VIAL (J2270) IV ONE (22:50)
--- NOTE | 2021-01-09 01:11 | REPVR ---
PROCEDURE INFORMATION: Exam: CT Abdomen And Pelvis Without Contrast Exam date and time: 01/08/2021 9:02 PM Age: 55 years old Clinical indication: Abdominal pain; Epigastric; Additional info: Right upper quadrant/epigastric pain TECHNIQUE: Imaging protocol: Computed tomography of the abdomen and pelvis without contrast. Radiation optimization: All CT scans at this facility use at least one of these dose optimization techniques: automated exposure control; mA and/or kV adjustment per patient size (includes targeted exams where dose is matched to clinical indication); or iterative reconstruction. Other contrast: Oral, redi cat, 400; COMPARISON: 1. CT ABD PELVIS W/O CONTRAST 2020-08-30 11:[address] ABD PELVIS WITH CONTRAST 2020-02-04 10:32 FINDINGS: Limitations: Limited by patient's body habitus. Liver: Normal. No mass. Gallbladder and bile ducts: Normal. No calcified stones. No ductal dilation. Pancreas: Normal. No ductal dilation. Spleen: Normal. No splenomegaly. Adrenal glands: Normal. No mass. Kidneys and ureters: Lobulated right kidney. Stomach and bowel: Mild diverticulosis without acute inflammatory changes. 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 Appendix: No evidence of appendicitis. Intraperitoneal space: Unremarkable. No free air. No significant fluid collection. Vasculature: Unremarkable. No abdominal aortic aneurysm. Lymph nodes: Unremarkable. No enlarged lymph nodes. Urinary bladder: Unremarkable as visualized. Reproductive: Hysterectomy. Bones/joints: Small L4-L5 disc bulge. Small L5-S1 disc protrusion and disc bulge. Soft tissues: Unremarkable. IMPRESSION: No acute findings. Electronically signed by: Jeff Jin On 01/09/2021 01:11:02 AM
[2021-01-09] MEDS ORDERED: GI COCKTAIL 50ML BTL(HYOSCYAMINE/MAALOX/LIDOCAINE VISCOUS)(1:3:1) PO ONE (01:20)
[2021-01-09 02:12] VITALS: BP 118/72
--- NOTE | 2021-01-10 17:24 | ECGEPIP ---
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
== END 2021-01-09 02:17 | disposition home or self-care (01) ==
LOC: M ED 18:10
DX: R10.9 Unspecified abdominal pain (principal); Z87.11 Personal history of peptic ulcer disease; K57.30 Diverticulosis of large intestine without perforation or abscess without bleeding; M51.26 Other intervertebral disc displacement, lumbar region; M51.27 Other intervertebral disc displacement, lumbosacral region; E03.9 Hypothyroidism, unspecified; Z98.84 Bariatric surgery status; Z88.8 Allergy status to other drugs, medicaments and biological substances; Z79.899 Other long term (current) drug therapy
CPT/HCPCS: 74176; 80047; 80076; 83690; 85025; 93005; 96374; 96375; 99284; J1200; J2270; J2930

== ENCOUNTER 2021-03-07 11:47 | Outpatient (CLI) | payer OTHER ==
[~2021-03-07] VITALS: Ht 165.1 cm; Wt 115.0 kg
[~2021-03-07 11:47] MED LIST changes: +ALBUTEROL 90 MCG/ACT 8GM HFA INHALER INH PRN; +ALBUTEROL SULFATE 2.5 MG/0.5 ML INH NEB SOLN INH PRN; -AMBI10TA; +AMBI10TA PO; +EPINEPHrine INJ 1 MG/ML 1ML AMP IM PRN; -LEVO25TA5; +NS 1,000 ML IV SCH; +OMEP-173 PO; -OMEP-218; -ONDA4TAB6; +diphenhydrAMINE 50MG/ML VIAL (J1200) IV PRN; +methylPREDNISolone 125MG 2ML VIAL IV PRN
[2021-03-07] MEDS ORDERED: CASIRIVIMAB (REGN10933) 600 MG, IMDEVIMAB (REGN10987) 600 MG in NS 250 ML IV ONE (12:00)
[2021-03-07 12:05] VITALS: BP 134/60
[2021-03-07 12:35] VITALS: BP 120/58
[2021-03-07 13:05] VITALS: BP 124/58
[2021-03-07 14:05] VITALS: BP 141/88
== END 2021-03-07 14:05 | disposition home or self-care (01) ==
LOC: M OPCLI4PR 11:47
PROVIDERS: ATTEND Physician Assistant
DX: U07.1 COVID-19 (principal); Z88.8 Allergy status to other drugs, medicaments and biological substances

== ENCOUNTER → 2021-03-26 | Outpatient (REF) | payer OTHER, MEDICAID ==
[~2021-03-26] MED LIST changes: -ALBUTEROL 90 MCG/ACT 8GM HFA INHALER INH PRN; -ALBUTEROL SULFATE 2.5 MG/0.5 ML INH NEB SOLN INH PRN; +AMBI10TA; -AMBI10TA PO; -EPINEPHrine INJ 1 MG/ML 1ML AMP IM PRN; +LEVO25TA5; -NS 1,000 ML IV SCH; -OMEP-173 PO; +OMEP-218; +ONDA4TAB6; -diphenhydrAMINE 50MG/ML VIAL (J1200) IV PRN; -methylPREDNISolone 125MG 2ML VIAL IV PRN
[2021-03-26 14:17] LABS: APPEARANCE, URINE CLEAR (CLEAR); BACTERIA, URINE AUTO NEGATIVE (NEGATIVE); BILIRUBIN, URINE AUTO NEGATIVE (NEGATIVE); BLOOD, URINE BLOOD NEGATIVE (NEGATIVE); COLOR, URINE YELLOW (YELLOW); GLUCOSE, URINE (UA) AUTO NEGATIVE (NEGATIVE); KETONE, URINE AUTO NEGATIVE (NEGATIVE); LEUKOCYTE ESTERASE, URINE AUTO TRACE (NEGATIVE); NITRITE, URINE AUTO NEGATIVE (NEGATIVE); PROTEIN, URINE AUTO NEGATIVE (NEGATIVE); RBC, URINE AUTO 0 /HPF (0-3); SPECIFIC GRAVITY URINE AUTO 1.009 (1.002-1.035); SQUAMOUS EPITHELIAL CELL UR AU 0 /HPF (0-6); UROBILINOGEN, URINE AUTO 0.2 mg/dL (0.0-2.0); WBC, URINE AUTO 0 /HPF (0-3)
== END ==
LOC: M SFHCPLAZ 13:26
PROVIDERS: ATTEND Physician Assistant
DX: R30.0 Dysuria (principal)

== ENCOUNTER → 2021-05-03 | Outpatient (REF) | payer OTHER ==
[~2021-05-03] MED LIST changes: +OMEP-173; -OMEP-218
[2021-05-04 11:39] LABS: APPEARANCE, URINE TURBID (CLEAR); BACTERIA, URINE AUTO 3+ (NEGATIVE); BILIRUBIN, URINE AUTO NEGATIVE (NEGATIVE); BLOOD, URINE BLOOD NEGATIVE (NEGATIVE); CALCIUM OXALATE CRYSTALS MODERATE; COLOR, URINE AMBER (YELLOW); GLUCOSE, URINE (UA) AUTO NEGATIVE (NEGATIVE); KETONE, URINE AUTO NEGATIVE (NEGATIVE); LEUKOCYTE ESTERASE, URINE AUTO 3+ (NEGATIVE); MUCUS, URINE SMALL (NEGATIVE); NITRITE, URINE AUTO POSITIVE (NEGATIVE); PROTEIN, URINE AUTO NEGATIVE (NEGATIVE); RBC, URINE AUTO 7 /HPF (0-3); SPECIFIC GRAVITY URINE AUTO 1.017 (1.002-1.035); SQUAMOUS EPITHELIAL CELL UR AU 1 /HPF (0-6); UROBILINOGEN, URINE AUTO 0.2 mg/dL (0.0-2.0); WBC, URINE AUTO TNTC /HPF (0-3)
== END ==
LOC: EEVIPCON 15:26 → M LABSMT 15:26
PROVIDERS: ATTEND Urology
DX: Z87.440 Personal history of urinary (tract) infections (principal)

== ENCOUNTER 2021-05-13 19:27 | Emergency (ER) | payer OTHER ==
[~2021-05-13] VITALS: Ht 165.1 cm; Wt 127.3 kg
[~2021-05-13 19:27] MED LIST changes: -AMBI10TA; +AMBI10TA PO; -LEVO25TA5; -OMEP-173; +OMEP-173 PO; -ONDA4TAB6
[2021-05-13 20:14] LABS: APPEARANCE, URINE CLOUDY (CLEAR); BACTERIA, URINE AUTO 1+ (NEGATIVE); BILIRUBIN, URINE AUTO NEGATIVE (NEGATIVE); BLOOD, URINE BLOOD 1+ (NEGATIVE); COLOR, URINE YELLOW (YELLOW); GLUCOSE, URINE (UA) AUTO NEGATIVE (NEGATIVE); KETONE, URINE AUTO NEGATIVE (NEGATIVE); LEUKOCYTE ESTERASE, URINE AUTO 3+ (NEGATIVE); NITRITE, URINE AUTO POSITIVE (NEGATIVE); PROTEIN, URINE AUTO 2+ mg/dL (NEGATIVE); RBC, URINE AUTO 35 /HPF (0-3); SPECIFIC GRAVITY URINE AUTO 1.016 (1.002-1.035); SQUAMOUS EPITHELIAL CELL UR AU 5 /HPF (0-6); UROBILINOGEN, URINE AUTO 0.2 mg/dL (0.0-2.0); WBC, URINE AUTO TNTC /HPF (0-3)
[2021-05-13 22:12] LABS: BASO % 0.4 % (0.0-1.0); EOS # 0.1 10^3/uL (0.0-0.5); EOS % 0.8 % (0.0-3.0); HEMATOCRIT 42.6 % (36.0-47.0); LYMPH # 2.4 10^3/uL (1.5-5.0); LYMPH % 26.7 % (24.0-44.0); MEAN CORPUSCULAR HEMOGLOBIN 29.4 pg (27.0-33.0); MEAN CORPUSCULAR HGB CONC 32.9 g/dl (32.0-36.5); MEAN CORPUSCULAR VOLUME 89.3 fl (80.0-96.0); MONO # 0.8 10^3/uL (0.0-0.8); MONO % 8.7 % (2.0-8.0); NEUTROPHILS # 5.7 10^3/uL (1.5-8.5); NEUTROPHILS % 63.2 % (36.0-66.0); PLATELET COUNT, AUTOMATED 308 10^3/uL (150-450); RED BLOOD COUNT 4.77 10^6/uL (4.00-5.40)
[2021-05-13] MEDS ORDERED: cefTRIAXone SOD 1 GM in D5W MINI-BAG PLUS 50 ML IV ONE (22:30)
[2021-05-13] MEDS ORDERED: KETOROLAC 30 MG/ML 1ML VIAL IV ONE (22:30)
[2021-05-13] MEDS ORDERED: PHENAZOPYRIDINE 100 MG TAB PO ONE (22:30)
[2021-05-13] MEDS ORDERED: NS 1,000 ML IV ONE (22:30)
[2021-05-13 22:31] LABS: ALBUMIN 3.1 GM/DL (3.2-5.2); BILIRUBIN,DIRECT 0.1 MG/DL (0.0-0.2); BILIRUBIN,TOTAL 0.4 MG/DL (0.2-1.0); C REACTIVE PROTEIN QUANTITATIV 0.69 MG/DL (0.00-0.30); TOTAL PROTEIN 6.5 GM/DL (6.4-8.2)
[2021-05-13 22:34] LABS: ERYTHROCYTE SEDIMENTATION RATE 8 mm/hr (0-30)
[2021-05-13 23:59] VITALS: BP 133/76
[2021-05-14] MEDS ORDERED: CEPH500C PO (00:08)
[2021-05-14] MEDS ORDERED: TRAM50TA2 PO (00:08)
== END 2021-05-14 00:22 | disposition home or self-care (01) ==
LOC: M ED 19:27
DX: N30.90 Cystitis, unspecified without hematuria (principal); R10.9 Unspecified abdominal pain; K21.9 Gastro-esophageal reflux disease without esophagitis; Z88.1 Allergy status to other antibiotic agents; Z86.79 Personal history of other diseases of the circulatory system; Z88.8 Allergy status to other drugs, medicaments and biological substances; Z91.041 Radiographic dye allergy status
CPT/HCPCS: 74176; 80047; 80076; 81001; 83690; 84702; 85025; 85652; 86140; 87088; 87184; 87186; 96365; 96366; 96375; 99284; J0696; J1885

== ENCOUNTER 2021-05-18 17:24 | Inpatient (IN) | payer OTHER ==
[~2021-05-18] VITALS: Ht 162.6 cm; Wt 117.4 kg
[~2021-05-18 17:24] MED LIST changes: +CEPH500C PO; +TRAM50TA2 PO
[2021-05-18] MEDS ORDERED: ERTAPENEM SODIUM 1 GM in NS MINI-BAG PLUS 50 ML IV ONE (21:20)
[2021-05-18 21:47] LABS: BASO % 0.7 % (0.0-1.0); EOS # 0.1 10^3/uL (0.0-0.5); EOS % 1.1 % (0.0-3.0); HEMATOCRIT 43.4 % (36.0-47.0); HEMOGLOBIN 14.1 g/dl (12.0-15.5); LYMPH # 2.3 10^3/uL (1.5-5.0); LYMPH % 43.3 % (24.0-44.0); MEAN CORPUSCULAR HEMOGLOBIN 29.4 pg (27.0-33.0); MEAN CORPUSCULAR HGB CONC 32.5 g/dl (32.0-36.5); MEAN CORPUSCULAR VOLUME 90.4 fl (80.0-96.0); MONO # 0.4 10^3/uL (0.0-0.8); NEUTROPHILS # 2.6 10^3/uL (1.5-8.5); NEUTROPHILS % 47.7 % (36.0-66.0); PLATELET COUNT, AUTOMATED 319 10^3/uL (150-450); WHITE BLOOD COUNT 5.4 10^3/uL (4.0-10.0)
[2021-05-18] MEDS ORDERED: BUPR1TAB56 PO (21:50)
[2021-05-18] MEDS ORDERED: CEPH500C PO (21:52)
[2021-05-18] MEDS ORDERED: TRAM50TA2 PO (21:52)
[2021-05-18] MEDS ORDERED: DOCU100C16 PO (21:53)
[2021-05-18] MEDS ORDERED: ONE-1TAB PO (21:55)
[2021-05-18] MEDS ORDERED: D 50CAP3 PO (21:55)
[2021-05-18] MEDS ORDERED: CYAN100050 PO (21:55)
[2021-05-18] MEDS ORDERED: CLAR10CA3 PO (21:56)
[2021-05-18] MEDS ORDERED: HOME MED LIST COMPLETE! XX SCH (22:00)
[2021-05-18 22:04] LABS: BLOOD UREA NITROGEN 14 MG/DL (7-18); CALCIUM LEVEL 9.3 MG/DL (8.5-10.1); CARBON DIOXIDE LEVEL 27 MEQ/L (21-32); CHLORIDE LEVEL 107 MEQ/L (98-107); CREATININE FOR GFR 0.82 MG/DL (0.55-1.30); GLOMERULAR FILTRATION RATE > 60.0 (>51); GLUCOSE, FASTING 88 MG/DL (70-100); POTASSIUM SERUM 4.5 MEQ/L (3.5-5.1); SODIUM LEVEL 140 MEQ/L (136-145)
[2021-05-18] MEDS: NS 1,000 ML IV SCH (23:45)
[2021-05-19] MEDS ORDERED: DOCUSATE SODIUM 100MG CAPSULE PO PRN (00:45)
[2021-05-19] MEDS: traMADol 50 MG TAB PO PRN ×3 (01:32→15:30)
[2021-05-19] MEDS: ACETAMINOPHEN TAB 650MG DOSE (2X325MG) PO PRN ×3 (01:33→15:30)
[2021-05-19] MEDS ORDERED: PIPERACILLIN/TAZOBACTAM SOD 2.25 GM in D5W MINI-BAG PLUS 50 ML IV SCH (03:00)
[2021-05-19] MEDS ORDERED: diphenhydrAMINE 50MG/ML VIAL (J1200) As Ordered ONE (03:54)
[2021-05-19] MEDS: HEPARIN SOD (PORCINE) 5000UNITS/ML 1ML VIAL/SYRINGE SC SCH ×3 (03:58→22:39)
[2021-05-19] MEDS ORDERED: PIPERACILLIN/TAZOBACTAM SOD 3.375 GM in D5W MINI-BAG PLUS 50 ML IV SCH (04:00)
[2021-05-19] MEDS ORDERED: diphenhydrAMINE 50MG CAP PO ONE (04:00)
[2021-05-19] MEDS: LEVOTHYROXINE 25MCG TABLET (0.025MG) PO SCH (05:39)
[2021-05-19] MEDS: LORATADINE 10 MG TAB PO SCH (07:42)
[2021-05-19] MEDS: OMEPRAZOLE 20MG CAP PO SCH ×2 (07:43→22:37)
[2021-05-19 09:53] LABS: HEMATOCRIT 43.9 % (36.0-47.0); HEMOGLOBIN 14.2 g/dl (12.0-15.5); MEAN CORPUSCULAR HEMOGLOBIN 29.5 pg (27.0-33.0); MEAN CORPUSCULAR HGB CONC 32.3 g/dl (32.0-36.5); MEAN CORPUSCULAR VOLUME 91.3 fl (80.0-96.0); PLATELET COUNT, AUTOMATED 313 10^3/uL (150-450); RED BLOOD COUNT 4.81 10^6/uL (4.00-5.40); WHITE BLOOD COUNT 4.7 10^3/uL (4.0-10.0)
[2021-05-19] MEDS: MEROPENEM INJ 1 GM in IV 1 EA IV SCH ×2 (10:05→17:45)
[2021-05-19 10:21] LABS: BLOOD UREA NITROGEN 12 MG/DL (7-18); CALCIUM LEVEL 9.1 MG/DL (8.5-10.1); CARBON DIOXIDE LEVEL 28 MEQ/L (21-32); CHLORIDE LEVEL 108 MEQ/L (98-107); CREATININE FOR GFR 0.77 MG/DL (0.55-1.30); GLOMERULAR FILTRATION RATE > 60.0 (>51); GLUCOSE, FASTING 86 MG/DL (70-100); POTASSIUM SERUM 4.4 MEQ/L (3.5-5.1); SODIUM LEVEL 143 MEQ/L (136-145)
[2021-05-19] MEDS: NS 1,000 ML IV SCH (15:30)
[2021-05-19] MEDS: buPROPion (WELLBUTRIN SR) 100 MG SR TAB PO SCH ×2 (15:33→22:37)
[2021-05-19 17:30] VITALS: BP 114/67
[2021-05-19 21:30] VITALS: BP 121/70
[2021-05-19] MEDS: GABAPENTIN 300 MG CAP PO SCH (22:37)
[2021-05-19] MEDS: zolPIDEM TARTRATE 5 MG TAB PO PRN (22:55)
[2021-05-20] MEDS: MEROPENEM INJ 1 GM in IV 1 EA IV SCH ×3 (01:32→16:05)
[2021-05-20] MEDS: traMADol 50 MG TAB PO PRN ×4 (02:37→21:55)
[2021-05-20] MEDS: ACETAMINOPHEN TAB 650MG DOSE (2X325MG) PO PRN ×4 (02:38→21:54)
[2021-05-20] MEDS: LEVOTHYROXINE 25MCG TABLET (0.025MG) PO SCH (05:44)
[2021-05-20] MEDS: HEPARIN SOD (PORCINE) 5000UNITS/ML 1ML VIAL/SYRINGE SC SCH ×3 (05:44→21:55)
[2021-05-20 06:00] VITALS: BP 107/80
[2021-05-20] MEDS: OMEPRAZOLE 20MG CAP PO SCH ×2 (09:10→21:55)
[2021-05-20] MEDS: LORATADINE 10 MG TAB PO SCH (09:11)
[2021-05-20] MEDS: buPROPion (WELLBUTRIN SR) 100 MG SR TAB PO SCH ×2 (09:11→21:54)
[2021-05-20] MEDS ORDERED: ONDANSETRON 4 MG ORAL DISINTEGRATING TAB PO PRN (13:15)
[2021-05-20 14:00] VITALS: BP 124/68
[2021-05-20] MEDS: GABAPENTIN 300 MG CAP PO SCH (21:54)
[2021-05-20] MEDS: zolPIDEM TARTRATE 5 MG TAB PO PRN (21:54)
[2021-05-20 22:00] VITALS: BP 125/69
[2021-05-21] MEDS: ACETAMINOPHEN TAB 650MG DOSE (2X325MG) PO PRN ×2 (01:42→08:32)
[2021-05-21] MEDS: MEROPENEM INJ 1 GM in IV 1 EA IV SCH ×2 (01:43→08:31)
[2021-05-21 06:00] VITALS: BP 102/63
[2021-05-21] MEDS: HEPARIN SOD (PORCINE) 5000UNITS/ML 1ML VIAL/SYRINGE SC SCH ×2 (06:01→13:17)
[2021-05-21] MEDS: LEVOTHYROXINE 25MCG TABLET (0.025MG) PO SCH (06:01)
[2021-05-21] MEDS: traMADol 50 MG TAB PO PRN (06:02)
[2021-05-21 07:13] LABS: HEMATOCRIT 40.1 % (36.0-47.0); HEMOGLOBIN 13.1 g/dl (12.0-15.5); MEAN CORPUSCULAR HEMOGLOBIN 29.6 pg (27.0-33.0); MEAN CORPUSCULAR HGB CONC 32.7 g/dl (32.0-36.5); MEAN CORPUSCULAR VOLUME 90.7 fl (80.0-96.0); PLATELET COUNT, AUTOMATED 293 10^3/uL (150-450); RED BLOOD COUNT 4.42 10^6/uL (4.00-5.40); WHITE BLOOD COUNT 5.3 10^3/uL (4.0-10.0)
[2021-05-21 07:38] LABS: BLOOD UREA NITROGEN 12 MG/DL (7-18); CALCIUM LEVEL 8.4 MG/DL (8.5-10.1); CARBON DIOXIDE LEVEL 28 MEQ/L (21-32); CHLORIDE LEVEL 109 MEQ/L (98-107); CREATININE FOR GFR 0.73 MG/DL (0.55-1.30); GLOMERULAR FILTRATION RATE > 60.0 (>51); GLUCOSE, FASTING 97 MG/DL (70-100); MAGNESIUM LEVEL 1.8 MG/DL (1.8-2.4); SODIUM LEVEL 142 MEQ/L (136-145)
[2021-05-21] MEDS: OMEPRAZOLE 20MG CAP PO SCH (08:31)
[2021-05-21] MEDS: LORATADINE 10 MG TAB PO SCH (08:31)
[2021-05-21] MEDS: buPROPion (WELLBUTRIN SR) 100 MG SR TAB PO SCH (08:32)
[2021-05-21] MEDS ORDERED: diphenhydrAMINE 25MG CAP PO ONE (09:30)
[2021-05-21] MEDS ORDERED: FOSF3PAC2 PO ×3 (11:38→11:59)
[2021-05-21] MEDS ORDERED: FOSFOMYCIN TROMETHAMINE 3 GM POWDER PACKET (MONUROL) PO ONE (14:00)
== END 2021-05-21 15:25 | disposition home or self-care (01) | DRG 463 ==
LOC: M ED 17:24 → M ED INP 23:41 → ENRESERV 05-19 15:50 → M MS5PR 05-19 17:10
PROVIDERS: ADMIT Family Medicine; ATTEND Family Medicine
DX: N39.0 Urinary tract infection, site not specified (principal); Z68.41 Body mass index [BMI] 40.0-44.9, adult; B96.29 Other Escherichia coli [E. coli] as the cause of diseases classified elsewhere; K21.9 Gastro-esophageal reflux disease without esophagitis; F41.9 Anxiety disorder, unspecified; F32.9 Major depressive disorder, single episode, unspecified; E66.9 Obesity, unspecified; E03.9 Hypothyroidism, unspecified; Z79.899 Other long term (current) drug therapy; Z88.8 Allergy status to other drugs, medicaments and biological substances

== ENCOUNTER → 2021-07-26 | Outpatient (REF) | payer OTHER, MEDICAID ==
[~2021-07-26] MED LIST changes: +BUPR1TAB56 PO; +CYAN100050 PO; +D 50CAP3 PO; +DOCU100C16 PO; +FOSF3PAC2 PO; +ONE-1TAB PO
[2021-07-26 17:25] LABS: AMORPHOUS SEDIMENT SMALL (NEGATIVE); APPEARANCE, URINE TURBID (CLEAR); BACTERIA, URINE AUTO NEGATIVE (NEGATIVE); BILIRUBIN, URINE AUTO NEGATIVE (NEGATIVE); BLOOD, URINE BLOOD NEGATIVE (NEGATIVE); CALCIUM OXALATE CRYSTALS SMALL; COLOR, URINE AMBER (YELLOW); GLUCOSE, URINE (UA) AUTO NEGATIVE (NEGATIVE); KETONE, URINE AUTO NEGATIVE (NEGATIVE); LEUKOCYTE ESTERASE, URINE AUTO 2+ (NEGATIVE); MUCUS, URINE LARGE (NEGATIVE); NITRITE, URINE AUTO NEGATIVE (NEGATIVE); PROTEIN, URINE AUTO NEGATIVE (NEGATIVE); RBC, URINE AUTO 0 /HPF (0-3); SPECIFIC GRAVITY URINE AUTO 1.028 (1.002-1.035); SQUAMOUS EPITHELIAL CELL UR AU 5 /HPF (0-6); WBC, URINE AUTO 6 /HPF (0-3)
== END ==
LOC: M SMT 16:54
PROVIDERS: ATTEND Urology
DX: Z00.00 Encounter for general adult medical examination without abnormal findings (principal)

== ENCOUNTER → 2021-10-10 | Outpatient (REF) | payer OTHER, MEDICAID ==
[2021-10-10 14:27] LABS: APPEARANCE, URINE CLEAR (CLEAR); BACTERIA, URINE AUTO NEGATIVE (NEGATIVE); BILIRUBIN, URINE AUTO NEGATIVE (NEGATIVE); BLOOD, URINE BLOOD NEGATIVE (NEGATIVE); COLOR, URINE YELLOW (YELLOW); GLUCOSE, URINE (UA) AUTO NEGATIVE (NEGATIVE); KETONE, URINE AUTO NEGATIVE (NEGATIVE); LEUKOCYTE ESTERASE, URINE AUTO NEGATIVE (NEGATIVE); MUCUS, URINE SMALL (NEGATIVE); NITRITE, URINE AUTO NEGATIVE (NEGATIVE); PROTEIN, URINE AUTO NEGATIVE (NEGATIVE); RBC, URINE AUTO 0 /HPF (0-3); SPECIFIC GRAVITY URINE AUTO 1.009 (1.002-1.035); SQUAMOUS EPITHELIAL CELL UR AU 0 /HPF (0-6); UROBILINOGEN, URINE AUTO 0.2 mg/dL (0.0-2.0); WBC, URINE AUTO 1 /HPF (0-3)
== END ==
LOC: M SMT 13:04
PROVIDERS: ATTEND Urology
DX: N39.41 Urge incontinence (principal)

== ENCOUNTER → 2021-10-31 | Outpatient (REF) | payer OTHER, MEDICAID ==
[~2021-10-31] MED LIST changes: +FISH10005 PO; -FISH7.5C PO
== END ==
LOC: M SFHCADAM 12:30 → M SFHCWAGY 12:30
PROVIDERS: ATTEND Family Medicine
DX: J02.9 Acute pharyngitis, unspecified (principal)

== ENCOUNTER → 2021-12-12 | Outpatient (REF) | payer OTHER ==
[2021-12-12 18:53] LABS: APPEARANCE, URINE MANUAL CLEAR (CLEAR); BILIRUBIN, URINE MANUAL NEGATIVE (NEGATIVE); COLOR, URINE MANUAL YELLOW (YELLOW); GLUCOSE, URINE (UA) MANUAL NEGATIVE (NEGATIVE); KETONE, URINE MANUAL NEGATIVE (NEGATIVE); PROTEIN, URINE MANUAL NEGATIVE (NEGATIVE); SPECIFIC GRAVITY,URINE MANUAL 1.005 (1.002-1.035); UROBILINOGEN, URINE MANUAL NORMAL (NORMAL)
[2021-12-12 18:54] LABS: BLOOD URINE MANUAL NEGATIVE (NEGATIVE); LEUKOCYTE ESTERASE, URINE MAN NEGATIVE (NEGATIVE); NITRITE, URINE MANUAL NEGATIVE (NEGATIVE)
== END ==
LOC: M SMT 17:02
PROVIDERS: ATTEND Urology
DX: Z87.440 Personal history of urinary (tract) infections (principal)

== ENCOUNTER → 2022-02-06 | Outpatient (REF) | payer OTHER ==
[2022-02-06 18:04] LABS: BASO % 0.8 % (0.0-1.0); EOS # 0.1 10^3/uL (0.0-0.5); EOS % 1.1 % (0.0-3.0); HEMATOCRIT 44.7 % (36.0-47.0); HEMOGLOBIN 13.8 g/dl (12.0-15.5); LYMPH # 1.7 10^3/uL (1.5-5.0); LYMPH % 32.8 % (24.0-44.0); MEAN CORPUSCULAR HEMOGLOBIN 28.6 pg (27.0-33.0); MEAN CORPUSCULAR HGB CONC 30.9 g/dl (32.0-36.5); MEAN CORPUSCULAR VOLUME 92.5 fl (80.0-96.0); MONO # 0.4 10^3/uL (0.0-0.8); MONO % 6.8 % (2.0-8.0); NEUTROPHILS # 3.1 10^3/uL (1.5-8.5); NEUTROPHILS % 58.5 % (36.0-66.0); PLATELET COUNT, AUTOMATED 298 10^3/uL (150-450); RED BLOOD COUNT 4.83 10^6/uL (4.00-5.40); WHITE BLOOD COUNT 5.3 10^3/uL (4.0-10.0)
[2022-02-06 19:09] LABS: BLOOD UREA NITROGEN 13 MG/DL (7-18); CALCIUM LEVEL 9.5 MG/DL (8.5-10.1); CARBON DIOXIDE LEVEL 27 MEQ/L (21-32); CHLORIDE LEVEL 107 MEQ/L (98-107); CREATININE FOR GFR 0.64 MG/DL (0.55-1.30); GLOMERULAR FILTRATION RATE > 60.0 (>51); GLUCOSE, FASTING 87 MG/DL (70-100); POTASSIUM SERUM 5.4 MEQ/L (3.5-5.1); SODIUM LEVEL 140 MEQ/L (136-145)
[2022-02-06 19:10] LABS: ALBUMIN 3.4 GM/DL (3.2-5.2); ALT/SGPT 24 U/L (12-78); BILIRUBIN,TOTAL 0.3 MG/DL (0.2-1.0); FREE T4 0.96 NG/DL (0.76-1.46); IRON (FE) 101 UG/DL (50-170); PERCENT SATURATION 32.4 % (13.2-45.0); THYROID STIMULATING HORMONE 0.949 uIU/ML (0.358-3.740); TOTAL IRON BINDING CAPACITY 312 UG/DL (250-450); TOTAL PROTEIN 6.7 GM/DL (6.4-8.2)
[2022-02-06 20:21] LABS: FOLATE 22.6 NG/ML; TOTAL 25(OH) VITAMIN D 39.1 NG/ML (30.0-100.0); VITAMIN B12 LEVEL > 2000 PG/ML
== END ==
LOC: M SFHCCLAY 09:59
PROVIDERS: ATTEND Physician Assistant
DX: Z98.84 Bariatric surgery status (principal); G47.33 Obstructive sleep apnea (adult) (pediatric); M54.50 Low back pain, unspecified; G89.29 Other chronic pain; R51.9 Headache, unspecified

== ENCOUNTER → 2022-03-05 | Outpatient (CLI) | payer OTHER | LOC: M RAD 13:44 | PROVIDERS: ATTEND Otolaryngology | DX: J32.0 Chronic maxillary sinusitis (principal); J31.0 Chronic rhinitis ==

== ENCOUNTER → 2022-03-15 | Outpatient (CLI) | payer OTHER ==
[2022-03-15 19:06] LABS: APPEARANCE, URINE MANUAL CLOUDY (CLEAR); BILIRUBIN, URINE MANUAL NEGATIVE (NEGATIVE); COLOR, URINE MANUAL YELLOW (YELLOW); GLUCOSE, URINE (UA) MANUAL NEGATIVE (NEGATIVE); KETONE, URINE MANUAL NEGATIVE (NEGATIVE); LEUKOCYTE ESTERASE, URINE MAN POSITIVE (NEGATIVE); NITRITE, URINE MANUAL NEGATIVE (NEGATIVE); PROTEIN, URINE MANUAL NEGATIVE (NEGATIVE); UROBILINOGEN, URINE MANUAL NORMAL (NORMAL)
[2022-03-15 19:07] LABS: BLOOD URINE MANUAL NEGATIVE (NEGATIVE)
[2022-03-15 19:31] LABS: RBC, URINE 0-1 /hpf (0-3); SQUAMOUS EPITHELIAL CELL URINE MOD AMOUNT /hpf (SMALL AMT); WBC, URINE 15-20 /hpf (0-3)
[2022-03-15 19:32] LABS: BACTERIA, URINE LARGE AMOUNT; HYALINE CAST, URINE NONE SEEN /lpf (0-1); MUCUS, URINE SMALL AMOUNT (NEGATIVE)
== END ==
LOC: M LAB 18:42
PROVIDERS: ATTEND Urology
DX: N39.0 Urinary tract infection, site not specified (principal)

== ENCOUNTER 2022-04-06 16:24 | Emergency (ER) | payer OTHER, MEDICAID ==
[~2022-04-06] VITALS: Ht 167.6 cm; Wt 115.1 kg
[2022-04-06] MEDS ORDERED: VENL150C43 PO (16:35)
[2022-04-06 22:00] VITALS: BP 137/82
[2022-04-06 22:03] LABS: BASO % 0.7 % (0.0-1.0); EOS # 0.1 10^3/uL (0.0-0.5); EOS % 1.5 % (0.0-3.0); HEMATOCRIT 41.9 % (36.0-47.0); HEMOGLOBIN 13.8 g/dl (12.0-15.5); LYMPH # 2.7 10^3/uL (1.5-5.0); MEAN CORPUSCULAR HEMOGLOBIN 29.5 pg (27.0-33.0); MEAN CORPUSCULAR HGB CONC 32.9 g/dl (32.0-36.5); MEAN CORPUSCULAR VOLUME 89.5 fl (80.0-96.0); MONO # 0.4 10^3/uL (0.0-0.8); MONO % 7.2 % (2.0-8.0); NEUTROPHILS # 2.5 10^3/uL (1.5-8.5); NEUTROPHILS % 43.4 % (36.0-66.0); PLATELET COUNT, AUTOMATED 275 10^3/uL (150-450); RED BLOOD COUNT 4.68 10^6/uL (4.00-5.40); WHITE BLOOD COUNT 5.8 10^3/uL (4.0-10.0)
[2022-04-06 23:00] LABS: BLOOD UREA NITROGEN 18 MG/DL (9-23); CALCIUM LEVEL 8.7 MG/DL (8.5-10.1); CARBON DIOXIDE LEVEL 21 MMOL/L (20-31); CHLORIDE LEVEL 106 MMOL/L (98-107); CREATININE FOR GFR 0.67 MG/DL (0.55-1.30); GLOMERULAR FILTRATION RATE > 60.0 (>51); GLUCOSE, FASTING 85 MG/DL (60-100); POTASSIUM SERUM 4.3 MMOL/L (3.5-5.1); SODIUM LEVEL 140 MMOL/L (136-145)
== END 2022-04-06 23:22 | disposition home or self-care (01) ==
LOC: M ED 19:59
DX: R30.0 Dysuria (principal); E03.9 Hypothyroidism, unspecified; F32.A Depression, unspecified; F41.9 Anxiety disorder, unspecified; Z86.79 Personal history of other diseases of the circulatory system; Z87.891 Personal history of nicotine dependence; Z91.041 Radiographic dye allergy status; Z88.1 Allergy status to other antibiotic agents; Z88.2 Allergy status to sulfonamides; Z88.8 Allergy status to other drugs, medicaments and biological substances; Z79.899 Other long term (current) drug therapy; Z79.83 Long term (current) use of bisphosphonates

== ENCOUNTER → 2022-04-12 | Outpatient (REF) | payer OTHER ==
[~2022-04-12] MED LIST changes: +KETO10TAB PO; +VENL150C43 PO
[2022-04-12 14:43] LABS: APPEARANCE, URINE MANUAL CLEAR (CLEAR); COLOR, URINE MANUAL DK YELLOW (YELLOW)
[2022-04-12 14:44] LABS: SPECIFIC GRAVITY,URINE MANUAL 1.015 (1.002-1.035)
[2022-04-12 14:45] LABS: BILIRUBIN, URINE MANUAL NEGATIVE (NEGATIVE); BLOOD URINE MANUAL NEGATIVE (NEGATIVE); GLUCOSE, URINE (UA) MANUAL NEGATIVE (NEGATIVE); KETONE, URINE MANUAL NEGATIVE (NEGATIVE); LEUKOCYTE ESTERASE, URINE MAN NEGATIVE (NEGATIVE); NITRITE, URINE MANUAL NEGATIVE (NEGATIVE); PROTEIN, URINE MANUAL NEGATIVE (NEGATIVE); UROBILINOGEN, URINE MANUAL NORMAL (NORMAL)
== END ==
LOC: M SMT 12:50
PROVIDERS: ATTEND Urology
DX: Z87.440 Personal history of urinary (tract) infections (principal)

== ENCOUNTER 2022-04-14 11:40 | Emergency (ER) | payer OTHER ==
[~2022-04-14] VITALS: Ht 165.1 cm; Wt 114.5 kg
[~2022-04-14 11:40] MED LIST changes: -KETO10TAB PO
[2022-04-14] MEDS ORDERED: MORPHINE 2 MG/ML 1ML VIAL IV PRN (13:45)
[2022-04-14] MEDS ORDERED: KETOROLAC 30 MG/ML 1ML VIAL IV ONE (14:40)
[2022-04-14] MEDS ORDERED: KETO10TAB PO ×2 (15:57→16:15)
[2022-04-14 16:21] VITALS: BP 120/71
== END 2022-04-14 16:22 | disposition home or self-care (01) ==
LOC: M ED 13:42
DX: S70.00XA Contusion of unspecified hip, initial encounter (principal); W00.0XXA Fall on same level due to ice and snow, initial encounter; I25.2 Old myocardial infarction; K21.9 Gastro-esophageal reflux disease without esophagitis; F32.A Depression, unspecified; G47.33 Obstructive sleep apnea (adult) (pediatric); K76.0 Fatty (change of) liver, not elsewhere classified; Z98.84 Bariatric surgery status; Z88.1 Allergy status to other antibiotic agents; Z88.8 Allergy status to other drugs, medicaments and biological substances; Z91.041 Radiographic dye allergy status; Z79.899 Other long term (current) drug therapy

== ENCOUNTER → 2022-04-18 | Outpatient (CLI) | payer OTHER ==
[~2022-04-18] MED LIST changes: +KETO10TAB PO; +PERC5TAB12 PO
== END ==
LOC: M WHC 09:15
PROVIDERS: ATTEND Physician Assistant
DX: M79.89 Other specified soft tissue disorders (principal)

== ENCOUNTER 2022-04-20 15:36 | Emergency (ER) | payer OTHER ==
[~2022-04-20] VITALS: Ht 165.1 cm; Wt 117.0 kg
[~2022-04-20 15:36] MED LIST changes: -PERC5TAB12 PO
[2022-04-20] MEDS ORDERED: PERC5TAB12 PO (18:02)
[2022-04-20 18:13] VITALS: BP 139/71
== END 2022-04-20 18:34 | disposition home or self-care (01) ==
LOC: M ED 15:36
DX: S80.11XA Contusion of right lower leg, initial encounter (principal); W01.0XXA Fall on same level from slipping, tripping and stumbling without subsequent striking against object, initial encounter; G43.909 Migraine, unspecified, not intractable, without status migrainosus; K76.0 Fatty (change of) liver, not elsewhere classified; K21.9 Gastro-esophageal reflux disease without esophagitis; Z98.84 Bariatric surgery status; Z86.79 Personal history of other diseases of the circulatory system; Z87.891 Personal history of nicotine dependence; Z88.0 Allergy status to penicillin; Z88.1 Allergy status to other antibiotic agents; Z88.8 Allergy status to other drugs, medicaments and biological substances; Z91.041 Radiographic dye allergy status

== ENCOUNTER → 2022-04-23 | Outpatient (CLI) | payer OTHER ==
[~2022-04-23] MED LIST changes: +CYSTO-CONRAY II 17.2% 250ML VIAL As Ordered ONE; +PERC5TAB12 PO
== END ==
LOC: M RADPRO 10:00
PROVIDERS: ATTEND Urology
DX: Z87.440 Personal history of urinary (tract) infections (principal)

== ENCOUNTER → 2022-04-26 | Outpatient (CLI) | payer OTHER ==
[~2022-04-26] MED LIST changes: -CYSTO-CONRAY II 17.2% 250ML VIAL As Ordered ONE
== END ==
LOC: M RAD 07:16
PROVIDERS: ATTEND Nurse Practitioner Family
DX: M47.816 Spondylosis without myelopathy or radiculopathy, lumbar region (principal); M54.16 Radiculopathy, lumbar region

== ENCOUNTER → 2022-07-16 | Outpatient (CLI) | payer OTHER ==
[~2022-07-16] MED LIST changes: +BLAC40CA PO; +CIDA500T2 PO; +NITR-67 PO; +OXYB10TA23 PO; +TIZA10TA PO
[2022-07-16 17:27] LABS: HEMATOCRIT 44.8 % (36.0-47.0); HEMOGLOBIN 14.4 g/dl (12.0-15.5); MEAN CORPUSCULAR HEMOGLOBIN 29.1 pg (27.0-33.0); MEAN CORPUSCULAR HGB CONC 32.1 g/dl (32.0-36.5); MEAN CORPUSCULAR VOLUME 90.5 fl (80.0-96.0); PLATELET COUNT, AUTOMATED 336 10^3/uL (150-450); RED BLOOD COUNT 4.95 10^6/uL (4.00-5.40); WHITE BLOOD COUNT 6.5 10^3/uL (4.0-10.0)
[2022-07-16 17:33] LABS: ALBUMIN 3.4 G/DL (3.2-5.2); ALKALINE PHOSPHATASE 107 U/L (46-116); ALT/SGPT 21 U/L (7.0-40); AST/SGOT 17 U/L (<34); BILIRUBIN,TOTAL 0.3 MG/DL (0.3-1.2); BLOOD UREA NITROGEN 14 MG/DL (9-23); CALCIUM LEVEL 8.7 MG/DL (8.5-10.1); CARBON DIOXIDE LEVEL 29 MMOL/L (20-31); CHLORIDE LEVEL 105 MMOL/L (98-107); CREATININE FOR GFR 0.61 MG/DL (0.55-1.30); GLOMERULAR FILTRATION RATE > 60.0 (>51); GLUCOSE, FASTING 85 MG/DL (60-100); POTASSIUM SERUM 4.2 MMOL/L (3.5-5.1); SODIUM LEVEL 139 MMOL/L (136-145); TOTAL PROTEIN 6.4 G/DL (5.7-8.2)
== END ==
LOC: M RAD 15:34
PROVIDERS: ATTEND Urology
DX: N13.70 Vesicoureteral-reflux, unspecified (principal)

== ENCOUNTER 2022-07-25 10:51 | Day surgery (SDC) | payer OTHER ==
[~2022-07-25] VITALS: Ht 165.1 cm; Wt 116.1 kg
[~2022-07-25 10:51] MED LIST changes: +ceFAZolin SOD 2 GM in IV 1 EA IV ONE
[2022-07-25] MEDS ORDERED: LR 1,000 ML IV SCH (11:15)
[2022-07-25] MEDS ORDERED: LIDOCAINE 2% 100MG/5ML SDV (FOR ANES.) As Ordered ONE (12:12)
[2022-07-25] MEDS ORDERED: fentaNYL 100 MCG/2 ML INJECTION As Ordered ONE (12:12)
[2022-07-25] MEDS ORDERED: ONDANSETRON 4MG 2ML VIAL As Ordered ONE (12:12)
[2022-07-25] MEDS ORDERED: MIDAZOLAM INJ 2MG/2ML VIAL As Ordered ONE (12:12)
[2022-07-25] MEDS ORDERED: KETOROLAC 60MG 2ML VIAL As Ordered ONE (12:12)
[2022-07-25] MEDS ORDERED: propofoL 200 MG/20 ML VIAL As Ordered ONE (12:12)
[2022-07-25] MEDS ORDERED: ACETAMINOPHEN 1000MG 100ML IV BAG As Ordered ONE (12:12)
[2022-07-25 14:24] VITALS: BP 135/80
[2022-07-30] MEDS ORDERED: NITR1CAP11 PO (07:35)
== END 2022-07-25 14:27 | disposition home or self-care (01) ==
LOC: M SDC 10:51
PROVIDERS: ATTEND Urology
DX: N13.70 Vesicoureteral-reflux, unspecified (principal); J45.909 Unspecified asthma, uncomplicated; G43.909 Migraine, unspecified, not intractable, without status migrainosus; G47.33 Obstructive sleep apnea (adult) (pediatric); K21.9 Gastro-esophageal reflux disease without esophagitis; F32.A Depression, unspecified; E03.9 Hypothyroidism, unspecified; Z98.84 Bariatric surgery status; Z88.0 Allergy status to penicillin; Z91.041 Radiographic dye allergy status; Z88.8 Allergy status to other drugs, medicaments and biological substances; Z79.899 Other long term (current) drug therapy
CPT/HCPCS: 52327; J0131; J0690; J1100; J1885; J2250; J2405; J3010

== ENCOUNTER 2022-07-28 05:09 | Emergency (ER) | payer OTHER ==
[~2022-07-28] VITALS: Ht 165.1 cm; Wt 116.5 kg
[~2022-07-28 05:09] MED LIST changes: -ceFAZolin SOD 2 GM in IV 1 EA IV ONE
[2022-07-28 06:04] LABS: BASO # 0.1 10^3/uL (0.0-0.2); BASO % 1.1 % (0.0-1.0); EOS # 0.3 10^3/uL (0.0-0.5); EOS % 3.6 % (0.0-3.0); HEMATOCRIT 44.5 % (36.0-47.0); HEMOGLOBIN 14.3 g/dl (12.0-15.5); LYMPH # 2.2 10^3/uL (1.5-5.0); MEAN CORPUSCULAR HEMOGLOBIN 29.1 pg (27.0-33.0); MEAN CORPUSCULAR HGB CONC 32.1 g/dl (32.0-36.5); MEAN CORPUSCULAR VOLUME 90.6 fl (80.0-96.0); MONO # 0.7 10^3/uL (0.0-0.8); MONO % 8.9 % (2.0-8.0); NEUTROPHILS # 4.3 10^3/uL (1.5-8.5); NEUTROPHILS % 57.1 % (36.0-66.0); PLATELET COUNT, AUTOMATED 320 10^3/uL (150-450); RED BLOOD COUNT 4.91 10^6/uL (4.00-5.40); WHITE BLOOD COUNT 7.6 10^3/uL (4.0-10.0)
[2022-07-28 06:26] LABS: LIPASE 31 U/L (12-53)
[2022-07-28 06:28] LABS: ALBUMIN 3.2 G/DL (3.2-5.2); ALKALINE PHOSPHATASE 104 U/L (46-116); ALT/SGPT 27 U/L (7.0-40); AST/SGOT 31 U/L (<34); BILIRUBIN,DIRECT < 0.1 MG/DL (<0.4); BILIRUBIN,TOTAL 0.2 MG/DL (0.3-1.2); BLOOD UREA NITROGEN 13 MG/DL (9-23); CALCIUM LEVEL 8.6 MG/DL (8.5-10.1); CARBON DIOXIDE LEVEL 30 MMOL/L (20-31); CHLORIDE LEVEL 105 MMOL/L (98-107); CREATININE FOR GFR 0.66 MG/DL (0.55-1.30); GLOMERULAR FILTRATION RATE > 60.0 (>51); GLUCOSE, FASTING 86 MG/DL (60-100); POTASSIUM SERUM 5.1 MMOL/L (3.5-5.1); SODIUM LEVEL 140 MMOL/L (136-145); TOTAL PROTEIN 6.5 G/DL (5.7-8.2)
[2022-07-28] MEDS ORDERED: IBUPROFEN 600MG TAB PO ONE (06:35)
[2022-07-28 10:50] VITALS: BP 128/76
[2022-07-28] MEDS ORDERED: EFFE75CA2 PO (10:54)
[2022-07-28] MEDS ORDERED: BACT800T5 PO (11:00)
[2022-07-28] MEDS ORDERED: HOME MED LIST COMPLETE! XX SCH (11:00)
[2022-07-28] MEDS ORDERED: KETO10TAB PO (11:00)
[2022-07-30] MEDS ORDERED: NITR1CAP11 PO (07:35)
== END 2022-07-28 11:16 | disposition home or self-care (01) ==
LOC: M ED 05:09
DX: N13.30 Unspecified hydronephrosis (principal); R10.9 Unspecified abdominal pain; I25.2 Old myocardial infarction; K76.0 Fatty (change of) liver, not elsewhere classified; G47.33 Obstructive sleep apnea (adult) (pediatric); K21.9 Gastro-esophageal reflux disease without esophagitis; Z86.79 Personal history of other diseases of the circulatory system; Z98.84 Bariatric surgery status; Z88.1 Allergy status to other antibiotic agents; Z88.8 Allergy status to other drugs, medicaments and biological substances; Z91.041 Radiographic dye allergy status; Z79.810 Long term (current) use of selective estrogen receptor modulators (SERMs); Z79.891 Long term (current) use of opiate analgesic; Z79.83 Long term (current) use of bisphosphonates; Z79.899 Other long term (current) drug therapy

== ENCOUNTER 2022-08-08 15:45 | Emergency (ER) | payer MEDICAID, OTHER ==
[~2022-08-08] VITALS: Ht 165.1 cm; Wt 116.6 kg
[~2022-08-08 15:45] MED LIST changes: +BACT800T5 PO; +EFFE75CA2 PO; +NITR1CAP11 PO
[2022-08-08 16:44] LABS: BASO % 0.6 % (0.0-1.0); EOS # 0.1 10^3/uL (0.0-0.5); HEMATOCRIT 42.7 % (36.0-47.0); HEMOGLOBIN 13.9 g/dl (12.0-15.5); LYMPH # 2.4 10^3/uL (1.5-5.0); LYMPH % 36.6 % (24.0-44.0); MEAN CORPUSCULAR HEMOGLOBIN 29.1 pg (27.0-33.0); MEAN CORPUSCULAR HGB CONC 32.6 g/dl (32.0-36.5); MEAN CORPUSCULAR VOLUME 89.5 fl (80.0-96.0); MONO # 0.6 10^3/uL (0.0-0.8); MONO % 8.3 % (2.0-8.0); NEUTROPHILS # 3.5 10^3/uL (1.5-8.5); NEUTROPHILS % 52.2 % (36.0-66.0); PLATELET COUNT, AUTOMATED 348 10^3/uL (150-450); RED BLOOD COUNT 4.77 10^6/uL (4.00-5.40); WHITE BLOOD COUNT 6.6 10^3/uL (4.0-10.0)
[2022-08-08 17:11] LABS: LIPASE 30 U/L (12-53)
[2022-08-08 17:13] LABS: ALBUMIN 3.4 G/DL (3.2-5.2); ALKALINE PHOSPHATASE 105 U/L (46-116); ALT/SGPT 27 U/L (7.0-40); AST/SGOT 20 U/L (<34); BILIRUBIN,DIRECT < 0.1 MG/DL (<0.4); BILIRUBIN,TOTAL 0.2 MG/DL (0.3-1.2); BLOOD UREA NITROGEN 14 MG/DL (9-23); CALCIUM LEVEL 9.1 MG/DL (8.5-10.1); CARBON DIOXIDE LEVEL 28 MMOL/L (20-31); CHLORIDE LEVEL 106 MMOL/L (98-107); CREATININE FOR GFR 0.72 MG/DL (0.55-1.30); GLOMERULAR FILTRATION RATE > 60.0 (>51); GLUCOSE, FASTING 98 MG/DL (60-100); POTASSIUM SERUM 4.2 MMOL/L (3.5-5.1); SODIUM LEVEL 140 MMOL/L (136-145); TOTAL PROTEIN 6.4 G/DL (5.7-8.2)
[2022-08-08] MEDS ORDERED: KETOROLAC 30 MG/ML 1ML VIAL IV ONE (21:05)
[2022-08-08] MEDS ORDERED: ONDANSETRON 4MG 2ML VIAL IV ONE (22:55)
[2022-08-08] MEDS ORDERED: MORPHINE 4 MG/ML 1ML VIAL IV PRN (22:55)
[2022-08-09] MEDS ORDERED: OXYCODONE/APAP 5MG/325MG(HOME DOSE PACK) PO ONE
[2022-08-09] MEDS ORDERED: PERC5TAB12 PO (00:12)
[2022-08-09 00:24] VITALS: BP 134/75
== END 2022-08-09 00:31 | disposition home or self-care (01) ==
LOC: M ED 15:45
DX: R10.9 Unspecified abdominal pain (principal); Z98.84 Bariatric surgery status; Z88.1 Allergy status to other antibiotic agents; Z88.8 Allergy status to other drugs, medicaments and biological substances; Z91.041 Radiographic dye allergy status; Z79.891 Long term (current) use of opiate analgesic; Z79.810 Long term (current) use of selective estrogen receptor modulators (SERMs); Z79.83 Long term (current) use of bisphosphonates; Z79.899 Other long term (current) drug therapy
CPT/HCPCS: 76775; 80048; 80076; 81001; 83690; 85025; 87086; 96374; 96375; 99284; J1885; J2405

== ENCOUNTER → 2022-08-15 | Outpatient (CLI) | payer OTHER ==
[~2022-08-15] MED LIST changes: +OXYB5TAB10 PO; +PYRI1TAB5 PO
[2022-08-15 14:28] LABS: HEMATOCRIT 45.4 % (36.0-47.0); HEMOGLOBIN 14.5 g/dl (12.0-15.5); MEAN CORPUSCULAR HEMOGLOBIN 29.4 pg (27.0-33.0); MEAN CORPUSCULAR HGB CONC 31.9 g/dl (32.0-36.5); MEAN CORPUSCULAR VOLUME 92.1 fl (80.0-96.0); PLATELET COUNT, AUTOMATED 354 10^3/uL (150-450); RED BLOOD COUNT 4.93 10^6/uL (4.00-5.40); WHITE BLOOD COUNT 5.7 10^3/uL (4.0-10.0)
[2022-08-15 14:49] LABS: ALBUMIN 3.5 G/DL (3.2-5.2); ALKALINE PHOSPHATASE 112 U/L (46-116); ALT/SGPT 27 U/L (7.0-40); AST/SGOT 21 U/L (<34); BILIRUBIN,TOTAL 0.2 MG/DL (0.3-1.2); BLOOD UREA NITROGEN 12 MG/DL (9-23); CALCIUM LEVEL 8.9 MG/DL (8.5-10.1); CARBON DIOXIDE LEVEL 29 MMOL/L (20-31); CHLORIDE LEVEL 105 MMOL/L (98-107); CREATININE FOR GFR 0.75 MG/DL (0.55-1.30); GLOMERULAR FILTRATION RATE > 60.0 (>51); GLUCOSE, FASTING 105 MG/DL (60-100); POTASSIUM SERUM 4.3 MMOL/L (3.5-5.1); SODIUM LEVEL 142 MMOL/L (136-145); TOTAL PROTEIN 6.4 G/DL (5.7-8.2)
== END ==
LOC: M LAB 13:04
PROVIDERS: ATTEND Urology
DX: N13.30 Unspecified hydronephrosis (principal)

== ENCOUNTER 2022-08-19 06:53 | Day surgery (SDC) | payer OTHER ==
[~2022-08-19] VITALS: Ht 165.1 cm; Wt 116.6 kg
[~2022-08-19 06:53] MED LIST changes: -OXYB5TAB10 PO; -PYRI1TAB5 PO; +ceFAZolin SOD 2 GM in IV 1 EA IV ONE
[2022-08-19] MEDS ORDERED: ACETAMINOPHEN 1000MG 100ML IV BAG As Ordered ONE (07:53)
[2022-08-19] MEDS ORDERED: fentaNYL 100 MCG/2 ML INJECTION As Ordered ONE (07:53)
[2022-08-19] MEDS ORDERED: MIDAZOLAM INJ 2MG/2ML VIAL As Ordered ONE (07:53)
[2022-08-19] MEDS ORDERED: LIDOCAINE 2% 100MG/5ML SDV (FOR ANES.) As Ordered ONE (07:54)
[2022-08-19] MEDS ORDERED: ISOVUE-300 61% 100ML VIAL As Ordered ONE (08:43)
[2022-08-19] MEDS ORDERED: ONDANSETRON 4MG 2ML VIAL As Ordered ONE (09:09)
[2022-08-19] MEDS ORDERED: OXYB5TAB10 PO (09:19)
[2022-08-19] MEDS ORDERED: PYRI1TAB5 PO (09:19)
[2022-08-19 10:10] VITALS: BP 127/85
== END 2022-08-19 10:12 | disposition home or self-care (01) ==
LOC: M SDC 06:53
PROVIDERS: ATTEND Urology
DX: N13.30 Unspecified hydronephrosis (principal); I25.2 Old myocardial infarction; F41.9 Anxiety disorder, unspecified; F32.A Depression, unspecified; I20.9 Angina pectoris, unspecified; G47.33 Obstructive sleep apnea (adult) (pediatric); E03.9 Hypothyroidism, unspecified; K21.9 Gastro-esophageal reflux disease without esophagitis; Z79.899 Other long term (current) drug therapy; Z85.41 Personal history of malignant neoplasm of cervix uteri; G43.909 Migraine, unspecified, not intractable, without status migrainosus; Z98.84 Bariatric surgery status; Z91.041 Radiographic dye allergy status; Z88.0 Allergy status to penicillin; Z88.1 Allergy status to other antibiotic agents; Z88.8 Allergy status to other drugs, medicaments and biological substances
CPT/HCPCS: 52332; 74420; C1769; C2617; J0131; J0690; J1100; J2250; J2405; J3010

== ENCOUNTER → 2022-10-18 | Outpatient (CLI) | payer OTHER ==
[~2022-10-18] MED LIST changes: +CYAN-1 PO; -CYAN100050 PO; +OXYB5TAB10 PO; +PYRI1TAB5 PO; -ceFAZolin SOD 2 GM in IV 1 EA IV ONE
== END ==
LOC: M RAD 15:18
PROVIDERS: ATTEND Urology
DX: Z96.0 Presence of urogenital implants (principal)

== ENCOUNTER 2023-01-14 09:09 | Outpatient (RCR) | payer OTHER ==
[~2023-01-14 09:09] MED LIST changes: -AMIT25TA17; -AMIT25TA17 PO; +AMIT25TA19; +AMIT25TA19 PO; -CELE1CAP7 PO; +CELE1CAP99 PO; -OXYB5TAB10 PO; +OXYB5TAB11 PO
== END 2023-02-04 ==
LOC: M PT 09:09
PROVIDERS: ATTEND Physician Assistant
DX: M71.21 Synovial cyst of popliteal space [Baker], right knee (principal)

== ENCOUNTER 2023-01-16 15:31 | Emergency (ER) | payer OTHER ==
[~2023-01-16] VITALS: Ht 167.6 cm; Wt 113.6 kg
[2023-01-16 18:53] VITALS: BP 129/61; TEMP 98; O2SAT 99
== END 2023-01-16 18:54 | disposition home or self-care (01) ==
LOC: M ED 15:31
DX: S93.492A Sprain of other ligament of left ankle, initial encounter (principal); W10.8XXA Fall (on) (from) other stairs and steps, initial encounter; K21.9 Gastro-esophageal reflux disease without esophagitis; R51.9 Headache, unspecified; F17.200 Nicotine dependence, unspecified, uncomplicated; Y92.009 Unspecified place in unspecified non-institutional (private) residence as the place of occurrence of the external cause; Y93.89 Activity, other specified; Y99.9 Unspecified external cause status; Z88.8 Allergy status to other drugs, medicaments and biological substances; Z98.84 Bariatric surgery status; Z91.041 Radiographic dye allergy status; Z91.048 Other nonmedicinal substance allergy status; Z79.891 Long term (current) use of opiate analgesic; Z79.811 Long term (current) use of aromatase inhibitors; Z79.810 Long term (current) use of selective estrogen receptor modulators (SERMs); Z79.899 Other long term (current) drug therapy

== ENCOUNTER → 2023-02-05 | Outpatient (CLI) | payer OTHER ==
[2023-02-05 06:52] LABS: HEMATOCRIT 41.8 % (36.0-47.0); HEMOGLOBIN 13.6 g/dl (12.0-15.5); MEAN CORPUSCULAR HEMOGLOBIN 28.8 pg (27.0-33.0); MEAN CORPUSCULAR HGB CONC 32.5 g/dl (32.0-36.5); MEAN CORPUSCULAR VOLUME 88.6 fl (80.0-96.0); PLATELET COUNT, AUTOMATED 328 10^3/uL (150-450); RED BLOOD COUNT 4.72 10^6/uL (4.00-5.40)
[2023-02-05 07:22] LABS: ALBUMIN 3.3 G/DL (3.2-5.2); ALKALINE PHOSPHATASE 112 U/L (46-116); ALT/SGPT 17 U/L (7.0-40); AST/SGOT 17 U/L (<34); BILIRUBIN,TOTAL 0.2 MG/DL (0.3-1.2); BLOOD UREA NITROGEN 13 MG/DL (9-23); CALCIUM LEVEL 8.7 MG/DL (8.5-10.1); CARBON DIOXIDE LEVEL 30 MMOL/L (20-31); CHLORIDE LEVEL 105 MMOL/L (98-107); CHOLESTEROL LEVEL 216 MG/DL (<200); CHOLESTEROL RISK RATIO 2.64 (<5); FERRITIN 13.4 NG/ML (7.3-270.7); FREE T4 1.04 NG/DL (0.89-1.76); GLOMERULAR FILTRATION RATE > 60.0 (>51); GLUCOSE, FASTING 82 MG/DL (60-100); HDL CHOLESTEROL 81.6 MG/DL (>40); LDL CHOLESTEROL 107.2 MG/DL (<100); NON-HDL-C 134.4 MG/DL; POTASSIUM SERUM 4.4 MMOL/L (3.5-5.1); SODIUM LEVEL 140 MMOL/L (136-145); TOTAL 25(OH) VITAMIN D 39.1 NG/ML (20.0-100.0); TOTAL PROTEIN 6.1 G/DL (5.7-8.2); TRIGLYCERIDES LEVEL 136 MG/DL (<150)
[2023-02-05 07:24] LABS: VITAMIN B12 LEVEL > 2000 PG/ML (211-911)
== END ==
LOC: M LAB 06:17
PROVIDERS: ATTEND Family Medicine
DX: E78.2 Mixed hyperlipidemia (principal); E03.9 Hypothyroidism, unspecified; G47.33 Obstructive sleep apnea (adult) (pediatric); Z98.84 Bariatric surgery status; Z13.1 Encounter for screening for diabetes mellitus

== ENCOUNTER 2023-02-18 07:00 | Outpatient (RCR) | payer OTHER | END 2023-03-06 | LOC: M PT 07:00 | PROVIDERS: ATTEND Physician Assistant | DX: M71.21 Synovial cyst of popliteal space [Baker], right knee (principal) ==

== ENCOUNTER → 2023-07-31 | Outpatient (REF) | payer OTHER ==
[~2023-07-31] MED LIST changes: +MULT18TA PO; -ONE-1TAB PO; -OXYB5TAB11 PO; +OXYB5TAB14 PO
[2023-07-31 17:54] LABS: BASO % 0.7 % (0.0-1.0); EOS # 0.1 10^3/uL (0.0-0.5); EOS % 1.8 % (0.0-3.0); HEMATOCRIT 43.7 % (36.0-47.0); LYMPH # 2.1 10^3/uL (1.5-5.0); LYMPH % 33.6 % (24.0-44.0); MEAN CORPUSCULAR HEMOGLOBIN 27.9 pg (27.0-33.0); MEAN CORPUSCULAR VOLUME 87.2 fl (80.0-96.0); MONO # 0.5 10^3/uL (0.0-0.8); NEUTROPHILS # 3.4 10^3/uL (1.5-8.5); NEUTROPHILS % 55.6 % (36.0-66.0); PLATELET COUNT, AUTOMATED 334 10^3/uL (150-450); RED BLOOD COUNT 5.01 10^6/uL (4.00-5.40); WHITE BLOOD COUNT 6.1 10^3/uL (4.0-10.0)
[2023-07-31 18:10] LABS: ALBUMIN 3.3 G/DL (3.2-5.2); ALKALINE PHOSPHATASE 101 U/L (46-116); ALT/SGPT 26 U/L (7.0-40); AST/SGOT 18 U/L (<34); BILIRUBIN,TOTAL 0.2 MG/DL (0.3-1.2); BLOOD UREA NITROGEN 13 MG/DL (9-23); CALCIUM LEVEL 9.1 MG/DL (8.5-10.1); CARBON DIOXIDE LEVEL 28 MMOL/L (20-31); CHLORIDE LEVEL 104 MMOL/L (98-107); CREATININE FOR GFR 0.69 MG/DL (0.55-1.30); GLOMERULAR FILTRATION RATE > 60.0 (>51); GLUCOSE, FASTING 85 MG/DL (60-100); POTASSIUM SERUM 4.9 MMOL/L (3.5-5.1); SODIUM LEVEL 138 MMOL/L (136-145); TOTAL PROTEIN 6.3 G/DL (5.7-8.2)
[2023-07-31 18:13] LABS: APPEARANCE, URINE HAZY (CLEAR); BACTERIA, URINE AUTO NEGATIVE (NEGATIVE); BILIRUBIN, URINE AUTO NEGATIVE (NEGATIVE); BLOOD, URINE BLOOD NEGATIVE (NEGATIVE); COLOR, URINE AMBER (YELLOW); GLUCOSE, URINE (UA) AUTO NEGATIVE (NEGATIVE); KETONE, URINE AUTO NEGATIVE (NEGATIVE); LEUKOCYTE ESTERASE, URINE AUTO TRACE (NEGATIVE); MUCUS, URINE SMALL (NEGATIVE); NITRITE, URINE AUTO NEGATIVE (NEGATIVE); PROTEIN, URINE AUTO NEGATIVE (NEGATIVE); RBC, URINE AUTO 0 /HPF (0-3); SPECIFIC GRAVITY URINE AUTO 1.023 (1.002-1.035); SQUAMOUS EPITHELIAL CELL UR AU 3 /HPF (0-6); WBC, URINE AUTO 2 /HPF (0-3)
== END ==
LOC: M SFHCADAM 11:12
PROVIDERS: ATTEND Physician Assistant
DX: Z01.818 Encounter for other preprocedural examination (principal); Z87.440 Personal history of urinary (tract) infections

== ENCOUNTER → 2023-08-25 | Outpatient (CLI) | payer OTHER ==
[~2023-08-25] MED LIST changes: +BUPR-597; +BUPR-597 PO; -BUPR300T92; -BUPR300T92 PO
== END ==
LOC: M RAD 12:51
PROVIDERS: ATTEND Physician Assistant
DX: M79.662 Pain in left lower leg (principal); M79.89 Other specified soft tissue disorders

== ENCOUNTER → 2023-10-30 | Outpatient (REF) | payer OTHER ==
[~2023-10-30] MED LIST changes: +NITR100C3 PO; -NITR1CAP11 PO; +ONDA-282 PO; -ONDA4TAB6 PO
[2023-10-30 18:44] LABS: BASO % 0.8 % (0.0-1.0); EOS # 0.1 10^3/uL (0.0-0.5); EOS % 1.6 % (0.0-3.0); HEMATOCRIT 40.3 % (36.0-47.0); HEMOGLOBIN 12.1 g/dl (12.0-15.5); LYMPH # 1.8 10^3/uL (1.5-5.0); LYMPH % 35.4 % (24.0-44.0); MEAN CORPUSCULAR HEMOGLOBIN 25.8 pg (27.0-33.0); MEAN CORPUSCULAR VOLUME 85.9 fl (80.0-96.0); MONO # 0.5 10^3/uL (0.0-0.8); MONO % 10.6 % (2.0-8.0); NEUTROPHILS # 2.6 10^3/uL (1.5-8.5); NEUTROPHILS % 51.2 % (36.0-66.0); PLATELET COUNT, AUTOMATED 371 10^3/uL (150-450); RED BLOOD COUNT 4.69 10^6/uL (4.00-5.40); WHITE BLOOD COUNT 5.1 10^3/uL (4.0-10.0)
[2023-10-30 18:50] LABS: ALBUMIN 3.3 G/DL (3.2-5.2); ALKALINE PHOSPHATASE 117 U/L (46-116); ALT/SGPT 21 U/L (7.0-40); AST/SGOT 16 U/L (<34); BILIRUBIN,TOTAL 0.3 MG/DL (0.3-1.2); BLOOD UREA NITROGEN 11 MG/DL (9-23); CALCIUM LEVEL 9.3 MG/DL (8.5-10.1); CARBON DIOXIDE LEVEL 29 MMOL/L (20-31); CHLORIDE LEVEL 109 MMOL/L (98-107); CHOLESTEROL LEVEL 224 MG/DL (<200); CHOLESTEROL RISK RATIO 3.39 (<5); CREATININE FOR GFR 0.66 MG/DL (0.55-1.30); FREE T4 1.02 NG/DL (0.89-1.76); GLOMERULAR FILTRATION RATE > 60.0 (>51); GLUCOSE, FASTING 89 MG/DL (60-100); LDL CHOLESTEROL 123.2 MG/DL (<100); POTASSIUM SERUM 4.7 MMOL/L (3.5-5.1); SODIUM LEVEL 141 MMOL/L (136-145); THYROID STIMULATING HORMONE 1.184 uIU/ML (0.55-4.78); TOTAL PROTEIN 6.3 G/DL (5.7-8.2); TRIGLYCERIDES LEVEL 174 MG/DL (<150)
[2023-10-30 19:16] LABS: HEMOGLOBIN A1c 5.4 % (4.0-6.0)
== END ==
LOC: M SFHCADAM 10:12
PROVIDERS: ATTEND Physician Assistant
DX: Z98.84 Bariatric surgery status (principal); G47.33 Obstructive sleep apnea (adult) (pediatric); E66.01 Morbid (severe) obesity due to excess calories; Z13.1 Encounter for screening for diabetes mellitus; E03.9 Hypothyroidism, unspecified; E78.2 Mixed hyperlipidemia; Z68.42 Body mass index [BMI] 45.0-49.9, adult

== ENCOUNTER → 2023-11-19 | Outpatient (CLI) | payer OTHER | LOC: M RAD 12:22 | PROVIDERS: ATTEND Urology | DX: N13.70 Vesicoureteral-reflux, unspecified (principal) ==

== ENCOUNTER → 2024-01-21 | Outpatient (REF) | payer OTHER ==
[~2024-01-21] MED LIST changes: +GABA-1172 PO; -GABA-282 PO; +MECL-86 PO; -MULT200T7 PO; +MULT200T9 PO; +PHEN-239 PO; -[UNRECOGNIZED DRUG - CODE] PO
[2024-01-21 19:07] LABS: BASO # 0.1 10^3/uL (0.0-0.2); BASO % 0.8 % (0.0-1.0); EOS # 0.2 10^3/uL (0.0-0.5); EOS % 2.3 % (0.0-3.0); HEMATOCRIT 40.7 % (36.0-47.0); HEMOGLOBIN 12.4 g/dl (12.0-15.5); LYMPH # 2.2 10^3/uL (1.5-5.0); LYMPH % 33.1 % (24.0-44.0); MEAN CORPUSCULAR HEMOGLOBIN 25.4 pg (27.0-33.0); MEAN CORPUSCULAR HGB CONC 30.5 g/dl (32.0-36.5); MEAN CORPUSCULAR VOLUME 83.2 fl (80.0-96.0); MONO # 0.7 10^3/uL (0.0-0.8); NEUTROPHILS # 3.6 10^3/uL (1.5-8.5); NEUTROPHILS % 53.5 % (36.0-66.0); PLATELET COUNT, AUTOMATED 420 10^3/uL (150-450); RED BLOOD COUNT 4.89 10^6/uL (4.00-5.40); WHITE BLOOD COUNT 6.6 10^3/uL (4.0-10.0)
[2024-01-21 19:37] LABS: THYROID STIMULATING HORMONE 0.932 uIU/ML (0.55-4.78)
[2024-01-21 19:38] LABS: ALBUMIN 3.2 G/DL (3.2-5.2); ALKALINE PHOSPHATASE 125 U/L (46-116); ALT/SGPT 25 U/L (7.0-40); AST/SGOT 16 U/L (<34); BILIRUBIN,TOTAL 0.2 MG/DL (0.3-1.2); BLOOD UREA NITROGEN 20 MG/DL (9-23); CALCIUM LEVEL 9.2 MG/DL (8.5-10.1); CARBON DIOXIDE LEVEL 28 MMOL/L (20-31); CHLORIDE LEVEL 111 MMOL/L (98-107); CREATININE FOR GFR 0.67 MG/DL (0.55-1.30); FREE T4 1.38 NG/DL (0.89-1.76); GLOMERULAR FILTRATION RATE > 60.0 (>51); GLUCOSE, FASTING 87 MG/DL (60-100); POTASSIUM SERUM 4.8 MMOL/L (3.5-5.1); SODIUM LEVEL 143 MMOL/L (136-145); TOTAL PROTEIN 6.5 G/DL (5.7-8.2)
== END ==
LOC: M SFHCADAM 14:28
PROVIDERS: ATTEND Physician Assistant
DX: R42 Dizziness and giddiness (principal); R82.90 Unspecified abnormal findings in urine

== ENCOUNTER 2024-01-22 10:57 | Emergency (ER) | payer OTHER ==
[~2024-01-22] VITALS: Ht 165.1 cm; Wt 126.0 kg
[~2024-01-22 10:57] MED LIST changes: -MECL-86 PO; -PHEN-239 PO
[2024-01-22] MEDS ORDERED: MECL-86 PO (11:11)
[2024-01-22] MEDS ORDERED: PHEN-239 PO (11:11)
[2024-01-22 12:38] LABS: HEMATOCRIT 39.9 % (36.0-47.0); HEMOGLOBIN 12.3 g/dl (12.0-15.5); MEAN CORPUSCULAR HEMOGLOBIN 25.5 pg (27.0-33.0); MEAN CORPUSCULAR VOLUME 82.8 fl (80.0-96.0); RED BLOOD COUNT 4.82 10^6/uL (4.00-5.40); WHITE BLOOD COUNT 5.8 10^3/uL (4.0-10.0)
[2024-01-22 12:39] LABS: BASO # 0.1 10^3/uL (0.0-0.2); EOS # 0.1 10^3/uL (0.0-0.5); EOS % 1.7 % (0.0-3.0); LYMPH # 2.4 10^3/uL (1.5-5.0); LYMPH % 42.3 % (24.0-44.0); MEAN CORPUSCULAR HGB CONC 30.8 g/dl (32.0-36.5); MONO # 0.4 10^3/uL (0.0-0.8); MONO % 7.1 % (2.0-8.0); NEUTROPHILS # 2.7 10^3/uL (1.5-8.5); NEUTROPHILS % 47.6 % (36.0-66.0); PLATELET COUNT, AUTOMATED 354 10^3/uL (150-450)
[2024-01-22 12:58] LABS: INR 1.02; PARTIAL THROMBOPLASTIN TIME 28.6 SECONDS (24.8-34.2); PROTHROMBIN TIME 13.1 SECONDS (12.5-14.5)
[2024-01-22 13:05] LABS: CK-MB VALUE MASS < 1.0 NG/ML (<3.6)
[2024-01-22 13:06] LABS: ALBUMIN 3.3 G/DL (3.2-5.2); ALKALINE PHOSPHATASE 120 U/L (46-116); ALT/SGPT 27 U/L (7.0-40); AST/SGOT 26 U/L (<34); BILIRUBIN,DIRECT < 0.1 MG/DL (<0.4); BILIRUBIN,TOTAL 0.3 MG/DL (0.3-1.2); BLOOD UREA NITROGEN 15 MG/DL (9-23); CALCIUM LEVEL 9.3 MG/DL (8.5-10.1); CARBON DIOXIDE LEVEL 28 MMOL/L (20-31); CHLORIDE LEVEL 108 MMOL/L (98-107); CREATININE FOR GFR 0.59 MG/DL (0.55-1.30); GLOMERULAR FILTRATION RATE > 60.0 (>51); GLUCOSE, FASTING 90 MG/DL (60-100); POTASSIUM SERUM 4.1 MMOL/L (3.5-5.1); SODIUM LEVEL 142 MMOL/L (136-145); TOTAL PROTEIN 6.7 G/DL (5.7-8.2)
[2024-01-22 13:08] LABS: FREE T4 1.16 NG/DL (0.89-1.76); THYROID STIMULATING HORMONE 1.199 uIU/ML (0.55-4.78)
[2024-01-22 13:15] LABS: CPK CREATINE PHOSPHOKINASE 61 U/L (34-145); MB/CK RELATIVE INDEX 1.63 (< OR =4)
[2024-01-22] MEDS: MECLIZINE 25 MG TABLET PO ONE (14:22)
[2024-01-22] MEDS: KETOROLAC 30 MG/ML 1ML VIAL IV ONE (17:18)
[2024-01-22] MEDS ORDERED: HOME MED LIST COMPLETE! XX SCH (22:25)
[2024-01-22] MEDS: diazePAM 10MG/2ML SYRINGE IV ONE (23:18)
[2024-01-22] MEDS: SCOPOLAMINE 1MG TRANSDERMAL PATCH TOP SCH (23:18)
[2024-01-22] MEDS ORDERED: MECLIZINE 25 MG TABLET PO PRN (23:20)
[2024-01-22] MEDS ORDERED: GABAPENTIN 300 MG CAP PO PRN (23:20)
[2024-01-22] MEDS ORDERED: MIRALAX *UNIT DOSE* 17GM PACKET PO PRN (23:20)
[2024-01-23] MEDS ORDERED: diazePAM 2 MG TAB PO PRN (01:50)
[2024-01-23] MEDS: LEVOTHYROXINE 25MCG TABLET (0.025MG) PO SCH (06:34)
[2024-01-23 06:59] LABS: HEMOGLOBIN 12.1 g/dl (12.0-15.5); MEAN CORPUSCULAR HEMOGLOBIN 25.5 pg (27.0-33.0); MEAN CORPUSCULAR VOLUME 82.1 fl (80.0-96.0); PLATELET COUNT, AUTOMATED 340 10^3/uL (150-450); RED BLOOD COUNT 4.75 10^6/uL (4.00-5.40); WHITE BLOOD COUNT 4.7 10^3/uL (4.0-10.0)
[2024-01-23 07:20] LABS: BLOOD UREA NITROGEN 13 MG/DL (9-23); CARBON DIOXIDE LEVEL 27 MMOL/L (20-31); CHLORIDE LEVEL 110 MMOL/L (98-107); GLOMERULAR FILTRATION RATE > 60.0 (>51); GLUCOSE, FASTING 82 MG/DL (60-100); POTASSIUM SERUM 4.5 MMOL/L (3.5-5.1); SODIUM LEVEL 141 MMOL/L (136-145)
[2024-01-23 07:42] VITALS: BP 128/77; TEMP 96.9; O2SAT 96
[2024-01-23 07:47] LABS: FOLATE > 24.00 NG/ML (>5.4); VITAMIN B12 LEVEL > 2000 PG/ML (211-911)
[2024-01-23] MEDS: LORATADINE 10 MG TAB PO SCH (08:34)
[2024-01-23] MEDS: VENLAFAXINE **XR** 75MG CAPSULE PO SCH (08:34)
[2024-01-23] MEDS: OMEPRAZOLE 20MG CAP PO SCH (08:34)
[2024-01-23] MEDS ORDERED: oxyBUTYnin *DITROPAN XL* 5 MG TABCR PO SCH (09:00)
[2024-01-23] MEDS ORDERED: VENLAFAXINE **XR** 75MG CAPSULE PO SCH (09:00)
[2024-01-23 09:46] VITALS: BP 141/72; TEMP 96.6; O2SAT 97
== END 2024-01-23 10:28 | disposition home or self-care (01) ==
LOC: M ED 10:57
DX: H81.4 Vertigo of central origin (principal); K21.9 Gastro-esophageal reflux disease without esophagitis; G47.30 Sleep apnea, unspecified; F32.A Depression, unspecified; F41.9 Anxiety disorder, unspecified; E03.9 Hypothyroidism, unspecified; J45.909 Unspecified asthma, uncomplicated; K76.0 Fatty (change of) liver, not elsewhere classified; Z98.84 Bariatric surgery status; Z88.1 Allergy status to other antibiotic agents; Z88.8 Allergy status to other drugs, medicaments and biological substances; Z91.041 Radiographic dye allergy status; Z79.83 Long term (current) use of bisphosphonates; Z79.899 Other long term (current) drug therapy
CPT/HCPCS: 70450; 70544; 70547; 70551; 71046; 80048; 80076; 82550; 82553; 82607; 82746; 84439; 84443; 84484; 85025; 85027; 85610; 85730; 86618; 86780; 93005; 93041; 94760; 96374; 96375; 97112; 97161; 99285; J1885; J3360

== ENCOUNTER → 2024-01-29 | Outpatient (REF) | payer OTHER ==
[~2024-01-29] MED LIST changes: +MECL-86 PO; +PHEN-239 PO
[2024-01-29 15:14] LABS: APPEARANCE, URINE HAZY (CLEAR); BACTERIA, URINE AUTO NEGATIVE (NEGATIVE); BILIRUBIN, URINE AUTO NEGATIVE (NEGATIVE); BLOOD, URINE BLOOD NEGATIVE (NEGATIVE); COLOR, URINE AMBER (YELLOW); GLUCOSE, URINE (UA) AUTO NEGATIVE (NEGATIVE); KETONE, URINE AUTO NEGATIVE (NEGATIVE); LEUKOCYTE ESTERASE, URINE AUTO TRACE (NEGATIVE); MUCUS, URINE SMALL (NEGATIVE); NITRITE, URINE AUTO NEGATIVE (NEGATIVE); PROTEIN, URINE AUTO NEGATIVE (NEGATIVE); RBC, URINE AUTO 1 /HPF (0-3); SPECIFIC GRAVITY URINE AUTO 1.018 (1.002-1.035); SQUAMOUS EPITHELIAL CELL UR AU 1 /HPF (0-6); UROBILINOGEN, URINE AUTO 0.2 mg/dL (0.0-2.0); WBC, URINE AUTO 6 /HPF (0-3)
== END ==
LOC: M SMT 14:46
PROVIDERS: ATTEND Urology
DX: N32.81 Overactive bladder (principal)

== ENCOUNTER → 2024-02-13 | Outpatient (REF) | payer OTHER ==
[2024-02-13 14:56] LABS: APPEARANCE, URINE CLOUDY (CLEAR); BACTERIA, URINE AUTO 1+ (NEGATIVE); BILIRUBIN, URINE AUTO NEGATIVE (NEGATIVE); BLOOD, URINE BLOOD NEGATIVE (NEGATIVE); COLOR, URINE AMBER (YELLOW); GLUCOSE, URINE (UA) AUTO NEGATIVE (NEGATIVE); KETONE, URINE AUTO TRACE mg/dL (NEGATIVE); LEUKOCYTE ESTERASE, URINE AUTO 2+ (NEGATIVE); MUCUS, URINE SMALL (NEGATIVE); NITRITE, URINE AUTO POSITIVE (NEGATIVE); PROTEIN, URINE AUTO NEGATIVE (NEGATIVE); RBC, URINE AUTO 3 /HPF (0-3); SPECIFIC GRAVITY URINE AUTO 1.025 (1.002-1.035); SQUAMOUS EPITHELIAL CELL UR AU 1 /HPF (0-6); UROBILINOGEN, URINE AUTO 0.2 mg/dL (0.0-2.0); WBC, URINE AUTO 105 /HPF (0-3)
== END ==
LOC: M SMT 14:30
PROVIDERS: ATTEND Urology
DX: R39.9 Unspecified symptoms and signs involving the genitourinary system (principal)

== ENCOUNTER 2024-03-02 09:40 | Outpatient (RCR) | payer OTHER | END 2024-03-06 | LOC: M PT 09:40 | PROVIDERS: ATTEND Physician Assistant | DX: H81.10 Benign paroxysmal vertigo, unspecified ear (principal) ==

== ENCOUNTER → 2024-03-02 | Outpatient (REF) | payer OTHER ==
[2024-03-02 13:57] LABS: APPEARANCE, URINE HAZY (CLEAR); BACTERIA, URINE AUTO 1+ (NEGATIVE); BILIRUBIN, URINE AUTO NEGATIVE (NEGATIVE); BLOOD, URINE BLOOD NEGATIVE (NEGATIVE); COLOR, URINE YELLOW (YELLOW); GLUCOSE, URINE (UA) AUTO NEGATIVE (NEGATIVE); KETONE, URINE AUTO NEGATIVE (NEGATIVE); LEUKOCYTE ESTERASE, URINE AUTO 1+ (NEGATIVE); MUCUS, URINE SMALL (NEGATIVE); NITRITE, URINE AUTO POSITIVE (NEGATIVE); PROTEIN, URINE AUTO NEGATIVE (NEGATIVE); RBC, URINE AUTO 1 /HPF (0-3); SPECIFIC GRAVITY URINE AUTO 1.011 (1.002-1.035); SQUAMOUS EPITHELIAL CELL UR AU 0 /HPF (0-6); UROBILINOGEN, URINE AUTO 0.2 mg/dL (0.0-2.0); WBC, URINE AUTO 19 /HPF (0-3)
== END ==
LOC: M SMT 12:46
PROVIDERS: ATTEND Urology
DX: Z87.440 Personal history of urinary (tract) infections (principal)

== ENCOUNTER 2024-03-16 09:58 | Outpatient (RCR) | payer OTHER | END 2024-04-06 | LOC: M PT 09:58 | PROVIDERS: ATTEND Physician Assistant | DX: H81.10 Benign paroxysmal vertigo, unspecified ear (principal) ==

== ENCOUNTER → 2024-04-02 | Outpatient (REF) | payer OTHER, MEDICAID ==
[2024-04-02 18:00] LABS: APPEARANCE, URINE CLOUDY (CLEAR); BACTERIA, URINE AUTO 1+ (NEGATIVE); BILIRUBIN, URINE AUTO NEGATIVE (NEGATIVE); BLOOD, URINE BLOOD NEGATIVE (NEGATIVE); COLOR, URINE AMBER (YELLOW); GLUCOSE, URINE (UA) AUTO NEGATIVE (NEGATIVE); KETONE, URINE AUTO TRACE mg/dL (NEGATIVE); LEUKOCYTE ESTERASE, URINE AUTO 1+ (NEGATIVE); MUCUS, URINE SMALL (NEGATIVE); NITRITE, URINE AUTO POSITIVE (NEGATIVE); PROTEIN, URINE AUTO NEGATIVE (NEGATIVE); RBC, URINE AUTO 4 /HPF (0-3); SQUAMOUS EPITHELIAL CELL UR AU 0 /HPF (0-6); UROBILINOGEN, URINE AUTO 0.2 mg/dL (0.0-2.0); WBC, URINE AUTO 16 /HPF (0-3)
== END ==
LOC: M SMT 17:13
PROVIDERS: ATTEND Urology
DX: R39.9 Unspecified symptoms and signs involving the genitourinary system (principal)

== ENCOUNTER 2024-04-08 12:04 | Emergency (ER) | payer OTHER ==
[~2024-04-08] VITALS: Ht 165.1 cm; Wt 127.6 kg
[2024-04-08] MEDS ORDERED: CEFP200T (12:41)
[2024-04-08 13:42] LABS: BASO % 0.5 % (0.0-1.0); EOS # 0.1 10^3/uL (0.0-0.5); EOS % 1.2 % (0.0-3.0); HEMATOCRIT 38.4 % (36.0-47.0); HEMOGLOBIN 12.1 g/dl (12.0-15.5); LYMPH # 2.5 10^3/uL (1.5-5.0); LYMPH % 33.5 % (24.0-44.0); MEAN CORPUSCULAR HEMOGLOBIN 25.4 pg (27.0-33.0); MEAN CORPUSCULAR HGB CONC 31.5 g/dl (32.0-36.5); MEAN CORPUSCULAR VOLUME 80.5 fl (80.0-96.0); MONO # 0.6 10^3/uL (0.0-0.8); MONO % 7.5 % (2.0-8.0); NEUTROPHILS # 4.2 10^3/uL (1.5-8.5); NEUTROPHILS % 57.2 % (36.0-66.0); PLATELET COUNT, AUTOMATED 393 10^3/uL (150-450); RED BLOOD COUNT 4.77 10^6/uL (4.00-5.40); WHITE BLOOD COUNT 7.4 10^3/uL (4.0-10.0)
[2024-04-08 13:46] LABS: KETONE, URINE AUTO RFX NEGATIVE (NEGATIVE); MUCUS, URINE RFX SMALL (NEGATIVE); NITRITE, URINE AUTO RFX NEGATIVE (NEGATIVE); RBC, URINE AUTO RFX 1 /HPF (0-3); SQUAM EPITHELIAL CELL UR AURFX 3 /HPF (0-6)
[2024-04-08 13:52] LABS: LEUKOCYTE ESTERASE UR AUTO RFX 1+ (NEGATIVE); WBC, URINE AUTO RFX 17 /HPF (0-3)
[2024-04-08 13:54] LABS: INR 0.88; PARTIAL THROMBOPLASTIN TIME 27.8 SECONDS (24.8-34.2); PROTHROMBIN TIME 12.2 SECONDS (12.5-14.5)
[2024-04-08 14:11] LABS: LIPASE 33 U/L (12-53)
[2024-04-08 14:12] LABS: AMYLASE 37 U/L (30-118)
[2024-04-08 14:13] LABS: ALBUMIN 3.3 G/DL (3.2-5.2); ALKALINE PHOSPHATASE 131 U/L (35-104); ALT/SGPT 25 U/L (7.0-40); AST/SGOT 23 U/L (<34); BILIRUBIN,DIRECT < 0.1 MG/DL (<0.4); BILIRUBIN,TOTAL 0.2 MG/DL (0.3-1.2); BLOOD UREA NITROGEN 12 MG/DL (9-23); CALCIUM LEVEL 9.2 MG/DL (8.5-10.1); CARBON DIOXIDE LEVEL 27 MMOL/L (20-31); CHLORIDE LEVEL 108 MMOL/L (98-107); CREATININE FOR GFR 0.58 MG/DL (0.55-1.30); GLOMERULAR FILTRATION RATE > 60.0 (>51); GLUCOSE, FASTING 90 MG/DL (60-100); POTASSIUM SERUM 4.2 MMOL/L (3.5-5.1); SODIUM LEVEL 142 MMOL/L (136-145); TOTAL PROTEIN 6.8 G/DL (5.7-8.2)
[2024-04-08] MEDS ORDERED: ISOVUE-370 76% 100ML VIAL As Ordered ONE (18:53)
[2024-04-08] MEDS: diphenhydrAMINE 50MG/ML VIAL IV ONE (19:06)
[2024-04-08] MEDS: methylPREDNISolone 125MG 2ML VIAL IV ONE (19:06)
[2024-04-08] MEDS: SUCRALFATE SUSP 1GM/10ML UD PO ONE (20:26)
[2024-04-08] MEDS: OMEPRAZOLE 20MG CAP PO ONE (20:26)
[2024-04-08] MEDS: FAMOTIDINE 20 MG TAB PO ONE (20:26)
[2024-04-08] MEDS ORDERED: OMEP40CA4 PO (20:39)
[2024-04-08] MEDS ORDERED: CARA1TAB6 PO (20:39)
[2024-04-08 20:47] VITALS: BP 125/61; TEMP 97.4; O2SAT 94
[2024-04-11] MEDS ORDERED: DOXY100T PO (10:56)
[2024-05-08] MEDS ORDERED: PRED20TA PO (09:48)
== END 2024-04-08 20:52 | disposition home or self-care (01) ==
LOC: M ED 12:04
DX: K27.9 Peptic ulcer, site unspecified, unspecified as acute or chronic, without hemorrhage or perforation (principal); K76.0 Fatty (change of) liver, not elsewhere classified; I25.10 Atherosclerotic heart disease of native coronary artery without angina pectoris; I25.2 Old myocardial infarction; Z88.1 Allergy status to other antibiotic agents; Z88.8 Allergy status to other drugs, medicaments and biological substances; Z91.041 Radiographic dye allergy status; Z91.040 Latex allergy status; Z79.899 Other long term (current) drug therapy; Z79.890 Hormone replacement therapy
CPT/HCPCS: 71046; 74177; 80048; 80076; 81001; 82150; 83605; 83690; 85025; 85610; 85730; 87088; 87186; 93005; 96374; 96375; 99284; J1200; J2919; Q9967

== ENCOUNTER 2024-05-07 14:57 | Emergency (ER) | payer MEDICAID, OTHER ==
[~2024-05-07] VITALS: Ht 165.1 cm; Wt 128.9 kg
[~2024-05-07 14:57] MED LIST changes: +CARA1TAB6 PO; +CEFP200T; +DOXY100T PO; +OMEP40CA4 PO
[2024-05-07 15:37] LABS: BASO % 0.2 % (0.0-1.0); EOS % 0.3 % (0.0-3.0); HEMATOCRIT 41.5 % (36.0-47.0); HEMOGLOBIN 12.8 g/dl (12.0-15.5); LYMPH # 1.3 10^3/uL (1.5-5.0); LYMPH % 19.3 % (24.0-44.0); MEAN CORPUSCULAR HEMOGLOBIN 24.6 pg (27.0-33.0); MEAN CORPUSCULAR HGB CONC 30.8 g/dl (32.0-36.5); MEAN CORPUSCULAR VOLUME 79.7 fl (80.0-96.0); MONO # 0.5 10^3/uL (0.0-0.8); MONO % 7.1 % (2.0-8.0); NEUTROPHILS # 4.7 10^3/uL (1.5-8.5); NEUTROPHILS % 72.8 % (36.0-66.0); PLATELET COUNT, AUTOMATED 338 10^3/uL (150-450); RED BLOOD COUNT 5.21 10^6/uL (4.00-5.40); WHITE BLOOD COUNT 6.5 10^3/uL (4.0-10.0)
[2024-05-07 15:52] LABS: INR 0.86; PARTIAL THROMBOPLASTIN TIME 27.1 SECONDS (24.8-34.2)
[2024-05-07 15:59] LABS: CK-MB VALUE MASS < 1.0 NG/ML (<3.6)
[2024-05-07 16:00] LABS: CPK CREATINE PHOSPHOKINASE 68 U/L (34-145); MB/CK RELATIVE INDEX 1.47 (< OR =4)
[2024-05-07 16:01] LABS: BLOOD UREA NITROGEN 13 MG/DL (9-23); CALCIUM LEVEL 8.7 MG/DL (8.5-10.1); CARBON DIOXIDE LEVEL 26 MMOL/L (20-31); CHLORIDE LEVEL 107 MMOL/L (98-107); CREATININE FOR GFR 0.59 MG/DL (0.55-1.30); GLOMERULAR FILTRATION RATE > 60.0 (>51); GLUCOSE, FASTING 103 MG/DL (60-100); SODIUM LEVEL 140 MMOL/L (136-145)
[2024-05-07] MEDS ORDERED: IPRATROPIUM 0.5MG/ALBUTEROL 2.5MG INH SOL UD 3ML (DUONEB) NEB ONE (19:15)
[2024-05-07] MEDS ORDERED: ALBUTEROL 90 MCG/ACT 8GM HFA INHALER INH ONE (19:20)
[2024-05-07 19:21] VITALS: BP 127/72; TEMP 98.2
[2024-05-07] MEDS: dexAMETHasone 20MG/5ML VIAL IV ONE (19:21)
[2024-05-07] MEDS: IPRATROPIUM 0.5MG/ALBUTEROL 2.5MG INH SOL UD 3ML (DUONEB) NEB ONE ×2 (19:59→21:14)
[2024-05-07 20:52] VITALS: O2SAT 94
[2024-05-07 20:57] VITALS: O2SAT 95
[2024-05-07] MEDS: ACETAMINOPHEN 325 MG TAB PO ONE (21:15)
[2024-05-07] MEDS ORDERED: VENTAER INH (22:13)
[2024-05-07] MEDS: ALBUTEROL 90 MCG/ACT 8GM HFA INHALER INH ONE (22:19)
[2024-05-08] MEDS ORDERED: PRED20TA PO (09:48)
== END 2024-05-07 22:24 | disposition home or self-care (01) ==
LOC: M ED 14:57
DX: J09.X2 Influenza due to identified novel influenza A virus with other respiratory manifestations (principal); U07.1 COVID-19; I25.2 Old myocardial infarction; J45.909 Unspecified asthma, uncomplicated; Z98.84 Bariatric surgery status; Z88.8 Allergy status to other drugs, medicaments and biological substances; Z91.041 Radiographic dye allergy status; Z91.048 Other nonmedicinal substance allergy status; Z79.52 Long term (current) use of systemic steroids; Z79.83 Long term (current) use of bisphosphonates; Z79.899 Other long term (current) drug therapy
CPT/HCPCS: 71101; 71250; 80048; 82550; 82553; 83880; 84484; 85025; 85610; 85730; 87486; 87581; 87633; 87798; 93005; 94640; 94760; 96374; 99284; J1100

== ENCOUNTER 2024-05-10 10:32 | Emergency (ER) | payer OTHER ==
[~2024-05-10] VITALS: Ht 165.1 cm; Wt 129.6 kg
[~2024-05-10 10:32] MED LIST changes: +VENTAER INH
[2024-05-10 13:26] LABS: BASO % 0.1 % (0.0-1.0); HEMATOCRIT 38.7 % (36.0-47.0); HEMOGLOBIN 11.7 g/dl (12.0-15.5); LYMPH # 0.9 10^3/uL (1.5-5.0); LYMPH % 10.1 % (24.0-44.0); MEAN CORPUSCULAR HEMOGLOBIN 24.3 pg (27.0-33.0); MEAN CORPUSCULAR HGB CONC 30.2 g/dl (32.0-36.5); MEAN CORPUSCULAR VOLUME 80.5 fl (80.0-96.0); MONO # 0.5 10^3/uL (0.0-0.8); MONO % 5.3 % (2.0-8.0); NEUTROPHILS # 7.7 10^3/uL (1.5-8.5); NEUTROPHILS % 83.7 % (36.0-66.0); PLATELET COUNT, AUTOMATED 339 10^3/uL (150-450); RED BLOOD COUNT 4.81 10^6/uL (4.00-5.40); WHITE BLOOD COUNT 9.2 10^3/uL (4.0-10.0)
[2024-05-10 13:34] LABS: CPK CREATINE PHOSPHOKINASE 46 U/L (34-145)
[2024-05-10 13:40] LABS: ALBUMIN 2.9 G/DL (3.2-5.2); ALKALINE PHOSPHATASE 108 U/L (35-104); ALT/SGPT 22 U/L (7.0-40); AST/SGOT 15 U/L (<34); BILIRUBIN,DIRECT < 0.1 MG/DL (<0.4); BILIRUBIN,TOTAL 0.3 MG/DL (0.3-1.2); BLOOD UREA NITROGEN 23 MG/DL (9-23); CALCIUM LEVEL 8.2 MG/DL (8.5-10.1); CARBON DIOXIDE LEVEL 25 MMOL/L (20-31); CHLORIDE LEVEL 107 MMOL/L (98-107); CK-MB VALUE MASS < 1.0 NG/ML (<3.6); FREE T4 1.28 NG/DL (0.89-1.76); GLOMERULAR FILTRATION RATE > 60.0 (>51); GLUCOSE, FASTING 92 MG/DL (60-100); MAGNESIUM LEVEL 1.7 MG/DL (1.8-2.4); MB/CK RELATIVE INDEX 2.17 (< OR =4); POTASSIUM SERUM 3.5 MMOL/L (3.5-5.1); SODIUM LEVEL 142 MMOL/L (136-145); THYROID STIMULATING HORMONE 3.362 uIU/ML (0.55-4.78); TOTAL PROTEIN 6.3 G/DL (5.7-8.2)
[2024-05-10] MEDS: MAGNESIUM OXIDE 400MG TAB (MAG-OX) PO ONE (13:54)
[2024-05-10] MEDS: ACETAMINOPHEN 325 MG TAB PO ONE (13:55)
[2024-05-10 14:24] LABS: CK-MB VALUE MASS < 1.0 NG/ML (<3.6)
[2024-05-10 14:25] LABS: CPK CREATINE PHOSPHOKINASE 39 U/L (34-145); MB/CK RELATIVE INDEX 2.56 (< OR =4)
[2024-05-10 15:00] LABS: KETONE, URINE AUTO RFX NEGATIVE (NEGATIVE); LEUKOCYTE ESTERASE UR AUTO RFX 2+ (NEGATIVE); MUCUS, URINE RFX SMALL (NEGATIVE); NITRITE, URINE AUTO RFX POSITIVE (NEGATIVE); RBC, URINE AUTO RFX 1 /HPF (0-3); SQUAM EPITHELIAL CELL UR AURFX 3 /HPF (0-6); WBC, URINE AUTO RFX 18 /HPF (0-3)
[2024-05-10 15:52] VITALS: O2SAT 97
[2024-05-10] MEDS: cefTRIAXone SOD 1 GM in DEXTROSE 5% (D5W) ADV/MINI-BAG 50 ML IV ONE (17:08)
[2024-05-10] MEDS: methylPREDNISolone 125MG 2ML VIAL IV ONE (18:13)
[2024-05-10] MEDS: diphenhydrAMINE 50MG/ML VIAL IV STA (18:13)
[2024-05-10] MEDS ORDERED: ISOVUE-370 76% 100ML VIAL As Ordered ONE (18:25)
[2024-05-10] MEDS ORDERED: OSEL75CA PO (19:43)
[2024-05-10] MEDS ORDERED: CEFD1CAP9 PO (19:44)
[2024-05-10 19:46] VITALS: BP 137/89; TEMP 98.9; O2SAT 95
[2024-05-10] MEDS: OSELTAMIVIR PHOSPHATE 75 MG CAP PO ONE (19:50)
== END 2024-05-10 19:59 | disposition home or self-care (01) ==
LOC: EDBD 10:32 → M ED 10:32
DX: U07.1 COVID-19 (principal); J09.X2 Influenza due to identified novel influenza A virus with other respiratory manifestations; N39.0 Urinary tract infection, site not specified; R55 Syncope and collapse; F32.A Depression, unspecified; G47.33 Obstructive sleep apnea (adult) (pediatric); K21.9 Gastro-esophageal reflux disease without esophagitis; E66.9 Obesity, unspecified; F41.9 Anxiety disorder, unspecified; M51.360 Other intervertebral disc degeneration, lumbar region with discogenic back pain only; Z87.891 Personal history of nicotine dependence; Z88.8 Allergy status to other drugs, medicaments and biological substances; Z91.041 Radiographic dye allergy status; Z79.52 Long term (current) use of systemic steroids; Z79.2 Long term (current) use of antibiotics; Z79.83 Long term (current) use of bisphosphonates; Z79.899 Other long term (current) drug therapy
CPT/HCPCS: 70450; 71046; 71275; 80048; 80076; 81001; 82550; 82553; 83735; 84439; 84443; 84484; 85025; 85379; 87088; 93005; 93041; 94760; 96365; 96366; 96375; 99285; J0696; J1200; J2919; Q9967

== ENCOUNTER → 2024-06-04 | Outpatient (REF) | payer OTHER, MEDICAID ==
[~2024-06-04] MED LIST changes: +CEFD1CAP9 PO; +OSEL75CA PO
[2024-06-04 14:24] LABS: APPEARANCE, URINE HAZY (CLEAR); BACTERIA, URINE AUTO 1+ (NEGATIVE); BILIRUBIN, URINE AUTO NEGATIVE (NEGATIVE); BLOOD, URINE BLOOD NEGATIVE (NEGATIVE); COLOR, URINE AMBER (YELLOW); GLUCOSE, URINE (UA) AUTO NEGATIVE (NEGATIVE); KETONE, URINE AUTO NEGATIVE (NEGATIVE); LEUKOCYTE ESTERASE, URINE AUTO TRACE (NEGATIVE); MUCUS, URINE SMALL (NEGATIVE); NITRITE, URINE AUTO POSITIVE (NEGATIVE); PROTEIN, URINE AUTO NEGATIVE (NEGATIVE); RBC, URINE AUTO 0 /HPF (0-3); SPECIFIC GRAVITY URINE AUTO 1.021 (1.002-1.035); SQUAMOUS EPITHELIAL CELL UR AU 1 /HPF (0-6); WBC, URINE AUTO 9 /HPF (0-3)
== END ==
LOC: M SMT 13:19
PROVIDERS: ATTEND Urology
DX: N39.0 Urinary tract infection, site not specified (principal)

== ENCOUNTER 2024-06-22 17:35 | Emergency (ER) | payer MEDICAID, OTHER ==
[~2024-06-22] VITALS: Ht 165.1 cm; Wt 130.4 kg
[~2024-06-22 17:35] MED LIST changes: -AMBI10TA PO; -BUPR-597; -BUPR-597 PO; +BUPR-766; +BUPR-766 PO; -BUPR1TAB56 PO; +BUPR200T45 PO; -PHEN-239 PO; +PHEN37.511 PO; -SUCR1ORA2; +SUCR1ORA20; +ZOLP-533 PO
[2024-06-22 18:42] LABS: BASO % 0.1 % (0.0-1.0); EOS % 0.2 % (0.0-3.0); HEMATOCRIT 37.3 % (36.0-47.0); HEMOGLOBIN 11.6 g/dl (12.0-15.5); LYMPH # 0.6 10^3/uL (1.5-5.0); LYMPH % 6.5 % (24.0-44.0); MEAN CORPUSCULAR HEMOGLOBIN 24.5 pg (27.0-33.0); MEAN CORPUSCULAR HGB CONC 31.1 g/dl (32.0-36.5); MEAN CORPUSCULAR VOLUME 78.7 fl (80.0-96.0); MONO # 0.3 10^3/uL (0.0-0.8); MONO % 3.7 % (2.0-8.0); NEUTROPHILS # 8.1 10^3/uL (1.5-8.5); NEUTROPHILS % 89.2 % (36.0-66.0); PLATELET COUNT, AUTOMATED 328 10^3/uL (150-450); RED BLOOD COUNT 4.74 10^6/uL (4.00-5.40)
[2024-06-22] MEDS: ONDANSETRON 4MG 2ML VIAL IV ONE (18:46)
[2024-06-22] MEDS: NS (Normal Saline) 0.9% 1,000 ML IV ONE (18:46)
[2024-06-22 19:14] LABS: LIPASE 24 U/L (12-53)
[2024-06-22 19:16] LABS: ALBUMIN 3.1 G/DL (3.2-5.2); ALKALINE PHOSPHATASE 114 U/L (35-104); ALT/SGPT 23 U/L (7.0-40); AST/SGOT 19 U/L (<34); BILIRUBIN,DIRECT 0.1 MG/DL (<0.4); BILIRUBIN,TOTAL 0.4 MG/DL (0.3-1.2); BLOOD UREA NITROGEN 15 MG/DL (9-23); CALCIUM LEVEL 8.5 MG/DL (8.5-10.1); CARBON DIOXIDE LEVEL 25 MMOL/L (20-31); CHLORIDE LEVEL 104 MMOL/L (98-107); CREATININE FOR GFR 0.65 MG/DL (0.55-1.30); GLOMERULAR FILTRATION RATE > 60.0 (>51); GLUCOSE, FASTING 96 MG/DL (60-100); POTASSIUM SERUM 4.2 MMOL/L (3.5-5.1); SODIUM LEVEL 140 MMOL/L (136-145); TOTAL PROTEIN 6.4 G/DL (5.7-8.2)
[2024-06-23 00:30] VITALS: BP 118/70; TEMP 98; O2SAT 94
== END 2024-06-23 01:23 | disposition home or self-care (01) ==
LOC: M ED 17:35
DX: B34.2 Coronavirus infection, unspecified (principal); E86.0 Dehydration; J98.11 Atelectasis; R00.0 Tachycardia, unspecified; E03.9 Hypothyroidism, unspecified; G47.33 Obstructive sleep apnea (adult) (pediatric); Z86.79 Personal history of other diseases of the circulatory system; Z88.1 Allergy status to other antibiotic agents; Z88.8 Allergy status to other drugs, medicaments and biological substances; Z91.041 Radiographic dye allergy status; Z91.048 Other nonmedicinal substance allergy status; Z79.52 Long term (current) use of systemic steroids; Z79.83 Long term (current) use of bisphosphonates; Z79.899 Other long term (current) drug therapy
CPT/HCPCS: 74176; 80048; 80076; 83605; 83690; 85025; 87040; 87486; 87581; 87633; 87798; 90834; 93005; 96374; 99284; J2405

== ENCOUNTER → 2024-07-16 | Outpatient (REF) | payer OTHER ==
[~2024-07-16] MED LIST changes: +AMBI10TA PO; +BUPR-597; +BUPR-597 PO; -BUPR-766; -BUPR-766 PO; +BUPR1TAB56 PO; -BUPR200T45 PO; +PHEN-239 PO; -PHEN37.511 PO; +SUCR1ORA2; -SUCR1ORA20; -ZOLP-533 PO
[2024-07-16 17:09] LABS: APPEARANCE, URINE HAZY (CLEAR); BACTERIA, URINE AUTO 1+ (NEGATIVE); BILIRUBIN, URINE AUTO NEGATIVE (NEGATIVE); BLOOD, URINE BLOOD NEGATIVE (NEGATIVE); CALCIUM OXALATE CRYSTALS SMALL; COLOR, URINE AMBER (YELLOW); GLUCOSE, URINE (UA) AUTO NEGATIVE (NEGATIVE); KETONE, URINE AUTO TRACE mg/dL (NEGATIVE); LEUKOCYTE ESTERASE, URINE AUTO 2+ (NEGATIVE); MUCUS, URINE SMALL (NEGATIVE); NITRITE, URINE AUTO POSITIVE (NEGATIVE); PROTEIN, URINE AUTO NEGATIVE (NEGATIVE); RBC, URINE AUTO 2 /HPF (0-3); SPECIFIC GRAVITY URINE AUTO 1.025 (1.002-1.035); SQUAMOUS EPITHELIAL CELL UR AU 4 /HPF (0-6); TRANSITIONAL EPITHELIAL AUTO <1 /HPF; UROBILINOGEN, URINE AUTO 0.2 mg/dL (0.0-2.0); WBC, URINE AUTO 11 /HPF (0-3)
== END ==
LOC: M SFHCCLAY 10:33
PROVIDERS: ATTEND Urology
DX: R39.9 Unspecified symptoms and signs involving the genitourinary system (principal)

== ENCOUNTER → 2024-08-05 | Outpatient (CLI) | payer OTHER ==
[~2024-08-05] MED LIST changes: -AMBI10TA PO; -BUPR-597; -BUPR-597 PO; +BUPR-766; +BUPR-766 PO; -BUPR1TAB56 PO; +BUPR200T45 PO; -PHEN-239 PO; +PHEN37.511 PO; -SUCR1ORA2; +SUCR1ORA20; +ZOLP-533 PO
[2024-08-05 13:21] LABS: BASO # 0.1 10^3/uL (0.0-0.2); BASO % 0.8 % (0.0-1.0); EOS # 0.1 10^3/uL (0.0-0.5); EOS % 1.5 % (0.0-3.0); HEMOGLOBIN 11.5 g/dl (12.0-15.5); LYMPH # 2.3 10^3/uL (1.5-5.0); LYMPH % 37.7 % (24.0-44.0); MEAN CORPUSCULAR HEMOGLOBIN 23.7 pg (27.0-33.0); MEAN CORPUSCULAR HGB CONC 29.5 g/dl (32.0-36.5); MEAN CORPUSCULAR VOLUME 80.2 fl (80.0-96.0); MONO # 0.6 10^3/uL (0.0-0.8); MONO % 9.1 % (2.0-8.0); NEUTROPHILS % 50.6 % (36.0-66.0); PLATELET COUNT, AUTOMATED 407 10^3/uL (150-450); RED BLOOD COUNT 4.86 10^6/uL (4.00-5.40)
[2024-08-05 13:25] LABS: ALBUMIN 3.2 G/DL (3.2-5.2); ALKALINE PHOSPHATASE 127 U/L (35-104); ALT/SGPT 22 U/L (7.0-40); AST/SGOT 22 U/L (<34); BILIRUBIN,TOTAL 0.2 MG/DL (0.3-1.2); BLOOD UREA NITROGEN 14 MG/DL (9-23); C REACTIVE PROTEIN QUANTITATIV < 0.50 MG/DL (<1.0); CALCIUM LEVEL 8.9 MG/DL (8.5-10.1); CARBON DIOXIDE LEVEL 28 MMOL/L (20-31); CHLORIDE LEVEL 107 MMOL/L (98-107); CREATININE FOR GFR 0.65 MG/DL (0.55-1.30); GLOMERULAR FILTRATION RATE > 90.0 (>51); GLUCOSE, FASTING 93 MG/DL (60-100); IMMUNOGLOBULIN G 879 MG/DL (650-1600); IMMUNOGLOBULIN M 62.9 MG/DL (50-300); POTASSIUM SERUM 4.8 MMOL/L (3.5-5.1); SODIUM LEVEL 143 MMOL/L (136-145); TOTAL PROTEIN 6.4 G/DL (5.7-8.2)
[2024-08-05 13:26] LABS: ERYTHROCYTE SEDIMENTATION RATE 25 mm/hr (0-30)
[2024-08-05 13:30] LABS: APPEARANCE, URINE HAZY (CLEAR); BACTERIA, URINE AUTO NEGATIVE (NEGATIVE); BILIRUBIN, URINE AUTO NEGATIVE (NEGATIVE); BLOOD, URINE BLOOD NEGATIVE (NEGATIVE); COLOR, URINE YELLOW (YELLOW); GLUCOSE, URINE (UA) AUTO NEGATIVE (NEGATIVE); IMMUNOGLOBULIN E 5.1 IU/ML (0-378); KETONE, URINE AUTO NEGATIVE (NEGATIVE); LEUKOCYTE ESTERASE, URINE AUTO TRACE (NEGATIVE); MUCUS, URINE SMALL (NEGATIVE); NITRITE, URINE AUTO NEGATIVE (NEGATIVE); PROTEIN, URINE AUTO NEGATIVE (NEGATIVE); RBC, URINE AUTO 1 /HPF (0-3); SPECIFIC GRAVITY URINE AUTO 1.023 (1.002-1.035); SQUAMOUS EPITHELIAL CELL UR AU 1 /HPF (0-6); WBC, URINE AUTO 3 /HPF (0-3)
== END ==
LOC: M PLALAB 09:54
PROVIDERS: ATTEND Internal Medicine Infectious Disease
DX: N39.0 Urinary tract infection, site not specified (principal); Z86.19 Personal history of other infectious and parasitic diseases

== ENCOUNTER → 2024-08-11 | Outpatient (CLI) | payer OTHER ==
[~2024-08-11] MED LIST changes: +ISOVUE-370 76% 100ML VIAL As Ordered ONE
== END ==
LOC: M RAD 15:37
PROVIDERS: ATTEND Urology
DX: N39.0 Urinary tract infection, site not specified (principal); Z98.84 Bariatric surgery status; K57.30 Diverticulosis of large intestine without perforation or abscess without bleeding
CPT/HCPCS: 74177; Q9967

== ENCOUNTER → 2024-11-23 | Outpatient (CLI) | payer OTHER ==
[~2024-11-23] MED LIST changes: -ISOVUE-370 76% 100ML VIAL As Ordered ONE
== END ==
LOC: M WHC 07:38
PROVIDERS: ATTEND Physician Assistant
DX: Z12.31 Encounter for screening mammogram for malignant neoplasm of breast (principal); N63.41 Unspecified lump in right breast, subareolar

== ENCOUNTER → 2024-11-25 | Outpatient (CLI) | payer OTHER | LOC: M WHC 10:00 | PROVIDERS: ATTEND Physician Assistant | DX: R92.8 Other abnormal and inconclusive findings on diagnostic imaging of breast (principal); N63.41 Unspecified lump in right breast, subareolar ==

== ENCOUNTER → 2024-12-09 | Outpatient (REF) | payer OTHER ==
[2024-12-09 12:17] LABS: APPEARANCE, URINE CLEAR (CLEAR); BACTERIA, URINE AUTO 1+ (NEGATIVE); BILIRUBIN, URINE AUTO NEGATIVE (NEGATIVE); BLOOD, URINE BLOOD NEGATIVE (NEGATIVE); GLUCOSE, URINE (UA) AUTO NEGATIVE (NEGATIVE); KETONE, URINE AUTO NEGATIVE (NEGATIVE); LEUKOCYTE ESTERASE, URINE AUTO 2+ (NEGATIVE); NITRITE, URINE AUTO NEGATIVE (NEGATIVE); PROTEIN, URINE AUTO NEGATIVE (NEGATIVE); RBC, URINE AUTO 0 /HPF (0-3); SPECIFIC GRAVITY URINE AUTO 1.003 (1.002-1.035); SQUAMOUS EPITHELIAL CELL UR AU 0 /HPF (0-6); UROBILINOGEN, URINE AUTO 0.2 mg/dL (0.0-2.0); WBC, URINE AUTO 10 /HPF (0-3)
== END ==
LOC: M SFHCPLAZ 11:49
PROVIDERS: ATTEND Internal Medicine Infectious Disease
DX: N39.0 Urinary tract infection, site not specified (principal)

== ENCOUNTER 2025-01-01 00:15 | Emergency (ER) | payer OTHER, MEDICAID ==
[~2025-01-01] VITALS: Ht 162.6 cm; Wt 126.0 kg
[~2025-01-01 00:15] MED LIST changes: -DIPH50CA PO; +DIPH50CA31 PO
[2025-01-01 01:16] LABS: BASO # 0.0 10^3/uL (0.0-0.2); BASO % 0.1 % (0.0-1.0); EOS # 0.0 10^3/uL (0.0-0.5); EOS % 0.0 % (0.0-3.0); LYMPH # 1.5 10^3/uL (1.5-5.0); LYMPH % 14.6 % (24.0-44.0); MONO # 0.5 10^3/uL (0.0-0.8); MONO % 5.0 % (2.0-8.0); NEUTROPHILS # 8.1 10^3/uL (1.5-8.5); NEUTROPHILS % 79.9 % (36.0-66.0); PLATELET COUNT, AUTOMATED 459 10^3/uL (150-450)
[2025-01-01 01:38] LABS: ALT/SGPT 18 U/L (7.0-40); AST/SGOT 16 U/L (<34); CALCIUM LEVEL 9.2 MG/DL (8.5-10.1); CARBON DIOXIDE LEVEL 25 MMOL/L (20-31); CHLORIDE LEVEL 106 MMOL/L (98-107); CK-MB VALUE MASS 1.0 NG/ML (<3.6); CPK CREATINE PHOSPHOKINASE 38 U/L (34-145); CREATININE FOR GFR 0.69 MG/DL (0.55-1.30); GLOMERULAR FILTRATION RATE > 90.0 (>51); MB/CK RELATIVE INDEX 2.63 (< OR =4); POTASSIUM SERUM 4.3 MMOL/L (3.5-5.1); SODIUM LEVEL 141 MMOL/L (136-145)
[2025-01-01] MEDS: MORPHINE 4 MG/ML 1 ML VIAL IV ONE (02:48)
[2025-01-01] MEDS: diphenhydrAMINE 50 MG/ML VIAL IV ONE (02:49)
[2025-01-01] MEDS: ONDANSETRON 4MG 2ML VIAL IV ONE (02:50)
[2025-01-01] MEDS ORDERED: NS (Normal Saline) 0.9% 1,000 ML IV SCH (03:25)
[2025-01-01] MEDS: GASTROGRAFIN SOLUTION 30ML PO SCH (04:16)
[2025-01-01] MEDS ORDERED: ISOVUE-370 76% 100 ML VIAL As Ordered ONE (05:02)
[2025-01-01 06:00] VITALS: O2SAT 95
[2025-01-01] MEDS: ACETAMINOPHEN 325 MG TAB PO ONE (08:34)
[2025-01-01] MEDS ORDERED: SUCR1SS PO (08:53)
[2025-01-01] MEDS ORDERED: OMEP40CA4 PO (08:53)
[2025-01-01 09:00] VITALS: BP 151/86; TEMP 97.1
== END 2025-01-01 09:17 | disposition home or self-care (01) ==
LOC: M ED 00:15
DX: R10.13 Epigastric pain (principal); K57.30 Diverticulosis of large intestine without perforation or abscess without bleeding; K42.9 Umbilical hernia without obstruction or gangrene; K59.00 Constipation, unspecified; K21.9 Gastro-esophageal reflux disease without esophagitis; K27.9 Peptic ulcer, site unspecified, unspecified as acute or chronic, without hemorrhage or perforation; Z86.79 Personal history of other diseases of the circulatory system; Z98.84 Bariatric surgery status; Z87.891 Personal history of nicotine dependence; Z91.041 Radiographic dye allergy status; Z91.048 Other nonmedicinal substance allergy status; Z88.1 Allergy status to other antibiotic agents; Z88.8 Allergy status to other drugs, medicaments and biological substances; Z79.899 Other long term (current) drug therapy
CPT/HCPCS: 74021; 74177; 80053; 82150; 82248; 82550; 82553; 83690; 84484; 85025; 93005; 93041; 96374; 96375; 99285; J1200; J2405; J2919; Q9963; Q9967

== ENCOUNTER → 2025-01-12 | Outpatient (REF) | payer OTHER ==
[~2025-01-12] MED LIST changes: +SUCR1SS PO; +SUCR1TAB56 PO
[2025-01-12 12:44] LABS: APPEARANCE, URINE HAZY (CLEAR); BACTERIA, URINE AUTO 1+ (NEGATIVE); BILIRUBIN, URINE AUTO NEGATIVE (NEGATIVE); BLOOD, URINE BLOOD NEGATIVE (NEGATIVE); GLUCOSE, URINE (UA) AUTO NEGATIVE (NEGATIVE); KETONE, URINE AUTO NEGATIVE (NEGATIVE); LEUKOCYTE ESTERASE, URINE AUTO 2+ (NEGATIVE); MUCUS, URINE MODERATE (NEGATIVE); NITRITE, URINE AUTO POSITIVE (NEGATIVE); PROTEIN, URINE AUTO NEGATIVE (NEGATIVE); RBC, URINE AUTO 2 /HPF (0-3); SPECIFIC GRAVITY URINE AUTO 1.026 (1.002-1.035); SQUAMOUS EPITHELIAL CELL UR AU 5 /HPF (0-6); UROBILINOGEN, URINE AUTO 0.2 mg/dL (0.0-2.0); WBC, URINE AUTO 24 /HPF (0-3)
== END ==
LOC: M SFHCPLAZ 11:29
PROVIDERS: ATTEND Internal Medicine Infectious Disease
DX: R30.0 Dysuria (principal)

== ENCOUNTER 2025-01-14 17:13 | Emergency (ER) | payer OTHER ==
[~2025-01-14] VITALS: Ht 162.6 cm; Wt 126.0 kg
[2025-01-14 17:44] VITALS: TEMP 99.2
[2025-01-14 18:02] LABS: BASO # 0.0 10^3/uL (0.0-0.2); BASO % 0.4 % (0.0-1.0); EOS # 0.1 10^3/uL (0.0-0.5); EOS % 1.1 % (0.0-3.0); LYMPH # 2.0 10^3/uL (1.5-5.0); LYMPH % 28.1 % (24.0-44.0); MONO # 0.5 10^3/uL (0.0-0.8); MONO % 6.8 % (2.0-8.0); NEUTROPHILS # 4.5 10^3/uL (1.5-8.5); NEUTROPHILS % 63.5 % (36.0-66.0); PLATELET COUNT, AUTOMATED 338 10^3/uL (150-450)
[2025-01-14 18:21] LABS: ETHYL ALCOHOL (ETHANOL) < 0.003 % (0.000-0.010)
[2025-01-14 18:22] LABS: ALT/SGPT 19 U/L (7.0-40); AST/SGOT 20 U/L (<34); CALCIUM LEVEL 8.2 MG/DL (8.5-10.1); CARBON DIOXIDE LEVEL 26 MMOL/L (20-31); CHLORIDE LEVEL 108 MMOL/L (98-107); CREATININE FOR GFR 0.88 MG/DL (0.55-1.30); GLOMERULAR FILTRATION RATE 76.6 (>51); POTASSIUM SERUM 4.9 MMOL/L (3.5-5.1); SALICYLATE LEVEL < 3.0 MG/DL (<30); SODIUM LEVEL 143 MMOL/L (136-145)
[2025-01-14 18:26] LABS: ABG BASE EXCESS -0.3 (-2.0-2.0); ABG HCO3 25.2 MMOL/L (22.0-26.0); ABG O2 SATURATION 96.6 % (95.0-99.0); ABG PARTIAL PRESSURE CO2 45.0 mmHg (35.0-45.0); ABG PARTIAL PRESSURE O2 93.0 mmHg (75.0-100.0); ABG STANDARD HCO3 24.2 MMOL/L. (22.0-26.0); ABG TOTAL CO2 26.6 MMOL/L (22.0-29.0); ABG pH (ARTERIAL) 7.366 UNITS (7.350-7.450)
[2025-01-14 18:43] LABS: BARBITURATES URINE NEGATIVE (NEGATIVE)
[2025-01-14 18:44] LABS: AMPHETAMINES LEVEL URINE NEGATIVE (NEGATIVE); BENZODIAZEPINES URINE NEGATIVE (NEGATIVE); COCAINE METABOLITE URINE NEGATIVE (NEGATIVE); METHADONE URINE NEGATIVE (NEGATIVE); OPIATES URINE NEGATIVE (NEGATIVE); PHENCYCLIDINE URINE NEGATIVE (NEGATIVE)
[2025-01-14 18:46] LABS: CANNABINOIDS URINE POSITIVE (NEGATIVE)
[2025-01-14 19:41] LABS: APPEARANCE, URINE HAZY (CLEAR); BACTERIA, URINE AUTO 1+ (NEGATIVE); BILIRUBIN, URINE AUTO NEGATIVE (NEGATIVE); BLOOD, URINE BLOOD NEGATIVE (NEGATIVE); GLUCOSE, URINE (UA) AUTO NEGATIVE (NEGATIVE); KETONE, URINE AUTO NEGATIVE (NEGATIVE); LEUKOCYTE ESTERASE, URINE AUTO 1+ (NEGATIVE); MUCUS, URINE SMALL (NEGATIVE); NITRITE, URINE AUTO NEGATIVE (NEGATIVE); PROTEIN, URINE AUTO NEGATIVE (NEGATIVE); RBC, URINE AUTO 1 /HPF (0-3); SPECIFIC GRAVITY URINE AUTO 1.024 (1.002-1.035); SQUAMOUS EPITHELIAL CELL UR AU 2 /HPF (0-6); UROBILINOGEN, URINE AUTO 2.0 mg/dL (0.0-2.0); WBC, URINE AUTO 22 /HPF (0-3)
[2025-01-14] MEDS: NS (Normal Saline) 0.9% 1,000 ML IV ONE (19:46)
[2025-01-14] MEDS: ACETAMINOPHEN 325 MG TAB PO ONE (21:25)
[2025-01-14 23:13] VITALS: BP 120/72; O2SAT 96
== END 2025-01-14 23:29 | disposition home or self-care (01) ==
LOC: M ED 17:13
DX: F12.120 Cannabis abuse with intoxication, uncomplicated (principal); I25.2 Old myocardial infarction; F43.10 Post-traumatic stress disorder, unspecified; F41.9 Anxiety disorder, unspecified; F32.9 Major depressive disorder, single episode, unspecified; Z98.84 Bariatric surgery status; Z86.79 Personal history of other diseases of the circulatory system; Z88.1 Allergy status to other antibiotic agents; Z88.8 Allergy status to other drugs, medicaments and biological substances; Z91.041 Radiographic dye allergy status; Z91.048 Other nonmedicinal substance allergy status; Z79.899 Other long term (current) drug therapy

== ENCOUNTER 2025-01-23 15:28 | Emergency (ER) | payer MEDICAID, OTHER ==
[~2025-01-23] VITALS: Ht 162.6 cm; Wt 126.0 kg
[2025-01-23] MEDS: ACETAMINOPHEN 500 MG TAB PO ONE (20:13)
[2025-01-23] MEDS: BENZOCAINE 20% GEL 9 GM TUBE TOP ONE (20:20)
[2025-01-23] MEDS ORDERED: CLEO150C PO (20:28)
[2025-01-23] MEDS: CLINDAMYCIN 150 MG CAPSULE PO ONE (20:48)
[2025-01-23] MEDS ORDERED: CLIN150C17 PO (20:53)
[2025-01-23 20:57] VITALS: BP 134/75; TEMP 96.6; O2SAT 96
== END 2025-01-23 20:58 | disposition home or self-care (01) ==
LOC: M ED 15:28
DX: R68.84 Jaw pain (principal); I25.2 Old myocardial infarction; K21.9 Gastro-esophageal reflux disease without esophagitis; G47.30 Sleep apnea, unspecified; K76.0 Fatty (change of) liver, not elsewhere classified; F32.A Depression, unspecified; F41.9 Anxiety disorder, unspecified; Z88.1 Allergy status to other antibiotic agents; Z88.8 Allergy status to other drugs, medicaments and biological substances; Z98.84 Bariatric surgery status; Z91.041 Radiographic dye allergy status; Z91.048 Other nonmedicinal substance allergy status; Z86.79 Personal history of other diseases of the circulatory system; Z79.899 Other long term (current) drug therapy

== ENCOUNTER → 2025-01-25 | Outpatient (REF) | payer OTHER ==
[~2025-01-25] MED LIST changes: +CLEO150C PO; +CLIN150C17 PO
[2025-01-25 13:19] LABS: APPEARANCE, URINE HAZY (CLEAR); BACTERIA, URINE AUTO NEGATIVE (NEGATIVE); BILIRUBIN, URINE AUTO NEGATIVE (NEGATIVE); BLOOD, URINE BLOOD NEGATIVE (NEGATIVE); GLUCOSE, URINE (UA) AUTO NEGATIVE (NEGATIVE); KETONE, URINE AUTO NEGATIVE (NEGATIVE); LEUKOCYTE ESTERASE, URINE AUTO 1+ (NEGATIVE); MUCUS, URINE SMALL (NEGATIVE); NITRITE, URINE AUTO NEGATIVE (NEGATIVE); PROTEIN, URINE AUTO NEGATIVE (NEGATIVE); RBC, URINE AUTO 0 /HPF (0-3); SPECIFIC GRAVITY URINE AUTO 1.032 (1.002-1.035); SQUAMOUS EPITHELIAL CELL UR AU 6 /HPF (0-6); UROBILINOGEN, URINE AUTO 0.2 mg/dL (0.0-2.0); WBC, URINE AUTO 4 /HPF (0-3)
[2025-01-25 13:30] LABS: BASO # 0.0 10^3/uL (0.0-0.2); BASO % 0.3 % (0.0-1.0); EOS # 0.1 10^3/uL (0.0-0.5); EOS % 1.3 % (0.0-3.0); LYMPH # 1.9 10^3/uL (1.5-5.0); LYMPH % 25.1 % (24.0-44.0); MONO # 0.7 10^3/uL (0.0-0.8); MONO % 9.3 % (2.0-8.0); NEUTROPHILS # 4.8 10^3/uL (1.5-8.5); NEUTROPHILS % 63.6 % (36.0-66.0); PLATELET COUNT, AUTOMATED 452 10^3/uL (150-450)
[2025-01-25 13:35] LABS: FREE T4 1.03 NG/DL (0.89-1.76)
[2025-01-25 13:37] LABS: TOTAL 25(OH) VITAMIN D 39.9 NG/ML (20.0-100.0)
[2025-01-25 13:42] LABS: ALT/SGPT 22 U/L (7.0-40); AST/SGOT 24 U/L (<34); CALCIUM LEVEL 9.1 MG/DL (8.5-10.1); CARBON DIOXIDE LEVEL 26 MMOL/L (20-31); CHLORIDE LEVEL 104 MMOL/L (98-107); CHOLESTEROL LEVEL 223 MG/DL (<200); CHOLESTEROL RISK RATIO 3.05 (<5); CREATININE FOR GFR 0.76 MG/DL (0.55-1.30); GLOMERULAR FILTRATION RATE > 90.0 (>51); LDL CHOLESTEROL 114.0 MG/DL (<100); NON-HDL-C 150.0 MG/DL; POTASSIUM SERUM 5.0 MMOL/L (3.5-5.1); SODIUM LEVEL 142 MMOL/L (136-145); TRIGLYCERIDES LEVEL 180 MG/DL (<150)
[2025-01-25 13:43] LABS: ESTIMATED AVERAGE GLUCOSE 111.0 MG/DL (60-110)
[2025-01-25 13:52] LABS: VITAMIN B12 LEVEL > 2000 PG/ML (211-911)
== END ==
LOC: M SFHCADAM 10:15
PROVIDERS: ATTEND Physician Assistant
DX: N39.0 Urinary tract infection, site not specified (principal); Z98.84 Bariatric surgery status; E03.9 Hypothyroidism, unspecified; E78.2 Mixed hyperlipidemia

== ENCOUNTER → 2025-02-18 | Outpatient (REF) | payer MEDICAID, OTHER ==
[2025-02-18 13:23] LABS: APPEARANCE, URINE TURBID (CLEAR); BACTERIA, URINE AUTO 2+ (NEGATIVE); BILIRUBIN, URINE AUTO NEGATIVE (NEGATIVE); BLOOD, URINE BLOOD NEGATIVE (NEGATIVE); CALCIUM OXALATE CRYSTALS LARGE; GLUCOSE, URINE (UA) AUTO NEGATIVE (NEGATIVE); KETONE, URINE AUTO TRACE mg/dL (NEGATIVE); LEUKOCYTE ESTERASE, URINE AUTO 2+ (NEGATIVE); MUCUS, URINE SMALL (NEGATIVE); NITRITE, URINE AUTO POSITIVE (NEGATIVE); PROTEIN, URINE AUTO 1+ mg/dL (NEGATIVE); RBC, URINE AUTO 3 /HPF (0-3); SPECIFIC GRAVITY URINE AUTO 1.028 (1.002-1.035); SQUAMOUS EPITHELIAL CELL UR AU 6 /HPF (0-6); UROBILINOGEN, URINE AUTO 2.0 mg/dL (0.0-2.0); WBC, URINE AUTO 62 /HPF (0-3)
== END ==
LOC: M SMT 12:54
PROVIDERS: ATTEND Urology
DX: Z87.440 Personal history of urinary (tract) infections (principal)

== ENCOUNTER → 2025-02-21 | Outpatient (CLI) | payer OTHER ==
[2025-02-21 17:51] LABS: BASO # 0.0 10^3/uL (0.0-0.2); BASO % 0.5 % (0.0-1.0); EOS # 0.1 10^3/uL (0.0-0.5); EOS % 1.4 % (0.0-3.0); LYMPH # 2.3 10^3/uL (1.5-5.0); LYMPH % 35.9 % (24.0-44.0); MONO # 0.5 10^3/uL (0.0-0.8); MONO % 7.6 % (2.0-8.0); NEUTROPHILS # 3.5 10^3/uL (1.5-8.5); NEUTROPHILS % 54.3 % (36.0-66.0); PLATELET COUNT, AUTOMATED 407 10^3/uL (150-450)
[2025-02-21 17:55] LABS: C REACTIVE PROTEIN QUANTITATIV < 0.50 MG/DL (<1.0)
[2025-02-21 17:56] LABS: CALCIUM LEVEL 9.1 MG/DL (8.5-10.1); CARBON DIOXIDE LEVEL 29 MMOL/L (20-31); CHLORIDE LEVEL 105 MMOL/L (98-107); CREATININE FOR GFR 0.83 MG/DL (0.55-1.30); GLOMERULAR FILTRATION RATE 82.2 (>51); POTASSIUM SERUM 5.2 MMOL/L (3.5-5.1); SODIUM LEVEL 141 MMOL/L (136-145)
== END ==
LOC: M LAB 16:46
PROVIDERS: ATTEND Internal Medicine Infectious Disease
DX: Z16.12 Extended spectrum beta lactamase (ESBL) resistance (principal); N39.0 Urinary tract infection, site not specified

== ENCOUNTER → 2025-03-02 | Outpatient (CLI) | payer OTHER ==
[~2025-03-02] MED LIST changes: -FISH10005 PO; +FISH1CAP38 PO
== END ==
LOC: M WHC 13:07
PROVIDERS: ATTEND Physician Assistant
DX: R92.2 Inconclusive mammogram (principal); N63.41 Unspecified lump in right breast, subareolar

== ENCOUNTER → 2025-03-15 | Outpatient (REF) | payer OTHER ==
[2025-03-15 15:09] LABS: APPEARANCE, URINE HAZY (CLEAR); BACTERIA, URINE AUTO 1+ (NEGATIVE); BILIRUBIN, URINE AUTO NEGATIVE (NEGATIVE); BLOOD, URINE BLOOD NEGATIVE (NEGATIVE); CALCIUM OXALATE CRYSTALS SMALL; GLUCOSE, URINE (UA) AUTO NEGATIVE (NEGATIVE); KETONE, URINE AUTO NEGATIVE (NEGATIVE); LEUKOCYTE ESTERASE, URINE AUTO 1+ (NEGATIVE); MUCUS, URINE SMALL (NEGATIVE); NITRITE, URINE AUTO POSITIVE (NEGATIVE); PROTEIN, URINE AUTO NEGATIVE (NEGATIVE); RBC, URINE AUTO 1 /HPF (0-3); SPECIFIC GRAVITY URINE AUTO 1.024 (1.002-1.035); SQUAMOUS EPITHELIAL CELL UR AU 0 /HPF (0-6); TRANSITIONAL EPITHELIAL AUTO <1 /HPF; UROBILINOGEN, URINE AUTO 0.2 mg/dL (0.0-2.0); WBC, URINE AUTO 17 /HPF (0-3)
== END ==
LOC: M SFHCPLAZ 13:34
PROVIDERS: ATTEND Internal Medicine Infectious Disease
DX: N39.0 Urinary tract infection, site not specified (principal)

== ENCOUNTER 2025-03-21 13:32 | Outpatient (CLI) | payer OTHER ==
[~2025-03-21] VITALS: Ht 162.6 cm; Wt 126.3 kg
[2025-03-21 15:05] VITALS: BP 145/69; O2SAT 98
[2025-03-21 15:35] VITALS: BP 116/61; O2SAT 99
[2025-03-21] MEDS: ERTAPENEM SODIUM 1 GM in NS MINI-BAG PLUS 50 ML IV SCH (16:01)
[2025-03-21] MEDS: SODIUM CHLORIDE 0.9% INJ 10 ML SYR IV PRN (16:01)
[2025-03-21 16:11] LABS: BASO # 0.0 10^3/uL (0.0-0.2); BASO % 0.5 % (0.0-1.0); EOS # 0.1 10^3/uL (0.0-0.5); EOS % 2.1 % (0.0-3.0); LYMPH # 2.1 10^3/uL (1.5-5.0); LYMPH % 35.7 % (24.0-44.0); MONO # 0.5 10^3/uL (0.0-0.8); MONO % 8.7 % (2.0-8.0); NEUTROPHILS # 3.1 10^3/uL (1.5-8.5); NEUTROPHILS % 52.8 % (36.0-66.0); PLATELET COUNT, AUTOMATED 366 10^3/uL (150-450)
[2025-03-21 16:40] LABS: ALT/SGPT 25 U/L (7.0-40); AST/SGOT 24 U/L (<34); CALCIUM LEVEL 8.5 MG/DL (8.5-10.1); CARBON DIOXIDE LEVEL 27 MMOL/L (20-31); CHLORIDE LEVEL 110 MMOL/L (98-107); CREATININE FOR GFR 0.73 MG/DL (0.55-1.30); GLOMERULAR FILTRATION RATE > 90.0 (>51); POTASSIUM SERUM 4.2 MMOL/L (3.5-5.1); SODIUM LEVEL 145 MMOL/L (136-145)
[2025-03-22] MEDS ORDERED: SODIUM CHLORIDE 0.9% INJ 10 ML SYR IV SCH (09:00)
[2025-03-22 11:16] LABS: IRON (FE) 27 UG/DL (50-170); PERCENT SATURATION 8.2 % (13.2-45.0)
== END 2025-03-21 17:05 | disposition home or self-care (01) ==
LOC: M INFU 13:32
PROVIDERS: ATTEND Internal Medicine Infectious Disease
DX: N39.0 Urinary tract infection, site not specified (principal); Z16.12 Extended spectrum beta lactamase (ESBL) resistance
CPT/HCPCS: 36415; 80053; 83550; 85025; 96365; J1335

== ENCOUNTER → 2025-03-21 | Outpatient (CLI) | payer OTHER | LOC: M IRPRO 13:38 | PROVIDERS: ATTEND Internal Medicine Infectious Disease | DX: N39.0 Urinary tract infection, site not specified (principal); E87.5 Hyperkalemia; Z53.9 Procedure and treatment not carried out, unspecified reason ==

== ENCOUNTER 2025-03-29 10:41 | Outpatient (CLI) | payer OTHER ==
[2025-03-29 11:15] VITALS: BP 140/86; O2SAT 96
== END 2025-03-29 11:45 | disposition home or self-care (01) ==
LOC: M INFU 10:41
PROVIDERS: ATTEND Internal Medicine Infectious Disease
DX: Z48.00 Encounter for change or removal of nonsurgical wound dressing (principal); Z88.1 Allergy status to other antibiotic agents; Z88.8 Allergy status to other drugs, medicaments and biological substances; Z91.09 Other allergy status, other than to drugs and biological substances; Z91.041 Radiographic dye allergy status

== ENCOUNTER 2025-03-31 11:17 | Emergency (ER) | payer OTHER ==
[~2025-03-31] VITALS: Ht 167.6 cm; Wt 124.0 kg
[2025-03-31] MEDS: diphenhydrAMINE 50 MG/ML VIAL IV ONE (11:46)
[2025-03-31] MEDS: ERTAPENEM SODIUM 1 GM in NS MINI-BAG PLUS 50 ML IV ONE (11:46)
[2025-03-31 12:53] VITALS: BP 140/80; TEMP 96.7; O2SAT 100
== END 2025-03-31 13:00 | disposition home or self-care (01) ==
LOC: M ED 11:17
DX: Z45.2 Encounter for adjustment and management of vascular access device (principal); G47.33 Obstructive sleep apnea (adult) (pediatric); F41.8 Other specified anxiety disorders; K21.9 Gastro-esophageal reflux disease without esophagitis; K76.0 Fatty (change of) liver, not elsewhere classified; E03.9 Hypothyroidism, unspecified; Z91.041 Radiographic dye allergy status; Z91.048 Other nonmedicinal substance allergy status; Z88.1 Allergy status to other antibiotic agents; Z88.8 Allergy status to other drugs, medicaments and biological substances; Z79.899 Other long term (current) drug therapy; Z79.891 Long term (current) use of opiate analgesic; Z79.890 Hormone replacement therapy
CPT/HCPCS: 96361; 96374; 99284; J1200; J1335

== ENCOUNTER 2025-04-02 09:27 | Emergency (ER) | payer OTHER ==
[~2025-04-02] VITALS: Ht 162.6 cm; Wt 123.7 kg
[2025-04-02] MEDS ORDERED: ERTA1INJ2 IV (10:28)
[2025-04-02] MEDS: ERTAPENEM SODIUM 1 GM in NS MINI-BAG PLUS 50 ML IV ONE (11:12)
[2025-04-02 12:05] VITALS: BP 118/70; TEMP 96.4; O2SAT 100
== END 2025-04-02 12:25 | disposition home or self-care (01) ==
LOC: M ED 09:27
DX: J15.1 Pneumonia due to Pseudomonas (principal); B96.1 Klebsiella pneumoniae [K. pneumoniae] as the cause of diseases classified elsewhere; Z79.2 Long term (current) use of antibiotics; Z88.0 Allergy status to penicillin; Z88.8 Allergy status to other drugs, medicaments and biological substances; Z91.048 Other nonmedicinal substance allergy status
CPT/HCPCS: 96365; 99284; J1335